=== PATIENT | male | born 1950 | race Caucasian/White ===

== ENCOUNTER 2021-03-16 08:20 | Outpatient (CLI) | payer SELFPAY | END 2021-03-16 08:21 | disposition critical access hospital (66) | LOC: EMS 08:20 | DX: R60.0 Localized edema (principal); R26.2 Difficulty in walking, not elsewhere classified; R06.01 Orthopnea | CPT/HCPCS: A0425; A0429 ==

== ENCOUNTER 2021-03-16 08:56 | Inpatient (IN) | payer SELFPAY ==
[2021-03-16] MEDS ORDERED: IPRATROPIUM/ALBUTEROL 3 ML NEB INH STA (09:10)
[2021-03-16] MEDS ORDERED: FUROSEMIDE 40 MG/4 ML VIAL IVP STA (09:10)
--- NOTE | 2021-03-16 09:11 | ED Physician Documentation ---
PD HPI DYSPNEA - Stated complaint Stated Complaint: DECREASED MOBILITY - Chief complaint Chief Complaint: Cardiac - History obtained from History obtained from: Patient, EMS - History of Present Illness Timing - onset: How many months ago (1-2 months of increased edema on both lower legs, hard to get around with general weakness from dyspnea and weight of legs/pain in them with walking. No purulence. Has weeping clear fluid from blisters on lower legs.) Timing - duration: Months (1-2 months progressive, with significant difficulty ambulating and marked dyspnea the past few days. He called EMS. He says he had been ambulatory, driving, and going to the store as recent as 2-3 months ago.) Timing - details: Gradual onset, Still present Inciting event(s): Exercise (just the level of activity of walking within house.). No: Out of meds, Emotional event Associated symptoms: Cough, Bilateral edema (progressive over 1-2 months.). No: Fever, Hemoptysis (but is coughing whitish at times.), Wheezing, Chest pain / discomfort Similar symptoms before: Has not had sx before Recently seen: Not recently seen (he does not like going to doctors so has not had PMD visit for years. He had been to walkin or such for refill of his ALbuterol inhaler.) Review of Systems Constitutional: reports: Myalgias, Fatigue. denies: Fever, Chills, Weight Loss Nose: denies: Rhinorrhea / runny nose, Congestion Throat: denies: Sore throat Cardiac: reports: Chest pain / pressure, Pedal edema. denies: Palpitations, Calf pain Respiratory: reports: Dyspnea, Cough, Wheezing GI: denies: Abdominal Pain, Vomiting, Diarrhea : denies: Dysuria, Frequency Skin: reports: Lesions (blisterings on lower legs with clear plasma weeping the past seeral days.) Musculoskeletal: reports: Extremity swelling. denies: Neck pain, Back pain Neurologic: reports: Generalized weakness, Altered mental status (feeling weaker and slower to process thoughts for several days or more.). denies: Focal weakness, Headache PD PAST MEDICAL HISTORY - Past Medical History Past Medical History: No Cardiovascular: None Respiratory: Asthma Neuro: None Endocrine/Autoimmune: None Psych: None - Present Medications Home Medications: Ambulatory Orders Medication Instructions Recorded Confirmed No Known Home Medications 03/16/21 03/16/21 - Allergies Allergies/Adverse Reactions: Allergies Allergy/AdvReac Type Severity Reaction Status Date / Time No Known Drug Allergies Allergy Verified 03/16/21 09:07 PD ED PE NORMAL - Vitals Vital signs reviewed: Yes - General General: Alert and oriented X 3, No acute distress, Well developed/nourished - HEENT HEENT: Atraumatic, Pharynx benign - Neck Neck: Supple, no meningeal sign, No adenopathy - Cardiac Cardiac: RRR, No murmur - Respiratory Respiratory: No: Clear bilaterally (some diffuse exp wheezing, noted also some fine crackles at both bases.) - Abdomen Abdomen: Normal bowel sounds, Soft, Non distended, No organomegaly, Other (tender epigastric without guarding. ) - Male Male : Deferred - Rectal Rectal: Deferred - Back Back: No CVA TTP - Derm Derm: Normal color, Warm and dry - Extremities Extremities: Other (3+ edema in both legs from knees on down. There is some tighhtness of skin anteriorly, but no redness/sores. No purulence, but some clear plasma fluid weeping front and back on lower lower legs.) - Neuro Neuro: Alert and oriented X 3, No motor deficit, Normal speech Results - Vitals Vitals: Vital Signs - 24 hr 03/16/21 03/16/21 03/16/21 09:01 09:14 09:44 Temperature 36.7 C Heart Rate 86 87 86 Respiratory 22 20 29 H Rate Blood Pressure 140/78 H 129/103 H 137/89 H O2 Saturation 97 98 100 03/16/21 03/16/21 09:50 11:35 Temperature Heart Rate 87 84 Respiratory 22 24 Rate Blood Pressure 146/93 H O2 Saturation 95 Oxygen O2 Source Room air - Labs Labs: Laboratory Tests 03/16/21 03/16/21 03/16/21 09:23 09:23 09:23 WBC 19.4 H RBC 4.29 L Hgb 13.7 L Hct 40.3 L MCV 93.9 MCH 31.9 H MCHC 34.0 RDW 11.7 L Plt Count 408 MPV 9.0 Neut # (Auto) Not Reportable Lymph # (Auto) Not Reportable [place] # (Auto) Not Reportable Eos # (Auto) Not Reportable Baso # (Auto) Not Reportable Absolute Nucleated RBC Not Reportable Total Counted 100 Band Neuts % (Manual) 1 Abnorm Lymph % (Manual) 0 Nucleated RBC % Not Reportable Neutrophils # (Manual) 16.5 H Lymphocytes # (Manual) 1.0 L Monocytes # (Manual) 1.7 H Eosinophils # (Manual) 0.0 Basophils # (Manual) 0.2 H Differential Comment MANUAL DIFFERENTIAL WBC Morphology 2+ TOXIC GRANULATION Platelet Estimate NORMAL (130-450,000) Platelet Morphology NORMAL APPEARANCE RBC Morph Micro Appear NORMAL APPEARANCE Sodium 117 L* Potassium 6.7 H* Chloride 89 L Carbon Dioxide 20 L Anion Gap 8.0 BUN 26 H Creatinine 1.1 Estimated GFR (MDRD) 66 L Glucose 109 H Lactic Acid Calcium 8.5 Magnesium 2.1 Total Bilirubin 1.0 AST 34 ALT 50 Alkaline Phosphatase 93 Total Creatine Kinase 53 Troponin I High Sens 5.9 B-Natriuretic Peptide Total Protein 5.5 L Albumin 2.6 L Globulin 2.9 Albumin/Globulin Ratio 0.9 L Lipase 48 Nasal Adenovirus (PCR) Nasal B. parapertussis DNA (PCR) Nasal Coronavir 229E PCR Nasal Coronavir HKU1 PCR Nasal Coronavir NL63 PCR Nasal Coronavir OC43 PCR Nasal Enterovir/Rhinovir PCR Nasal Influenza B PCR Nasal Influenza A PCR Nasal Parainfluen 1 PCR Nasal Parainfluen 2 PCR Nasal Parainfluen 3 PCR Nasal Parainfluen 4 PCR Nasal RSV (PCR) Nasal B.pertussis DNA PCR Nasal C.pneumoniae (PCR) [place] Human Metapneumo PCR Nasal M.pneumoniae (PCR) Nasal SARS-CoV-2 (PCR) 03/16/21 03/16/21 03/16/21 09:23 09:35 10:30 WBC RBC Hgb Hct MCV MCH MCHC RDW Plt Count MPV Neut # (Auto) Lymph # (Auto) [place] # (Auto) Eos # (Auto) Baso # (Auto) Absolute Nucleated RBC Total Counted Band Neuts % (Manual) Abnorm Lymph % (Manual) Nucleated RBC % Neutrophils # (Manual) Lymphocytes # (Manual) Monocytes # (Manual) Eosinophils # (Manual) Basophils # (Manual) Differential Comment WBC Morphology Platelet Estimate Platelet Morphology RBC Morph Micro Appear Sodium Potassium 6.2 H* Chloride Carbon Dioxide Anion Gap BUN Creatinine Estimated GFR (MDRD) Glucose Lactic Acid Calcium Magnesium Total Bilirubin AST ALT Alkaline Phosphatase Total Creatine Kinase Troponin I High Sens B-Natriuretic Peptide 37 Total Protein Albumin Globulin Albumin/Globulin Ratio Lipase Nasal Adenovirus (PCR) NOT DETECTED Nasal B. parapertussis DNA (PCR) NOT DETECTED Nasal Coronavir 229E PCR NOT DETECTED Nasal Coronavir HKU1 PCR NOT DETECTED Nasal Coronavir NL63 PCR NOT DETECTED Nasal Coronavir OC43 PCR NOT DETECTED Nasal Enterovir/Rhinovir PCR NOT DETECTED Nasal Influenza B PCR NOT DETECTED Nasal Influenza A PCR NOT DETECTED Nasal Parainfluen 1 PCR NOT DETECTED Nasal Parainfluen 2 PCR NOT DETECTED Nasal Parainfluen 3 PCR NOT DETECTED Nasal Parainfluen 4 PCR NOT DETECTED Nasal RSV (PCR) NOT DETECTED Nasal B.pertussis DNA PCR NOT DETECTED Nasal C.pneumoniae (PCR) NOT DETECTED [place] Human Metapneumo PCR NOT DETECTED Nasal M.pneumoniae (PCR) NOT DETECTED Nasal SARS-CoV-2 (PCR) NOT DETECTED 03/16/21 10:30 WBC RBC Hgb Hct MCV MCH MCHC RDW Plt Count MPV Neut # (Auto) Lymph # (Auto) [place] # (Auto) Eos # (Auto) Baso # (Auto) Absolute Nucleated RBC Total Counted Band Neuts % (Manual) Abnorm Lymph % (Manual) Nucleated RBC % Neutrophils # (Manual) Lymphocytes # (Manual) Monocytes # (Manual) Eosinophils # (Manual) Basophils # (Manual) Differential Comment WBC Morphology Platelet Estimate Platelet Morphology RBC Morph Micro Appear Sodium Potassium Chloride Carbon Dioxide Anion Gap BUN Creatinine Estimated GFR (MDRD) Glucose Lactic Acid 1.4 Calcium Magnesium Total Bilirubin AST ALT Alkaline Phosphatase Total Creatine Kinase Troponin I High Sens B-Natriuretic Peptide Total Protein Albumin Globulin Albumin/Globulin Ratio Lipase Nasal Adenovirus (PCR) Nasal B. parapertussis DNA (PCR) Nasal Coronavir 229E PCR Nasal Coronavir HKU1 PCR Nasal Coronavir NL63 PCR Nasal Coronavir OC43 PCR Nasal Enterovir/Rhinovir PCR Nasal Influenza B PCR Nasal Influenza A PCR Nasal Parainfluen 1 PCR Nasal Parainfluen 2 PCR Nasal Parainfluen 3 PCR Nasal Parainfluen 4 PCR Nasal RSV (PCR) Nasal B.pertussis DNA PCR Nasal C.pneumoniae (PCR) [place] Human Metapneumo PCR Nasal M.pneumoniae (PCR) Nasal SARS-CoV-2 (PCR) - Rads (name of study) chest xray Radiology: Prelim report reviewed (initial rotated, with repeat improved, showing no obvious CHF, no infiltrates. no acute process. ), See rad report PD MEDICAL DECISION MAKING - ED course Complexity details: reviewed results, re-evaluated patient, considered differential (seems like CHF with leg edema and dyspnea. But CXR not appearing bad and BNP low. Consider other reasons. Sodium very low and can account for weakness and feeling of confusion. ELevated K with normal enough renal insuff not really clear. ), d/w patient, d/w senior consultant Departure - Departure Disposition: 66 [facility] DC/Xfer Clinical Impression: Leg edema, COPD exacerbation, Bronchitis, Acute hyponatremia, Hyperkalemia Dyspnea Qualifiers: Dyspnea type: dyspnea on exertion Qualified Code(s): R06.00 - Dyspnea, unspecified Leukocytosis Qualifiers: Leukocytosis type: unspecified Qualified Code(s): D72.829 - Elevated white blood cell count, unspecified Condition: Stable Record reviewed to determine appropriate education?: Yes Discharge Date/Time: 03/16/21 13:05
[2021-03-16 09:30] LABS: BASOPHILS % (AUTO) 0.5 %; EOSINOPHILS % (AUTO) 0.4 %; HCT - HEMATOCRIT 40.3 % (42.0-52.0); HGB - HEMOGLOBIN 13.7 g/dL (14.0-18.0); LYMPHOCYTES % (AUTO) 3.5 %; MEAN CORPUSCULAR HEMOGLOBIN 31.9 pg (27.0-31.0); MEAN CORPUSCULAR VOLUME 93.9 fL (80.0-94.0); MONOCYTES % (AUTO) 8.8 %; NEUTROPHILS % (AUTO) 83.9 %; PLT - PLATELET COUNT 408 10^3/uL (130-450); RED BLOOD COUNT 4.29 10^6/uL (4.70-6.10); RED CELL DISTRIBUTION WIDTH 11.7 % (12.0-15.0); WHITE BLOOD COUNT 19.4 x10^3/uL (4.8-10.8)
[2021-03-16 09:32] LABS: ABNORMAL LYMPHS % (MANUAL) 0 %
--- NOTE | 2021-03-16 09:33 | XRAY Report ---
PROCEDURE: Chest 1 View X-Ray INDICATIONS: Chest Pain TECHNIQUE: One view of the chest was acquired. COMPARISON: None FINDINGS: Patient is markedly rotated. Surgical changes and devices: None. Lungs and pleura: Patient rotation limits evaluation. There is apparent lucency within the left base. However there appears to be lung markings within this region. Mediastinum: Mediastinal contours appear normal. Heart size is normal. Bones and chest wall: No suspicious bony lesions. Overlying soft tissues appear unremarkable. IMPRESSION: Significant patient rotation, limiting exam. No gross acute pulmonary process. However, repeat view i s recommended. Reviewed by: Laurie Torres MD on 03/16/2021 8:32 AM [facility] Approved by: Laurie Torres MD on 03/16/2021 8:32 AM [facility] Station ID: [id number]
[2021-03-16 09:57] LABS: ALBUMIN 2.6 g/dL (3.2-5.5); ALBUMIN/GLOBULIN RATIO 0.9 (1.0-2.2); CALCIUM 8.5 mg/dL (8.5-10.3); CREATININE 1.1 mg/dL (0.6-1.2); MAGNESIUM 2.1 mg/dL (1.7-2.8); TOTAL PROTEIN 5.5 g/dL (6.7-8.2)
[2021-03-16 10:03] LABS: POTASSIUM 6.7 mmol/L (3.5-5.0)
[2021-03-16 10:07] LABS: BAND NEUTROPHILS % (MANUAL) 1 %; BASOPHILS # (MANUAL) 0.2 10^3/uL (0-0.1); BASOPHILS % (MANUAL) 1 %; LYMPHOCYTES % (MANUAL) 5 %; MONOCYTES # (MANUAL) 1.7 10^3/uL (0.0-1.0); NEUTROPHILS # (MANUAL) 16.5 10^3/uL (1.5-6.6)
[2021-03-16 10:08] LABS: DIFFERENTIAL COMMENT MANUAL DIFFERENTIAL; PLATELET ESTIMATE, MANUAL NORMAL (130-450,000) (NORMAL); PLATELET MORPHOLOGY NORMAL APPEARANCE (NORMAL); RBC MORPHOLOGY (MULTIPLE) NORMAL APPEARANCE (NORMAL); WBC MORPHOLOGY (MULTIPLE) 2+ TOXIC GRANULATION (NORMAL)
--- OUTSIDE RECORDS SUMMARY | 2021-03-16 10:10 | EXTERNAL MEDICAL SUMMARY RPT | Continuity of Care Document ---
:1950 Demographics Phone Unavailable Preferred Language Unknown Marital Status Unknown Religion Affiliation Unknown Race Unknown Ethnic Group Unknown Author Organization [facility] Address [address] [id number] Phone Social History date description facility [phone]
[2021-03-16] MEDS ORDERED: SODIUM CHLORIDE 0.9% 1,000 ML IV STA (10:48)
[2021-03-16] MEDS ORDERED: CALCIUM GLUCONATE 1,000 MG in SODIUM CHLORIDE 0.9% 50 ML IV STA (10:48)
[2021-03-16] MEDS ORDERED: INSULIN REGULAR HUMAN 100 UNIT/1 ML 10 ML MDV IVP STA (10:49)
[2021-03-16] MEDS ORDERED: DEXTROSE 25% ABBOJECT 2.5 GM/10 ML SYRINGE IVP STA (10:50)
[2021-03-16 11:00] LABS: B. PARAPERTUSSIS- RESP PCR PAN NOT DETECTED; B. PERTUSSIS- RESP PCR PANEL NOT DETECTED; C. PNEUMONIAE- RESP PCR PANEL NOT DETECTED; CORONAVIRUS 229E-RESP PCR NOT DETECTED; CORONAVIRUS HKU1-RESP PCR NOT DETECTED; CORONAVIRUS NL63-RESP PCR NOT DETECTED; CORONAVIRUS OC43-RESP PCR NOT DETECTED; HUMAN METAPNEUMOVIRUS NOT DETECTED; INFLUENZA A- RESP PCR PANEL NOT DETECTED; INFLUENZA B - RESP PCR PANEL NOT DETECTED; M. PNEUMONIAE- RESP PCR PANEL NOT DETECTED; PARAINFLUENZA VIRUS 1 NOT DETECTED; PARAINFLUENZA VIRUS 2 NOT DETECTED; PARAINFLUENZA VIRUS 3 NOT DETECTED; PARAINFLUENZA VIRUS 4 NOT DETECTED; RHINOVIRUS/ENTEROVIRUS NOT DETECTED; RSV- RESP PCR PANEL NOT DETECTED; SARS-CoV-2 -RESP PCR PANEL NOT DETECTED
[2021-03-16] MEDS ORDERED: CALCIUM GLUCONATE 1000 MG/10 ML VIAL ONE (11:04)
[2021-03-16] MEDS ORDERED: DEXTROSE 5% 50 ML IV ONE (12:00)
[2021-03-16] MEDS ORDERED: ONDANSETRON ODT 4 MG TABLET TL PRN (12:14)
[2021-03-16] MEDS ORDERED: ONDANSETRON 4 MG/2 ML VIAL IVP PRN (12:14)
[2021-03-16] MEDS ORDERED: SODIUM CHLORIDE FLUSH 0.9% 10 ML SYRINGE IVP PRN (12:14)
[2021-03-16] MEDS ORDERED: oxyCODONE 5 MG TABLET PO PRN (12:14)
[2021-03-16 14:30] LABS: CALCIUM 8.7 mg/dL (8.5-10.3); CREATININE 1.3 mg/dL (0.6-1.2)
[2021-03-16] MEDS ORDERED: IOPAMIDOL-300 100 ML VIAL ONE ×2 (14:47→16:45)
--- NOTE | 2021-03-16 15:27 | HISTORY & PHYSICAL EXAMINATION ---
Chief Complaint - Chief Complaint Chief Complaint: SOB, Lower leg Swelling History of Present Illness - Admitted From Admitted From:: Brought in by EMS - History Obtained From Records Reviewed: [facility] History obtained from: Patient, ED Provider Exam Limitations: None - History of Present Illness HPI Comment/Other: Rodolfo is a 70 y.o. male brought in by EMS for worsening shortness of breath, increased work of breathing, and lower leg swelling. SOB, increased WOB, cough, and leg swelling has progressed over the past 3 months, though he states none of these issues have acutely changed. Pt tells, me he called EMS because his son Peter was worried about him surviving to his granddaughters in April. He denies chest pain or pressure, diaphoresis, numbness or tingling, headache, acute respiratory distress, fever, or chills. He has been using an albuterol inhaler for his SOB, and WOB which he says does help. He has poor appetite over the past month, only eating soda crackers and peanut butter through the day. He currently drinks 6 beers a day, stating last drink was yesterday evening. He presents to the ED with 3+ pitting edema in lower extremities with evidence of venous status. Labs were significant for potassium of 6.2 on confirmation repeat, Sodium of 117, WBC of 19. His CXR was unremarkable and CTA of Chest and Abdomen are pending at this time. Though there is significant artifact his EKG does show normal sinus rhythm. History - Past Medical History Cardiovascular: reports: None Respiratory: reports: None, Other (Has had annual "cold" for which he gets alberuterol prescribed from [facility]) Neuro: reports: None Endocrine/Autoimmune: reports: None GI: reports: None : reports: None Psych: reports: None Musculoskeletal: reports: None Derm: reports: None, Other MRSA Hx?: No - Past Surgical History HEENT: reports: Tonsil/Adenoidectomy - Family & Social History Family History: Mother: , Father: , COPD/Emphysema, Brother: Alive and Well Family History Comment/Other: Pts in 2000. He currently lives alone with his younger brother. His brother moved in approximately 3-4 months ago. He son, Torres lives locally. Living arrangement: At home Living Situation: With family - Substance History Use: Uses substance without health or social issues: Tobacco (2 pack per day smoking history. Quit in 2000), Alcohol (Drinks a six pack of beer a day. With last drink yesturday evening. ) Abuse: Recurrent use of substance despite neg consequences: NONE Dependence: Experiences withdrawal or developed tolerances: NONE, Other (States has never experienced alcohol withdrawal) Tobacco Details: Cigarettes, Other (Quit in 2000) - POLST Patient has POLST: No Meds/Allgy - Home Medications Home Medications: Ambulatory Orders Medication Instructions Recorded Confirmed No Known Home Medications 03/16/21 03/16/21 - Allergies Allergies/Adverse Reactions: Allergies Allergy/AdvReac Type Severity Reaction Status Date / Time No Known Drug Allergies Allergy Verified 03/16/21 09:07 Review of Systems - Constitutional Constitutional: reports: Weakness, Poor appetite. denies: Fatigue, Fever, Chills - Eyes Eyes: reports: Corrective lenses, Other (States increased difficulty reading in the last week) - Ears, Nose & Throat Ears, Nose & Throat: reports: Vertigo (balance issues associated only when tr elena to go down stairs.). denies: Ear pain - Cardiovascular Cariovascular: reports: Edema, Exertional dyspnea, Decr. exercise tolerance. denies: Irregular heart rate, Palpitations, Chest pain - Respiratory Respiratory: reports: Cough, Sputum production (clear white phlegm, occurs in the morning and easily cleared with cough) - Gastrointestinal Gastrointestinal: reports: Diarrhea (1-2 liquid stools a day), Poor appetite (States he only eatting). denies: Abdominal pain, Abdominal distention, Constipation, Nausea, Vomiting - Genitourinary Genitourinary: reports: Incontinence (occassional with nocturia, thinks this might be more related to difficulty getting to bathroom), Nocturia (1-2 urinations a night) - Musculoskeletal Musculoskeletal: denies: Muscle pain, Back pain, Stiffness - Neurological Neurological: denies: General weakness, Headache, Numbness - Psychiatric Psychiatric: denies: Depression, Anxiety, Suicidal - Hematologic/Lymphatic Hematologic/Lymphatic: reports: Petechiae. denies: Bruising, Blood clots Prior Level of Functionality: Rodolfo currently lives on his alone with his brother. Over past month has increased mobility difficulties and has been regulated to his futon. Exam - Vital Signs Reviewed Vital Signs: Yes Vital Signs: Vital Signs x48h Temp Pulse Resp BP Pulse Ox 03/16/21 13:00 93 28 H 132/81 H 99 03/16/21 11:35 84 24 146/93 H 95 03/16/21 09:50 87 22 03/16/21 09:44 86 29 H 137/89 H 100 03/16/21 09:14 87 20 129/103 H 98 03/16/21 09:01 36.7 C 86 22 140/78 H 97 - Physical Exam General Appearance: positive: No acute distress (Pt is 5'8" 85.5kg), Alert, Mild distress, Anxious (mild) Eyes Bilateral: positive: Normal inspection Neck: positive: Nml inspection Respiratory: positive: No respiratory distress, Other (barrel chested with pursed lip breathing. Diminished breath sounds bilaterally in lower shi.). negative: Chest non-tender Cardiovascular: positive: Regular rate & rhythm, No murmur, No gallop, Decreased pulse(s), Other (Distant heart sounds.) Peripheral Pulses: positive: 2+ (Radial), Other (1+ in BLE) Abdomen: positive: Non-tender, No organomegaly, Nml bowel sounds Back: positive: Nml inspection Skin: positive: Other (Venous stasis present bilaterally in lower extremities. Small petchiae present on upper thighs bilaterally.) Extremities: positive: Pedal edema, Calf tenderness Neurologic/Psychiatric: positive: Oriented x3, CN's nml (2-12), Sensation nml, Other (Tremor visible in BUE without arm extension) Conclusion/Plan - Problem List (1) Hyperkalemia Conclusion/Plan: Patient received IV insulin and calcium gluconate in the ED to treat elevated p otassium but did not receive dextrose per protocol. Suspect hyperkalemia is related to alcohol use and immobility. Will recheck BMP to reassess potassium level and glucose level. Will also add on CPK to assess for rhabdo which may be precipitating his hyperkalemic state. (2) Acute hyponatremia Conclusion/Plan: Concern this is not acute, but might be chronic is the setting of buttermaker continuous churn alcohol abuse. Pt currently has no neuro deficits execpt tremors, which likely related to alcohol abuse. Creatinine is 1.1 on admission, but no previous labs for comparison. Plan to provide gentle hydration and monitor trend with daily BMP to avoid overcorrection. (3) Dyspnea Conclusion/Plan: Likely related to worsening undiagnosed COPD. BNP level was normal. CXR showed no acute changes. Waiting on CTA to rule out PE. Will order echo to evaluate cardiac function. Qualifiers: Dyspnea type: dyspnea on exertion Qualified Code(s): R06.00 - Dyspnea, unspecified (4) Leukocytosis Conclusion/Plan: Elevated WBC without other signs of infection. Will monitor daily CBC. If patient presents with any other s/s of infection will order blood cultures and start empiric antibiotics. Qualifiers: Leukocytosis type: unspecified Qualified Code(s): D72.829 - Elevated white blood cell count, unspecified (5) Leg edema Conclusion/Plan: Supsect this is related to history alcohol abuse, Creatinine is slighted elevated but we do not have any previous labs for comparison. 3+ pitting edema BLE. Responded to well to IV lasix given in the ED. Will continue scheduled lasix, elevate his legs as able, and monitor for signs of intravascular depletion. (6) Alcohol abuse Conclusion/Plan: Pt currently drinks 6 beers a day, with last drink yesterday evening. We will place him on CIWAA protocol and replace thiamine and magnesium. Will check coagulation panel. - Lab Results Fish Bones: 03/16/21 09:23 03/16/21 14:11 Other Lab Results: Laboratory Results - last 24 hr 03/16/21 03/16/21 03/16/21 09:23 09:23 09:23 WBC 19.4 H RBC 4.29 L Hgb 13.7 L Hct 40.3 L MCV 93.9 MCH 31.9 H MCHC 34.0 RDW 11.7 L Plt Count 408 MPV 9.0 Neut # (Auto) Not Reportable Lymph # (Auto) Not Reportable Gulf # (Auto) Not Reportable Eos # (Auto) Not Reportable Baso # (Auto) Not Reportable Absolute Nucleated RBC Not Reportable Total Counted 100 Band Neuts % (Manual) 1 Abnorm Lymph % (Manual) 0 Nucleated RBC % Not Reportable Neutrophils # (Manual) 16.5 H Lymphocytes # (Manual) 1.0 L Monocytes # (Manual) 1.7 H Eosinophils # (Manual) 0.0 Basophils # (Manual) 0.2 H Differential Comment MANUAL DIFFERENTIAL WBC Morphology 2+ TOXIC GRANULATION Platelet Estimate NORMAL (130-450,000) Platelet Morphology NORMAL APPEARANCE RBC Morph Micro Appear NORMAL APPEARANCE Sodium 117 L* Potassium 6.7 H* Chloride 89 L Carbon Dioxide 20 L Anion Gap 8.0 BUN 26 H Creatinine 1.1 Estimated GFR (MDRD) 66 L Glucose 109 H Lactic Acid Calcium 8.5 Magnesium 2.1 Total Bilirubin 1.0 AST 34 ALT 50 Alkaline Phosphatase 93 Total Creatine Kinase 53 Troponin I High Sens 5.9 B-Natriuretic Peptide Total Protein 5.5 L Albumin 2.6 L Globulin 2.9 Albumin/Globulin Ratio 0.9 L Lipase 48 TSH Cortisol 4pm Sample Nasal Adenovirus (PCR) Nasal B. parapertussis DNA (PCR) Nasal Coronavir 229E PCR Nasal Coronavir HKU1 PCR Nasal Coronavir NL63 PCR Nasal Coronavir OC43 PCR Nasal Enterovir/Rhinovir PCR Nasal Influenza B PCR Nasal Influenza A PCR Nasal Parainfluen 1 PCR Nasal Parainfluen 2 PCR Nasal Parainfluen 3 PCR Nasal Parainfluen 4 PCR Nasal RSV (PCR) Nasal B.pertussis DNA PCR Nasal C.pneumoniae (PCR) Edouard Human Metapneumo PCR Nasal M.pneumoniae (PCR) Nasal SARS-CoV-2 (PCR) 03/16/21 03/16/21 03/16/21 09:23 09:35 10:30 WBC RBC Hgb Hct MCV MCH MCHC RDW Plt Count MPV Neut # (Auto) Lymph # (Auto) Gulf # (Auto) Eos # (Auto) Baso # (Auto) Absolute Nucleated RBC Total Counted Band Neuts % (Manual) Abnorm Lymph % (Manual) Nucleated RBC % Neutrophils # (Manual) Lymphocytes # (Manual) Monocytes # (Manual) Eosinophils # (Manual) Basophils # (Manual) Differential Comment WBC Morphology Platelet Estimate Platelet Morphology RBC Morph Micro Appear Sodium Potassium 6.2 H* Chloride Carbon Dioxide Anion Gap BUN Creatinine Estimated GFR (MDRD) Glucose Lactic Acid Calcium Magnesium Total Bilirubin AST ALT Alkaline Phosphatase Total Creatine Kinase Troponin I High Sens B-Natriuretic Peptide 37 Total Protein Albumin Globulin Albumin/Globulin Ratio Lipase TSH Cortisol 4pm Sample Nasal Adenovirus (PCR) NOT DETECTED Nasal B. parapertussis DNA (PCR) NOT DETECTED Nasal Coronavir 229E PCR NOT DETECTED Nasal Coronavir HKU1 PCR NOT DETECTED Nasal Coronavir NL63 PCR NOT DETECTED Nasal Coronavir OC43 PCR NOT DETECTED Nasal Enterovir/Rhinovir PCR NOT DETECTED Nasal Influenza B PCR NOT DETECTED Nasal Influenza A PCR NOT DETECTED Nasal Parainfluen 1 PCR NOT DETECTED Nasal Parainfluen 2 PCR NOT DETECTED Nasal Parainfluen 3 PCR NOT DETECTED Nasal Parainfluen 4 PCR NOT DETECTED Nasal RSV (PCR) NOT DETECTED Nasal B.pertussis DNA PCR NOT DETECTED Nasal C.pneumoniae (PCR) NOT DETECTED Edouard Human Metapneumo PCR NOT DETECTED Nasal M.pneumoniae (PCR) NOT DETECTED Nasal SARS-CoV-2 (PCR) NOT DETECTED 03/16/21 03/16/21 03/16/21 10:30 14:11 14:11 WBC RBC Hgb Hct MCV MCH MCHC RDW Plt Count MPV Neut # (Auto) Lymph # (Auto) Gulf # (Auto) Eos # (Auto) Baso # (Auto) Absolute Nucleated RBC Total Counted Band Neuts % (Manual) Abnorm Lymph % (Manual) Nucleated RBC % Neutrophils # (Manual) Lymphocytes # (Manual) Monocytes # (Manual) Eosinophils # (Manual) Basophils # (Manual) Differential Comment WBC Morphology Platelet Estimate Platelet Morphology RBC Morph Micro Appear Sodium 121 L Potassium 6.0 H* Chloride 90 L Carbon Dioxide 21 Anion Gap 10.0 BUN 30 H Creatinine 1.3 H Estimated GFR (MDRD) 54 L Glucose 133 H Lactic Acid 1.4 Calcium 8.7 Magnesium Total Bilirubin AST ALT Alkaline Phosphatase Total Creatine Kinase Troponin I High Sens B-Natriuretic Peptide Total Protein Albumin Globulin Albumin/Globulin Ratio Lipase TSH 4.30 Cortisol 4pm Sample Nasal Adenovirus (PCR) Nasal B. parapertussis DNA (PCR) Nasal Coronavir 229E PCR Nasal Coronavir HKU1 PCR Nasal Coronavir NL63 PCR Nasal Coronavir OC43 PCR Nasal Enterovir/Rhinovir PCR Nasal Influenza B PCR Nasal Influenza A PCR Nasal Parainfluen 1 PCR Nasal Parainfluen 2 PCR Nasal Parainfluen 3 PCR Nasal Parainfluen 4 PCR Nasal RSV (PCR) Nasal B.pertussis DNA PCR Nasal C.pneumoniae (PCR) Edouard Human Metapneumo PCR Nasal M.pneumoniae (PCR) Nasal SARS-CoV-2 (PCR) 03/16/21 03/16/21 16:03 16:03 WBC RBC Hgb Hct MCV MCH MCHC RDW Plt Count MPV Neut # (Auto) Lymph # (Auto) Gulf # (Auto) Eos # (Auto) Baso # (Auto) Absolute Nucleated RBC Total Counted Band Neuts % (Manual) Abnorm Lymph % (Manual) Nucleated RBC % Neutrophils # (Manual) Lymphocytes # (Manual) Monocytes # (Manual) Eosinophils # (Manual) Basophils # (Manual) Differential Comment WBC Morphology Platelet Estimate Platelet Morphology RBC Morph Micro Appear Sodium Potassium Chloride Carbon Dioxide Anion Gap BUN Creatinine Estimated GFR (MDRD) Glucose Lactic Acid Calcium Magnesium Total Bilirubin AST ALT Alkaline Phosphatase Total Creatine Kinase 75 Troponin I High Sens B-Natriuretic Peptide Total Protein Albumin Globulin Albumin/Globulin Ratio Lipase TSH Cortisol 4pm Sample 35.9 Nasal Adenovirus (PCR) Nasal B. parapertussis DNA (PCR) Nasal Coronavir 229E PCR Nasal Coronavir HKU1 PCR Nasal Coronavir NL63 PCR Nasal Coronavir OC43 PCR Nasal Enterovir/Rhinovir PCR Nasal Influenza B PCR Nasal Influenza A PCR Nasal Parainfluen 1 PCR Nasal Parainfluen 2 PCR Nasal Parainfluen 3 PCR Nasal Parainfluen 4 PCR Nasal RSV (PCR) Nasal B.pertussis DNA PCR Nasal C.pneumoniae (PCR) Edouard Human Metapneumo PCR Nasal M.pneumoniae (PCR) Nasal SARS-CoV-2 (PCR) - Diagnostic Imaging Results Diagnostic Imaging Results: positive: Prelim report reviewed Diagnostic Imaging Results Comments: CXR does not show and acute changes. - EKG Results EKG Interpreted Independently: Yes EKG Comparison: Old EKG unavailable EKG Findings: NSR
[2021-03-16] MEDS ORDERED: MAGNESIUM SULFATE 2 GRAM 2 GM/50 ML BAG IV ONE (16:00)
--- NOTE | 2021-03-16 17:26 | CT Report ---
PROCEDURE: ANGIO CHEST W/WO INDICATIONS: hypoxia, sob leg edema CONTRAST: IV CONTRAST: Isovue 300 ml: 100 PO CONTRAST: *NO PO CONTRAST TECHNIQUE: After the administration of intravenous contrast, 2 mm thick sections acquired from the pulmonary api keagan to the posterior costophrenic angles. 3-dimensional maximum intensity projection (MIP) coronal a nd sagittal reformats were then acquired through the thorax. For radiation dose reduction, the follow ing was used: automated exposure control, adjustment of mA and/or kV according to patient size. COMPARISON: Chest x-ray 03/16/2021 FINDINGS: Image quality: Excellent. Pulmonary arteries: Pulmonary arteries are normal in size, and demonstrate no intraluminal filling d efects to suggest central pulmonary embolism. Lungs and pleura: 6 mm nodule adjacent to the right major fissure on series 3 image 146 is present. N o pleural effusions or pneumothorax. Central and peripheral airways are patent. Mediastinum: Heart size is normal, without pericardial effusion. No mediastinal or hilar adenopathy . Thoracic aorta is normal in caliber and enhancement. Esophagus is normal in caliber, without hiat al hernia. Bones and chest wall: No suspicious bony lesions. Ribs and thoracic spine appear intact throughout. The thyroid is normal. No axillary or supraclavicular adenopathy. Abdomen: Liver is mildly enlarged with steatosis. There is a right adrenal mass measuring 2.5 cm AP by 2.4 cm transverse. Hounsfield units measure -28. Otherwise, visualized upper abdominal solid organ s appear normal in the early arterial phase of enhancement. IMPRESSION: 1. No pulmonary embolism. 2. Lungs are clear. 3. Right adrenal mass with Hounsfield units consistent with fat most suggestive of adenoma. Reviewed by: Laurie Torres MD on 03/16/2021 4:24 PM GUME Approved by: Laurie Torres MD on 03/16/2021 4:24 PM AKDT Station ID: [id number]
--- NOTE | 2021-03-16 17:28 | CT Report ---
PROCEDURE: Abdomen/Pelvis W INDICATIONS: severe leg edema w/o chf CONTRAST: IV CONTRAST: Isovue 300 ml: 100 PO CONTRAST: *NO PO CONTRAST TECHNIQUE: After the administration of intravenous contrast, 5 mm thick sections acquired from the diaphragms to the symphysis. 5 mm thick coronal and sagittal reformats were acquired. For radiation dose reducti on, the following was used: automated exposure control, adjustment of mA and/or kV according to marcelo ent size. COMPARISON: Concurrent CT of the chest. FINDINGS: Image quality: There is mild motion artifact. ABDOMEN: Lung bases: There is scarring within the inferior right middle lobe. Heart size is normal. Solid organs: There is heterogeneous hypoattenuation of the liver likely reflecting fatty infiltratio n. Gallbladder appears within normal limits without calcified gallstones. Biliary system is non dilat ed. The spleen is normal in size. Pancreas enhances normally without peripancreatic fat stranding or fluid collections. There is a right adrenal nodule measuring up to 2.6 cm with attenuation values s uggestive of a lipid rich adenoma. Kidneys demonstrate no hydronephrosis. There is a small left renal cyst. Peritoneum and bowel: Bowel loops demonstrate normal wall thickness and caliber. The appendix is nor mal in appearance. There is colonic diverticulosis without acute diverticulitis. No free fluid or ai r. Nodes and vessels: No retroperitoneal or mesenteric adenopathy by size criteria. Aorta and inferior vena cava are normal in size. Miscellaneous: No ventral hernias. PELVIS: Genitourinary: Bladder wall thickness is normal. Miscellaneous: No inguinal hernias or adenopathy. Bones: No suspicious bony lesions. No vertebral body compression fractures. IMPRESSION: 1. No definite acute intra-abdominal abnormality. 2. Colonic diverticulosis without acute diverticulitis. 3. Indeterminate right adrenal nodule with attenuation values suggestive of an adenoma. Further wisam cterization may be obtained with an adrenal protocol MRI or CT if clinically indicated. 4. Hepatic steatosis. Reviewed by: Valdemar Samaniego MD on 03/16/2021 5:27 PM PDT Approved by: Valdemar Samaniego MD on 03/16/2021 5:27 PM PDT Station ID: [id number]
[2021-03-16] MEDS: SODIUM CHLORIDE FLUSH 0.9% 10 ML SYRINGE IVP SCH ×2 (17:44→23:35)
[2021-03-16 21:48] LABS: MUDS CUTOFF CONCENTRATIONS CUTOFF CONC BELOW:
[2021-03-16 21:50] LABS: BILIRUBIN,URINE NEGATIVE (NEGATIVE); GLUCOSE, URINE (UA) NEGATIVE (NEGATIVE); KETONES,URINE (UA) NEGATIVE (NEGATIVE); LEUKOCYTE ESTERASE, URINE NEGATIVE (NEGATIVE); NITRITE,URINE NEGATIVE (NEGATIVE); OCCULT BLOOD,URINE NEGATIVE (NEGATIVE); PH,URINE 5.5 PH (5.0-7.5); PROTEIN,URINE NEGATIVE (NEGATIVE); UROBILINOGEN,URINE 0.2 (NORMAL) E.U./dL (NORMAL)
[2021-03-16 21:54] LABS: CLARITY,URINE CLEAR (CLEAR)
[2021-03-16 22:01] LABS: AMPHETAMINE SCREEN,URINE NEGATIVE (NEGATIVE); BARBITURATE SCREEN,UR NEGATIVE (NEGATIVE); BENZODIAZEPINES SCREEN, URINE NEGATIVE (NEGATIVE); COCAINE SCREEN URINE NEGATIVE (NEGATIVE); METHADONE SCREEN, URINE NEGATIVE (NEGATIVE); METHAMPHETAMINES SCREEN, URINE NEGATIVE (NEGATIVE); OPIATE SCREEN, URINE NEGATIVE (NEGATIVE); OXYCODONE SCREEN, URINE NEGATIVE (NEGATIVE); PROPOXYPHENE SCREEN, URINE NEGATIVE (NEGATIVE); THC CANNABINOID SCREEN, URINE NEGATIVE (NEGATIVE); TRICYCLIC ANTIDEPRESSANT,URINE NEGATIVE (NEGATIVE)
[2021-03-16 22:24] LABS: CALCIUM 8.4 mg/dL (8.5-10.3); CREATININE 1.1 mg/dL (0.6-1.2); POTASSIUM 5.3 mmol/L (3.5-5.0)
[2021-03-16] MEDS ORDERED: IOPAMIDOL-300 100 ML VIAL IVP ONE (22:28)
[2021-03-17] MEDS: BENZONATATE 100 MG CAPSULE PO PRN ×2 (00:01→17:39)
[2021-03-17] MEDS: ACETAMINOPHEN 325 MG TABLET PO PRN ×2 (00:01→17:39)
[2021-03-17] MEDS ORDERED: MIN OIL/DIMETHICON/COCONUT OIL 92 GM TUBE TOP PRN (05:06)
[2021-03-17 06:18] LABS: BASOPHILS % (AUTO) 0.3 %; EOSINOPHILS % (AUTO) 0.5 %; HCT - HEMATOCRIT 33.8 % (42.0-52.0); HGB - HEMOGLOBIN 11.9 g/dL (14.0-18.0); LYMPHOCYTES % (AUTO) 5.7 %; MEAN CORPUSCULAR HEMOGLOBIN 32.3 pg (27.0-31.0); MEAN CORPUSCULAR HGB CONC 35.2 g/dL (32.0-36.0); MEAN CORPUSCULAR VOLUME 91.8 fL (80.0-94.0); MEAN PLATELET VOLUME 8.8 fL (7.4-11.4); MONOCYTES % (AUTO) 14.5 %; NEUTROPHILS % (AUTO) 76.8 %; PLT - PLATELET COUNT 348 10^3/uL (130-450); RED BLOOD COUNT 3.68 10^6/uL (4.70-6.10); RED CELL DISTRIBUTION WIDTH 11.8 % (12.0-15.0); WHITE BLOOD COUNT 12.9 x10^3/uL (4.8-10.8)
[2021-03-17 06:23] LABS: ABNORMAL LYMPHS % (MANUAL) 0 %
[2021-03-17 06:52] LABS: CREATININE 1.2 mg/dL (0.6-1.2); MAGNESIUM 2.7 mg/dL (1.7-2.8); PHOSPHORUS 4.2 mg/dL (2.5-4.6); POTASSIUM 5.1 mmol/L (3.5-5.0)
[2021-03-17 07:12] LABS: BAND NEUTROPHILS % (MANUAL) 1 %; DIFFERENTIAL COMMENT MANUAL DIFFERENTIAL; LYMPHOCYTES # (MANUAL) 1.2 10^3/uL (1.5-3.5); LYMPHOCYTES % (MANUAL) 8 %; MONOCYTES # (MANUAL) 1.8 10^3/uL (0.0-1.0); MYELOCYTES % (MANUAL) 2 %; NEUTROPHILS # (MANUAL) 9.7 10^3/uL (1.5-6.6); REACTIVE LYMPHS % (MANUAL) 1 %
[2021-03-17] MEDS: ENOXAPARIN 40 MG/0.4 ML SYRINGE SUBQ SCH (08:44)
[2021-03-17] MEDS: SODIUM CHLORIDE FLUSH 0.9% 10 ML SYRINGE IVP SCH ×2 (08:44→17:21)
[2021-03-17] MEDS: FUROSEMIDE 20 MG/2 ML VIAL IVP SCH (08:44)
[2021-03-17] MEDS: MULTIVITAMIN 10 ML, THIAMINE INJ 100 MG, FOLIC ACID INJ 1 MG in SODIUM CHLORIDE 0.9% 1,... IV SCH (08:51)
--- NOTE | 2021-03-17 09:31 | PHARMACY PROGRESS NOTE ---
- Best Possible Medication History Admit Date and Time: 03/16/21 1214 Processed by: Nursing Medication History completed: Yes Patient Interview: Completed (MED REC COMPLETED BY NURSING) As the person ultimately responsible for medication therapy, providers are able to order a medication from an existing home medication list in [facility] via the "Reconcile Routine" prior to Confirmation of that medication by supportability engineer. Such practice is discouraged except when the physician, in their clinical judgment, deems that a medical need exists for a medication without regard to previous use.
--- NOTE | 2021-03-17 13:25 | PROVIDER PROGRESS NOTE ---
Assessment/Plan - Problem List (1) Hyperkalemia Assessment/Plan: Potassium level continues to trend down, this morning 5.1 from admit of 6.2. Continue daily BMP to reassess potassium level. CPK level unremarkable. Continue to monitor for s/s of hyperkalemia. (2) Acute hyponatremia Assessment/Plan: Concern this is not acute, but might be chronic is the setting of custodial alcohol abuse. Pt currently has no neuro deficits except tremors, which likely related to alcohol abuse. Creatinine stable this morning. 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 Will allow for slow increase in sodium level and monitor for s/s of osmotic demyelination syndrome. (3) Dyspnea Qualifiers: Dyspnea type: dyspnea on exertion Qualified Code(s): R06.00 - Dyspnea, unspecified Assessment/Plan: Likely related to worsening undiagnosed COPD. BNP level was normal. CXR showed no acute changes. CTA negative for PE. Awaiting Echo results to evaluate cardiac function. (4) Leukocytosis Qualifiers: Leukocytosis type: unspecified Qualified Code(s): D72.829 - Elevated white blood cell count, unspecified Assessment/Plan: Elevated WBC on admission, trending down. Will monitor daily CBC. Continue to monitor, if patient presents with any other s/s of infection will order blood cultures and start empiric antibiotics. (5) Leg edema Assessment/Plan: Suspect this is related to history alcohol abuse, Creatinine is slighted elevated but we do not have any previous labs for comparison. 3+ pitting edema BLE remains but improved from yesterday. Responding to Lasix. Will continue scheduled lasix, elevate his legs as able, and monitor for signs of intravascular depletion. (6) Alcohol abuse Assessment/Plan: Pt currently drinks 6 beers a day, with last drink 1 day POA. Coagulation panel unremarkable. Continue CIWAA monitoring and replacement of thiamine and mag. - Current Meds Current Meds: Current Medications Generic Name Dose Route Start Last Admin Trade Name Freq PRN Reason Stop Dose Admin Acetaminophen 650 mg 03/16/21 12:14 03/17/21 00:01 Acetaminophen 325 Mg Tablet PO 650 mg Q4HR PRN Administration Pain 1 to 4 Benzonatate 100 mg 03/16/21 23:42 03/17/21 00:01 Benzonatate 100 Mg Capsule PO 100 mg TID PRN Administration Cough Enoxaparin Sodium 40 mg 03/17/21 09:00 03/17/21 08:44 Enoxaparin 40 Mg/0.4 Ml Syringe SUBQ 40 mg DAILY VITO Administration Furosemide 20 mg 03/17/21 09:00 03/17/21 08:44 Furosemide 20 Mg/2 Ml Vial IVP 20 mg DAILY VITO Administration Multivitamins 10 ml/ Thiamine 1,011.2 mls @ 100 mls/hr 03/17/21 09:00 03/17/21 08:51 HCl 100 mg/ Folic Acid 1 mg/ IV 100 mls/hr Sodium Chloride DAILY VITO Administration Mineral Oil 1 applic 03/17/21 05:06 03/17/21 05:28 Min Oil/Dimethicon/Coconut Oil 92 Gm Tube TOP 1 applic PRN PRN Administration Skin Care Sodium Chloride 10 ml 03/16/21 17:00 03/17/21 08:44 Sodium Chloride Flush 0.9% 10 Ml Syringe IVP 10 ml 0100,0900,1700 VITO Administration - Lab Result Fish Bone Diagrams: 03/17/21 06:10 03/17/21 06:10 Subjective - Subjective Patient Reports: Feeling Better (Pt says legs feel better and able to move around easier.), Resting Comfortably, No Complaints Objective Vital Signs: Vital Signs - 24 hr 03/16/21 03/16/21 03/16/21 16:00 20:57 23:36 Temperature 36.4 C L 36.6 C 36.6 C Heart Rate [ 87 89 92 Brachial] Respiratory 20 18 16 Rate Blood Pressure 110/72 113/65 118/54 L [Right Brachial artery] O2 Saturation 98 96 95 03/17/21 03/17/21 05:00 12:20 Temperature 36.5 C 36.4 C L Heart Rate [ 81 95 Brachial] Respiratory 18 20 Rate Blood Pressure 107/60 98/69 [Right Brachial artery] O2 Saturation 95 97 Oxygen O2 Source Room air I&O (Last 24 Hrs): Intake and Output Totals x24h 03/15/21 03/16/21 03/17/21 23:59 23:59 23:59 Intake Total 2150.000 710 Output Total 501 1500 Balance 1649.000 -790 General: Alert, Oriented x3, Cooperative HEENT: Atraumatic Neck: Supple, No JVD Neuro: Alert, Non Focal, CN 2-12 Grossly Intact, Oriented Times 3 Cardiovascular: Regular rate, Normal S1, Normal S2 Respiratory: Breath sounds nml Abdomen: Normal bowel sounds, Soft, No tenderness, No masses Genitourinary: Normal Inspection Extremities: No clubbing, No cyanosis, Other (BLE 2+ pitting edema, improving.) Skin: No rashes Comments/Notes: Pt has venous stasis in BLE. Blistering present. Wrapped with kerlex. Less weeping from wounds from previous day. - Results Results: Laboratory Results WBC 12.9 x10^3/uL (4.8-10.8) H 03/17/21 06:10 RBC 3.68 10^6/uL (4.70-6.10) L 03/17/21 06:10 Hgb 11.9 g/dL (14.0-18.0) L 03/17/21 06:10 Hct 33.8 % (42.0-52.0) L 03/17/21 06:10 MCV 91.8 fL (80.0-94.0) 03/17/21 06:10 MCH 32.3 pg (27.0-31.0) H 03/17/21 06:10 MCHC 35.2 g/dL (32.0-36.0) 03/17/21 06:10 RDW 11.8 % (12.0-15.0) L 03/17/21 06:10 Plt Count 348 10^3/uL (130-450) 03/17/21 06:10 MPV 8.8 fL (7.4-11.4) 03/17/21 06:10 Neut # (Auto) Not Reportable 03/17/21 06:10 Lymph # (Auto) Not Reportable 03/17/21 06:10 [place] # (Auto) Not Reportable 03/17/21 06:10 Eos # (Auto) Not Reportable 03/17/21 06:10 Baso # (Auto) Not Reportable 03/17/21 06:10 Absolute Nucleated RBC Not Reportable 03/17/21 06:10 Total Counted 100 03/17/21 06:10 Band Neuts % (Manual) 1 % (0-10) 03/17/21 06:10 Reactive Lymphs % (Man) 1 % 03/17/21 06:10 Abnorm Lymph % (Manual) 0 % 03/17/21 06:10 Myelocytes % 2 % (-0) H 03/17/21 06:10 Nucleated RBC % Not Reportable 03/17/21 06:10 Neutrophils # (Manual) 9.7 10^3/uL (1.5-6.6) H 03/17/21 06:10 Lymphocytes # (Manual) 1.2 10^3/uL (1.5-3.5) L 03/17/21 06:10 Monocytes # (Manual) 1.8 10^3/uL (0.0-1.0) H 03/17/21 06:10 Eosinophils # (Manual) 0.0 10^3/uL (0-0.7) 03/17/21 06:10 Basophils # (Manual) 0.0 10^3/uL (0-0.1) 03/17/21 06:10 Differential Comment MANUAL DIFFERENTIAL 03/17/21 06:10 WBC Morphology 2+ TOXIC GRANULATION (NORMAL) 03/16/21 09:23 Platelet Estimate NORMAL (130-450,000) (NORMAL) 03/16/21 09:23 Platelet Morphology NORMAL APPEARANCE (NORMAL) 03/16/21 09:23 RBC Morph Micro Appear NORMAL APPEARANCE (NORMAL) 03/16/21 09:23 PT 11.0 secs (9.9-12.6) 03/17/21 06:10 INR 1.0 (0.8-1.2) 03/17/21 06:10 Sodium 120 mmol/L (135-145) L* 03/17/21 06:10 Potassium 5.1 mmol/L (3.5-5.0) H 03/17/21 06:10 Chloride 91 mmol/L (101-111) L 03/17/21 06:10 Carbon Dioxide 21 mmol/L (21-32) 03/17/21 06:10 Anion Gap 8.0 (6-13) 03/17/21 06:10 BUN 27 mg/dL (6-20) H 03/17/21 06:10 Creatinine 1.2 mg/dL (0.6-1.2) 03/17/21 06:10 Estimated GFR (MDRD) 60 (>89) L 03/17/21 06:10 Glucose 88 mg/dL (70-100) 03/17/21 06:10 POC Whole Bld Glucose 117 mg/dL (70 - 100) H 03/16/21 11:55 Lactic Acid 1.4 mmol/L (0.5-2.2) 03/16/21 10:30 Calcium 8.0 mg/dL (8.5-10.3) L 03/17/21 06:10 Phosphorus 4.2 mg/dL (2.5-4.6) 03/17/21 06:10 Magnesium 2.7 mg/dL (1.7-2.8) 03/17/21 06:10 Total Bilirubin 1.0 mg/dL (0.2-1.0) 03/16/21 09:23 GGT 56 IU/L (8-55) H 03/17/21 06:10 AST 34 IU/L (10-42) 03/16/21 09:23 ALT 50 IU/L (10-60) 03/16/21 09:23 Alkaline Phosphatase 93 IU/L (42-121) 03/16/21 09:23 Total Creatine Kinase 75 IU/L (22-269) 03/16/21 16:03 Troponin I High Sens 5.9 ng/L (2.3-19.7) 03/16/21 09:23 B-Natriuretic Peptide 37 pg/mL (5-100) 03/16/21 09:23 Total Protein 5.5 g/dL (6.7-8.2) L 03/16/21 09:23 Albumin 2.6 g/dL (3.2-5.5) L 03/16/21 09:23 Globulin 2.9 g/dL (2.1-4.2) 03/16/21 09:23 Albumin/Globulin Ratio 0.9 (1.0-2.2) L 03/16/21 09:23 Lipase 48 U/L (22-51) 03/16/21 09:23 TSH 4.30 uIU/mL (0.34-5.60) 03/16/21 14:11 Cortisol AM Sample 28.6 ug/dL 03/17/21 06:10 Cortisol 4pm Sample 35.9 ug/dL 03/16/21 16:03 Urine Color YELLOW 03/16/21 21:30 Urine Clarity CLEAR (CLEAR) 03/16/21 21:30 Urine pH 5.5 PH (5.0-7.5) 03/16/21 21:30 Ur Specific [place] 1.010 (1.002-1.030) 03/16/21 21:30 Urine Protein NEGATIVE mg/dL (NEGATIVE) 03/16/21 21:30 Urine Glucose (UA) NEGATIVE mg/dL (NEGATIVE) 03/16/21 21:30 Urine Ketones NEGATIVE mg/dL (NEGATIVE) 03/16/21 21:30 Urine Occult Blood NEGATIVE (NEGATIVE) 03/16/21 21:30 Urine Nitrite NEGATIVE (NEGATIVE) 03/16/21 21:30 Urine Bilirubin NEGATIVE (NEGATIVE) 03/16/21 21:30 Urine Urobilinogen 0.2 (NORMAL) E.U./dL (NORMAL) 03/16/21 21:30 Ur Leukocyte Esterase NEGATIVE (NEGATIVE) 03/16/21 21:30 Ur Microscopic Review NOT INDICATED 03/16/21 21:30 Urine Culture Comments NOT INDICATED 03/16/21 21:30 Urine Sodium < 12.0 mmol/L 03/16/21 21:30 Nasal Adenovirus (PCR) NOT DETECTED 03/16/21 09:35 Nasal B. parapertussis DNA (PCR) NOT DETECTED 03/16/21 09:35 Nasal Coronavir 229E PCR NOT DETECTED 03/16/21 09:35 Nasal Coronavir HKU1 PCR NOT DETECTED 03/16/21 09:35 Nasal Coronavir NL63 PCR NOT DETECTED 03/16/21 09:35 Nasal Coronavir OC43 PCR NOT DETECTED 03/16/21 09:35 Nasal Enterovir/Rhinovir PCR NOT DETECTED 03/16/21 09:35 Nasal Influenza B PCR NOT DETECTED 03/16/21 09:35 Nasal Influenza A PCR NOT DETECTED 03/16/21 09:35 Nasal Parainfluen 1 PCR NOT DETECTED 03/16/21 09:35 Nasal Parainfluen 2 PCR NOT DETECTED 03/16/21 09:35 Nasal Parainfluen 3 PCR NOT DETECTED 03/16/21 09:35 Nasal Parainfluen 4 PCR NOT DETECTED 03/16/21 09:35 Nasal RSV (PCR) NOT DETECTED 03/16/21 09:35 Nasal B.pertussis DNA PCR NOT DETECTED 03/16/21 09:35 Nasal C.pneumoniae (PCR) NOT DETECTED 03/16/21 09:35 [place] Human Metapneumo PCR NOT DETECTED 03/16/21 09:35 Nasal M.pneumoniae (PCR) NOT DETECTED 03/16/21 09:35 Nasal SARS-CoV-2 (PCR) NOT DETECTED 03/16/21 09:35 Urine Opiates Screen NEGATIVE (NEGATIVE) 03/16/21 21:30 Ur Oxycodone Screen NEGATIVE (NEGATIVE) 03/16/21 21:30 Urine Methadone Screen NEGATIVE (NEGATIVE) 03/16/21 21:30 Ur Propoxyphene Screen NEGATIVE (NEGATIVE) 03/16/21 21:30 Ur Barbiturates Screen NEGATIVE (NEGATIVE) 03/16/21 21:30 Ur Tricyclics Screen NEGATIVE (NEGATIVE) 03/16/21 21:30 Ur Phencyclidine Scrn NEGATIVE (NEGATIVE) 03/16/21 21:30 Ur Amphetamine Screen NEGATIVE (NEGATIVE) 03/16/21 21:30 U Methamphetamines Scrn NEGATIVE (NEGATIVE) 03/16/21 21:30 U Benzodiazepines Scrn NEGATIVE (NEGATIVE) 03/16/21 21:30 Urine Cocaine Screen NEGATIVE (NEGATIVE) 03/16/21 21:30 U Cannabinoids Screen NEGATIVE (NEGATIVE) 03/16/21 21:30 ABX Reporting Has patient been on IV antibiotics over the past 48 hours?: No Current Medications - Current Medications Current Medications: Active Medications Generic Name Dose Route Start Last Admin Trade Name Freq PRN Reason Stop Dose Admin Acetaminophen 650 mg 03/16/21 12:14 03/17/21 00:01 Acetaminophen 325 Mg Tablet PO 650 mg Q4HR PRN Administration Pain 1 to 4 Benzonatate 100 mg 03/16/21 23:42 03/17/21 00:01 Benzonatate 100 Mg Capsule PO 100 mg TID PRN Administration Cough Enoxaparin Sodium 40 mg 03/17/21 09:00 03/17/21 08:44 Enoxaparin 40 Mg/0.4 Ml Syringe SUBQ 40 mg DAILY VITO Administration Furosemide 20 mg 03/17/21 09:00 03/17/21 08:44 Furosemide 20 Mg/2 Ml Vial IVP 20 mg DAILY VITO Administration Multivitamins 10 ml/ Thiamine 1,011.2 mls @ 100 mls/hr 03/17/21 09:00 03/17/21 08:51 HCl 100 mg/ Folic Acid 1 mg/ IV 100 mls/hr Sodium Chloride DAILY VITO Administration Mineral Oil 1 applic 03/17/21 05:06 03/17/21 05:28 Min Oil/Dimethicon/Coconut Oil 92 Gm Tube TOP 1 applic PRN PRN Administration Skin Care Ondansetron HCl 4 mg 03/16/21 12:14 Ondansetron Odt 4 Mg Tablet TL Q6HR PRN Nausea / Vomiting Ondansetron HCl 4 mg 03/16/21 12:14 Ondansetron 4 Mg/2 Ml Vial IVP Q6HR PRN Nausea / Vomiting Oxycodone HCl 5 mg 03/16/21 12:14 Oxycodone 5 Mg Tablet PO Q4HR PRN Pain 5 to 7 Sodium Chloride 10 ml 03/16/21 12:14 Sodium Chloride Flush 0.9% 10 Ml Syringe IVP PRN PRN NEEDED PER PROVIDER ORDERS Sodium Chloride 10 ml 03/16/21 17:00 03/17/21 08:44 Sodium Chloride Flush 0.9% 10 Ml Syringe IVP 10 ml 0100,0900,1700 VITO Administration No Known Home Medications 03/16/21
[2021-03-17] MEDS: PHENOL THROAT SPRAY 177 ML MM PRN (21:03)
[2021-03-18] MEDS: ACETAMINOPHEN 325 MG TABLET PO PRN (00:13)
[2021-03-18] MEDS: SODIUM CHLORIDE FLUSH 0.9% 10 ML SYRINGE IVP SCH ×2 (00:14→08:55)
[2021-03-18] MEDS: BENZONATATE 100 MG CAPSULE PO PRN ×2 (02:00→08:55)
[2021-03-18] MEDS: BENZOCAINE/MENTHOL LOZENGE MM PRN ×2 (02:02→10:09)
[2021-03-18 05:43] LABS: BASOPHILS % (AUTO) 0.4 %; CALCIUM 7.5 mg/dL (8.5-10.3); EOSINOPHILS # (AUTO) 0.1 10^3/uL (0.0-0.7); EOSINOPHILS % (AUTO) 0.8 %; HCT - HEMATOCRIT 28.3 % (42.0-52.0); HGB - HEMOGLOBIN 9.9 g/dL (14.0-18.0); LYMPHOCYTES % (AUTO) 9.2 %; MEAN CORPUSCULAR VOLUME 94.3 fL (80.0-94.0); MEAN PLATELET VOLUME 9.1 fL (7.4-11.4); MONOCYTES # (AUTO) 1.3 10^3/uL (0.0-1.0); MONOCYTES % (AUTO) 12.1 %; NEUTROPHILS # (AUTO) 7.9 10^3/uL (1.5-6.6); NEUTROPHILS % (AUTO) 73.5 %; PLT - PLATELET COUNT 322 10^3/uL (130-450); POTASSIUM 4.4 mmol/L (3.5-5.0); RED CELL DISTRIBUTION WIDTH 11.9 % (12.0-15.0); WHITE BLOOD COUNT 10.8 x10^3/uL (4.8-10.8)
[2021-03-18] MEDS: MULTIVITAMIN 10 ML, THIAMINE INJ 100 MG, FOLIC ACID INJ 1 MG in SODIUM CHLORIDE 0.9% 1,... IV SCH (08:54)
[2021-03-18] MEDS: ENOXAPARIN 40 MG/0.4 ML SYRINGE SUBQ SCH (08:55)
[2021-03-18] MEDS: PHENOL THROAT SPRAY 177 ML MM PRN (08:55)
[2021-03-18] MEDS: FUROSEMIDE 20 MG/2 ML VIAL IVP SCH (08:55)
[2021-03-18 12:45] VITALS: BP 125/72
--- NOTE | 2021-03-18 15:17 | Discharge Plan ---
Discharge Plan Problem Reviewed?: Yes Disposition: Home Health Service Condition: Fair Diet: Regular Activity Restrictions: Activity as Tolerated Driving Restrictions: Yes (no driving if has drank any alcohol) Assistance Devices: Walker Instruction Topics: Alcoholism Health Concerns: You presented to our emergency room after being encouraged to do so by your son. You have not been doing well for the last few months and has been having gradually increasing leg edema, shortness of breath, severe fatigue, and were getting so weak it was getting difficult for you to even get up to take a bath or get dressed. We evaluated you for such things as congestive heart failure, pneumonia, heart attack, blood clot to the lungs. We found her to have severe, severe leg swelling and skin breakdown where the skin had been stretched very tightly. After obtaining your social history you drink approximately a 12 pack of IPA a day. You also eat crackers and some peanut butter as your sole source of nutrition. 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 This is where you obtain all your calories from beer and this resulted in malnutrition, leg edema, electrolyte disturbance. Once we hydrated you with normal saline, fed you a regular diet, and took the water out of your legs with Lasix, you improved tremendously. However you were still very weak, tired and would probably benefit from physical therapy in a senior care facility. The problem with that is that you are not signed up for any benefits. You do qualify and Medicare benefits kick in on March 20. You are also retired and most likely have benefits to the as well but you also have failed to sign up for those. As such you cannot go to a senior care facility unless you are private pay. Physical therapy is $2 a minute and the minimum rate of staying is for a month and can run very expensively to maybe $8000 a month. As such she will be discharged to home. Plan of Treatment: 1. Please stop drinking completely. I know it is hard for you to believe but alcohol is your enemy. 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 2. Please take a multivitamin and thiamine every day. This will reduce some of the brain damage still alcoholism causes. 3. Consider taking Meals on Wheels 3 times a day. This will bring nutritious food to your door that you can eat without having to make your own dinner. 4. Follow through with signing up on your Medicare and benefits because you will need those benefits as you move into the future. If you cannot stop drinking, you will continue to deteriorate and your life will be shorter than normal. It would be good for you to have benefits to help take care of you and your illnesses. Care Goals: To remain independently at home for as long as possible. To slowly regain good nutritional status. To slowly regain your strength to have normal activities such as walking, cleaning her house, dressing herself and cooking for yourself. Assessment: Patient states he will try to follow through on these goals. No Smoking: If you smoke, Please STOP! Call for help.
--- NOTE | 2021-03-18 15:21 | DISCHARGE SUMMARY ---
Discharge Summary Admit Date: 03/16/21 Discharge Date: 03/18/21 Discharging Provider: Tiesha Vieyra MD Primary Care Provider: patient needs to establish with one Code Status: Attempt Resuscitation Condition at Discharge: Fair Discharge Disposition: 01 Home, Self Care - DIAGNOSES Discharge Diagnoses with Status of Each Condition: 1. Acute hyponatremia 2. Hyperkalemia 3. Beer Poto chely 5. Alcohol abuse 6. Dyspnea 7. Leukocytosis due to demargination 8. Leg edema 9. Severe generalized weakness with - HPI History of Present Illness: Rodolfo is a 70 y.o. male brought in by EMS for worsening shortness of breath, increased work of breathing, and lower leg swelling. SOB, increased WOB, cough, and leg swelling has progressed over the past 3 months, though he states none of these issues have acutely changed. Pt tells, me he called EMS because his son Peter was worried about him surviving to his granddaughters in April. He denies chest pain or pressure, diaphoresis, numbness or tingling, headache, acute respiratory distress, fever, or chills. He has been using an albuterol inhaler for his SOB, and WOB which he says does help. He has poor appetite over the past month, only eating soda crackers and peanut butter through the day. He currently drinks 6 beers a day, stating last drink was yesterday evening. He presents to the ED with 3+ pitting edema in lower extremities with evidence of venous status. Labs were significant for potassium of 6.2 on confirmation repeat, Sodium of 117, WBC of 19. His CXR was unremarkable and CTA of Chest and Abdomen are pending at this time. Though there is significant artifact his EKG does show normal sinus rhythm. - Past Medical History Cardiovascular: reports: None Respiratory: reports: None, Other (Has had annual "cold" for which he gets alberuterol prescribed from [facility]) Neuro: reports: None Endocrine/Autoimmune: reports: None GI: reports: None : reports: None Psych: reports: None Musculoskeletal: reports: None Derm: reports: None, Other MRSA Hx?: No - Past Surgical History HEENT: reports: Tonsil/Adenoidectomy - CONSULTS | PROCEDURES Procedures: 1. Chest x-ray with significant patient rotation that limits the exam. No other acute gross pulmonary problem. 2. Chest thorax CT angiogram without pulmonary embolism. Lungs are clear. Right adrenal mass suggestive of adenoma there is 2.5 x 2.4 cm. [address]. Abdomen pelvis CT with no acute intra-abdominal abnormality. Colonic diverticulosis without diverticulitis. Indeterminate right adrenal nodule suggesting adenoma. Hepatic steatosis. 4. A.m. cortisol elevated at 28.6. 4 PM cortisol elevated at 35.9. 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 He is drinking 12 pack IPA a day for his nutritional intake. Rarely he will eat some saltine crackers with peanut butter and that is it. Echocardiogram had a normal ejection fraction of 60 to 65%. Mild right ventricular enlargement. Atria were normal size. No significant valvular heart disease. The patient was given a banana bag with vitamin B12 and folate and trace minerals. He was hydrated very gently and more than anything else diuresed. Leg edema was reduced substantially. His legs were tight, shiny, with skin that was breaking and serous drainage in those areas. This was on admission. By the time of discharge he had shrunk significantly and there was many wrinkles, and still res idual venous stasis dermatitis. Admission pictures show significant loss of superficial dermis with raw and oozing skin underneath especially on the right lateral leg. No evidence of cellulitis. The patient was eating 50 to 75% of his meals. Was able to sit up and ambulate to the bathroom but needed standby assist and was unsteady on his feet. Main problem was just the strength required for him to get to the edge of the bed and push to stand. Physical therapy evaluated and feels he will benefit from custodial facility benefit. However he has no insurance. Although he is meeting the criteria for Medicare, most likely Medicaid, and has veterans benefits he has never bothered signing up for them. His [id number] has signed him up for Medicare which starts March 20. Since he has no benefits to pay for custodial facility rehab, he is opted to self-pay respite care at [facility] until he gets stronger. He is to be discharged on Tylenol, Compazine, as needed meds. Exam at discharge had a temperature of 36.3. Pulse of 95. Blood pressure 125/72. Respirations 18. 100% on room air. He is 5 foot 8 inches tall and weighs 85.5 kg. He is a disheveled elderly gentleman who is manifesting memory loss. He is indignant that he is being transferred in the afternoon and thinks "it is too late in the day". He demands to stay another day and be transferred tomorrow morning. He asked me who I am and why am I making these decisions. When I remind him that I am his physician I have seen him every day multiple times for the last few days he denies that and says he has no idea who I am and is never met me before. Neck is supple. Lungs are clear to auscultation and percussion. PMI is normally placed with a regular rate and rhythm. The abdomen is soft, slightly distended, nontender, no hepatomegaly. The legs continue to have edema but are significantly more shrunken in size than when he was admitted. He still has redness of the distal tib-fib skin area. He has large sheets of skin where it has blistered and fallen off. There is some oozing. All compatible with venous stasis dermatitis but not cellulitis. Son is at the bedside and keeps on reassuring dad that the plan is "in place and let us go". Greater than 30 minutes was spent coordinating discharge. This document was made in part using voice recognition software. While efforts are made to proofread this document, sound alike and grammatical errors may occur. - ALLERGIES Allergies/Adverse Reactions: Allergies Allergy/AdvReac Type Severity Reaction Status Date / Time No Known Drug Allergies Allergy Verified 03/16/21 09:07 - MEDICATIONS Home Medications: Ambulatory Orders Medication Instructions Recorded Confirmed Acetaminophen [Tylenol] 650 mg PO Q6H PRN #30 tab 03/18/21 Multivitamin W/Minerals [Theragran 1 tab PO DAILYWM tablet 03/18/21 M] Prochlorperazine [Compazine] 5 mg PO Q6H #3 tablet 03/18/21 Thiamine [Vitamin B-1] 100 mg PO DAILY tablet 03/18/21 - LABS Result Diagrams: 03/18/21 05:20 03/18/21 05:20
--- NOTE | 2021-03-18 15:23 | Discharge Plan ---
Discharge Plan for SNF / MICHAEL - Discharge Plan And Transition Orders Problem Reviewed?: Yes Disposition: 01 Home, Self Care Condition: Fair Allergies and Adverse Reactions: Allergies Allergy/AdvReac Type Severity Reaction Status Date / Time No Known Drug Allergies Allergy Verified 03/16/21 09:07 Health Concerns: You presented to our emergency room after being encouraged to do so by your son. You have not been doing well for the last few months and has been having gradually increasing leg edema, shortness of breath, severe fatigue, and were getting so weak it was getting difficult for you to even get up to take a bath or get dressed. We evaluated you for such things as congestive heart failure, pneumonia, heart attack, blood clot to the lungs. We found her to have severe, severe leg swelling and skin breakdown where the skin had been stretched very tightly. After obtaining your social history you drink approximately a 12 pack of IPA a day. You also eat crackers and some peanut butter as your sole source of nutrition. 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 This is where you obtain all your calories from beer and this resulted in malnutrition, leg edema, electrolyte disturbance. Once we hydrated you with normal saline, fed you a regular diet, and took the water out of your legs with Lasix, you improved tremendously. However you were still very weak, tired and would probably benefit from physical therapy in a penitentiary facility. The problem with that is that you are not signed up for any healthcare benefits. You do qualify and Medicare benefits that your [id number] helped you sign up for kick in on March 20. You are also retired and most likely have benefits to the as well, but you also have failed to sign up for those. As such you cannot go to a penitentiary facility unless you are private pay. Physical therapy is $2 a minute and the minimum rate of staying is for a month and can run very expensively to maybe $8000 a month. As such, you have asked to be transferred to an Assisted Living Facility called [facility] for private pay respite care. Plan of Treatment: 1. Please stop drinking completely. I know it is hard for you to believe but alcohol is your enemy. 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 2. Please take a multivitamin and thiamine every day. This will reduce some of the brain damage still alcoholism causes. 3. Consider taking Meals on Wheels 3 times a day. This will bring nutritious food to your door that you can eat without having to make your own dinner. 4. Follow through with signing up on your Medicare and benefits because you will need those benefits as you move into the future. If you cannot stop drinking, you will continue to deteriorate and your life will be shorter than normal. It would be good for you to have benefits to help take care of you and your illnesses. Care Goals: To remain independently at home for as long as possible. To slowly regain good nutritional status. To slowly regain your strength to have normal activities such as walking, cleaning her house, dressing herself and cooking for yourself. Assessment: Patient states he will try to follow through on these goals. - SNF / INTERMEDIATE Transition Orders Admit to (Facility): [facility] for [facility] Discharge Diagnosis: 1. Acute hyponatremia 2. Hyperkalemia 3. Beer Potomania 5. Alcohol abuse 6. Dyspnea 7. Leukocytosis due to demargination 8. Leg edema 9. Severe generalized weakness Weight on admission and: Weekly Other Notification Orders: Call PCP immediately if patient develops dyspnea, chest pain/tightness or edema. House Bowel Program: Yes Additional Bowel Program Orders: If no BM after 2 days, nurse may give M.O.M. 30ml PO PRN and/or ducolax Supp 1 DE and/or LINDA 250mg P.O., and/or senna 1-2 tabs PO. On day 3 nurse may give repeat above order until residents constipation is resolved. Annual Influenza Vaccine (between Jul 21 and February 17): Yes Two-step PPD per [employer] [id number] or approved exception documents: Yes Medication Orders: PLEASE REFER TO THE DISCHARGE MEDICATION LIST. Insulin Orders?: No - Medications New Prescriptions: Prochlorperazine [Compazine] 5 mg PO Q6H #3 tablet Acetaminophen [Tylenol] 650 mg PO Q6H PRN #30 tab PRN Reason: Pain - Diet Type: Geriatric Texture: Regular Liquids: Thin May have monthly special meal: Yes - Therapies | Activity Rehabilitation Potential: Maximize functional status, Return to independent living Activity: Activity as Tolerated
[2021-03-19] MEDS ORDERED: MULTIVITAMIN W/MINERALS TABLET PO SCH (08:00)
[2021-03-19] MEDS ORDERED: THIAMINE 100 MG TABLET PO SCH (09:00)
== END 2021-03-18 16:49 | disposition home or self-care (01) | DRG 641 ==
LOC: EDUNIT# → ED 08:56 → MS2 12:14
PROVIDERS: ADMIT Specialist; ATTEND Specialist
DX: E87.1 Hypo-osmolality and hyponatremia (principal); E46 Unspecified protein-calorie malnutrition; F10.20 Alcohol dependence, uncomplicated; E87.5 Hyperkalemia; K70.30 Alcoholic cirrhosis of liver without ascites; J44.9 Chronic obstructive pulmonary disease, unspecified; Z68.28 Body mass index [BMI] 28.0-28.9, adult; R60.0 Localized edema; D72.828 Other elevated white blood cell count; I87.8 Other specified disorders of veins; R53.1 Weakness; R19.7 Diarrhea, unspecified; R32 Unspecified urinary incontinence; R35.1 Nocturia; H54.7 Unspecified visual loss; Z20.822 Contact with and (suspected) exposure to COVID-19; Z59.7 Insufficient social insurance and welfare support; Z87.891 Personal history of nicotine dependence
CPT/HCPCS: 0202U; 36415; 71045; 71275; 74177; 80048; 80053; 80306; 81003; 82272; 82533; 82550; 82977; 83605; 83690; 83735; 83880; 84100; 84132; 84300; 84443; 84484; 85025; 85610; 93005; 93306; 94640; 97161; A6250; A9270; J1650; J3411; J7040; Q9967; 81001; 87086; 96365; 96375; 99284

== ENCOUNTER 2021-04-19 12:27 | Outpatient (CLI) | payer OTHER ==
[2021-04-19 15:53] LABS: CREATININE 1.9 mg/dL (0.6-1.2); POTASSIUM 5.9 mmol/L (3.5-5.0)
== END 2021-04-19 12:28 | disposition home or self-care (01) ==
LOC: LAB.S 12:27
PROVIDERS: ATTEND Internal Medicine
DX: E87.1 Hypo-osmolality and hyponatremia (principal)
CPT/HCPCS: 36415; 80048

== ENCOUNTER 2021-04-19 16:42 | Outpatient (CLI) | payer OTHER | END 2021-04-19 16:43 | disposition EMS.NT | LOC: EMS 16:42 | DX: Z03.89 Encounter for observation for other suspected diseases and conditions ruled out (principal) ==

== ENCOUNTER 2021-04-23 14:09 | Outpatient (CLI) | payer OTHER ==
[2021-04-23 20:21] LABS: ALBUMIN 3.4 g/dL (3.2-5.5); ALKALINE PHOSPHATASE 106 IU/L (42-121); ALT ALANINE AMINOTRANSFERASE 24 IU/L (10-60); AST ASPARTATE AMINOTRANSFERASE 25 IU/L (10-42); BILIRUBIN,TOTAL 0.6 mg/dL (0.2-1.0); BUN - BLOOD UREA NITROGEN 59 mg/dL (6-20); CALCIUM 9.3 mg/dL (8.5-10.3); CARBON DIOXIDE - CO2 21 mmol/L (21-32); CHLORIDE 88 mmol/L (101-111); CREATININE 1.8 mg/dL (0.6-1.2); ETOH - ETHANOL < 5.0 mg/dL; GFR - MDRD 37 (>89); GLUCOSE 103 mg/dL (70-100); POTASSIUM 5.9 mmol/L (3.5-5.0); SODIUM 121 mmol/L (135-145); TOTAL PROTEIN 6.9 g/dL (6.7-8.2)
== END 2021-04-23 14:10 | disposition home or self-care (01) ==
LOC: LAB.S 14:09
PROVIDERS: ATTEND Internal Medicine
DX: E87.1 Hypo-osmolality and hyponatremia (principal); F10.10 Alcohol abuse, uncomplicated
CPT/HCPCS: 36415; 80053; 80320

== ENCOUNTER 2021-05-02 15:17 | Outpatient (CLI) | payer OTHER ==
[2021-05-02 18:46] LABS: ALBUMIN 3.4 g/dL (3.2-5.5); BILIRUBIN,TOTAL 0.4 mg/dL (0.2-1.0); CALCIUM 9.6 mg/dL (8.5-10.3); CREATININE 1.6 mg/dL (0.6-1.2); MAGNESIUM 2.4 mg/dL (1.7-2.8); POTASSIUM 5.9 mmol/L (3.5-5.0); TOTAL PROTEIN 6.9 g/dL (6.7-8.2)
== END 2021-05-02 15:18 | disposition home or self-care (01) ==
LOC: LAB.S 15:17
PROVIDERS: ATTEND Internal Medicine
DX: E87.1 Hypo-osmolality and hyponatremia (principal)
CPT/HCPCS: 36415; 80053; 81001; 83735; 83930; 83935; 84300; 87086

== ENCOUNTER 2021-06-14 07:22 | Outpatient (CLI) | payer OTHER ==
[2021-06-14 15:37] LABS: BILIRUBIN,URINE NEGATIVE (NEGATIVE); GLUCOSE, URINE (UA) NEGATIVE (NEGATIVE); KETONES,URINE (UA) NEGATIVE (NEGATIVE); LEUKOCYTE ESTERASE, URINE NEGATIVE (NEGATIVE); NITRITE,URINE NEGATIVE (NEGATIVE); OCCULT BLOOD,URINE NEGATIVE (NEGATIVE); PH,URINE 5.5 PH (5.0-7.5); PROTEIN,URINE NEGATIVE (NEGATIVE); UROBILINOGEN,URINE 0.2 (NORMAL) E.U./dL (NORMAL)
[2021-06-14 15:40] LABS: CLARITY,URINE CLOUDY (CLEAR)
[2021-06-14 15:48] LABS: ALBUMIN 2.7 g/dL (3.2-5.5); ALBUMIN/GLOBULIN RATIO 0.7 (1.0-2.2); BILIRUBIN,TOTAL 0.6 mg/dL (0.2-1.0); CALCIUM 9.4 mg/dL (8.5-10.3); CREATININE 1.1 mg/dL (0.6-1.2); POTASSIUM 4.3 mmol/L (3.5-5.0); TOTAL PROTEIN 6.6 g/dL (6.7-8.2)
[2021-06-14 16:06] LABS: RBC,URINE 0-5 /HPF (0-5); SQUAMOUS EPITHELIAL CELL,UR NONE SEEN (<= Few); WBC,URINE 0-3 /HPF (0-3)
[2021-06-14 16:07] LABS: AMORPHOUS SEDIMENT,UR Marked /LPF; BACTERIA,URINE Rare /HPF (None Seen)
== END 2021-06-14 07:23 | disposition home or self-care (01) ==
LOC: LAB.S 07:22
PROVIDERS: ATTEND Internal Medicine
DX: E87.5 Hyperkalemia (principal); E87.1 Hypo-osmolality and hyponatremia
CPT/HCPCS: 36415; 80053; 81001; 83935; 84300; 87086

== ENCOUNTER 2021-06-16 13:14 | Outpatient (CLI) | payer OTHER | END 2021-06-16 13:15 | disposition home or self-care (01) | LOC: LAB.R 13:14 | PROVIDERS: ATTEND Internal Medicine | DX: R89.5 Abnormal microbiological findings in specimens from other organs, systems and tissues (principal) | CPT/HCPCS: 87070; 87077; 87205 ==

== ENCOUNTER 2021-06-20 10:04 | Emergency (ER) | payer OTHER ==
--- NOTE | 2021-06-20 11:05 | ED Physician Documentation ---
PD HPI LOWER EXT INJURY - Stated complaint Stated Complaint: LEG SWELLING - Chief complaint Chief Complaint: Ext Problem - History obtained from History obtained from: Patient - Additional information Additional information: 70-year-old gentleman was admitted for a couple of days back in February with significant electrolyte abnormalities. They related to drinking. He no longer drinks, but is living at home and he has had ongoing issues and worsening with right greater than left leg cellulitis and swelling. Currently on Lasix 20 mg twice a day. That is his only lesion. He is in wound care, had a culture of the right leg done on June 16. It grew Pseudomonas, sensitivities still pending, group C strep, and Raoultella planticola Sensitive to Cipro and gentamicin. Review of Systems Constitutional: reports: Reviewed and negative Eyes: reports: Reviewed and negative Ears: reports: Reviewed and negative Nose: reports: Reviewed and negative Throat: reports: Reviewed and negative PD PAST MEDICAL HISTORY - Past Medical History Past Medical History: Yes Cardiovascular: None Respiratory: Asthma Neuro: None Endocrine/Autoimmune: None GI: None : None HEENT: None Psych: None Musculoskeletal: None Derm: Other - Past Surgical History Past Surgical History: Yes HEENT: Tonsil/Adenoidectomy - Present Medications Home Medications: Ambulatory Orders Medication Instructions Recorded Confirmed Acetaminophen [Tylenol] 650 mg PO Q6H PRN #30 tab 03/18/21 06/20/21 Albuterol Sulf [Ventolin Hfa 1 - 2 puffs INH Q4HR PRN 06/20/21 06/20/21 Inhaler] Ciprofloxacin HCl [Cipro] 500 mg PO BID #20 tablet 06/20/21 Furosemide [Lasix] 20 mg PO BID 06/20/21 06/20/21 Furosemide [Lasix] 40 mg PO BID #60 tablet 06/20/21 - Allergies Allergies/Adverse Reactions: Allergies Allergy/AdvReac Type Severity Reaction Status Date / Time No Known Drug Allergies Allergy Verified 06/20/21 10:11 - Social History Does the pt smoke?: No Smoking Status: Former smoker Does the pt drink ETOH?: Yes Does the pt have substance abuse?: No - Immunizations Immunizations are current?: Yes - POLST Patient has POLST: No PD ED PE NORMAL - Vitals Vital signs reviewed: Yes - General General: Alert and oriented X 3, No acute distress - HEENT HEENT: PERRL, EOMI - Neck Neck: Supple, no meningeal sign, No bony TTP - Cardiac Cardiac: RRR, No murmur - Respiratory Respiratory: No respiratory distress, Other (diminished B) - Abdomen Abdomen: Normal bowel sounds, Non tender - Extremities Extremities: Other (He has significant edema of both legs, with cellulitis and venous stasis changes. Feet are warm and well perfused. There is weeping of both legs.) - Neuro Neuro: Alert and oriented X 3, Normal speech Results - Vitals Vitals: Vital Signs - 24 hr 06/20/21 06/20/21 10:07 10:21 Temperature 36.7 C 36.9 C Heart Rate 101 H 99 Respiratory 18 18 Rate Blood Pressure 113/72 139/92 H O2 Saturation 100 100 Oxygen O2 Source Room air - Labs Labs: Laboratory Tests 06/20/21 06/20/21 11:15 11:15 WBC 13.7 H RBC 3.99 L Hgb 11.2 L Hct 35.0 L MCV 87.7 MCH 28.1 MCHC 32.0 RDW 14.4 Plt Count 472 H MPV 8.5 Neut # (Auto) 11.0 H Lymph # (Auto) 0.7 L [place] # (Auto) 1.2 H Eos # (Auto) 0.3 Baso # (Auto) 0.1 Absolute Nucleated RBC 0.00 Nucleated RBC % 0.0 Sodium 131 L Potassium 5.5 H Chloride 99 L Carbon Dioxide 23 Anion Gap 9.0 BUN 17 Creatinine 1.1 Estimated GFR (MDRD) 66 L Glucose 100 Calcium 9.0 Magnesium 2.3 Total Bilirubin 0.7 AST 21 ALT 19 Alkaline Phosphatase 100 Total Protein 6.3 L Albumin 2.7 L Globulin 3.6 Albumin/Globulin Ratio 0.8 L Ethyl Alcohol < 5.0 Departure - Departure Disposition: 01 Home, Self Care Clinical Impression: Cellulitis, leg Qualifiers: Laterality: right Qualified Code(s): L03.115 - Cellulitis of right lower limb Condition: Good Record reviewed to determine appropriate education?: Yes Instructions: Cellulitis Dc Prescriptions: Ciprofloxacin HCl [Cipro] 500 mg PO BID #20 tablet Furosemide [Lasix] 40 mg PO BID #60 tablet Comments: I am increasing your water pill to 40 mg twice a day, and starting an antibiotic. The wound culture done the other day still has 1 part of it still pending and you may need to have a change in antibiotics. Follow-up with your doctor in about 2 to 3 days to discuss. Return for new or worsening symptoms.
[2021-06-20 11:22] LABS: BASOPHILS # (AUTO) 0.1 10^3/uL (0.0-0.1); BASOPHILS % (AUTO) 0.7 %; EOSINOPHILS # (AUTO) 0.3 10^3/uL (0.0-0.7); EOSINOPHILS % (AUTO) 2.5 %; HGB - HEMOGLOBIN 11.2 g/dL (14.0-18.0); LYMPHOCYTES # (AUTO) 0.7 10^3/uL (1.5-3.5); LYMPHOCYTES % (AUTO) 4.9 %; MEAN CORPUSCULAR HEMOGLOBIN 28.1 pg (27.0-31.0); MEAN CORPUSCULAR VOLUME 87.7 fL (80.0-94.0); MEAN PLATELET VOLUME 8.5 fL (7.4-11.4); MONOCYTES # (AUTO) 1.2 10^3/uL (0.0-1.0); MONOCYTES % (AUTO) 8.5 %; NEUTROPHILS % (AUTO) 80.5 %; PLT - PLATELET COUNT 472 10^3/uL (130-450); RED BLOOD COUNT 3.99 10^6/uL (4.70-6.10); RED CELL DISTRIBUTION WIDTH 14.4 % (12.0-15.0); WHITE BLOOD COUNT 13.7 x10^3/uL (4.8-10.8)
[2021-06-20 11:36] LABS: ALBUMIN 2.7 g/dL (3.2-5.5); ALBUMIN/GLOBULIN RATIO 0.8 (1.0-2.2); ALKALINE PHOSPHATASE 100 IU/L (42-121); ALT ALANINE AMINOTRANSFERASE 19 IU/L (10-60); AST ASPARTATE AMINOTRANSFERASE 21 IU/L (10-42); BILIRUBIN,TOTAL 0.7 mg/dL (0.2-1.0); BUN - BLOOD UREA NITROGEN 17 mg/dL (6-20); CARBON DIOXIDE - CO2 23 mmol/L (21-32); CHLORIDE 99 mmol/L (101-111); CREATININE 1.1 mg/dL (0.6-1.2); ETOH - ETHANOL < 5.0 mg/dL; GFR - MDRD 66 (>89); GLUCOSE 100 mg/dL (70-100); MAGNESIUM 2.3 mg/dL (1.7-2.8); POTASSIUM 5.5 mmol/L (3.5-5.0); SODIUM 131 mmol/L (135-145); TOTAL PROTEIN 6.3 g/dL (6.7-8.2)
[2021-06-20 12:09] VITALS: BP 122/71
== END 2021-06-20 12:15 | disposition home or self-care (01) ==
LOC: ED 10:04
DX: L03.115 Cellulitis of right lower limb (principal); Z87.891 Personal history of nicotine dependence
CPT/HCPCS: 36415; 80053; 80320; 83735; 85025; 99283; 99284

== ENCOUNTER 2021-08-18 08:00 | Outpatient (CLI) | payer OTHER | END 2021-08-18 23:59 | disposition home or self-care (01) | LOC: LAB.S 08:00 | PROVIDERS: ATTEND Internal Medicine | DX: S81.809A Unspecified open wound, unspecified lower leg, initial encounter (principal) | CPT/HCPCS: 87070; 87077; 87181; 87205 ==

== ENCOUNTER 2021-12-13 16:40 | Outpatient (CLI) | payer OTHER ==
[2021-12-13 17:09] LABS: BASOPHILS # (AUTO) 0.1 10^3/uL (0.0-0.1); BASOPHILS % (AUTO) 1.3 %; EOSINOPHILS # (AUTO) 0.7 10^3/uL (0.0-0.7); EOSINOPHILS % (AUTO) 8.6 %; HCT - HEMATOCRIT 29.3 % (42.0-52.0); HGB - HEMOGLOBIN 9.8 g/dL (14.0-18.0); LYMPHOCYTES # (AUTO) 0.8 10^3/uL (1.5-3.5); LYMPHOCYTES % (AUTO) 10.2 %; MEAN CORPUSCULAR HEMOGLOBIN 31.3 pg (27.0-31.0); MEAN CORPUSCULAR HGB CONC 33.4 g/dL (32.0-36.0); MEAN CORPUSCULAR VOLUME 93.6 fL (80.0-94.0); MEAN PLATELET VOLUME 8.8 fL (7.4-11.4); MONOCYTES # (AUTO) 1.2 10^3/uL (0.0-1.0); MONOCYTES % (AUTO) 13.9 %; NEUTROPHILS # (AUTO) 5.1 10^3/uL (1.5-6.6); PLT - PLATELET COUNT 400 10^3/uL (130-450); RED BLOOD COUNT 3.13 10^6/uL (4.70-6.10); RED CELL DISTRIBUTION WIDTH 17.6 % (12.0-15.0); WHITE BLOOD COUNT 8.3 x10^3/uL (4.8-10.8)
[2021-12-13 17:17] LABS: CALCIUM 7.9 mg/dL (8.5-10.3); CREATININE 1.2 mg/dL (0.6-1.2); POTASSIUM 4.8 mmol/L (3.5-5.0)
== END 2021-12-13 16:41 | disposition home or self-care (01) ==
LOC: LAB.R 16:40
PROVIDERS: ATTEND Internal Medicine
DX: L97.909 Non-pressure chronic ulcer of unspecified part of unspecified lower leg with unspecified severity (principal)
CPT/HCPCS: 80048; 85025

== ENCOUNTER 2022-02-11 14:52 | Outpatient (CLI) | payer MEDICARE | END 2022-02-11 14:53 | disposition critical access hospital (66) | LOC: EMS 14:52 | DX: M79.89 Other specified soft tissue disorders (principal); R23.8 Other skin changes | CPT/HCPCS: A0425; A0429 ==

== ENCOUNTER 2022-03-25 14:00 | Outpatient (CLI) | payer MEDICARE | END 2022-03-25 23:59 | disposition home or self-care (01) | LOC: LAB.R 14:00 | PROVIDERS: ATTEND Registered Nurse | DX: R89.5 Abnormal microbiological findings in specimens from other organs, systems and tissues (principal) | CPT/HCPCS: 87070; 87077; 87181; 87205 ==

== ENCOUNTER 2022-04-26 21:18 | Inpatient (IN) | payer MEDICARE, OTHER ==
[2022-04-26] MEDS ORDERED: ACETAMINOPHEN 500 MG TABLET PO ONE (21:36)
[2022-04-26] MEDS ORDERED: cefTRIAXone 1 GM VIAL ONE (23:37)
[2022-04-26] MEDS ORDERED: VANCOMYCIN 1 GM VIAL ONE ×2 (23:37→23:48)
[2022-04-27] MEDS ORDERED: BENZONATATE 100 MG CAPSULE PO ONE (01:52)
[2022-04-27] MEDS ORDERED: ENOXAPARIN 40 MG/0.4 ML SYRINGE SUBQ ONE (10:53)
[2022-04-27] MEDS ORDERED: SACCHAROMYCES BOULARDII 250 MG CAPSULE ONE ×2 (10:53→16:42)
[2022-04-27] MEDS ORDERED: SODIUM CHLORIDE 0.9% 1,000 ML IV ONE ×2 (10:53→22:18)
[2022-04-27] MEDS ORDERED: HYDROcod/ACETAM 5/325 MG TABLET ONE ×2 (11:39→18:26)
[2022-04-27] MEDS: SODIUM CHLORIDE 0.9% 1,000 ML IV SCH ×2 (14:00→22:10)
[2022-04-27] MEDS ORDERED: ONDANSETRON 4 MG/2 ML VIAL IVP PRN (14:00)
[2022-04-27] MEDS: SACCHAROMYCES BOULARDII 250 MG CAPSULE PO SCH ×2 (14:00→20:54)
[2022-04-27] MEDS ORDERED: VANCOMYCIN INJ 1 GM in SODIUM CHLORIDE 0.9% 250 ML IV SCH (14:00)
[2022-04-27] MEDS ORDERED: PROCHLORPERAZINE 10 MG/2 ML VIAL IVP PRN (14:00)
[2022-04-27] MEDS ORDERED: cefTRIAXone 1 GM in SODIUM CHLORIDE 0.9% MINIBAG 100 ML IV SCH ×2 (15:00→16:44)
[2022-04-27] MEDS: VANCOMYCIN INJ 1 GM in SODIUM CHLORIDE 0.9% 250 ML IV SCH (17:00)
[2022-04-27] MEDS ORDERED: VANCOMYCIN 1 GM VIAL ONE (17:07)
[2022-04-27] MEDS: ENOXAPARIN 40 MG/0.4 ML SYRINGE SUBQ SCH (20:54)
[2022-04-27] MEDS: ACETAMINOPHEN 325 MG TABLET PO PRN (22:14)
[2022-04-27] MEDS ORDERED: ACETAMINOPHEN 325 MG TABLET PO ONE (22:24)
[2022-04-27] MEDS ORDERED: cefTRIAXone 1 GM VIAL ONE (23:40)
[2022-04-27] MEDS ORDERED: SODIUM CHLORIDE 0.9% 100ML 100 ML IV ONE (23:40)
[2022-04-28 00:45] LABS: CALCIUM 9.2 mg/dL (8.5-10.3); CREATININE 1.1 mg/dL (0.6-1.2); POTASSIUM 4.1 mmol/L (3.5-5.0)
[2022-04-28 00:47] LABS: BASOPHILS # (AUTO) 0.1 10^3/uL (0.0-0.1); BASOPHILS % (AUTO) 0.3 %; HCT - HEMATOCRIT 34.8 % (42.0-52.0); HGB - HEMOGLOBIN 11.9 g/dL (14.0-18.0); LYMPHOCYTES # (AUTO) 0.2 10^3/uL (1.5-3.5); LYMPHOCYTES % (AUTO) 0.8 %; MEAN CORPUSCULAR HEMOGLOBIN 33.1 pg (27.0-31.0); MEAN CORPUSCULAR HGB CONC 34.2 g/dL (32.0-36.0); MEAN CORPUSCULAR VOLUME 96.7 fL (80.0-94.0); MONOCYTES # (AUTO) 1.1 10^3/uL (0.0-1.0); MONOCYTES % (AUTO) 4.2 %; NEUTROPHILS # (AUTO) 23.4 10^3/uL (1.5-6.6); NEUTROPHILS % (AUTO) 92.6 %; PLT - PLATELET COUNT 303 10^3/uL (130-450); RED CELL DISTRIBUTION WIDTH 12.8 % (12.0-15.0); WHITE BLOOD COUNT 25.3 x10^3/uL (4.8-10.8)
[2022-04-28 00:48] LABS: BILIRUBIN,URINE NEGATIVE (NEGATIVE); CLARITY,URINE CLEAR (CLEAR); GLUCOSE, URINE (UA) NEGATIVE (NEGATIVE); KETONES,URINE (UA) NEGATIVE (NEGATIVE); LEUKOCYTE ESTERASE, URINE NEGATIVE (NEGATIVE); NITRITE,URINE NEGATIVE (NEGATIVE); OCCULT BLOOD,URINE TRACE-INTA (NEGATIVE); PH,URINE 5.5 PH (5.0-7.5); PROTEIN,URINE 30 mg/dL (NEGATIVE); UROBILINOGEN,URINE 0.2 (NORMAL) E.U./dL (NORMAL)
[2022-04-28 00:49] LABS: BACTERIA,URINE Rare /HPF (None Seen); RBC,URINE 0-5 /HPF (0-5); SQUAMOUS EPITHELIAL CELL,UR RARE Squamous (<= Few); WBC,URINE 0-3 /HPF (0-3)
[2022-04-28 00:50] LABS: CASTS, URINE 0-2 Granular Casts /LPF
[2022-04-28 00:51] LABS: ALBUMIN 3.1 g/dL (3.2-5.5); ALBUMIN/GLOBULIN RATIO 0.7 (1.0-2.2); BILIRUBIN,TOTAL 0.9 mg/dL (0.2-1.0); CALCIUM 9.2 mg/dL (8.5-10.3); CREATININE 1.2 mg/dL (0.6-1.2); POTASSIUM 4.4 mmol/L (3.5-5.0); TOTAL PROTEIN 7.3 g/dL (6.7-8.2)
[2022-04-28 00:55] LABS: B. PARAPERTUSSIS- RESP PCR PAN NOT DETECTED; B. PERTUSSIS- RESP PCR PANEL NOT DETECTED; C. PNEUMONIAE- RESP PCR PANEL NOT DETECTED; CORONAVIRUS 229E-RESP PCR NOT DETECTED; CORONAVIRUS HKU1-RESP PCR NOT DETECTED; CORONAVIRUS NL63-RESP PCR NOT DETECTED; CORONAVIRUS OC43-RESP PCR NOT DETECTED; HUMAN METAPNEUMOVIRUS NOT DETECTED; INFLUENZA A- RESP PCR PANEL NOT DETECTED; INFLUENZA B - RESP PCR PANEL NOT DETECTED; M. PNEUMONIAE- RESP PCR PANEL NOT DETECTED; PARAINFLUENZA VIRUS 1 NOT DETECTED; PARAINFLUENZA VIRUS 2 NOT DETECTED; PARAINFLUENZA VIRUS 3 NOT DETECTED; PARAINFLUENZA VIRUS 4 NOT DETECTED; RHINOVIRUS/ENTEROVIRUS NOT DETECTED; RSV- RESP PCR PANEL NOT DETECTED; SARS-CoV-2 -RESP PCR PANEL NOT DETECTED
[2022-04-28] MEDS: HYDROcod/ACETAM 5/325 MG TABLET PO PRN ×3 (02:03→16:32)
[2022-04-28] MEDS ORDERED: ACETAMINOPHEN 325 MG TABLET PO ONE (02:03)
[2022-04-28] MEDS ORDERED: HYDROcod/ACETAM 5/325 MG TABLET ONE ×4 (02:11→16:41)
[2022-04-28] MEDS ORDERED: MORPHINE 2 MG/ML CARPUJECT ONE (04:18)
[2022-04-28] MEDS: VANCOMYCIN INJ 1 GM in SODIUM CHLORIDE 0.9% 250 ML IV SCH ×2 (05:11→17:29)
[2022-04-28] MEDS ORDERED: VANCOMYCIN 1 GM VIAL ONE ×2 (05:14→17:38)
[2022-04-28] MEDS ORDERED: SODIUM CHLORIDE 0.9% 250 ML IV ONE (05:14)
--- NOTE | 2022-04-28 07:33 | PROVIDER PROGRESS NOTE ---
Subjective - Prog Note Date Prog Note Date: 04/28/22 - Subjective Subjective: He feels much better today. He still has pain in both of his feet but he feels like his mind is much more clear. No shortness of breath. Current Medications - Current Medications Current Medications: Active Medications Acetaminophen (Acetaminophen 325 Mg Tablet) 650 mg PO Q4H PRN PRN Reason: Mild Pain Last Admin: 04/27/22 22:14 Dose: 650 mg Hydrocodone Bitart/Acetaminophen (Hydrocod/Acetam 5/325 Mg Tablet) 1 - 2 tab PO Q6HR PRN PRN Reason: MODERATE PAIN Last Admin: 04/28/22 02:03 Dose: 1 tab Enoxaparin Sodium (Enoxaparin 40 Mg/0.4 Ml Syringe) 40 mg SUBQ DAILY [facility] Last Admin: 04/27/22 20:54 Dose: Not Given Sodium Chloride (Normal Saline 0.9%) 1,000 mls @ 100 mls/hr IV .Q10H [facility] Stop: 04/28/22 09:59 Last Infusion: 04/28/22 06:41 Dose: 100 mls/hr Vancomycin HCl 1 gm/ Sodium (Chloride) 250 mls @ 167 mls/hr IV Q12H [facility] Last Infusion: 04/28/22 06:53 Dose: Infused Ceftriaxone Sodium 2 gm/ (Sodium Chloride) 100 mls @ 200 mls/hr IV DAILY [facility] Ondansetron HCl (Ondansetron 4 Mg/2 Ml Vial) 4 mg IVP Q6HR PRN PRN Reason: NAUSEA Prochlorperazine Edisylate (Prochlorperazine 10 Mg/2 Ml Vial) 10 mg IVP Q6HR PRN PRN Reason: SEVERE NAUSEA Saccharomyces Boulardii (Saccharomyces Boulardii 250 Mg Capsule) 250 mg PO BIDWM [facility] Last Admin: 04/27/22 20:54 Dose: Not Given Furosemide [Lasix] 20 mg PO BID 06/20/21 Objective - Vital Signs/Intake & Output Reviewed Vital Signs: Yes Vital Signs: Vital Signs x48h Temp Pulse Resp BP Pulse Ox 04/28/22 07:24 36.3 C L 92 18 106/58 L 97 04/28/22 05:15 36.4 C L 86 18 105/55 L 96 04/27/22 23:46 36.4 C L 85 18 104/57 L 98 Intake & Output: Intake & Output 04/25/22 04/26/22 04/27/22 04/28/22 23:59 23:59 23:59 23:59 Intake Total 4939.441 7070 Output Total 100 Balance 1393.333 965 - Objective General Appearance: positive: No acute distress, Alert Eyes Bilateral: positive: Normal inspection, Conjunctivae nml ENT: positive: ENT inspection nml Neck: positive: Nml inspection Respiratory: positive: No respiratory distress. negative: Wheezes, Rales Cardiovascular: positive: Regular rate & rhythm, No murmur. negative: Tachycardia Skin: positive: Other (He still has prominent erythema of the bilateral feet with purulent drainage at the toes. Mild improvement over the past 24 hours. Remains quite tender to palpation.) Neurologic/Psychiatric: negative: Disoriented to person, Disoriented to place - Lab Results Fish Bones: 04/28/22 08:57 04/28/22 08:57 Other Labs: Lab Results x24hrs 04/27/22 04/26/22 04/26/22 Range/Units 06:59 21:19 21:15 WBC (4.8-10.8) x10^3/uL RBC (4.70-6.10) 10^6/uL Hgb (14.0-18.0) g/dL Hct (42.0-52.0) % MCV (80.0-94.0) fL MCH (27.0-31.0) pg MCHC (32.0-36.0) g/dL RDW (12.0-15.0) % Plt Count (130-450) 10^3/uL MPV (7.4-11.4) fL Neut # (Auto) (1.5-6.6) 10^3/uL Lymph # (Auto) (1.5-3.5) 10^3/uL [place] # (Auto) (0.0-1.0) 10^3/uL Eos # (Auto) (0.0-0.7) 10^3/uL Baso # (Auto) (0.0-0.1) 10^3/uL Absolute Nucleated RBC x10^3/uL Nucleated RBC % /100WBC Sodium 128 L (135-145) mmol/L Potassium 4.1 (3.5-5.0) mmol/L Chloride 97 L (101-111) mmol/L Carbon Dioxide 21 (21-32) mmol/L Anion Gap 10.0 (6-13) BUN 16 (6-20) mg/dL Creatinine 1.1 (0.6-1.2) mg/dL Estimated GFR (MDRD) 66 L (>89) Glucose 108 H (70-100) mg/dL Lactic Acid (0.5-2.2) mmol/L Calcium 9.2 (8.5-10.3) mg/dL Total Bilirubin (0.2-1.0) mg/dL AST (10-42) IU/L ALT (10-60) IU/L Alkaline Phosphatase (42-121) IU/L Troponin I High Sens (2.3-19.7) ng/L B-Natriuretic Peptide 246 H (5-100) pg/mL Total Protein (6.7-8.2) g/dL Albumin (3.2-5.5) g/dL Globulin (2.1-4.2) g/dL Albumin/Globulin Ratio (1.0-2.2) Lipase (22-51) U/L Urine Color YELLOW Urine Clarity CLEAR (CLEAR) Urine pH 5.5 (5.0-7.5) PH Ur Specific [place] 1.025 (1.002-1.030) Urine Protein 30 H (NEGATIVE) mg/dL Urine Glucose (UA) NEGATIVE (NEGATIVE) mg/dL Urine Ketones NEGATIVE (NEGATIVE) mg/dL Urine Occult Blood TRACE-INTA (NEGATIVE) Urine Nitrite NEGATIVE (NEGATIVE) Urine Bilirubin NEGATIVE (NEGATIVE) Urine Urobilinogen 0.2 (NORMAL) (NORMAL) E.U./dL Ur Leukocyte Esterase NEGATIVE (NEGATIVE) Urine RBC 0-5 (0-5) /HPF Urine WBC 0-3 (0-3) /HPF Ur Squamous Epith Cells RARE Squamous (<= Few) Urine Bacteria Rare (None Seen) /HPF Urine Casts 0-2 Granular Casts /LPF Ur Microscopic Review INDICATED Urine Culture Comments NOT INDICATED Nasal Adenovirus (PCR) Nasal B. parapertussis DNA (PCR) Nasal Coronavir 229E PCR Nasal Coronavir HKU1 PCR Nasal Coronavir NL63 PCR Nasal Coronavir OC43 PCR Nasal Enterovir/Rhinovir PCR Nasal Influenza B PCR Nasal Influenza A PCR Nasal Parainfluen 1 PCR Nasal Parainfluen 2 PCR Nasal Parainfluen 3 PCR Nasal Parainfluen 4 PCR Nasal RSV (PCR) Nasal B.pertussis DNA PCR Nasal C.pneumoniae (PCR) [place] Human Metapneumo PCR Nasal M.pneumoniae (PCR) Nasal SARS-CoV-2 (PCR) 04/26/22 04/26/22 04/26/22 Range/Units 21:15 21:15 21:15 WBC (4.8-10.8) x10^3/uL RBC (4.70-6.10) 10^6/uL Hgb (14.0-18.0) g/dL Hct (42.0-52.0) % MCV (80.0-94.0) fL MCH (27.0-31.0) pg MCHC (32.0-36.0) g/dL RDW (12.0-15.0) % Plt Count (130-450) 10^3/uL MPV (7.4-11.4) fL Neut # (Auto) (1.5-6.6) 10^3/uL Lymph # (Auto) (1.5-3.5) 10^3/uL [place] # (Auto) (0.0-1.0) 10^3/uL Eos # (Auto) (0.0-0.7) 10^3/uL Baso # (Auto) (0.0-0.1) 10^3/uL Absolute Nucleated RBC x10^3/uL Nucleated RBC % /100WBC Sodium 126 L (135-145) mmol/L Potassium 4.4 (3.5-5.0) mmol/L Chloride 94 L (101-111) mmol/L Carbon Dioxide 22 (21-32) mmol/L Anion Gap 10.0 (6-13) BUN 12 (6-20) mg/dL Creatinine 1.2 (0.6-1.2) mg/dL Estimated GFR (MDRD) 59 L (>89) Glucose 112 H (70-100) mg/dL Lactic Acid 1.5 (0.5-2.2) mmol/L Calcium 9.2 (8.5-10.3) mg/dL Total Bilirubin 0.9 (0.2-1.0) mg/dL AST 28 (10-42) IU/L ALT 20 (10-60) IU/L Alkaline Phosphatase 72 (42-121) IU/L Troponin I High Sens 10.5 (2.3-19.7) ng/L B-Natriuretic Peptide (5-100) pg/mL Total Protein 7.3 (6.7-8.2) g/dL Albumin 3.1 L (3.2-5.5) g/dL Globulin 4.2 (2.1-4.2) g/dL Albumin/Globulin Ratio 0.7 L (1.0-2.2) Lipase 19 L (22-51) U/L Urine Color Urine Clarity (CLEAR) Urine pH (5.0-7.5) PH Ur Specific [place] (1.002-1.030) Urine Protein (NEGATIVE) mg/dL Urine Glucose (UA) (NEGATIVE) mg/dL Urine Ketones (NEGATIVE) mg/dL Urine Occult Blood (NEGATIVE) Urine Nitrite (NEGATIVE) Urine Bilirubin (NEGATIVE) Urine Urobilinogen (NORMAL) E.U./dL Ur Leukocyte Esterase (NEGATIVE) Urine RBC (0-5) /HPF Urine WBC (0-3) /HPF Ur Squamous Epith Cells (<= Few) Urine Bacteria (None Seen) /HPF Urine Casts /LPF Ur Microscopic Review Urine Culture Comments Nasal Adenovirus (PCR) Nasal B. parapertussis DNA (PCR) Nasal Coronavir 229E PCR Nasal Coronavir HKU1 PCR Nasal Coronavir NL63 PCR Nasal Coronavir OC43 PCR Nasal Enterovir/Rhinovir PCR Nasal Influenza B PCR Nasal Influenza A PCR Nasal Parainfluen 1 PCR Nasal Parainfluen 2 PCR Nasal Parainfluen 3 PCR Nasal Parainfluen 4 PCR Nasal RSV (PCR) Nasal B.pertussis DNA PCR Nasal C.pneumoniae (PCR) [place] Human Metapneumo PCR Nasal M.pneumoniae (PCR) Nasal SARS-CoV-2 (PCR) 04/26/22 04/26/22 Range/Units 21:15 21:12 WBC 25.3 H (4.8-10.8) x10^3/uL RBC 3.60 L (4.70-6.10) 10^6/uL Hgb 11.9 L (14.0-18.0) g/dL Hct 34.8 L (42.0-52.0) % MCV 96.7 H (80.0-94.0) fL MCH 33.1 H (27.0-31.0) pg MCHC 34.2 (32.0-36.0) g/dL RDW 12.8 (12.0-15.0) % Plt Count 303 (130-450) 10^3/uL MPV 9.0 (7.4-11.4) fL Neut # (Auto) 23.4 H (1.5-6.6) 10^3/uL Lymph # (Auto) 0.2 L (1.5-3.5) 10^3/uL [place] # (Auto) 1.1 H (0.0-1.0) 10^3/uL Eos # (Auto) 0.0 (0.0-0.7) 10^3/uL Baso # (Auto) 0.1 (0.0-0.1) 10^3/uL Absolute Nucleated RBC 0.00 x10^3/uL Nucleated RBC % 0.0 /100WBC Sodium (135-145) mmol/L Potassium (3.5-5.0) mmol/L Chloride (101-111) mmol/L Carbon Dioxide (21-32) mmol/L Anion Gap (6-13) BUN (6-20) mg/dL Creatinine (0.6-1.2) mg/dL Estimated GFR (MDRD) (>89) Glucose (70-100) mg/dL Lactic Acid (0.5-2.2) mmol/L Calcium (8.5-10.3) mg/dL Total Bilirubin (0.2-1.0) mg/dL AST (10-42) IU/L ALT (10-60) IU/L Alkaline Phosphatase (42-121) IU/L Troponin I High Sens (2.3-19.7) ng/L B-Natriuretic Peptide (5-100) pg/mL Total Protein (6.7-8.2) g/dL Albumin (3.2-5.5) g/dL Globulin (2.1-4.2) g/dL Albumin/Globulin Ratio (1.0-2.2) Lipase (22-51) U/L Urine Color Urine Clarity (CLEAR) Urine pH (5.0-7.5) PH Ur Specific [place] (1.002-1.030) Urine Protein (NEGATIVE) mg/dL Urine Glucose (UA) (NEGATIVE) mg/dL Urine Ketones (NEGATIVE) mg/dL Urine Occult Blood (NEGATIVE) Urine Nitrite (NEGATIVE) Urine Bilirubin (NEGATIVE) Urine Urobilinogen (NORMAL) E.U./dL Ur Leukocyte Esterase (NEGATIVE) Urine RBC (0-5) /HPF Urine WBC (0-3) /HPF Ur Squamous Epith Cells (<= Few) Urine Bacteria (None Seen) /HPF Urine Casts /LPF Ur Microscopic Review Urine Culture Comments Nasal Adenovirus (PCR) NOT DETECTED Nasal B. parapertussis DNA (PCR) NOT DETECTED Nasal Coronavir 229E PCR NOT DETECTED Nasal Coronavir HKU1 PCR NOT DETECTED Nasal Coronavir NL63 PCR NOT DETECTED Nasal Coronavir OC43 PCR NOT DETECTED Nasal Enterovir/Rhinovir PCR NOT DETECTED Nasal Influenza B PCR NOT DETECTED Nasal Influenza A PCR NOT DETECTED Nasal Parainfluen 1 PCR NOT DETECTED Nasal Parainfluen 2 PCR NOT DETECTED Nasal Parainfluen 3 PCR NOT DETECTED Nasal Parainfluen 4 PCR NOT DETECTED Nasal RSV (PCR) NOT DETECTED Nasal B.pertussis DNA PCR NOT DETECTED Nasal C.pneumoniae (PCR) NOT DETECTED [place] Human Metapneumo PCR NOT DETECTED Nasal M.pneumoniae (PCR) NOT DETECTED Nasal SARS-CoV-2 (PCR) NOT DETECTED ABX Reporting Has patient been on IV antibiotics over the past 48 hours?: Yes Sepsis Event Note (H) - Evaluation Current Stage of Sepsis: Severe sepsis Possible source of Sepsis: positive: Skin/soft tissue - Sepsis Criteria Sepsis Criteria: Recorded Heart Rate greater than 90 bpm, WBC count greater than 12,000 or less than 4000, ASSISTANT PROFESSOR OF PSYCHOLOGY: altered consciousness (unrelated to primary neuro pathology) Assessment/Plan - Problem List (1) Severe sepsis Impression: This is secondary to the bilateral lower extremity cellulitis and subsequent Streptococcus bacteremia. He is improvement sepsis standpoint. He has been afebrile here and his white count is now within normal limits. His heart rate is also improved. We will continue vancomycin and ceftriaxone till he is sensitivities the Streptococcus. We will repeat blood cultures tomorrow we have ordered an echocardiogram to evaluate for endocarditis. Continue with daily CBC. (2) Bilateral lower leg cellulitis Impression: This is a cause of his sepsis and Streptococcus bacteremia. This is ongoing but improving. His white count has improved but the erythema is still quite present. X-rays of the feet did not suggest osteomyelitis. We will continue him on vancomycin and ceftriaxone. He will need least 2 weeks of antibiotics given the bacteremia. We will continue to trend his CRP daily. (3) Bacteremia due to Streptococcus Impression: Initial blood cultures growing Streptococcus and this is secondary to the lower extremity cellulitis. He remains on vancomycin and ceftriaxone as we await sensitivities. We will obtain an echocardiogram to evaluate for vegetation. He will need at least 2 weeks of IV antibiotics this will require a PICC line. We will place this once we ensure that repeat blood cultures which will be obtained tomorrow are negative. (4) Altered mental status Impression: This is now resolved and he is back to his baseline. This was secondary to the sepsis. (5) Hyponatremia Impression: This was likely hypovolemic hyponatremia and has improved with IV hydration. His sodium is now 134. We will continue to monitor with daily BMP. We will discontinue IV fluids now that he is taking p.o. (6) Lymphedema Impression: Chronic problem for him and has contributed to the's recurrent cellulitis and multiple lower extremity wounds. We will hold off on compression stockings given the active infection. We will look to resume his home diuretic over the next day or 2 as long as he remains hemodynamically stable.
[2022-04-28] MEDS ORDERED: SACCHAROMYCES BOULARDII 250 MG CAPSULE ONE ×2 (07:57→17:38)
[2022-04-28] MEDS ORDERED: SODIUM CHLORIDE 0.9% 100ML 100 ML IV ONE (07:57)
[2022-04-28] MEDS ORDERED: cefTRIAXone 1 GM VIAL ONE (07:57)
[2022-04-28 09:02] LABS: BASOPHILS # (AUTO) 0.1 10^3/uL (0.0-0.1); BASOPHILS % (AUTO) 0.6 %; EOSINOPHILS # (AUTO) 0.1 10^3/uL (0.0-0.7); EOSINOPHILS % (AUTO) 0.9 %; HCT - HEMATOCRIT 33.4 % (42.0-52.0); HGB - HEMOGLOBIN 10.8 g/dL (14.0-18.0); LYMPHOCYTES # (AUTO) 0.5 10^3/uL (1.5-3.5); LYMPHOCYTES % (AUTO) 4.6 %; MEAN CORPUSCULAR HEMOGLOBIN 32.3 pg (27.0-31.0); MEAN CORPUSCULAR HGB CONC 32.3 g/dL (32.0-36.0); MEAN PLATELET VOLUME 8.7 fL (7.4-11.4); MONOCYTES # (AUTO) 1.3 10^3/uL (0.0-1.0); NEUTROPHILS # (AUTO) 8.6 10^3/uL (1.5-6.6); NEUTROPHILS % (AUTO) 81.4 %; PLT - PLATELET COUNT 267 10^3/uL (130-450); RED BLOOD COUNT 3.34 10^6/uL (4.70-6.10); RED CELL DISTRIBUTION WIDTH 13.2 % (12.0-15.0); WHITE BLOOD COUNT 10.5 x10^3/uL (4.8-10.8)
[2022-04-28] MEDS ORDERED: ENOXAPARIN 40 MG/0.4 ML SYRINGE SUBQ ONE (09:17)
[2022-04-28 09:20] LABS: CRP - C-REACTIVE PROTEIN 16.4 mg/dL (0-1.0); POTASSIUM 3.7 mmol/L (3.5-5.0)
[2022-04-28] MEDS: SACCHAROMYCES BOULARDII 250 MG CAPSULE PO SCH ×2 (09:33→17:30)
[2022-04-28] MEDS: ENOXAPARIN 40 MG/0.4 ML SYRINGE SUBQ SCH (09:34)
[2022-04-28] MEDS ORDERED: cefTRIAXone 2 GM VIAL ONE (09:47)
[2022-04-28] MEDS: cefTRIAXone 2 GM in SODIUM CHLORIDE 0.9% MINIBAG 100 ML IV SCH (09:47)
--- NOTE | 2022-04-28 09:59 | XRAY Report ---
PROCEDURE: Foot 3 View BILAT INDICATIONS: WOUNDS TECHNIQUE: 3 views of the right and left were acquired. COMPARISON: None FINDINGS: Bones: No fractures or dislocations. Both feet are demineralized. The interphalangeal joints have mi ld degenerative changes. There are also degenerative changes at the tarsometatarsal joints, especiall y involving the right foot. No suspicious bony lesions. No evidence of osteomyelitis. Soft tissues: No tibiotalar joint effusion. Achilles tendon appears normal. Vasculature has athero sclerotic calcifications. IMPRESSION: 1. No acute abnormality of the feet bilaterally. 2. 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 3. No evidence of osteomyelitis. Reviewed by: Myron Gallardo on 04/28/2022 9:58 AM PDT Approved by: Myron Gallardo on 04/28/2022 9:58 AM PDT Station ID: [id number]
--- NOTE | 2022-04-28 14:36 | CT Report ---
PROCEDURE: ABD & PELVIS CT W/CONTRAST INDICATIONS: sespis TECHNIQUE: 5 mm thick sections acquired from the diaphragms to the symphysis. 5 mm thick coronal and sagittal r eformats were acquired. For radiation dose reduction, the following was used: automated exposure co ntrol, adjustment of mA and/or kV according to patient size. COMPARISON: CT abdomen pelvis 03/16/2021. FINDINGS: Image quality: There is motion artifact limiting evaluation.. Lung bases:There is mild scarring and atelectasis within the lung bases. Heart: Heart is normal in size. ABDOMEN: Liver:No definite hepatic mass identified. Gallbladder: Within normal limits without calcified gallstones. Biliary ducts: No biliary ductal dilatation. Pancreas: Unremarkable. Spleen: Normal in size. Adrenal Glands:There is a right adrenal nodule measuring up to 2.3 cm redemonstrated with internal f at density consistent with a myelolipoma. No left adrenal nodule. Kidneys and Ureters: No hydronephrosis. Stomach and Bowel: Stomach, small bowel loops, and colon are normal in caliber and wall thickness. There are scattered air-fluid levels within nondistended small bowel loops. The appendix is normal in appearance. There is colonic diverticulosis without acute diverticulitis. Peritoneum: No abnormal intraperitoneal fluid. No free air. Ventral Wall: No hernia. Abdominal Nodes: No retroperitoneal or mesenteric adenopathy by size criteria. Vessels: Aorta and inferior vena cava are normal in size. PELVIS: Pelvic Organs: Unremarkable. Bladder: Unremarkable. Pelvic Nodes: No enlarged lymph nodes. Miscellaneous: No inguinal hernias are seen. Bones: Visualized osseous structures demonstrate no suspicious focal lesions. IMPRESSION: 1. No evidence of abscess. 2. Scattered air-fluid levels within the small bowel without abnormal distention suggestive of an ile us or gastroenteritis. 3. Colonic diverticulosis without acute diverticulitis. 4. Right adrenal fat-containing nodule consistent with a myelolipoma redemonstrated. Reviewed by: Valdemar Preciado MD on 04/27/2022 12:13 AM PDT Approved by: Valdemar Preciado MD on 04/27/2022 12:13 AM PDT Station ID: [id number]
--- NOTE | 2022-04-28 14:39 | CT Report ---
PROCEDURE: HEAD CT W/O CONTRAST INDICATIONS: AMS TECHNIQUE: Noncontrast 4.5 mm thick angled axial sections acquired from the foramen magnum to the vertex. For r adiation dose reduction, the following was used: automated exposure control, adjustment of mA and/or kV according to patient size. COMPARISON: None. FINDINGS: Image quality: Excellent. CSF spaces: There is moderate cerebral volume loss with prominence of the ventricles and sulci. Basa l cisterns are patent. No extra-axial fluid collections. Brain: No intracranial hemorrhage, mass, or mass effect. Sykes-white matter interface is preserved. T here are subcortical and periventricular white matter hypodensities consistent with mild chronic smal l vessel ischemic changes. Skull and face: Calvarium and visualized facial bones are intact, without suspicious lesions. Sinuses: Visualized sinuses and mastoids are clear. IMPRESSION: 1. No acute intracranial abnormality. 2. Moderate cerebral volume loss and mild chronic white matter small vessel ischemic changes. Reviewed by: Valdemar Preciado MD on 04/26/2022 11:49 PM PDT Approved by: Valdemar Preciado MD on 04/26/2022 11:49 PM PDT Station ID: [id number]
--- NOTE | 2022-04-28 15:18 | XRAY Report ---
PROCEDURE: CHEST 1 View INDICATIONS: SOA TECHNIQUE: One view of the chest was acquired. COMPARISON: 03/16/21 FINDINGS: Surgical changes and devices: None. Lungs and pleura: No pleural effusions or pneumothorax. Lungs are clear. Mediastinum: Mediastinal contours appear normal. Heart size is normal. Bones and chest wall: There is a nonacute fracture of the right seventh rib posterolaterally. Finding s are new from the prior study. Overlying soft tissues appear unremarkable. IMPRESSION: 1. No acute cardiopulmonary disease. 2. Nonacute fracture of the right seventh rib posterolaterally. Reviewed by: Valdemar Preciado MD on 04/26/2022 11:24 PM PDT Approved by: Valdemar Preciado MD on 04/26/2022 11:24 PM PDT Station ID: [id number]
[2022-04-28] MEDS: SODIUM CHLORIDE 0.9% 1,000 ML IV SCH (15:41)
[2022-04-29] MEDS: VANCOMYCIN INJ 1 GM in SODIUM CHLORIDE 0.9% 250 ML IV SCH (04:47)
[2022-04-29 05:17] LABS: BASOPHILS # (AUTO) 0.1 10^3/uL (0.0-0.1); BASOPHILS % (AUTO) 0.8 %; EOSINOPHILS # (AUTO) 0.3 10^3/uL (0.0-0.7); EOSINOPHILS % (AUTO) 2.7 %; HGB - HEMOGLOBIN 10.4 g/dL (14.0-18.0); LYMPHOCYTES # (AUTO) 0.6 10^3/uL (1.5-3.5); LYMPHOCYTES % (AUTO) 6.7 %; MEAN CORPUSCULAR HEMOGLOBIN 33.5 pg (27.0-31.0); MEAN CORPUSCULAR HGB CONC 33.5 g/dL (32.0-36.0); MEAN PLATELET VOLUME 8.8 fL (7.4-11.4); MONOCYTES # (AUTO) 1.2 10^3/uL (0.0-1.0); MONOCYTES % (AUTO) 12.7 %; NEUTROPHILS # (AUTO) 7.3 10^3/uL (1.5-6.6); NEUTROPHILS % (AUTO) 76.3 %; PLT - PLATELET COUNT 285 10^3/uL (130-450); RED CELL DISTRIBUTION WIDTH 13.3 % (12.0-15.0); WHITE BLOOD COUNT 9.6 x10^3/uL (4.8-10.8)
[2022-04-29 05:35] LABS: CALCIUM 8.7 mg/dL (8.5-10.3); POTASSIUM 3.7 mmol/L (3.5-5.0)
[2022-04-29] MEDS: ACETAMINOPHEN 325 MG TABLET PO PRN ×2 (07:14→21:43)
--- NOTE | 2022-04-29 07:39 | PROVIDER PROGRESS NOTE ---
Subjective - Prog Note Date Prog Note Date: 04/29/22 - Subjective Subjective: He reports feeling well. Does not feel confused like he was when he first was admitted. Continues to have pain in his feet which is worse with any touch. Current Medications - Current Medications Current Medications: Active Medications Acetaminophen (Acetaminophen 325 Mg Tablet) 650 mg PO Q4H PRN PRN Reason: Mild Pain Last Admin: 04/29/22 07:14 Dose: 650 mg Hydrocodone Bitart/Acetaminophen (Hydrocod/Acetam 5/325 Mg Tablet) 1 - 2 tab PO Q6HR PRN PRN Reason: MODERATE PAIN Last Admin: 04/28/22 16:32 Dose: 2 tab Enoxaparin Sodium (Enoxaparin 40 Mg/0.4 Ml Syringe) 40 mg SUBQ DAILY [facility] Last Admin: 04/28/22 09:34 Dose: 40 mg Ceftriaxone Sodium 2 gm/ (Sodium Chloride) 100 mls @ 200 mls/hr IV DAILY [facility] Last Infusion: 04/28/22 10:27 Dose: Infused Ondansetron HCl (Ondansetron 4 Mg/2 Ml Vial) 4 mg IVP Q6HR PRN PRN Reason: NAUSEA Prochlorperazine Edisylate (Prochlorperazine 10 Mg/2 Ml Vial) 10 mg IVP Q6HR PRN PRN Reason: SEVERE NAUSEA Saccharomyces Boulardii (Saccharomyces Boulardii 250 Mg Capsule) 250 mg PO BIDWM [facility] Last Admin: 04/28/22 17:30 Dose: 250 mg Furosemide [Lasix] 20 mg PO BID 06/20/21 Objective - Vital Signs/Intake & Output Reviewed Vital Signs: Yes Vital Signs: Vital Signs x48h Temp Pulse Resp BP BP Pulse Ox 04/29/22 07:33 36.5 C 97 18 140/75 H 96 04/29/22 05:00 36.8 C 92 18 115/64 96 04/29/22 00:12 36.4 C L 95 18 133/76 H 97 Intake & Output: Intake & Output 04/26/22 04/27/22 04/28/22 04/29/22 23:59 23:59 23:59 23:59 Intake Total 0548.565 7283.667 250 Output Total 650 150 Balance 0937.226 4238.667 100 - Objective General Appearance: positive: No acute distress, Alert Eyes Bilateral: positive: Normal inspection, Conjunctivae nml ENT: positive: ENT inspection nml Neck: positive: Nml inspection Respiratory: positive: No respiratory distress Cardiovascular: positive: Regular rate & rhythm. negative: Tachycardia Abdomen: positive: Non-tender, No distention. negative: Tenderness Skin: positive: Other (His bilateral feet are still erythematous with purulent drainage. Continues to improve albeit slowly. Tender to touch. +1 to +2 edema in the feet.) Neurologic/Psychiatric: negative: Disoriented to person, Disoriented to place - Lab Results Fish Bones: 04/29/22 04:53 04/29/22 04:53 Other Labs: Lab Results x24hrs 04/29/22 04/29/22 04/28/22 Range/Units 04:53 04:53 08:57 WBC 9.6 (4.8-10.8) x10^3/uL RBC 3.10 L (4.70-6.10) 10^6/uL Hgb 10.4 L (14.0-18.0) g/dL Hct 31.0 L (42.0-52.0) % MCV 100.0 H (80.0-94.0) fL MCH 33.5 H (27.0-31.0) pg MCHC 33.5 (32.0-36.0) g/dL RDW 13.3 (12.0-15.0) % Plt Count 285 (130-450) 10^3/uL MPV 8.8 (7.4-11.4) fL Neut # (Auto) 7.3 H (1.5-6.6) 10^3/uL Lymph # (Auto) 0.6 L (1.5-3.5) 10^3/uL [place] # (Auto) 1.2 H (0.0-1.0) 10^3/uL Eos # (Auto) 0.3 (0.0-0.7) 10^3/uL Baso # (Auto) 0.1 (0.0-0.1) 10^3/uL Absolute Nucleated RBC 0.00 x10^3/uL Nucleated RBC % 0.0 /100WBC Sodium 132 L 134 L (135-145) mmol/L Potassium 3.7 3.7 (3.5-5.0) mmol/L Chloride 104 103 (101-111) mmol/L Carbon Dioxide 22 23 (21-32) mmol/L Anion Gap 6.0 8.0 (6-13) BUN 11 14 (6-20) mg/dL Creatinine 1.0 1.0 (0.6-1.2) mg/dL Estimated GFR (MDRD) 73 L 73 L (>89) Glucose 91 92 (70-100) mg/dL Calcium 8.7 9.0 (8.5-10.3) mg/dL C-Reactive Protein 7.0 H 16.4 H (0-1.0) mg/dL /08/11 Range/Units 08:57 WBC 10.5 (4.8-10.8) x10^3/uL RBC 3.34 L (4.70-6.10) 10^6/uL Hgb 10.8 L (14.0-18.0) g/dL Hct 33.4 L (42.0-52.0) % MCV 100.0 H (80.0-94.0) fL MCH 32.3 H (27.0-31.0) pg MCHC 32.3 (32.0-36.0) g/dL RDW 13.2 (12.0-15.0) % Plt Count 267 (130-450) 10^3/uL MPV 8.7 (7.4-11.4) fL Neut # (Auto) 8.6 H (1.5-6.6) 10^3/uL Lymph # (Auto) 0.5 L (1.5-3.5) 10^3/uL [place] # (Auto) 1.3 H (0.0-1.0) 10^3/uL Eos # (Auto) 0.1 (0.0-0.7) 10^3/uL Baso # (Auto) 0.1 (0.0-0.1) 10^3/uL Absolute Nucleated RBC 0.00 x10^3/uL Nucleated RBC % 0.0 /100WBC Sodium (135-145) mmol/L Potassium (3.5-5.0) mmol/L Chloride (101-111) mmol/L Carbon Dioxide (21-32) mmol/L Anion Gap (6-13) BUN (6-20) mg/dL Creatinine (0.6-1.2) mg/dL Estimated GFR (MDRD) (>89) Glucose (70-100) mg/dL Calcium (8.5-10.3) mg/dL C-Reactive Protein (0-1.0) mg/dL ABX Reporting Has patient been on IV antibiotics over the past 48 hours?: Yes Sepsis Event Note (H) - Evaluation Current Stage of Sepsis: Resolved Possible source of Sepsis: positive: Skin/soft tissue - Sepsis Criteria Sepsis Criteria: Recorded Heart Rate greater than 90 bpm, WBC count greater than 12,000 or less than 4000, OYSTER SHUCKER: altered consciousness (unrelated to primary neuro pathology) Assessment/Plan - Problem List (1) Severe sepsis Impression: This is secondary to the bilateral lower extremity cellulitis and has resolved. He is bacteremic and his blood cultures are growing Streptococcus but his white count is now within normal limits. He has been afebrile and his heart rate has improved. We will discontinue vancomycin and discontinue ceftriaxone IV. He will need at least 2 weeks of IV antibiotics. We will repeat blood cultures today. Continue with daily CBC. (2) Bilateral lower leg cellulitis Impression: This is the cause of his sepsis and bacteremia. His lower extremities are improved but still quite erythematous and tender. Imaging with x-ray did not suggest osteomyelitis. We will keep him on ceftriaxone alone given the cultures. His CRP is improving and we will continue to trend this daily. We will also consult wound care given his wounds. Continue with daily dressing changes. (3) Bacteremia due to Streptococcus Impression: Initial blood cultures are growing staph coccus and the final culture strep dysgalac. We will therefore discontinue the vancomycin and continue monotherapy with ceftriaxone. We will repeat blood cultures today to ensure clearance prior to placing a PICC line. Echocardiogram has been ordered to look for any p otential vegetation. He will need at least 2 weeks of IV antibiotics if echocardiogram does not suggest endocarditis. (4) Hyponatremia Impression: This was likely hypovolemic hyponatremia and has improved with IV hydration. We will discontinue IV fluids now that he is taking adequate oral intake. (5) Lymphedema Impression: This is a chronic problem for him and has contributed to the recurrent cellulitis and multiple lower extremity wounds. We have held off on compression stockings given the cellulitis and active infection. We will resume his home oral diuretic today. Wound care has been consulted to help assist with management of his wounds. (6) Altered mental status Impression: This was secondary to the sepsis and is now resolved.
--- NOTE | 2022-04-29 07:41 | PROVIDER PROGRESS NOTE ---
Objective - Vital Signs/Intake & Output Vital Signs: Vital Signs x48h Temp Pulse Resp BP BP Pulse Ox 04/29/22 07:33 36.5 C 97 18 140/75 H 96 04/29/22 05:00 36.8 C 92 18 115/64 96 04/29/22 00:12 36.4 C L 95 18 133/76 H 97 Intake & Output: Intake & Output 04/26/22 04/27/22 04/28/22 04/29/22 23:59 23:59 23:59 23:59 Intake Total 4615.768 1584.667 250 Output Total 650 150 Balance 9483.536 5171.667 100 - Lab Results Fish Bones: 04/29/22 04:53 04/29/22 04:53 Other Labs: Lab Results x24hrs 04/29/22 04/29/22 04/28/22 Range/Units 04:53 04:53 08:57 WBC 9.6 (4.8-10.8) x10^3/uL RBC 3.10 L (4.70-6.10) 10^6/uL Hgb 10.4 L (14.0-18.0) g/dL Hct 31.0 L (42.0-52.0) % MCV 100.0 H (80.0-94.0) fL MCH 33.5 H (27.0-31.0) pg MCHC 33.5 (32.0-36.0) g/dL RDW 13.3 (12.0-15.0) % Plt Count 285 (130-450) 10^3/uL MPV 8.8 (7.4-11.4) fL Neut # (Auto) 7.3 H (1.5-6.6) 10^3/uL Lymph # (Auto) 0.6 L (1.5-3.5) 10^3/uL [place] # (Auto) 1.2 H (0.0-1.0) 10^3/uL Eos # (Auto) 0.3 (0.0-0.7) 10^3/uL Baso # (Auto) 0.1 (0.0-0.1) 10^3/uL Absolute Nucleated RBC 0.00 x10^3/uL Nucleated RBC % 0.0 /100WBC Sodium 132 L 134 L (135-145) mmol/L Potassium 3.7 3.7 (3.5-5.0) mmol/L Chloride 104 103 (101-111) mmol/L Carbon Dioxide 22 23 (21-32) mmol/L Anion Gap 6.0 8.0 (6-13) BUN 11 14 (6-20) mg/dL Creatinine 1.0 1.0 (0.6-1.2) mg/dL Estimated GFR (MDRD) 73 L 73 L (>89) Glucose 91 92 (70-100) mg/dL Calcium 8.7 9.0 (8.5-10.3) mg/dL C-Reactive Protein 7.0 H 16.4 H (0-1.0) mg/dL 04/28/22 Range/Units 08:57 WBC 10.5 (4.8-10.8) x10^3/uL RBC 3.34 L (4.70-6.10) 10^6/uL Hgb 10.8 L (14.0-18.0) g/dL Hct 33.4 L (42.0-52.0) % MCV 100.0 H (80.0-94.0) fL MCH 32.3 H (27.0-31.0) pg MCHC 32.3 (32.0-36.0) g/dL RDW 13.2 (12.0-15.0) % Plt Count 267 (130-450) 10^3/uL MPV 8.7 (7.4-11.4) fL Neut # (Auto) 8.6 H (1.5-6.6) 10^3/uL Lymph # (Auto) 0.5 L (1.5-3.5) 10^3/uL [place] # (Auto) 1.3 H (0.0-1.0) 10^3/uL Eos # (Auto) 0.1 (0.0-0.7) 10^3/uL Baso # (Auto) 0.1 (0.0-0.1) 10^3/uL Absolute Nucleated RBC 0.00 x10^3/uL Nucleated RBC % 0.0 /100WBC Sodium (135-145) mmol/L Potassium (3.5-5.0) mmol/L Chloride (101-111) mmol/L Carbon Dioxide (21-32) mmol/L Anion Gap (6-13) BUN (6-20) mg/dL Creatinine (0.6-1.2) mg/dL Estimated GFR (MDRD) (>89) Glucose (70-100) mg/dL Calcium (8.5-10.3) mg/dL C-Reactive Protein (0-1.0) mg/dL Sepsis Event Note (H) - Evaluation Current Stage of Sepsis: Severe sepsis Possible source of Sepsis: positive: Skin/soft tissue - Sepsis Criteria Sepsis Criteria: Recorded Heart Rate greater than 90 bpm, WBC count greater than 12,000 or less than 4000, TAIL PULLER: altered consciousness (unrelated to primary neuro pathology)
[2022-04-29] MEDS: cefTRIAXone 2 GM in SODIUM CHLORIDE 0.9% MINIBAG 100 ML IV SCH (09:00)
[2022-04-29] MEDS: SACCHAROMYCES BOULARDII 250 MG CAPSULE PO SCH ×2 (09:16→17:13)
[2022-04-29] MEDS: ENOXAPARIN 40 MG/0.4 ML SYRINGE SUBQ SCH (09:17)
[2022-04-29] MEDS: FUROSEMIDE 20 MG TABLET PO SCH (09:17)
[2022-04-29] MEDS: HYDROcod/ACETAM 5/325 MG TABLET PO PRN ×2 (10:28→15:43)
--- NOTE | 2022-04-29 11:31 | WOUND CARE CONSULTATION ---
Referring Provider Name of Referring Provider:: Hmeant Cervantes MD Consult Date: 04/29/22 Chief Complaint - Chief Complaint Chief Complaint: Swelling and wounds to bilateral lower extremities History of Present Illness - History Obtained From Records Reviewed: [facility] History obtained from: Patient Exam Limitations: None - History of Present Illness HPI: At the request of Hemant Hebert, this 71 year old patient who is currently hospitalized here for sepsis and cellulitis, presents to the wound care center for evaluation and treatment of bilateral lower extremity wounding. Patient reports that the wounds to his feet/toes have been present for greater than two months and are extremely painful to the touch. He has been being followed by [facility] weekly with three times weekly dressing changes by [facility]. It is noted that wounds have been dressed with Maxsorb Ag, a super absorber, and 4 layer compression wraps. Patient has a history of lymphedema but denies ever seeing a lymphedema specialist. He denies history of DVT or lower extremity surgeries. He reports that he spends most of his time in a wheelchair and requires a 2 person assist to transfer. He is unable to recall why he is unable to walk but states he has not walked for years. No history of diabetes. Patient reports smoking 1 to 2 packs of cigarettes per day for more than 30 years; he quit 15 years ago. He admits to drinking 3-4 beers daily. He lives alone with home health assistance every other day[place]. History - Past Medical History Cardiovascular: reports: None Respiratory: reports: Asthma Neuro: reports: None Endocrine/Autoimmune: reports: None GI: reports: None : reports: None HEENT: reports: None Psych: reports: None Musculoskeletal: reports: None Derm: reports: Other MRSA Hx?: No - Past Surgical History HEENT: reports: Tonsil/Adenoidectomy - Family & Social History Family History: Mother: , Father: , COPD/Emphysema, Brother: Alive and Well Family History Comment/Other: Pts in 2000. He currently lives alone with his younger brother. His brother moved in approximately 3-4 months ago. He son, Torres lives locally. Living Situation: With family - Substance History Use: Uses substance without health or social issues: Tobacco (2 pack per day smoking history. Quit in 2000), Alcohol (Drinks a six pack of beer a day. With last drink yesturday evening. ) - POLST Patient has POLST: No Review of Systems - Constitutional Constitutional: denies: Fatigue, Fever, Chills Objective General: Alert, Oriented x3, Cooperative, No acute distress - Wound Assessment Wound assessment: Wound #1: Right forefoot- scattered wounding to all toes Wounds are a mix of full and partial thickness with areas of moist eschar. The wound beds are pale granular with thin slough. The edges are attached and macerated. No undermining, no tunneling. 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 There is moderate drainage. mild odor. 2+pitting edmea. The patient reports pain that is 2/10 just sitting and a 10/10 with touch. Capillary refill wnl, normal sensation. Wounds appear to have a fungal component. Woound #2: Left forefoot- scattered wounding to all toes Wounds are a mix of full and partial thickness with areas of moist eschar. The wound beds are pale granular with thin slough. The edges are attached and macerated. No undermining, no tunneling. 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 There is moderate drainage. mild odor. 2+ pitting edema. The patient reports pain that is 2/10 just sitting and a 10/10 with touch. Capillary refill wnl, normal sensation. Wounds appear to have a fungal component. Left: Pulses DP/PT palpable, audible via Doppler and are triphasic. Right: Pulses DP/PT palpable, audible via Doppler and are triphasic. Procedure - Procedure Note No debridement today. Conclusion and Plan - Problem List (1) Fungal infection Assessment/Plan: Affecting all toes to bilateral feet, likely secondarily infected causing open wounds to toes. Plan of care: Wound hygiene with antimicrobial solution. Dressing with extra thick antifungal to all toes and bilateral feet. Interdry was placed between all toes followed by Ag hydrofiber to dorsal aspect of feet. Roll gauze was gently placed over the feet to cover toes, followed by bilateral compression wraps. Patient was encouraged to keep wraps dry and intact. He will RTC in 4 days for a dressing change and follow up with provider in 11 days. Orders for RN visit written. (2) Bilateral lower leg cellulitis Assessment/Plan: Clinically resolving. Patient is currently on Vancomycin and Ceftriaxone with the anticipation that he will require a picc line and 2 more weeks of therapy. Plan of care: Wound hygiene and dressings/ compression as above. (3) Lymphedema Assessment/Plan: Chronic. Likely contributing to recurrent wounds and cellulitis. Consider referral to lymphedema specialist once wounds area healed. - Results Lab Results: Laboratory Results Sodium 132 mmol/L (135-145) L 04/29/22 04:53 Potassium 3.7 mmol/L (3.5-5.0) 04/29/22 04:53 Chloride 104 mmol/L (101-111) 04/29/22 04:53 Carbon Dioxide 22 mmol/L (21-32) 04/29/22 04:53 Anion Gap 6.0 (6-13) 04/29/22 04:53 BUN 11 mg/dL (6-20) 04/29/22 04:53 Creatinine 1.0 mg/dL (0.6-1.2) 04/29/22 04:53 Glucose 91 mg/dL (70-100) 04/29/22 04:53 Calcium 8.7 mg/dL (8.5-10.3) 04/29/22 04:53 Total Bilirubin 0.9 mg/dL (0.2-1.0) 04/26/22 21:15 AST 28 IU/L (10-42) 04/26/22 21:15 ALT 20 IU/L (10-60) 04/26/22 21:15 Alkaline Phosphatase 72 IU/L (42-121) 04/26/22 21:15 Total Protein 7.3 g/dL (6.7-8.2) 04/26/22 21:15 Albumin 3.1 g/dL (3.2-5.5) L 04/26/22 21:15 Globulin 4.2 g/dL (2.1-4.2) 04/26/22 21:15 Albumin/Globulin Ratio 0.7 (1.0-2.2) L 04/26/22 21:15 04/26/22 21:50 Blood Blood Culture - Final Strep Dysgalac (Strep Equisim) 04/26/22 21:15 Blood Blood Culture - Preliminary Beta Hemolytic Strep Group C 04/26/22 21:50 Blood Blood Culture (PCR) - Final 04/26/22 23:19 Other - Other Wound Culture - Final Beta Hemolytic Strep Group C Raoultella Ornithinolytica - Home Meds/Allergies Allergies No Known Drug Allergies Allergy (Verified 02/11/22 15:39) - Plan Condition/Complexity: Stable Plan Discussed with: Patient
[2022-04-30 05:25] LABS: BASOPHILS % (AUTO) 0.7 %; EOSINOPHILS # (AUTO) 0.3 10^3/uL (0.0-0.7); EOSINOPHILS % (AUTO) 5.8 %; HCT - HEMATOCRIT 31.3 % (42.0-52.0); HGB - HEMOGLOBIN 10.4 g/dL (14.0-18.0); LYMPHOCYTES # (AUTO) 0.8 10^3/uL (1.5-3.5); LYMPHOCYTES % (AUTO) 13.7 %; MEAN CORPUSCULAR HEMOGLOBIN 32.8 pg (27.0-31.0); MEAN CORPUSCULAR HGB CONC 33.2 g/dL (32.0-36.0); MEAN CORPUSCULAR VOLUME 98.7 fL (80.0-94.0); MEAN PLATELET VOLUME 8.9 fL (7.4-11.4); MONOCYTES # (AUTO) 0.9 10^3/uL (0.0-1.0); MONOCYTES % (AUTO) 15.9 %; NEUTROPHILS # (AUTO) 3.7 10^3/uL (1.5-6.6); NEUTROPHILS % (AUTO) 63.4 %; PLT - PLATELET COUNT 302 10^3/uL (130-450); RED BLOOD COUNT 3.17 10^6/uL (4.70-6.10); RED CELL DISTRIBUTION WIDTH 13.3 % (12.0-15.0); WHITE BLOOD COUNT 5.9 x10^3/uL (4.8-10.8)
[2022-04-30 05:44] LABS: CALCIUM 8.8 mg/dL (8.5-10.3); CREATININE 1.1 mg/dL (0.6-1.2); CRP - C-REACTIVE PROTEIN 3.4 mg/dL (0-1.0); POTASSIUM 3.7 mmol/L (3.5-5.0)
[2022-04-30] MEDS ORDERED: ZINC OXIDE 20% OINT 30 GM TUBE TOP PRN (07:02)
--- NOTE | 2022-04-30 07:31 | PROVIDER PROGRESS NOTE ---
Subjective - Prog Note Date Prog Note Date: 04/30/22 - Subjective Subjective: He feels well. Pain is controlled. No shortness of breath. Current Medications - Current Medications Current Medications: Active Medications Acetaminophen (Acetaminophen 325 Mg Tablet) 650 mg PO Q4H PRN PRN Reason: Mild Pain Last Admin: 04/29/22 21:43 Dose: 650 mg Hydrocodone Bitart/Acetaminophen (Hydrocod/Acetam 5/325 Mg Tablet) 1 - 2 tab PO Q6HR PRN PRN Reason: MODERATE PAIN Last Admin: 04/29/22 15:43 Dose: 1 tab Enoxaparin Sodium (Enoxaparin 40 Mg/0.4 Ml Syringe) 40 mg SUBQ DAILY [facility] Last Admin: 04/30/22 08:03 Dose: 40 mg Furosemide (Furosemide 20 Mg Tablet) 20 mg PO DAILY [facility] Last Admin: 04/30/22 08:03 Dose: 20 mg Ceftriaxone Sodium 2 gm/ (Sodium Chloride) 100 mls @ 200 mls/hr IV DAILY [facility] Last Infusion: 04/30/22 08:40 Dose: Infused Multi-Ingredient Ointment (Zinc Oxide 20% Oint 30 Gm Tube) 1 applic TOP PRN PRN PRN Reason: Skin Care Ondansetron HCl (Ondansetron 4 Mg/2 Ml Vial) 4 mg IVP Q6HR PRN PRN Reason: NAUSEA Prochlorperazine Edisylate (Prochlorperazine 10 Mg/2 Ml Vial) 10 mg IVP Q6HR PRN PRN Reason: SEVERE NAUSEA Saccharomyces Boulardii (Saccharomyces Boulardii 250 Mg Capsule) 250 mg PO BIDWM [facility] Last Admin: 04/30/22 08:03 Dose: 250 mg Furosemide [Lasix] 20 mg PO BID 06/20/21 Objective - Vital Signs/Intake & Output Reviewed Vital Signs: Yes Vital Signs: Vital Signs x48h Temp Pulse Resp BP Pulse Ox 04/30/22 04:39 36.3 C L 84 20 129/74 96 Intake & Output: Intake & Output 04/27/22 04/28/22 04/29/22 04/30/22 23:59 23:59 23:59 23:59 Intake Total 6765.358 6741.667 1430 Output Total 650 1075 225 Balance 4017.898 1982.667 355 -225 - Objective General Appearance: positive: No acute distress, Alert Eyes Bilateral: positive: Normal inspection, Conjunctivae nml ENT: positive: ENT inspection nml Neck: positive: Nml inspection Respiratory: positive: No respiratory distress Cardiovascular: positive: Regular rate & rhythm. negative: Tachycardia Skin: positive: Warm, Dry, Other (Dressing in place over the bilateral lower extremities) Neurologic/Psychiatric: negative: Disoriented to person, Disoriented to place - Lab Results Fish Bones: 04/30/22 04:41 04/30/22 04:41 Other Labs: Lab Results x24hrs 04/30/22 04/30/22 Range/Units 04:41 04:41 WBC 5.9 (4.8-10.8) x10^3/uL RBC 3.17 L (4.70-6.10) 10^6/uL Hgb 10.4 L (14.0-18.0) g/dL Hct 31.3 L (42.0-52.0) % MCV 98.7 H (80.0-94.0) fL MCH 32.8 H (27.0-31.0) pg MCHC 33.2 (32.0-36.0) g/dL RDW 13.3 (12.0-15.0) % Plt Count 302 (130-450) 10^3/uL MPV 8.9 (7.4-11.4) fL Neut # (Auto) 3.7 (1.5-6.6) 10^3/uL Lymph # (Auto) 0.8 L (1.5-3.5) 10^3/uL [place] # (Auto) 0.9 (0.0-1.0) 10^3/uL Eos # (Auto) 0.3 (0.0-0.7) 10^3/uL Baso # (Auto) 0.0 (0.0-0.1) 10^3/uL Absolute Nucleated RBC 0.00 x10^3/uL Nucleated RBC % 0.0 /100WBC Sodium 138 (135-145) mmol/L Potassium 3.7 (3.5-5.0) mmol/L Chloride 106 (101-111) mmol/L Carbon Dioxide 23 (21-32) mmol/L Anion Gap 9.0 (6-13) BUN 9 (6-20) mg/dL Creatinine 1.1 (0.6-1.2) mg/dL Estimated GFR (MDRD) 66 L (>89) Glucose 86 (70-100) mg/dL Calcium 8.8 (8.5-10.3) mg/dL C-Reactive Protein 3.4 H (0-1.0) mg/dL ABX Reporting Has patient been on IV antibiotics over the past 48 hours?: Yes Sepsis Event Note (H) - Evaluation Current Stage of Sepsis: Resolved Possible source of Sepsis: positive: Skin/soft tissue - Sepsis Criteria Sepsis Criteria: Recorded Heart Rate greater than 90 bpm, WBC count greater than 12,000 or less than 4000, SOCIAL SCIENCE INSTRUCTOR: altered consciousness (unrelated to primary neuro pathology) Assessment/Plan - Problem List (1) Bilateral lower leg cellulitis Impression: This was the cause of his sepsis and bacteremia. His white blood cell count has improved as well as his CRP. We did not examine his feet today as he had dressing placed yesterday by wound care which will be changed and 3 days. He remains on ceftriaxone IV given blood cultures grew Streptococcus. The plan will be to treat a total of 2 weeks with IV ceftriaxone. Appreciate wound care's input and continue with their recommendations regarding dressing changes. (2) Bacteremia due to Streptococcus Impression: Initial blood cultures are growing staph coccus and the final culture strep dysgalac. He remains on ceftriaxone IV and repeat blood cultures have been negative for 24 hours. If they remain negative tomorrow then we will place a PICC line. We are still awaiting an echocardiogram to ensure there is no obvious vegetation. If this is negative then he can complete 2 weeks of therapy. (3) Lymphedema Impression: This is a chronic problem and has increased his risk of cellulitis and the lower extremity wounds. We are managing the infection as mentioned above. We have resumed his home oral Lasix. He will ultimately benefit from outpatient follow- up and consideration of a lymphedema clinic. (4) Altered mental status Impression: This is resolved and was secondary to the sepsis and infection. (5) Severe sepsis Impression: This was secondary to cellulitis and has resolved. (6) Hyponatremia Impression: This is resolved and was hypovolemic hyponatremia.
[2022-04-30] MEDS: SACCHAROMYCES BOULARDII 250 MG CAPSULE PO SCH ×2 (08:03→17:18)
[2022-04-30] MEDS: FUROSEMIDE 20 MG TABLET PO SCH (08:03)
[2022-04-30] MEDS: ENOXAPARIN 40 MG/0.4 ML SYRINGE SUBQ SCH (08:03)
[2022-04-30] MEDS: cefTRIAXone 2 GM in SODIUM CHLORIDE 0.9% MINIBAG 100 ML IV SCH (08:05)
[2022-04-30] MEDS: ACETAMINOPHEN 325 MG TABLET PO PRN (23:43)
[2022-04-30] MEDS ORDERED: BENZOCAINE/MENTHOL LOZENGE MM PRN (23:45)
[2022-05-01 05:19] LABS: BASOPHILS # (AUTO) 0.1 10^3/uL (0.0-0.1); BASOPHILS % (AUTO) 0.9 %; EOSINOPHILS # (AUTO) 0.3 10^3/uL (0.0-0.7); HCT - HEMATOCRIT 29.5 % (42.0-52.0); HGB - HEMOGLOBIN 10.2 g/dL (14.0-18.0); LYMPHOCYTES # (AUTO) 0.7 10^3/uL (1.5-3.5); LYMPHOCYTES % (AUTO) 12.2 %; MEAN CORPUSCULAR HEMOGLOBIN 33.2 pg (27.0-31.0); MEAN CORPUSCULAR HGB CONC 34.6 g/dL (32.0-36.0); MEAN CORPUSCULAR VOLUME 96.1 fL (80.0-94.0); MEAN PLATELET VOLUME 8.7 fL (7.4-11.4); MONOCYTES # (AUTO) 1.1 10^3/uL (0.0-1.0); MONOCYTES % (AUTO) 19.7 %; NEUTROPHILS # (AUTO) 3.3 10^3/uL (1.5-6.6); NEUTROPHILS % (AUTO) 60.3 %; PLT - PLATELET COUNT 264 10^3/uL (130-450); RED BLOOD COUNT 3.07 10^6/uL (4.70-6.10); RED CELL DISTRIBUTION WIDTH 13.2 % (12.0-15.0); WHITE BLOOD COUNT 5.5 x10^3/uL (4.8-10.8)
[2022-05-01 05:38] LABS: CALCIUM 8.5 mg/dL (8.5-10.3); CREATININE 0.9 mg/dL (0.6-1.2); CRP - C-REACTIVE PROTEIN 1.2 mg/dL (0-1.0); POTASSIUM 3.3 mmol/L (3.5-5.0)
--- NOTE | 2022-05-01 07:37 | PROVIDER PROGRESS NOTE ---
Subjective - Prog Note Date Prog Note Date: 05/01/22 - Subjective Subjective: He reports feeling well. Has only minimal pain in his feet. No dyspnea. Current Medications - Current Medications Current Medications: Active Medications Acetaminophen (Acetaminophen 325 Mg Tablet) 650 mg PO Q4H PRN PRN Reason: Mild Pain Last Admin: 04/30/22 23:43 Dose: 650 mg Hydrocodone Bitart/Acetaminophen (Hydrocod/Acetam 5/325 Mg Tablet) 1 - 2 tab PO Q6HR PRN PRN Reason: MODERATE PAIN Last Admin: 04/29/22 15:43 Dose: 1 tab Enoxaparin Sodium (Enoxaparin 40 Mg/0.4 Ml Syringe) 40 mg SUBQ DAILY [facility] Last Admin: 04/30/22 08:03 Dose: 40 mg Furosemide (Furosemide 20 Mg Tablet) 20 mg PO DAILY [facility] Last Admin: 04/30/22 08:03 Dose: 20 mg Ceftriaxone Sodium 2 gm/ (Sodium Chloride) 100 mls @ 200 mls/hr IV DAILY [facility] Last Infusion: 04/30/22 08:40 Dose: Infused Multi-Ingredient Ointment (Zinc Oxide 20% Oint 30 Gm Tube) 1 applic TOP PRN PRN PRN Reason: Skin Care Last Admin: 05/01/22 00:00 Dose: 1 applic Ondansetron HCl (Ondansetron 4 Mg/2 Ml Vial) 4 mg IVP Q6HR PRN PRN Reason: NAUSEA Potassium Chloride (Potassium Chloride 20 Meq Tablet) 20 meq PO TIDWM [facility] Stop: 05/01/22 17:01 Prochlorperazine Edisylate (Prochlorperazine 10 Mg/2 Ml Vial) 10 mg IVP Q6HR PRN PRN Reason: SEVERE NAUSEA Saccharomyces Boulardii (Saccharomyces Boulardii 250 Mg Capsule) 250 mg PO BIDW M [facility] Last Admin: 04/30/22 17:18 Dose: 250 mg Throat Lozenges (Benzocaine/Menthol Lozenge) 1 lozenge MM Q2HR PRN PRN Reason: Throat pain Last Admin: 05/01/22 00:00 Dose: 1 lozenge Furosemide [Lasix] 20 mg PO BID 06/20/21 Objective - Vital Signs/Intake & Output Reviewed Vital Signs: Yes Vital Signs: Vital Signs x48h Temp Pulse Resp BP Pulse Ox 05/01/22 05:00 36.6 C 81 16 135/76 H 94 Intake & Output: Intake & Output 04/28/22 04/29/22 04/30/22 05/01/22 23:59 23:59 23:59 23:59 Intake Total 2918.667 1430 980 200 Output Total 650 1075 1075 200 Balance 2268.667 355 -95 0 - Objective General Appearance: positive: No acute distress, Alert Eyes Bilateral: positive: Conjunctivae nml ENT: positive: ENT inspection nml Neck: positive: Nml inspection Respiratory: positive: No respiratory distress. negative: Wheezes, Rales Cardiovascular: positive: Regular rate & rhythm. negative: Tachycardia Skin: positive: Other (Dressing in place over the bilateral lower extremities) Neurologic/Psychiatric: negative: Disoriented to person, Disoriented to place - Lab Results Fish Bones: 05/01/22 05:03 05/01/22 05:03 Other Labs: Lab Results x24hrs 05/01/22 05/01/22 Range/Units 05:03 05:03 WBC 5.5 (4.8-10.8) x10^3/uL RBC 3.07 L (4.70-6.10) 10^6/uL Hgb 10.2 L (14.0-18.0) g/dL Hct 29.5 L (42.0-52.0) % MCV 96.1 H (80.0-94.0) fL MCH 33.2 H (27.0-31.0) pg MCHC 34.6 (32.0-36.0) g/dL RDW 13.2 (12.0-15.0) % Plt Count 264 (130-450) 10^3/uL MPV 8.7 (7.4-11.4) fL Neut # (Auto) 3.3 (1.5-6.6) 10^3/uL Lymph # (Auto) 0.7 L (1.5-3.5) 10^3/uL [place] # (Auto) 1.1 H (0.0-1.0) 10^3/uL Eos # (Auto) 0.3 (0.0-0.7) 10^3/uL Baso # (Auto) 0.1 (0.0-0.1) 10^3/uL Absolute Nucleated RBC 0.00 x10^3/uL Nucleated RBC % 0.0 /100WBC Sodium 139 (135-145) mmol/L Potassium 3.3 L (3.5-5.0) mmol/L Chloride 103 (101-111) mmol/L Carbon Dioxide 26 (21-32) mmol/L Anion Gap 10.0 (6-13) BUN 7 (6-20) mg/dL Creatinine 0.9 (0.6-1.2) mg/dL Estimated GFR (MDRD) 83 L (>89) Glucose 100 (70-100) mg/dL Calcium 8.5 (8.5-10.3) mg/dL C-Reactive Protein 1.2 H (0-1.0) mg/dL ABX Reporting Has patient been on IV antibiotics over the past 48 hours?: Yes Sepsis Event Note (H) - Evaluation Current Stage of Sepsis: Resolved Possible source of Sepsis: positive: Skin/soft tissue - Sepsis Criteria Sepsis Criteria: Recorded Heart Rate greater than 90 bpm, WBC count greater than 12,000 or less than 4000, ELEVATOR INSPECTOR: altered consciousness (unrelated to primary neuro pathology) Assessment/Plan - Problem List (1) Bilateral lower leg cellulitis Impression: This was the cause of his sepsis and bacteremia. His white blood cell count is within normal limits and his CRP continues to improve. Dressing remains in place over the bilateral lower extremities and we have not remove these as he is scheduled to follow-up with wound care again in 2 days for a dressing change. He remains on ceftriaxone IV given blood cultures grew Streptococcus. The plan will be to treat a total of 2 weeks with IV ceftriaxone. Appreciate wound care's input and continue with their recommendations regarding dressing changes. (2) Bacteremia due to Streptococcus Impression: Initial blood cultures are growing strep dysgalac. He remains on ceftriaxone IV and repeat blood cultures have been negative for [address] a PICC line tomorrow for long-term antibiotics. We are still awaiting an echocardiogram to ensure there is no obvious vegetation. If this is negative then he can complete 2 weeks of therapy. We will look to see if he complete antibiotics here at our swing bed or if you need to go to the [facility] clinic on a daily basis. We are working on disposition. (3) Lymphedema Impression: This is a chronic problem and has increased his risk of cellulitis and the lower extremity wounds. We are managing the infection as mentioned above. We have resumed his home oral Lasix. He will ultimately benefit from outpatient follow- up and consideration of a lymphedema clinic. (4) Altered mental status Impression: This is resolved and was secondary to the sepsis and infection. (5) Severe sepsis Impression: This was secondary to cellulitis and has resolved. (6) Hyponatremia Impression: This is resolved and was hypovolemic hyponatremia.
[2022-05-01] MEDS: FUROSEMIDE 20 MG TABLET PO SCH (08:50)
[2022-05-01] MEDS: ENOXAPARIN 40 MG/0.4 ML SYRINGE SUBQ SCH (08:50)
[2022-05-01] MEDS: SACCHAROMYCES BOULARDII 250 MG CAPSULE PO SCH ×2 (08:50→17:35)
[2022-05-01] MEDS: POTASSIUM CHLORIDE 20 MEQ TABLET PO SCH ×3 (08:50→17:35)
[2022-05-01] MEDS: cefTRIAXone 2 GM in SODIUM CHLORIDE 0.9% MINIBAG 100 ML IV SCH (09:58)
[2022-05-02 05:45] LABS: BASOPHILS # (AUTO) 0.1 10^3/uL (0.0-0.1); BASOPHILS % (AUTO) 0.9 %; EOSINOPHILS # (AUTO) 0.4 10^3/uL (0.0-0.7); EOSINOPHILS % (AUTO) 6.4 %; HCT - HEMATOCRIT 30.7 % (42.0-52.0); HGB - HEMOGLOBIN 10.1 g/dL (14.0-18.0); LYMPHOCYTES # (AUTO) 0.9 10^3/uL (1.5-3.5); LYMPHOCYTES % (AUTO) 13.4 %; MEAN CORPUSCULAR HEMOGLOBIN 32.1 pg (27.0-31.0); MEAN CORPUSCULAR HGB CONC 32.9 g/dL (32.0-36.0); MEAN CORPUSCULAR VOLUME 97.5 fL (80.0-94.0); MEAN PLATELET VOLUME 8.8 fL (7.4-11.4); MONOCYTES # (AUTO) 1.2 10^3/uL (0.0-1.0); MONOCYTES % (AUTO) 18.6 %; NEUTROPHILS # (AUTO) 3.8 10^3/uL (1.5-6.6); NEUTROPHILS % (AUTO) 59.5 %; PLT - PLATELET COUNT 304 10^3/uL (130-450); RED BLOOD COUNT 3.15 10^6/uL (4.70-6.10); RED CELL DISTRIBUTION WIDTH 13.1 % (12.0-15.0); WHITE BLOOD COUNT 6.4 x10^3/uL (4.8-10.8)
[2022-05-02 06:02] LABS: CALCIUM 8.8 mg/dL (8.5-10.3); POTASSIUM 3.6 mmol/L (3.5-5.0)
[2022-05-02] MEDS: cefTRIAXone 2 GM in SODIUM CHLORIDE 0.9% MINIBAG 100 ML IV SCH (08:37)
[2022-05-02] MEDS: ENOXAPARIN 40 MG/0.4 ML SYRINGE SUBQ SCH (08:38)
[2022-05-02] MEDS: FUROSEMIDE 20 MG TABLET PO SCH (08:38)
[2022-05-02] MEDS: SACCHAROMYCES BOULARDII 250 MG CAPSULE PO SCH ×2 (08:38→17:17)
--- NOTE | 2022-05-02 13:29 | PROVIDER PROGRESS NOTE ---
Subjective - Prog Note Date Prog Note Date: 05/02/22 - Subjective Subjective: He continues to report feeling well. He states an occasional cough but this is not unusual for him. He feels at his baseline. No shortness of breath. Current Medications - Current Medications Current Medications: Active Medications Acetaminophen (Acetaminophen 325 Mg Tablet) 650 mg PO Q4H PRN PRN Reason: Mild Pain Last Admin: 04/30/22 23:43 Dose: 650 mg Hydrocodone Bitart/Acetaminophen (Hydrocod/Acetam 5/325 Mg Tablet) 1 - 2 tab PO Q6HR PRN PRN Reason: MODERATE PAIN Last Admin: 04/29/22 15:43 Dose: 1 tab Enoxaparin Sodium (Enoxaparin 40 Mg/0.4 Ml Syringe) 40 mg SUBQ DAILY [facility] Last Admin: 05/02/22 08:38 Dose: 40 mg Furosemide (Furosemide 20 Mg Tablet) 20 mg PO DAILY [facility] Last Admin: 05/02/22 08:38 Dose: 20 mg Ceftriaxone Sodium 2 gm/ (Sodium Chloride) 100 mls @ 200 mls/hr IV DAILY [facility] Last Infusion: 05/02/22 09:11 Dose: Infused Multi-Ingredient Ointment (Zinc Oxide 20% Oint 30 Gm Tube) 1 applic TOP PRN PRN PRN Reason: Skin Care Last Admin: 05/01/22 00:00 Dose: 1 applic Ondansetron HCl (Ondansetron 4 Mg/2 Ml Vial) 4 mg IVP Q6HR PRN PRN Reason: NAUSEA Prochlorperazine Edisylate (Prochlorperazine 10 Mg/2 Ml Vial) 10 mg IVP Q6HR PRN PRN Reason: SEVERE NAUSEA Saccharomyces Boulardii (Saccharomyces Boulardii 250 Mg Capsule) 250 mg PO BIDWM [facility] Last Admin: 05/02/22 08:38 Dose: 250 mg Throat Lozenges (Benzocaine/Menthol Lozenge) 1 lozenge MM Q2HR PRN PRN Reason: Throat pain Last Admin: 05/01/22 00:00 Dose: 1 lozenge Furosemide [Lasix] 20 mg PO BID 06/20/21 Objective - Vital Signs/Intake & Output Reviewed Vital Signs: Yes Vital Signs: Vital Signs x48h Temp Pulse Resp BP BP Pulse Ox 05/02/22 11:45 36.4 C L 90 18 147/74 H 93 05/02/22 07:50 36.8 C 78 16 125/59 L 97 Intake & Output: Intake & Output 04/29/22 04/30/22 05/01/22 05/02/22 23:59 23:59 23:59 23:59 Intake Total 6113 399 2189 1040 Output Total 1075 1075 800 775 Balance 355 -95 440 265 - Objective General Appearance: positive: No acute distress, Alert Eyes Bilateral: positive: Normal inspection, Conjunctivae nml ENT: positive: ENT inspection nml Respiratory: positive: No respiratory distress, Wheezes (Faint expiratory wheezes) Cardiovascular: positive: Regular rate & rhythm, No murmur. negative: Tachycardia, Systolic murmur Skin: positive: Other (Dressing in place over the bilateral lower extremities) Extremities: positive: Pedal edema (+1 edema in bilateral lower extremities) - Lab Results Fish Bones: 05/02/22 05:01 05/02/22 05:01 Other Labs: Lab Results x24hrs 05/02/22 05/02/22 Range/Units 05:01 05:01 WBC 6.4 (4.8-10.8) x10^3/uL RBC 3.15 L (4.70-6.10) 10^6/uL Hgb 10.1 L (14.0-18.0) g/dL Hct 30.7 L (42.0-52.0) % MCV 97.5 H (80.0-94.0) fL MCH 32.1 H (27.0-31.0) pg MCHC 32.9 (32.0-36.0) g/dL RDW 13.1 (12.0-15.0) % Plt Count 304 (130-450) 10^3/uL MPV 8.8 (7.4-11.4) fL Neut # (Auto) 3.8 (1.5-6.6) 10^3/uL Lymph # (Auto) 0.9 L (1.5-3.5) 10^3/uL [place] # (Auto) 1.2 H (0.0-1.0) 10^3/uL Eos # (Auto) 0.4 (0.0-0.7) 10^3/uL Baso # (Auto) 0.1 (0.0-0.1) 10^3/uL Absolute Nucleated RBC 0.00 x10^3/uL Nucleated RBC % 0.0 /100WBC Sodium 136 (135-145) mmol/L Potassium 3.6 (3.5-5.0) mmol/L Chloride 103 (101-111) mmol/L Carbon Dioxide 28 (21-32) mmol/L Anion Gap 5.0 L (6-13) BUN 6 (6-20) mg/dL Creatinine 1.0 (0.6-1.2) mg/dL Estimated GFR (MDRD) 73 L (>89) Glucose 97 (70-100) mg/dL Calcium 8.8 (8.5-10.3) mg/dL C-Reactive Protein 1.0 (0-1.0) mg/dL ABX Reporting Has patient been on IV antibiotics over the past 48 hours?: Yes Sepsis Event Note (H) - Evaluation Current Stage of Sepsis: Resolved Possible source of Sepsis: positive: Skin/soft tissue - Sepsis Criteria Sepsis Criteria: Recorded Heart Rate greater than 90 bpm, WBC count greater than 12,000 or less than 4000, BIOMETRICS EXPERIMENTALIST: altered consciousness (unrelated to primary neuro pathology) Assessment/Plan - Problem List (1) Bilateral lower leg cellulitis Impression: This was a cause of his sepsis and bacteremia. His white blood cell count remains normal and his CRP is now nearly within normal limits. He was seen by wound care and plan will be to follow-up with him tomorrow prior to discharge for his next dressing change. He will remain on the ceftriaxone for the Streptococcus bacteremia. Appreciate wound care input. He will need outpatient follow-up with him once discharged. (2) Bacteremia due to Streptococcus Impression: Initial blood cultures are growing strep dysgalac. He remains on ceftriaxone IV and repeat blood cultures have been negative for 48 hours. PICC line will be placed today. Unfortunately we do not have an echocardiogram and it is not available today so we will need to keep him one more day for an echocardiogram tomorrow to ensure there is no obvious vegetation. This is negative then he can be discharged tomorrow with home infusion therapy to complete 2 weeks of IV ceftriaxone on May 12. (3) Lymphedema Impression: This is a chronic problem and has increased his risk of cellulitis and the lower extremity wounds. We are managing the infection as mentioned above. We have resumed his home oral Lasix. He will ultimately benefit from outpatient follow- up and consideration of a lymphedema clinic. (4) Altered mental status Impression: This is resolved and was secondary to the sepsis and infection. (5) Severe sepsis Impression: This was secondary to cellulitis and has resolved. (6) Hyponatremia Impression: This is resolved and was hypovolemic hyponatremia.
--- NOTE | 2022-05-02 14:42 | XRAY Report ---
PROCEDURE: Chest for Line Placement INDICATIONS: PICC line insertion TECHNIQUE: One view of the chest was acquired. COMPARISON: 04/26/2022 FINDINGS: Surgical changes and devices: PICC line projects to the mid SVC via a right-sided approach. Lungs and pleura: No pleural effusions or pneumothorax. Lungs are clear. Mediastinum: Mediastinal contours appear normal. Heart size is normal. Bones and chest wall: Right seventh and eighth rib fractures are stable compared to the prior exam.. No suspicious bony lesions. Overlying soft tissues appear unremarkable. IMPRESSION: Tip of PICC line projects over the mid SVC. Reviewed by: Citlalli Venegas MD, PhD on 05/02/2022 2:41 PM PDT Approved by: Citlalli Venegas MD, PhD on 05/02/2022 2:41 PM PDT Station ID: [id number]
--- NOTE | 2022-05-02 14:50 | ANESTHESIA PROCEDURE NOTE ---
Anesth Central Line Template - Central Line Central Line Preparation: Consent Obtained Central line location: Right Basilic Central line type: PICC Double Lumen Central line catheter tip site resides: Superior vena cava (SVC) Central line aftercare: Secured, Placement confirmed, No pneumothorax, No complications, Bundle checklist complete, Pt tolerated well
--- NOTE | 2022-05-02 14:54 | CONSULTATION NOTE ---
Consultation Report: consulted for a PICC line by Dr. Cervantes. Informed consent obtained. US guided 5Fr double lumen PICC placed in RUE under sterile technique, secured at 40cm using steri-strips and Statlock. Placement confirmed by port CXR, mid SVC. Pt tolerated well. NAC.
[2022-05-03 05:25] LABS: BASOPHILS # (AUTO) 0.1 10^3/uL (0.0-0.1); BASOPHILS % (AUTO) 1.1 %; EOSINOPHILS # (AUTO) 0.4 10^3/uL (0.0-0.7); EOSINOPHILS % (AUTO) 5.7 %; HCT - HEMATOCRIT 29.7 % (42.0-52.0); HGB - HEMOGLOBIN 9.7 g/dL (14.0-18.0); LYMPHOCYTES % (AUTO) 15.3 %; MEAN CORPUSCULAR HEMOGLOBIN 32.4 pg (27.0-31.0); MEAN CORPUSCULAR HGB CONC 32.7 g/dL (32.0-36.0); MEAN CORPUSCULAR VOLUME 99.3 fL (80.0-94.0); MEAN PLATELET VOLUME 8.7 fL (7.4-11.4); MONOCYTES # (AUTO) 1.2 10^3/uL (0.0-1.0); MONOCYTES % (AUTO) 18.7 %; NEUTROPHILS # (AUTO) 3.7 10^3/uL (1.5-6.6); NEUTROPHILS % (AUTO) 58.1 %; PLT - PLATELET COUNT 303 10^3/uL (130-450); RED BLOOD COUNT 2.99 10^6/uL (4.70-6.10); WHITE BLOOD COUNT 6.3 x10^3/uL (4.8-10.8)
[2022-05-03 05:44] LABS: BUN - BLOOD UREA NITROGEN 10 mg/dL (6-20); CALCIUM 8.5 mg/dL (8.5-10.3); CARBON DIOXIDE - CO2 29 mmol/L (21-32); CHLORIDE 102 mmol/L (101-111); GFR - MDRD 73 (>89); GLUCOSE 87 mg/dL (70-100); POTASSIUM 3.4 mmol/L (3.5-5.0); SODIUM 139 mmol/L (135-145)
[2022-05-03 05:46] LABS: CRP - C-REACTIVE PROTEIN < 1.0 mg/dL (0-1.0)
[2022-05-03] MEDS ORDERED: SODIUM CHLORIDE FLUSH 0.9% 10 ML SYRINGE IVP SCH (09:00)
[2022-05-03] MEDS: cefTRIAXone 2 GM in SODIUM CHLORIDE 0.9% MINIBAG 100 ML IV SCH (09:59)
[2022-05-03] MEDS: SACCHAROMYCES BOULARDII 250 MG CAPSULE PO SCH (10:31)
[2022-05-03] MEDS: ENOXAPARIN 40 MG/0.4 ML SYRINGE SUBQ SCH (10:32)
[2022-05-03] MEDS: FUROSEMIDE 20 MG TABLET PO SCH (10:33)
[2022-05-03 12:15] VITALS: BP 130/80
--- NOTE | 2022-05-03 15:44 | Discharge Plan ---
Discharge Plan Problem Reviewed?: Yes Disposition: 03 SNF DC/Xfer Condition: Fair Diet: Low Sodium Activity Restrictions: Activity as Tolerated Health Concerns: Admitted with cellulitis, and a bacteremia with Strep was found. Pt needs several more days of iv antibx via a PICC line in SNF Plan of Treatment: As above Care Goals: Improvement in sx and stabilization are the goals. Assessment: Pt understands and agrees. No Smoking: If you smoke, Please STOP! Call for help.
--- NOTE | 2022-05-03 15:49 | DISCHARGE SUMMARY ---
Discharge Summary Admit Date: 04/27/22 Discharge Date: 05/03/22 Discharging Provider: Dr Adore Collins Primary Care Provider: Latoya Mckeon Medical Code Status: Do Not Attempt Resuscitation Condition at Discharge: Fair Discharge Disposition: 03 SNF DC/Xfer - HPI History of Present Illness: This is a 72-year-old white male who was followed at [facility] for bilateral lower extremity chronic wounds secondary to chronic lymphedema. He presented to the emergency room complaining of foot pain, its been present for 6 months but currently worse. He cannot give more detailed history. He denies any fever or chills, reports that he was more tired yesterday. He is on no medicines besides Lasix daily for the lymphedema. He denies any pulmonary symptoms. In the ED he was found to be febrile, tachycardic, normotensive, but with elevated white blood count of 25 with a left shift and with altered mental status. Impression was that of bilateral lower extremity cellulitis. Imaging was done with chest x-ray, CT abdomen, CT head and these were unremarkable. The patient was given vancomycin and ceftriaxone and the Hospitalist team was called for admission to manage cellulitis. Patient is mostly wheelchair-bound, lives with his brother. He no longer smokes for the past 15 years and drinks 1-2 beers per day. - HOSPITAL COURSE Hospital Course: 1. Severe sepsis This was managed with IV fluids and starting IV antibiotics. His defervbesced, his mentation improved and his cellulitis improved. 2. Bilateral lower extremity cellulitis. He was treated as described above. He was also seen by the [facility] wound clinical office technician and both lower legs had dressings changed. 3. Streptococcus bacteremia. The patient grew Streptococcus on blood cultures. He had an Echocardiogram that did not have suspicious findings for endocarditis. He will need to complete a 2-week course of treatment using iv antibiotics, therefore a PICC line was placed after his cx were neg for 48 hours. He is being discharged to [facility] to [facility] approximately 8 more days of daily IV. 4. Altered mental status Had confusion when he presented febrile and septic. With IV fluids and treating the underlying infection, his mental status improved to baseline. He is alert and oriented x3 but is wheelchair-bound. 5. Hyponatremia He had hypovolemic hyponatremia. He received IV saline. BMP was checked. The sodium at discharge was normal. 6. Chronic lymphedema This is a chronic problem and he was on p.o. Lasix for this for years. 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 - ALLERGIES Allergies/Adverse Reactions: Allergies Allergy/AdvReac Type Severity Reaction Status Date / Time No Known Drug Allergies Allergy Verified 02/11/22 15:39 - PHYSICAL EXAM AT DISCHARGE General Appearance: positive: No acute distress, Alert Eyes Bilateral: positive: Normal inspection, PERRL ENT: positive: ENT inspection nml, No signs of dehydration Neck: positive: Nml inspection, No JVD Respiratory: positive: No respiratory distress Cardiovascular: positive: Regular rate & rhythm, No murmur Abdomen: positive: Non-tender, Nml bowel sounds, No distention Skin: positive: Warm, Dry Extremities: positive: Other (The lower extremities been low the knees are both wrapped in gauze and Jaylen bandages. They appear to be mildly swollen, but the dressings were not removed to evaluate the skin) Neurologic/Psychiatric: positive: Oriented x3 (By history, he is wheelchair- bound, only stands to pivot into a chair) - LABS Result Diagrams: 05/03/22 05:14 05/03/22 05:14 - DIAGNOSTIC IMAGING Diagnostic Imaging Results: Final report reviewed - SEPSIS Current Stage of Sepsis: Resolved Possible source of Sepsis: Skin/soft tissue Sepsis Criteria: Recorded Heart Rate greater than 90 bpm, WBC count greater than 12,000 or less than 4000, FOX FARMER: altered consciousness (unrelated to primary neuro pathology) - FOLLOW UP Follow Up: This will be determined at his day at the SNF. - TIME SPENT Time Spent in Discharge (Minutes): 50
== END 2022-05-03 15:54 | DRG 872 ==
LOC: ED 21:18 → MS2 04-27 06:23
PROVIDERS: ADMIT Internal Medicine; ATTEND Internal Medicine
PROC: 02HV33Z Insertion of Infusion Device into Superior Vena Cava, Percutaneous Approach (ICD-10-PCS; principal; 2022-05-02)
DX: A41.9 Sepsis, unspecified organism (principal); A40.8 Other streptococcal sepsis; L03.116 Cellulitis of left lower limb; L03.115 Cellulitis of right lower limb; E87.1 Hypo-osmolality and hyponatremia; Z20.822 Contact with and (suspected) exposure to COVID-19; R65.20 Severe sepsis without septic shock; R41.82 Altered mental status, unspecified; I89.0 Lymphedema, not elsewhere classified; E86.1 Hypovolemia; B35.3 Tinea pedis; I83.12 Varicose veins of left lower extremity with inflammation; I83.11 Varicose veins of right lower extremity with inflammation; S91.302D Unspecified open wound, left foot, subsequent encounter; S91.301D Unspecified open wound, right foot, subsequent encounter; S91.101D Unspecified open wound of right great toe without damage to nail, subsequent encounter; S91.104D Unspecified open wound of right lesser toe(s) without damage to nail, subsequent encounter; S91.102D Unspecified open wound of left great toe without damage to nail, subsequent encounter; S91.105D Unspecified open wound of left lesser toe(s) without damage to nail, subsequent encounter; Z99.3 Dependence on wheelchair; Z87.891 Personal history of nicotine dependence
CPT/HCPCS: 36415; 51701; 70450; 71045; 73630; 74176; 80048; 80053; 81001; 83605; 83690; 83880; 84484; 85025; 86140; 87040; 87070; 87077; 87150; 87181; 87205; 87633; 93005; 93306; 99281; 99285; A9270; C1751; J1650; J3370; 81003; 87086

== ENCOUNTER 2022-05-03 11:34 | Inpatient (IN) | payer MEDICARE, OTHER ==
[2022-05-03] MEDS ORDERED: IPRATROPIUM/ALBUTEROL 3 ML NEB INH PRN (19:25)
[2022-05-03] MEDS ORDERED: ACETAMINOPHEN/CODEINE 300 MG/30 MG TABLET PO PRN (19:29)
[2022-05-03] MEDS: SACCHAROMYCES BOULARDII 250 MG CAPSULE PO SCH (20:46)
[2022-05-03] MEDS ORDERED: SODIUM CHLORIDE FLUSH 0.9% 10 ML SYRINGE IVP PRN (21:48)
[2022-05-04] MEDS: SODIUM CHLORIDE FLUSH 0.9% 10 ML SYRINGE IVP SCH ×2 (01:06→17:09)
[2022-05-04] MEDS ORDERED: FUROSEMIDE 20 MG TABLET PO SCH (06:00)
[2022-05-04] MEDS: SACCHAROMYCES BOULARDII 250 MG CAPSULE PO SCH ×2 (08:19→17:09)
[2022-05-04] MEDS: cefTRIAXone 2 GM in SODIUM CHLORIDE 0.9% MINIBAG 100 ML IV SCH (08:19)
[2022-05-04] MEDS: THIAMINE 100 MG TABLET PO SCH (08:20)
[2022-05-04] MEDS: FUROSEMIDE 20 MG TABLET PO SCH (08:20)
[2022-05-04] MEDS: polyethylene glycoL 3350 17 GM PACKET PO SCH (08:20)
--- NOTE | 2022-05-04 11:01 | HISTORY & PHYSICAL EXAMINATION ---
Chief Complaint - Chief Complaint Chief Complaint: Needs daily iv antibiotics History of Present Illness - Admitted From Admitted From:: Inpt at [facility] - History Obtained From History obtained from: Chart review and the patient - History of Present Illness HPI Comment/Other: This is a 72-year-old white male with a history of chronic lymphedema, on chronic Lasix only at home. He developed leg ulcers and has needed to be followed at [facility] wound clinic. He then developed confusion, foot swelling and redness and was diagnosed with cellulitis and was an inpatient for treating this. His blood cultures grew Streptococcus. He had an Echo as an Inpt that showed no suspicion of endocarditis. He has been on IV antibiotics, and his white count improved and mentation improved and he was felt ready for discharge. He requires 8 more days of IV antibiotics daily and has been approved to get these at SNF (Swing bed status here at [facility]). The patient has no current complaints, he has no pain, his diet is adequate, he is having BMs. The patient's baseline activity is wheelchair-bound and he pivots to get into a chair, he does not walk. History - Past Medical History Cardiovascular: reports: None Respiratory: reports: Asthma Neuro: reports: None Endocrine/Autoimmune: reports: None GI: reports: None : reports: None HEENT: reports: None Psych: reports: None Musculoskeletal: reports: Other (wheelchair-bound, only pivots to transfer into a chair) Derm: reports: Other MRSA Hx?: No - Past Surgical History HEENT: reports: Tonsil/Adenoidectomy - Family & Social History Family History: Mother: , Father: , COPD/Emphysema, Brother: Alive and Well Family History Comment/Other: Pts in 2000. He currently lives alone with his younger brother. His brother moved in approximately 3-4 months ago. He son, Torres lives locally. Living arrangement: At home Living Situation: With family - Substance History Use: Uses substance without health or social issues: Tobacco (2 pack per day smoking history. Quit in 2000), Alcohol (Drinks a six pack of beer a day when at home.) - POLST Patient has POLST: No Meds/Allgy - Allergies Allergies/Adverse Reactions: Allergies Allergy/AdvReac Type Severity Reaction Status Date / Time No Known Drug Allergies Allergy Verified 02/11/22 15:39 Review of Systems - Constitutional Constitutional: reports: Weakness (wheel-chair bound and pivots for transfer into a chair) - Integumentary Integumentary: reports: Other (Has chronic leg wounds and chronic lymphedema. 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 Both extrem are wrapped in gauze then GABRIEL bandages below the knees, and entire foot and toes are wrapped and were not unwrapped to inspect.) Neurologic/Psychiatric: positive: Oriented x3 Conclusion/Plan - Problem List (1) Bacteremia due to Streptococcus Conclusion/Plan: Blood cultures grew Strep Dysgalac. He remained on ceftriaxone IV, as an Inpt, and repeat blood cultures were negative for 48 hours. PICC line was placed as an Inpt He is on once daily iv Ceftriaxone, per sensitivities from the blood culture results. He needs to complete a standard 2 week course of treatment and therefore will be in SNF (Swing bed status here at [facility]) to get this daily via his PICC line. The treatment is to go through 05/12/22. (2) Bilateral lower leg cellulitis Conclusion/Plan: He is completing antibiotics. Will continue pain meds as needed. Will continue with wound care as per [facility] recommendations (3) Chronic wound of extremity Conclusion/Plan: Will follow instructions as per [facility]. The wounds were just dressed and re-wrapped yesterday (and probably weekly). (4) Lymphedema Conclusion/Plan: Chronic. Will continue his po Lasix and leg elevation (5) Wheelchair bound Conclusion/Plan: As per Hx. No PT or OT are being ordered, since he is at his baseline of being able to transfer to chair by pivoting.
--- NOTE | 2022-05-04 12:55 | PHARMACY PROGRESS NOTE ---
- Best Possible Medication History Admit Date and Time: 05/03/22 1606 Processed by: Pharmacy Medication History completed: Yes Patient Interview: Completed Secondary Source(s): Insurance records (PT STATES HE WAS NOT TAKING ANY MEDS AT HOME. FUROSEMIDE WAS ALSO STOPPED.) As the person ultimately responsible for medication therapy, providers are able to order a medication from an existing home medication list in [facility] via the "Reconcile Routine" prior to Confirmation of that medication by sales support associate. Such practice is discouraged except when the physician, in their clinical judgment, deems that a medical need exists for a medication without regard to previous use.
[2022-05-04] MEDS: CHOLECALCIFEROL 25 MCG TABLET PO SCH (15:42)
[2022-05-04] MEDS: MULTIVITAMIN W/MINERALS TABLET PO SCH (15:42)
[2022-05-05] MEDS: SODIUM CHLORIDE FLUSH 0.9% 10 ML SYRINGE IVP SCH ×4 (00:30→23:42)
[2022-05-05] MEDS: MULTIVITAMIN W/MINERALS TABLET PO SCH (07:48)
[2022-05-05] MEDS: SACCHAROMYCES BOULARDII 250 MG CAPSULE PO SCH ×2 (07:49→16:25)
[2022-05-05] MEDS: cefTRIAXone 2 GM in SODIUM CHLORIDE 0.9% MINIBAG 100 ML IV SCH (08:37)
[2022-05-05] MEDS: THIAMINE 100 MG TABLET PO SCH (08:39)
[2022-05-05] MEDS: CHOLECALCIFEROL 25 MCG TABLET PO SCH (08:39)
[2022-05-05] MEDS: FUROSEMIDE 20 MG TABLET PO SCH (08:39)
[2022-05-05] MEDS: polyethylene glycoL 3350 17 GM PACKET PO SCH (08:47)
[2022-05-06] MEDS: SACCHAROMYCES BOULARDII 250 MG CAPSULE PO SCH ×2 (07:59→16:22)
[2022-05-06] MEDS: CHOLECALCIFEROL 25 MCG TABLET PO SCH (07:59)
[2022-05-06] MEDS: FUROSEMIDE 20 MG TABLET PO SCH (08:00)
[2022-05-06] MEDS: cefTRIAXone 2 GM in SODIUM CHLORIDE 0.9% MINIBAG 100 ML IV SCH (08:00)
[2022-05-06] MEDS: THIAMINE 100 MG TABLET PO SCH (08:00)
[2022-05-06] MEDS: MULTIVITAMIN W/MINERALS TABLET PO SCH (08:00)
[2022-05-06] MEDS: polyethylene glycoL 3350 17 GM PACKET PO SCH (08:00)
[2022-05-06] MEDS: SODIUM CHLORIDE FLUSH 0.9% 10 ML SYRINGE IVP SCH ×2 (08:00→16:22)
[2022-05-07] MEDS: SODIUM CHLORIDE FLUSH 0.9% 10 ML SYRINGE IVP SCH ×3 (00:25→16:58)
[2022-05-07] MEDS: THIAMINE 100 MG TABLET PO SCH (08:29)
[2022-05-07] MEDS: SACCHAROMYCES BOULARDII 250 MG CAPSULE PO SCH ×2 (08:29→16:58)
[2022-05-07] MEDS: MULTIVITAMIN W/MINERALS TABLET PO SCH (08:29)
[2022-05-07] MEDS: CHOLECALCIFEROL 25 MCG TABLET PO SCH (08:29)
[2022-05-07] MEDS: FUROSEMIDE 20 MG TABLET PO SCH (08:29)
[2022-05-07] MEDS: polyethylene glycoL 3350 17 GM PACKET PO SCH (08:31)
[2022-05-07] MEDS: cefTRIAXone 2 GM in SODIUM CHLORIDE 0.9% MINIBAG 100 ML IV SCH (08:31)
[2022-05-07] MEDS: ZINC OXIDE 20% OINT 30 GM TUBE TOP PRN (12:04)
[2022-05-08] MEDS: SODIUM CHLORIDE FLUSH 0.9% 10 ML SYRINGE IVP SCH ×3 (00:15→16:57)
[2022-05-08] MEDS: FUROSEMIDE 20 MG TABLET PO SCH (08:59)
[2022-05-08] MEDS: SACCHAROMYCES BOULARDII 250 MG CAPSULE PO SCH ×2 (08:59→16:57)
[2022-05-08] MEDS: THIAMINE 100 MG TABLET PO SCH (08:59)
[2022-05-08] MEDS: MULTIVITAMIN W/MINERALS TABLET PO SCH (08:59)
[2022-05-08] MEDS: CHOLECALCIFEROL 25 MCG TABLET PO SCH (08:59)
[2022-05-08] MEDS: polyethylene glycoL 3350 17 GM PACKET PO SCH (09:00)
[2022-05-08] MEDS: cefTRIAXone 2 GM in SODIUM CHLORIDE 0.9% MINIBAG 100 ML IV SCH (09:20)
[2022-05-09] MEDS: SODIUM CHLORIDE FLUSH 0.9% 10 ML SYRINGE IVP SCH ×3 (05:12→17:01)
[2022-05-09] MEDS: polyethylene glycoL 3350 17 GM PACKET PO SCH (08:26)
[2022-05-09] MEDS: cefTRIAXone 2 GM in SODIUM CHLORIDE 0.9% MINIBAG 100 ML IV SCH (08:55)
[2022-05-09] MEDS: THIAMINE 100 MG TABLET PO SCH (08:56)
[2022-05-09] MEDS: MULTIVITAMIN W/MINERALS TABLET PO SCH (08:56)
[2022-05-09] MEDS: CHOLECALCIFEROL 25 MCG TABLET PO SCH (08:56)
[2022-05-09] MEDS: FUROSEMIDE 20 MG TABLET PO SCH (08:56)
[2022-05-09] MEDS: SACCHAROMYCES BOULARDII 250 MG CAPSULE PO SCH ×2 (08:56→17:01)
[2022-05-09] MEDS: ZINC OXIDE 20% OINT 30 GM TUBE TOP PRN (19:58)
[2022-05-10] MEDS: SODIUM CHLORIDE FLUSH 0.9% 10 ML SYRINGE IVP SCH ×3 (05:15→16:49)
[2022-05-10] MEDS: cefTRIAXone 2 GM in SODIUM CHLORIDE 0.9% MINIBAG 100 ML IV SCH (08:41)
[2022-05-10] MEDS: MULTIVITAMIN W/MINERALS TABLET PO SCH (08:44)
[2022-05-10] MEDS: THIAMINE 100 MG TABLET PO SCH (08:44)
[2022-05-10] MEDS: CHOLECALCIFEROL 25 MCG TABLET PO SCH (08:44)
[2022-05-10] MEDS: FUROSEMIDE 20 MG TABLET PO SCH (08:44)
[2022-05-10] MEDS: SACCHAROMYCES BOULARDII 250 MG CAPSULE PO SCH ×2 (08:44→16:48)
[2022-05-10] MEDS: polyethylene glycoL 3350 17 GM PACKET PO SCH (08:44)
[2022-05-10] MEDS: ACETAMINOPHEN 325 MG TABLET PO PRN (08:50)
--- NOTE | 2022-05-10 09:35 | WOUND CARE PROGRESS NOTE ---
Assessment/Plan - Problem List (1) Non-pressure ulcer of toe Assessment/Plan: Right second toe, plantar aspect. Plan of care: Wound hygiene with antimicrobial solution. Dressing with honey alginate, Extra thick antifungal barrier cream to bilateral feet (including toes), interdry in between toes, and roll gauze. Bilateral tubigrip size C applied. Patient encouraged to keep dressings dry and intact and RTC in one week for nurse visit. Orders written. (2) Bilateral lower leg cellulitis Assessment/Plan: Clinically resolved. Patient is scheduled for discharge this week. (3) Fungal infection Assessment/Plan: Much improved. Plan of care: Extra thick antifungal barrier cream and interdry applied as above. - Home Meds/Allergies Allergies No Known Drug Allergies Allergy (Verified 02/11/22 15:39) - Additional Planning Condition/Complexity: Improved Plan Discussed with:: Patient Objective General: Alert, Oriented x3, Cooperative, No acute distress - Wound Assessment Wound assessment: Wound #1: Right forefoot- Only one wound remains, Right second toe, plantar aspect. The wound is full thickness with a wound bed that in 100% granular. The wound edges are attached, no undermining, no tunneling. Periwound with lipodermatosclerosis. There is no drainage, no odor, no s/s infection. Wound #2: Left forefoot- Wounds are healed Bilateral feet with lipodermatosclerosis texture. Onychomycosis x 10. 04/29/22 Left: Pulses DP/PT palpable, audible via Doppler and are triphasic. Right: Pulses DP/PT palpable, audible via Doppler and are triphasic. Subjective - Subjective Patient Reports: Feeling Better (Due to be discharged from the hosptial this week. Denies having home health to do dressing changes.) Procedure - Procedure Note No debridement Meds/Allgy - Allergies Allergies/Adverse Reactions: Allergies Allergy/AdvReac Type Severity Reaction Status Date / Time No Known Drug Allergies Allergy Verified 02/11/22 15:39
[2022-05-11] MEDS: SODIUM CHLORIDE FLUSH 0.9% 10 ML SYRINGE IVP SCH ×4 (00:03→23:55)
[2022-05-11] MEDS: ACETAMINOPHEN 325 MG TABLET PO PRN (02:55)
--- NOTE | 2022-05-11 08:02 | PROVIDER PROGRESS NOTE ---
Progress Note HPI: This is a 72-year-old white male with a history of chronic lymphedema, on chronic Lasix only at home. He developed leg ulcers and has needed to be followed at [facility] wound clinic. He then developed confusion, foot swelling and redness and was diagnosed with cellulitis and was an inpatient for treating this. His blood cultures grew Streptococcus. He had an Echo as an Inpt that showed no suspicion of endocarditis. He has been on IV antibiotics, and his white count improved and mentation improved and he was felt ready for discharge. He requires 8 more days of IV antibiotics daily and has been approved to get these at SNF (Swing bed status here at [facility]). The patient has no current complaints, he has no pain, his diet is adequate, he is having BMs. The patient's baseline activity is wheelchair-bound and he pivots to get into a chair, he does not walk. O/E: General: Cooperative and pleasant. No resp distress HEENT: no buccal lesions. No sceral icterus. Neck: no JVD, trachea midline CV/Lungs: RRR. CTABL Abdomen: Benign Ext/Skin: 2+ pulses dorsalis pedis bilaterally. Right forefoot- Right second toe plantar aspect with full-thickness with 100% granular and no tunneling. Periwound with lipodermatosclerosis. There is no drainage, no odor, no s/s infection. Left forefoot- Wounds appear healed. Bilateral feet with lipodermatosclerosis texture. Onychomycosis x 10. Labs: reviewed Imaging: reviewed A/P: (1) Bacteremia due to Streptococcus Conclusion/Plan: Blood cultures grew Strep Dysgalac. He remained on ceftriaxone IV, as an Inpt, and repeat blood cultures were negative for 48 hours. PICC line was placed as an Inpt He is on once daily iv Ceftriaxone, per sensitivities from the blood culture results. He needs to complete a standard 2 week course of treatment and therefore will be in SNF (Swing bed status here at [facility]) to get this daily via his PICC line. The treatment is to go through 05/12/22. (2) Bilateral lower leg cellulitis Conclusion/Plan: He is completing antibiotics. Fungal infection much improved. Per Wound care: Extra thick antifungal barrier cream and interdry applied as above. Will continue pain meds as needed. Will continue with wound care as per [facility] recommendations (3) Chronic wound of extremity/Non-pressure ulcer of toe Assessment/Plan: Per Wound Care: Right second toe, plantar aspect. Plan of care: Wound hygiene with antimicrobial solution. Dressing with honey alginate, Extra thick antifungal barrier cream to bilateral feet (including toes), interdry in between toes, and roll gauze. Bilateral tubigrip size C applied. Patient encouraged to keep dressings dry and intact and RTC in one week for nurse visit. Orders written. Conclusion/Plan: Will follow instructions as per [facility] Wound [facility]. The wounds were just dressed and re-wrapped yesterday (and probably weekly). (4) Lymphedema Conclusion/Plan: Chronic. Will continue his po Lasix and leg elevation. (5) Wheelchair bound Conclusion/Plan: As per Hx. No PT or OT are being ordered, since he is at his baseline of being able to transfer to chair by pivoting.
[2022-05-11] MEDS: FUROSEMIDE 20 MG TABLET PO SCH (08:26)
[2022-05-11] MEDS: SACCHAROMYCES BOULARDII 250 MG CAPSULE PO SCH ×2 (08:26→17:32)
[2022-05-11] MEDS: CHOLECALCIFEROL 25 MCG TABLET PO SCH (08:27)
[2022-05-11] MEDS: cefTRIAXone 2 GM in SODIUM CHLORIDE 0.9% MINIBAG 100 ML IV SCH (08:28)
[2022-05-11] MEDS: THIAMINE 100 MG TABLET PO SCH (08:45)
[2022-05-11] MEDS: MULTIVITAMIN W/MINERALS TABLET PO SCH (08:45)
[2022-05-11] MEDS: polyethylene glycoL 3350 17 GM PACKET PO SCH (09:17)
[2022-05-12 07:40] VITALS: BP 114/58
[2022-05-12] MEDS: MULTIVITAMIN W/MINERALS TABLET PO SCH (08:21)
[2022-05-12] MEDS: SACCHAROMYCES BOULARDII 250 MG CAPSULE PO SCH (08:21)
[2022-05-12] MEDS: SODIUM CHLORIDE FLUSH 0.9% 10 ML SYRINGE IVP SCH (08:21)
[2022-05-12] MEDS: FUROSEMIDE 20 MG TABLET PO SCH (08:21)
[2022-05-12] MEDS: THIAMINE 100 MG TABLET PO SCH (08:21)
[2022-05-12] MEDS: CHOLECALCIFEROL 25 MCG TABLET PO SCH (08:21)
[2022-05-12] MEDS: cefTRIAXone 2 GM in SODIUM CHLORIDE 0.9% MINIBAG 100 ML IV SCH (08:22)
[2022-05-12] MEDS: polyethylene glycoL 3350 17 GM PACKET PO SCH (09:01)
--- NOTE | 2022-05-12 10:46 | Discharge Plan ---
Discharge Plan Problem Reviewed?: Yes Disposition: Home, Self Care Condition: Good Prescriptions: Acetaminophen/Cod 300/30 [Tylenol #3] 1 tab PO Q4HR PRN #42 tablet PRN Reason: Severe Pain Furosemide [Lasix] 20 mg PO DAILY #30 tablet Multivitamin W/Minerals [Theragran M] 1 tab PO DAILYWM #30 tablet Zinc Oxide 20% Oint [Zinc Oxide] 1 applic TOP BID PRN #45 gm PRN Reason: Skin care Diet: Low Sodium Activity Restrictions: Activity as Tolerated Shower Restrictions: No Assistance Devices: Wheelchair Weight Bearing: Full Weight Plan of Treatment: Patient to continue with ongoing wound care, pain control and will have [facility] wound clinic follow-ups every Monday.Patient to continue with antifungal and barrier cream with Interdry applications per wound care. Rx with Lasix and leg elevation for his chronic lymphedema. Patient is wheelchair-bound and no PT/OT is needed as patient is at baseline and continue with transfers to chair by pivoting.Per wound care service continue with nonpressure ulcer of toe and chronic wound of extremity treatment with dressing with honey alginate, extra thick antifungal barrier cream to bilateral feet and Interdry between toes and roll gauze. For wound care bilateral Tubigrip size C applied and encouraged to keep dressings dry and intact until RTC at wound [facility] clinic. Care Goals: With wound care as per above as well as pain control and will need follow-up with PCP in 1 to 2 weeks. Follow-Up Care: [facility] Clinic - Wound/Ostomy No Smoking: If you smoke, Please STOP! Call for help. Follow-up with: Norman Bustamante MD [Credentialed Staff Provider] -
--- NOTE | 2022-05-12 10:58 | DISCHARGE SUMMARY ---
"Discharge Summary Admit Date: 05/04/22 Discharge Date: 05/12/22 Discharging Provider: Dr. Penn Primary Care Provider: Norman Bustamante Code Status: Do Not Attempt Resuscitation Condition at Discharge: Good Discharge Disposition: 01 Home, Self Care - DIAGNOSES Admission Diagnoses: (1) Bacteremia due to Streptococcus (2) Bilateral lower leg cellulitis (3) Chronic wound of extremity (4) Lymphedema (5) Wheelchair bound Discharge Diagnoses with Status of Each Condition: (1) Bacteremia due to Streptococcus---resolved (2) Bilateral lower leg cellulitis---resolving (3) Chronic wound of extremity/Non-pressure ulcer of toe----improved (4) Lymphedema---improved (5) Wheelchair bound---stable - HPI History of Present Illness: This is a 72-year-old white male with a history of chronic lymphedema, on chronic Lasix only at home. He developed leg ulcers and has needed to be followed at [facility] wound clinic. He then developed confusion, foot swelling and redness and was diagnosed with cellulitis and was an inpatient for treating this. His blood cultures grew Streptococcus. He had an Echo as an Inpt that showed no suspicion of endocarditis. He has been on IV antibiotics, and his white count improved and mentation improved and he was felt ready for discharge. He requires 8 more days of IV antibiotics daily and has been approved to get these at SNF (Swing bed status here at [facility]). The patient has no current complaints, he has no pain, his diet is adequate, he is having BMs. The patient's baseline activity is wheelchair-bound and he pivots to get into a chair, he does not walk. - CONSULTS | PROCEDURES Consultations: wound care Procedures: dedridement - HOSPITAL COURSE Hospital Course: Patient was managed and treated for the following medical conditions as per above. Patient had blood cultures that grew out Streptococcus dysgalactiae. He was placed on IV Rocephin for a 2-week course with an end date on 05/12/2022 for which PICC line was subsequently removed. Patient had bilateral lower extremity leg cellulitis which improved significantly while completing his antibiotics and fungal infection improved with antifungal barrier cream and Interdry applied by wound care with ongoing follow-up and will have follow-up for [facility] wound clinic recommendations. Patient's chronic wound of extremity/nonpressure ulcer of toe was managed by In addition bilateral Tubigrip size C were applied and patient encouraged to keep dressings dry and intact and to RTC in 1 week for nurse visit.wound care with antimicrobial solution and wound hygiene with dressing with honey alginate and extra thick antifungal barrier cream to bilateral feet to include his toes with Interdry in between toes and roll gauze. To have [facility] wound clinic with dressing and rewrapping if needed. Management for his lymphedema with ongoing Lasix and leg elevation and wraps. Patient is wheelchair-bound and Mortin for patient to have ongoing wound care and leg elevation to avoid further venous stasis and poor circulation that would likely develop as a result of his lymphedema. No PT/OT were ordered as he was at his baseline being able to transfer to chair by pivoting. Patient instructed to take all p.o. medications as prescribed, keep all appointments and have follow-up with PCP in 1 or 2 weeks. - ALLERGIES Allergies/Adverse Reactions: Allergies Allergy/AdvReac Type Severity Reaction Status Date / Time No Known Drug Allergies Allergy Verified 02/11/22 15:39 - MEDICATIONS Home Medications: Ambulatory Orders Medication Instructions Recorded Confirmed Acetaminophen/Cod 300/30 [Tylenol 1 tab PO Q4HR PRN #42 tablet 05/12/22 #3] Furosemide [Lasix] 20 mg PO DAILY #30 tablet 05/12/22 Multivitamin W/Minerals [Theragran 1 tab PO DAILYWM #30 tablet 05/12/22 M] Zinc Oxide 20% Oint [Zinc Oxide] 1 applic TOP BID PRN #45 gm 05/12/22 - PHYSICAL EXAM AT DISCHARGE General Appearance: positive: No acute distress, Alert, Mild distress Eyes Bilateral: positive: Normal inspection, PERRL, EOMI ENT: positive: ENT inspection nml, Pharynx nml, No signs of dehydration Neck: positive: Nml inspection, Thyroid nml, No JVD Respiratory: positive: Chest non-tender, No respiratory distress, Breath sounds nml Cardiovascular: positive: Regular rate & rhythm, No murmur, No gallop Peripheral Pulses: positive: 2+ Skin: positive: Other Extremities: positive: Non-tender, Pedal edema, Other (2+ pulses dorsalis pedis bilaterally. Right forefoot- Right second toe plantar aspect with full-thickness with 100% granular and no tunneling. Periwound with lipodermatosclerosis. There is no drainage, no odor, no s/s infection. Left forefoot- Wounds appear healed. Bilateral feet with lipodermatoscl) Neurologic/Psychiatric: positive: Oriented x3, CN's nml (2-12) - FOLLOW UP Follow Up: Follow-up with wound care clinic and PCP as scheduled. - TIME SPENT Time Spent in Discharge (Minutes): 40"
--- OUTSIDE RECORDS SUMMARY | 2022-05-12 13:56 | EXTERNAL MEDICAL SUMMARY RPT | Continuity of Care Document ---
:1950 Author Organization [facility] Address [address] [place] [address] Phone Allergies No information. Encounters No information. Functional Status No information. Immunizations No information. Medications date description facility [id number] cephalexin All [id number] sulfamethoxazole-trimethoprim All [id number] cephalexin All [id number] sulfamethoxazole-trimethoprim All Problems No information. Procedures No information. Results/Labs No information. Social History No information. Vital Signs No information.
== END 2022-05-12 13:00 | disposition home or self-care (01) | DRG 603 ==
LOC: MS2 16:09
PROVIDERS: ADMIT Internal Medicine; ATTEND Family Medicine
DX: L03.116 Cellulitis of left lower limb (principal); L97.518 Non-pressure chronic ulcer of other part of right foot with other specified severity; I83.215 Varicose veins of right lower extremity with both ulcer other part of foot and inflammation; L03.115 Cellulitis of right lower limb; B95.4 Other streptococcus as the cause of diseases classified elsewhere; I89.0 Lymphedema, not elsewhere classified; R53.1 Weakness; B35.1 Tinea unguium; I83.12 Varicose veins of left lower extremity with inflammation; Z99.3 Dependence on wheelchair; Z79.899 Other long term (current) drug therapy; Z87.891 Personal history of nicotine dependence
CPT/HCPCS: 99231

== ENCOUNTER 2022-07-18 14:11 | Outpatient (CLI) | payer MEDICARE, OTHER | END 2022-07-18 14:12 | disposition home or self-care (01) | LOC: LAB.R 14:11 | PROVIDERS: ATTEND Nurse Practitioner Family | DX: S91.301D Unspecified open wound, right foot, subsequent encounter (principal) | CPT/HCPCS: 87070; 87077; 87181; 87205 ==

== ENCOUNTER 2022-07-22 16:55 | Outpatient (CLI) | payer MEDICARE, OTHER ==
[2022-07-22 18:13] LABS: ALBUMIN 3.3 g/dL (3.2-5.5); ALBUMIN/GLOBULIN RATIO 1.1 (1.0-2.2); BILIRUBIN,TOTAL 0.6 mg/dL (0.2-1.0); CALCIUM 8.8 mg/dL (8.5-10.3); CREATININE 0.8 mg/dL (0.6-1.2); POTASSIUM 4.5 mmol/L (3.5-5.0); TOTAL PROTEIN 6.4 g/dL (6.7-8.2)
== END 2022-07-22 23:59 | disposition home or self-care (01) ==
LOC: LAB.R 16:55
PROVIDERS: ATTEND Nurse Practitioner Family
DX: S91.301D Unspecified open wound, right foot, subsequent encounter (principal)
CPT/HCPCS: 80053

== ENCOUNTER 2022-09-20 11:08 | Outpatient (CLI) | payer MEDICARE, OTHER | END 2022-09-20 11:09 | disposition EMS.NT | LOC: EMS 11:08 | DX: R53.1 Weakness (principal); R06.09 Other forms of dyspnea ==

== ENCOUNTER → 2022-09-20 | Outpatient (CLI) | payer MEDICARE, OTHER | END | disposition EMS.NT | LOC: EMS 08-20 19:45 | DX: R53.1 Weakness (principal) ==

== ENCOUNTER 2022-09-21 06:17 | Outpatient (CLI) | payer MEDICARE, OTHER | END 2022-09-21 06:18 | disposition EMS.NT | LOC: EMS 06:17 | DX: R53.1 Weakness (principal) ==

== ENCOUNTER 2022-09-21 07:47 | Emergency (ER) | payer MEDICARE, OTHER ==
--- NOTE | 2022-09-21 08:45 | ED Physician Documentation ---
History of Present Illness - Stated complaint Stated Complaint: GENERAL WEAKNESS - Chief complaint Chief Complaint: General - History obtained from History obtained from: Patient, Family, EMS - History of Present Illness Timing: How many weeks ago (several) - Additonal information Additional information: 72-year-old Norman Baca has a history of lymphedema to his lower extremities bilaterally and he has had complications of this including sepsis this summer. He is seeing wound care and he is getting dressings changed by [facility] at home 3 times a week. He has been able to get in and out of bed and transfer to his wheelchair by himself since his hospitalization. Over the past week he has began to develop some weakness and he has fallen yesterday and he has fallen today attempting to transfer from his easy chair to his wheelchair. He sleeps with his legs declined in a easy chair for the past year and he has developed the swelling in his legs and the complications associated. An appointment with the lymphedema clinic yesterday was missed by the patient. When the patient fell today the medics recommended he come to the hospital for further evaluation. The patient denies any other symptoms with the exception of feeling his legs are weak. Review of Systems Constitutional: denies: Fever Eyes: denies: Decreased vision Ears: denies: Ear pain Nose: denies: Rhinorrhea / runny nose, Congestion Throat: denies: Sore throat Cardiac: reports: Pedal edema, Calf pain. denies: Chest pain / pressure, Palpitations Respiratory: reports: Dyspnea, Cough GI: denies: Abdominal Pain, Nausea, Vomiting, Constipation, Diarrhea : denies: Dysuria, Frequency Skin: denies: Rash Musculoskeletal: reports: Extremity pain, Extremity swelling. denies: Neck pain, Back pain Neurologic: denies: Generalized weakness, Focal weakness, Numbness PD PAST MEDICAL HISTORY - Past Medical History Past Medical History: Yes Cardiovascular: None Respiratory: Asthma Neuro: None Endocrine/Autoimmune: None GI: None : None HEENT: None Psych: None Musculoskeletal: Other Derm: Other - Past Surgical History Past Surgical History: Yes HEENT: Tonsil/Adenoidectomy - Present Medications Home Medications: Ambulatory Orders Medication Instructions Recorded Confirmed Acetaminophen/Cod 300/30 [Tylenol 1 tab PO Q4HR PRN #42 tablet 05/12/22 05/18/22 #3] Furosemide [Lasix] 20 mg PO DAILY #30 tablet 05/12/22 05/18/22 Multivitamin W/Minerals [Theragran 1 tab PO DAILYWM #30 tablet 05/12/22 05/18/22 M] Zinc Oxide 20% Oint [Zinc Oxide] 1 applic TOP BID PRN #45 gm 05/12/22 05/18/22 Ciprofloxacin HCl 1 tablet PO BID 5 Days #10 tablet 07/20/22 Terbinafine [Lamisil] 250 mg PO DAILY 14 Days #14 tablet 08/03/22 cephALEXin [Keflex] 500 mg PO TID 10 Days #30 cap 08/03/22 Silver Sulfadiazine Cream 400 applic TOP DAILY 30 Days #400 08/10/22 [Silvadene Cream] gm cephALEXin [Keflex] 500 mg PO BID 7 Days #14 cap 08/10/22 Terbinafine [Lamisil] 250 mg PO DAILY 14 Days #14 tablet 08/24/22 Gentamicin Sulfate 30 gm TP DAILY 30 Days #30 gm 09/16/22 Cefdinir 300 mg PO BID #20 cap 09/21/22 - Allergies Allergies/Adverse Reactions: Allergies Allergy/AdvReac Type Severity Reaction Status Date / Time No Known Drug Allergies Allergy Verified 09/21/22 08:04 - Social History Does the pt smoke?: No Smoking Status: Never smoker Does the pt drink ETOH?: Yes Does the pt have substance abuse?: No - Immunizations Immunizations are current?: Yes - POLST Patient has POLST: No PD ED PE NORMAL - Vitals Vital signs reviewed: Yes (hyypertensive) - General General: Alert and oriented X 3, Well developed/nourished, Other (dyspneic at rest) - HEENT HEENT: Atraumatic, PERRL, EOMI, Other (dry mucous membranes ) - Neck Neck: Supple, no meningeal sign, No bony TTP - Cardiac Cardiac: No murmur, Other (tachy to 100) - Respiratory Respiratory: Other (Tachypneic at rest with markedly diminished breath sounds bilaterally) - Abdomen Abdomen: Soft, Non tender - Derm Derm: Normal color, Warm and dry - Extremities Extremities: Other (There is generalized swelling to both lower extremities below the knee worse on the feet. There is denuding of the skin on the dorsum of the left foot. Both feet are erythematous and weeping. There is a foul smell.) - Neuro Neuro: Alert and oriented X 3, dopeman 2-12 intact, No motor deficit, No sensory deficit, Normal speech Eye Opening: Spontaneous Motor: Obeys Commands Verbal: Oriented GCS Score: 15 - Psych Psych: Normal mood, Normal affect Results - Vitals Vitals: Vital Signs - 24 hr 09/21/22 09/21/22 09/21/22 08:01 08:10 10:08 Temperature 36.6 C Heart Rate 100 103 H 89 Respiratory 24 20 20 Rate Blood Pressure 178/88 H 156/91 H 155/88 H O2 Saturation 95 95 96 Oxygen O2 Source Room air - Labs Labs: Laboratory Tests 09/21/22 09/21/22 09/21/22 08:57 08:57 09:01 WBC 6.9 RBC 4.03 L Hgb 11.5 L Hct 33.6 L MCV 83.4 MCH 28.5 MCHC 34.2 RDW 15.2 H Plt Count 263 MPV 8.4 Neut # (Auto) Not Reportable Lymph # (Auto) Not Reportable [place] # (Auto) Not Reportable Eos # (Auto) Not Reportable Baso # (Auto) Not Reportable Absolute Nucleated RBC Not Reportable Total Counted 100 Band Neuts % (Manual) 1 Abnorm Lymph % (Manual) 0 Nucleated RBC % Not Reportable Neutrophils # (Manual) 5.9 Lymphocytes # (Manual) 0.1 L Monocytes # (Manual) 0.8 Eosinophils # (Manual) 0.1 Basophils # (Manual) 0.1 Differential Comment MANUAL DIFFERENTIAL Platelet Estimate NORMAL (130-450,000) Platelet Morphology NORMAL APPEARANCE RBC Morph Micro Appear NORMAL APPEARANCE Sodium 126 L Potassium 4.1 Chloride 89 L Carbon Dioxide 27 Anion Gap 10.0 BUN 10 Creatinine 1.0 Estimated GFR (MDRD) 73 L Glucose 100 Lactic Acid 1.2 Calcium 9.1 Total Bilirubin 0.8 AST 46 H ALT 32 Alkaline Phosphatase 95 Total Protein 7.3 Albumin 3.8 Globulin 3.5 Albumin/Globulin Ratio 1.1 Lipase 24 - Rads (name of study) chest Radiology: Prelim report reviewed (Impression: No acute changes compared to prior radiograph.), EMP read indepedently, See rad report Procedures - IVC sono (time) 0842 Bedside IVC sono: IVC measures (cm) (1.68), IVC collapsed c insp (cm) (0.89), Euvolemia PD MEDICAL DECISION MAKING - ED course Complexity details: reviewed old records, reviewed results, re-evaluated patient, considered differential, d/w patient, d/w family ED course: 72-year-old male with lymphedema appears to have infection and this is likely cause of patient's generalized weakness we did find that he was hyponatremic and euvolemic. The hyponatremia may be contributing to his weakness.Here in the emergency department we were able to consult wound care and Talia was able to evaluate the feet indicating they were similar to prior but with more erythema and a foul smell. The patient's blood work is otherwise unremarkable he does not have an elevated white count or elevated lactate. An IV was begun he was given a gram of Rocephin intravenously. We will continue treatment as an outpatient with oral antibiotic. Departure - Departure Disposition: 01 Home, Self Care Clinical Impression: Lymphedema, Bilateral lower leg cellulitis, Hyponatremia Condition: Stable Instructions: ED Infec Skin Cellulitis, ED Hyponatremia Follow-Up: Benjamin Calderon MD [Primary Care Provider] - Prescriptions: Cefdinir 300 mg PO BID #20 cap Comments: Norman, today it looks like you have infection to your swollen legs. We have given you a dose of antibiotic here in the emergency department and we have E scribed some cefdinir to [facility] [place] . Our expectations are improvement in the redness and improvement in your strength. In addition you have some hyponatremia or a low sodium level and this can be a cause of weakness. Follow the instructions administered.
[2022-09-21 09:12] LABS: BASOPHILS % (AUTO) 0.6 %; EOSINOPHILS % (AUTO) 0.6 %; HCT - HEMATOCRIT 33.6 % (42.0-52.0); HGB - HEMOGLOBIN 11.5 g/dL (14.0-18.0); LYMPHOCYTES % (AUTO) 4.2 %; MEAN CORPUSCULAR HEMOGLOBIN 28.5 pg (27.0-31.0); MEAN CORPUSCULAR HGB CONC 34.2 g/dL (32.0-36.0); MEAN CORPUSCULAR VOLUME 83.4 fL (80.0-94.0); MEAN PLATELET VOLUME 8.4 fL (7.4-11.4); MONOCYTES % (AUTO) 23.6 %; NEUTROPHILS % (AUTO) 70.4 %; PLT - PLATELET COUNT 263 10^3/uL (130-450); RED BLOOD COUNT 4.03 10^6/uL (4.70-6.10); RED CELL DISTRIBUTION WIDTH 15.2 % (12.0-15.0); WHITE BLOOD COUNT 6.9 x10^3/uL (4.8-10.8)
--- NOTE | 2022-09-21 09:12 | XRAY Report ---
PROCEDURE: Chest 1 View X-Ray INDICATIONS: soa TECHNIQUE: One view of the chest was acquired. COMPARISON: 03/16/2021, 04/26/2022 FINDINGS: Surgical changes and devices: None. Lungs and pleura: No consolidation or pleural effusion. Mediastinum: Unchanged cardiomediastinal contour, including fullness of the left hilar region. Bones and chest wall: Right rib deformity. No other acute abnormality identified. IMPRESSION: No acute changes compared to prior radiograph. Reviewed by: Ted Rdz MD on 09/21/2022 9:10 AM PDT Approved by: Ted Rdz MD on 09/21/2022 9:10 AM PDT Station ID: [id number]
[2022-09-21 09:16] LABS: ABNORMAL LYMPHS % (MANUAL) 0 %
[2022-09-21 09:23] LABS: ALBUMIN 3.8 g/dL (3.2-5.5); ALBUMIN/GLOBULIN RATIO 1.1 (1.0-2.2); BILIRUBIN,TOTAL 0.8 mg/dL (0.2-1.0); CALCIUM 9.1 mg/dL (8.5-10.3); POTASSIUM 4.1 mmol/L (3.5-5.0); TOTAL PROTEIN 7.3 g/dL (6.7-8.2)
[2022-09-21] MEDS ORDERED: cefTRIAXone 1 GM in SODIUM CHLORIDE 0.9% MINIBAG 100 ML IV STA (09:56)
[2022-09-21 09:59] LABS: BAND NEUTROPHILS % (MANUAL) 1 %; BASOPHILS # (MANUAL) 0.1 10^3/uL (0-0.1); BASOPHILS % (MANUAL) 1 %; DIFFERENTIAL COMMENT MANUAL DIFFERENTIAL; EOSINOPHILS # (MANUAL) 0.1 10^3/uL (0-0.7); LYMPHOCYTES # (MANUAL) 0.1 10^3/uL (1.5-3.5); LYMPHOCYTES % (MANUAL) 2 %; MONOCYTES # (MANUAL) 0.8 10^3/uL (0.0-1.0); NEUTROPHILS # (MANUAL) 5.9 10^3/uL (1.5-6.6); PLATELET ESTIMATE, MANUAL NORMAL (130-450,000) (NORMAL); PLATELET MORPHOLOGY NORMAL APPEARANCE (NORMAL); RBC MORPHOLOGY (MULTIPLE) NORMAL APPEARANCE (NORMAL)
[2022-09-21 10:09] VITALS: BP 155/88
== END 2022-09-21 11:46 | disposition home or self-care (01) ==
LOC: ED 07:47
DX: L03.116 Cellulitis of left lower limb (principal); L03.115 Cellulitis of right lower limb; E87.1 Hypo-osmolality and hyponatremia; I89.0 Lymphedema, not elsewhere classified
CPT/HCPCS: 36415; 80053; 83605; 83690; 85025; 87040; 87150; 96365; 99283

== ENCOUNTER 2022-09-22 09:33 | Outpatient (CLI) | payer MEDICARE, OTHER | END 2022-09-22 09:34 | disposition critical access hospital (66) | LOC: EMS 09:33 | DX: A49.02 Methicillin resistant Staphylococcus aureus infection, unspecified site (principal); U07.1 COVID-19; R53.1 Weakness | CPT/HCPCS: A0425; A0429 ==

== ENCOUNTER 2022-09-22 10:08 | Inpatient (IN) | payer MEDICARE, OTHER ==
[2022-09-22 10:45] LABS: BASOPHILS % (AUTO) 0.4 %; EOSINOPHILS % (AUTO) 0.3 %; HGB - HEMOGLOBIN 11.7 g/dL (14.0-18.0); LYMPHOCYTES # (AUTO) 0.5 10^3/uL (1.5-3.5); MEAN CORPUSCULAR HEMOGLOBIN 27.8 pg (27.0-31.0); MEAN CORPUSCULAR HGB CONC 32.5 g/dL (32.0-36.0); MEAN CORPUSCULAR VOLUME 85.5 fL (80.0-94.0); MEAN PLATELET VOLUME 8.4 fL (7.4-11.4); MONOCYTES # (AUTO) 1.6 10^3/uL (0.0-1.0); MONOCYTES % (AUTO) 22.6 %; NEUTROPHILS # (AUTO) 4.8 10^3/uL (1.5-6.6); NEUTROPHILS % (AUTO) 69.3 %; PLT - PLATELET COUNT 272 10^3/uL (130-450); RED BLOOD COUNT 4.21 10^6/uL (4.70-6.10); RED CELL DISTRIBUTION WIDTH 15.5 % (12.0-15.0)
[2022-09-22 10:59] LABS: ALBUMIN 3.7 g/dL (3.2-5.5); ALBUMIN/GLOBULIN RATIO 0.9 (1.0-2.2); BILIRUBIN,TOTAL 0.7 mg/dL (0.2-1.0); CALCIUM 9.2 mg/dL (8.5-10.3); CREATININE 1.3 mg/dL (0.6-1.2); POTASSIUM 3.6 mmol/L (3.5-5.0); TOTAL PROTEIN 7.7 g/dL (6.7-8.2)
[2022-09-22 11:04] LABS: DIFFERENTIAL COMMENT MANUAL=AUTO DIFF; PLATELET ESTIMATE, MANUAL NORMAL (130-450,000) (NORMAL); PLATELET MORPHOLOGY NORMAL APPEARANCE (NORMAL); RBC MORPHOLOGY (MULTIPLE) NORMAL APPEARANCE (NORMAL)
--- NOTE | 2022-09-22 12:09 | ED Physician Documentation ---
History of Present Illness - Stated complaint Stated Complaint: +CULTURES/C+ - Chief complaint Chief Complaint: General - History obtained from History obtained from: Patient, EMS - History of Present Illness Timing: How many days ago (4) - Additonal information Additional information: 72-year-old Norman Soliman is a gentleman with lymphedema to his lower extremities who has had sepsis in April of this year. He required hospitalization for about a week. He is getting dressing changes done by [facility] at home 3 times a week and he is seeing the wound clinic once a month. Yesterday he came to the emergency department feeling weak and we found that he had increased swelling and erythema to his feet consistent with a cellulitis and we started him on some oral antibiotic after giving him an infusion of Rocephin. The patient states that he does not feel particularly ill but he is call back here this morning by us for a positive blood culture growing both strep and staph. The patient's legs were examined yesterday and redressed by the wound care clinic. Wound cultures are pending. Review of Systems Constitutional: reports: Chills. denies: Fever Eyes: denies: Decreased vision Ears: denies: Ear pain Nose: denies: Congestion Throat: denies: Sore throat Cardiac: reports: Pedal edema, Calf pain. denies: Chest pain / pressure, Palpitations Respiratory: reports: Dyspnea, Cough GI: reports: Other (loose stool). denies: Abdominal Pain, Nausea, Vomiting : denies: Dysuria, Frequency Musculoskeletal: reports: Extremity swelling, Other (does not bear weight) Neurologic: reports: Generalized weakness. denies: Focal weakness, Numbness PD PAST MEDICAL HISTORY - Past Medical History Cardiovascular: None Respiratory: Asthma Neuro: None Endocrine/Autoimmune: None GI: None : None HEENT: None Psych: None Musculoskeletal: Other Derm: Other - Past Surgical History Past Surgical History: Yes HEENT: Tonsil/Adenoidectomy - Present Medications Home Medications: Ambulatory Orders Medication Instructions Recorded Confirmed Acetaminophen/Cod 300/30 [Tylenol 1 tab PO Q4HR PRN #42 tablet 05/12/22 05/18/22 #3] Furosemide [Lasix] 20 mg PO DAILY #30 tablet 05/12/22 05/18/22 Multivitamin W/Minerals [Theragran 1 tab PO DAILYWM #30 tablet 05/12/22 05/18/22 M] Zinc Oxide 20% Oint [Zinc Oxide] 1 applic TOP BID PRN #45 gm 05/12/22 05/18/22 Ciprofloxacin HCl 1 tablet PO BID 5 Days #10 tablet 07/20/22 Terbinafine [Lamisil] 250 mg PO DAILY 14 Days #14 tablet 08/03/22 cephALEXin [Keflex] 500 mg PO TID 10 Days #30 cap 08/03/22 Silver Sulfadiazine Cream 400 applic TOP DAILY 30 Days #400 08/10/22 [Silvadene Cream] gm cephALEXin [Keflex] 500 mg PO BID 7 Days #14 cap 08/10/22 Terbinafine [Lamisil] 250 mg PO DAILY 14 Days #14 tablet 08/24/22 Gentamicin Sulfate 30 gm TP DAILY 30 Days #30 gm 09/16/22 Cefdinir 300 mg PO BID #20 cap 09/21/22 - Allergies Allergies/Adverse Reactions: Allergies Allergy/AdvReac Type Severity Reaction Status Date / Time No Known Drug Allergies Allergy Verified 09/21/22 08:04 - Social History Does the pt smoke?: No Smoking Status: Never smoker Does the pt drink ETOH?: Yes Does the pt have substance abuse?: No - Immunizations Immunizations are current?: Yes - POLST Patient has POLST: No PD ED PE NORMAL - Vitals Vital signs reviewed: Yes (hypertenisve mild) - General General: Alert and oriented X 3, No acute distress, Well developed/nourished, Other (seems more interactive today) - HEENT HEENT: Atraumatic, PERRL, EOMI - Neck Neck: Supple, no meningeal sign, No bony TTP - Cardiac Cardiac: RRR, No murmur - Respiratory Respiratory: No respiratory distress, Other (diminished breath sounds bilat) - Abdomen Abdomen: Soft, Non tender - Derm Derm: Normal color, Warm and dry - Extremities Extremities: Other (Both lower extremities are bandaged and bandages are not removed today for examination. 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, No motor deficit, No sensory deficit, Normal speech Eye Opening: Spontaneous Motor: Obeys Commands Verbal: Oriented GCS Score: 15 - Psych Psych: Normal mood, Normal affect Results - Vitals Vitals: Vital Signs - 24 hr 09/22/22 10:43 Temperature 36.5 C Heart Rate 77 Respiratory 18 Rate Blood Pressure 128/93 H O2 Saturation 99 Oxygen O2 Source Room air - Labs Labs: Laboratory Tests 09/22/22 09/22/22 09/22/22 10:39 10:39 10:39 WBC 7.0 RBC 4.21 L Hgb 11.7 L Hct 36.0 L MCV 85.5 MCH 27.8 MCHC 32.5 RDW 15.5 H Plt Count 272 MPV 8.4 Neut # (Auto) 4.8 Lymph # (Auto) 0.5 L Brantley # (Auto) 1.6 H Eos # (Auto) 0.0 Baso # (Auto) 0.0 Absolute Nucleated RBC 0.00 Band Neuts % (Manual) Not Reportable Abnorm Lymph % (Manual) Not Reportable Nucleated RBC % 0.0 Neutrophils # (Manual) Not Reportable Lymphocytes # (Manual) Not Reportable Monocytes # (Manual) Not Reportable Eosinophils # (Manual) Not Reportable Basophils # (Manual) Not Reportable Differential Comment MANUAL=AUTO DIFF Platelet Estimate NORMAL (130-450,000) Platelet Morphology NORMAL APPEARANCE RBC Morph Micro Appear NORMAL APPEARANCE PT INR Sodium 126 L Potassium 3.6 Chloride 86 L Carbon Dioxide 27 Anion Gap 13.0 BUN 16 Creatinine 1.3 H Estimated GFR (MDRD) 54 L Glucose 103 H Lactic Acid 1.4 Calcium 9.2 Total Bilirubin 0.7 AST 71 H ALT 42 Alkaline Phosphatase 102 Total Protein 7.7 Albumin 3.7 Globulin 4.0 Albumin/Globulin Ratio 0.9 L Lipase 29 Nasal Adenovirus (PCR) Nasal B. parapertussis DNA (PCR) Nasal Coronavir 229E PCR Nasal Coronavir HKU1 PCR Nasal Coronavir NL63 PCR Nasal Coronavir OC43 PCR Nasal Enterovir/Rhinovir PCR Nasal Influenza B PCR Nasal Influenza A PCR Nasal Parainfluen 1 PCR Nasal Parainfluen 2 PCR Nasal Parainfluen 3 PCR Nasal Parainfluen 4 PCR Nasal RSV (PCR) Nasal B.pertussis DNA PCR Nasal C.pneumoniae (PCR) Edouard Human Metapneumo PCR Nasal M.pneumoniae (PCR) Nasal SARS-CoV-2 (PCR) 09/22/22 09/22/22 10:39 11:08 WBC RBC Hgb Hct MCV MCH MCHC RDW Plt Count MPV Neut # (Auto) Lymph # (Auto) Brantley # (Auto) Eos # (Auto) Baso # (Auto) Absolute Nucleated RBC Band Neuts % (Manual) Abnorm Lymph % (Manual) Nucleated RBC % Neutrophils # (Manual) Lymphocytes # (Manual) Monocytes # (Manual) Eosinophils # (Manual) Basophils # (Manual) Differential Comment Platelet Estimate Platelet Morphology RBC Morph Micro Appear PT 10.2 INR 0.9 Sodium Potassium Chloride Carbon Dioxide Anion Gap BUN Creatinine Estimated GFR (MDRD) Glucose Lactic Acid Calcium Total Bilirubin AST ALT Alkaline Phosphatase Total Protein Albumin Globulin Albumin/Globulin Ratio Lipase Nasal Adenovirus (PCR) NOT DETECTED Nasal B. parapertussis DNA (PCR) NOT DETECTED Nasal Coronavir 229E PCR NOT DETECTED Nasal Coronavir HKU1 PCR NOT DETECTED Nasal Coronavir NL63 PCR NOT DETECTED Nasal Coronavir OC43 PCR NOT DETECTED Nasal Enterovir/Rhinovir PCR NOT DETECTED Nasal Influenza B PCR NOT DETECTED Nasal Influenza A PCR NOT DETECTED Nasal Parainfluen 1 PCR NOT DETECTED Nasal Parainfluen 2 PCR NOT DETECTED Nasal Parainfluen 3 PCR NOT DETECTED Nasal Parainfluen 4 PCR NOT DETECTED Nasal RSV (PCR) NOT DETECTED Nasal B.pertussis DNA PCR NOT DETECTED Nasal C.pneumoniae (PCR) NOT DETECTED Edouard Human Metapneumo PCR NOT DETECTED Nasal M.pneumoniae (PCR) NOT DETECTED Nasal SARS-CoV-2 (PCR) DETECTED A PD MEDICAL DECISION MAKING - ED course Complexity details: reviewed old records, reviewed results, re-evaluated patient, considered differential, d/w patient ED course: 72-year-old male returns to the emergency department at the request of the emergency department physician for a positive bloodCulture. His cultures grew staph strep and staph. Strep is what he had when he had sepsis in April of this year. The patient himself feels somewhat improved from yesterday. His admitted under the care of Dr. Collins for continued IV antibiotic and fluids. Departure - Departure Disposition: 66 [facility] DC/Xfer Clinical Impression: Bilateral lower leg cellulitis, Positive blood culture Condition: Stable Discharge Date/Time: 09/22/22 13:30
[2022-09-22 12:35] LABS: B. PARAPERTUSSIS- RESP PCR PAN NOT DETECTED; B. PERTUSSIS- RESP PCR PANEL NOT DETECTED; C. PNEUMONIAE- RESP PCR PANEL NOT DETECTED; CORONAVIRUS 229E-RESP PCR NOT DETECTED; CORONAVIRUS HKU1-RESP PCR NOT DETECTED; CORONAVIRUS NL63-RESP PCR NOT DETECTED; CORONAVIRUS OC43-RESP PCR NOT DETECTED; HUMAN METAPNEUMOVIRUS NOT DETECTED; INFLUENZA A- RESP PCR PANEL NOT DETECTED; INFLUENZA B - RESP PCR PANEL NOT DETECTED; M. PNEUMONIAE- RESP PCR PANEL NOT DETECTED; PARAINFLUENZA VIRUS 1 NOT DETECTED; PARAINFLUENZA VIRUS 2 NOT DETECTED; PARAINFLUENZA VIRUS 3 NOT DETECTED; PARAINFLUENZA VIRUS 4 NOT DETECTED; RHINOVIRUS/ENTEROVIRUS NOT DETECTED; RSV- RESP PCR PANEL NOT DETECTED
[2022-09-22 12:37] LABS: SARS-CoV-2 -RESP PCR PANEL DETECTED
[2022-09-22] MEDS ORDERED: ONDANSETRON 4 MG/2 ML VIAL IVP PRN (12:38)
[2022-09-22] MEDS ORDERED: ACETAMINOPHEN 325 MG TABLET PO PRN (12:38)
[2022-09-22] MEDS ORDERED: SODIUM CHLORIDE FLUSH 0.9% 10 ML SYRINGE IVP PRN (12:38)
[2022-09-22] MEDS ORDERED: LORazepam 2 MG/ML VIAL IVP PRN (12:46)
--- NOTE | 2022-09-22 12:50 | HISTORY & PHYSICAL EXAMINATION ---
Chief Complaint - Chief Complaint Chief Complaint: Called back to hospital due to (+) bld cx, was drawn at ER visit [email or web address] History of Present Illness - Admitted From Admitted From:: ED - History Obtained From History obtained from: ED provider, chart review and the pt - History of Present Illness HPI Comment/Other: This is a 72-year-old white male with a history of chronic leg edema, recurrent leg cellulitis, admission here 5 months ago for Strep bacteremia from leg cellulitis needing a 2-week course of iv antibiotics. He also has a history of alcohol abuse, used to drink 12 beers per day a year ago, and more ecently was down to 6 beers a day, as of the admission 5 months ago. He is wheelchair- bound, but is able to pivot from chair to wheelchair. His and he lives with his brother. Patient came to the ER yesterday at the advicce of a caregiver and he described up and down worsening leg wounds and found that they had foul smell. He was seen in the ER by the [facility] [place] nurse yesterday had a dressing change, his labs showed normal white count and he was given IV Rocephin and then sent home with a prescription for oral cefdinir. This morning his blood cx drawn yesterday turned pos and he was called back into the hospital. He appeared slt less weak, per ED provider, but the patient seems confused and thinks he was here 2-3 days ago, not yesterday. The bld cx PCR is showing a Strep species and another, a presumed contaminant, Staph species. His labs today show that he is COVID-positive. There are no pulmonary symptoms and he is not desaturating. He says he is "always congested". He has no GI sx. and he has no idea where he might have caught it. The ED provider has reached out to the Hospitalist team to have this patient admitted for treating Strep bacteremia and recurrent leg cellulitis. History - Past Medical History Cardiovascular: reports: None Respiratory: reports: Asthma Neuro: reports: None Endocrine/Autoimmune: reports: None GI: reports: None : reports: None HEENT: reports: None Psych: reports: None Musculoskeletal: reports: Other Derm: reports: Other MRSA Hx?: No - Past Surgical History HEENT: reports: Tonsil/Adenoidectomy - Family & Social History Family History: Mother: , Father: , COPD/Emphysema, Brother: Alive and Well Family History Comment/Other: Pts in 2000. He currently lives alone with his younger brother. He has a son, Torres, who lives locally. Living arrangement: At home Living Situation: With family - Substance History Use: Uses substance without health or social issues: Tobacco (2 pack per day smoking history. Quit in 2000), Alcohol (Drinks a six pack of beer a day when at home.) - POLST Patient has POLST: No Meds/Allgy - Home Medications Home Medications: Ambulatory Orders Medication Instructions Recorded Confirmed Terbinafine [Lamisil] 250 mg PO DAILY 14 Days #14 tablet 08/24/22 09/22/22 Gentamicin Sulfate 30 gm TP DAILY 30 Days #30 gm 09/16/22 09/22/22 Furosemide [Lasix] 20 mg PO BID 09/22/22 09/22/22 Guaifenesin/Dextromethorphan 1 each PO BID 09/22/22 09/22/22 [Guaifenesin-Dm ER 1,200-60 mg] - Allergies Allergies/Adverse Reactions: Allergies Allergy/AdvReac Type Severity Reaction Status Date / Time No Known Drug Allergies Allergy Verified 09/21/22 08:04 Review of Systems - Constitutional Constitutional: reports: Fatigue, Weakness - Integumentary Integumentary: reports: Lesions - Hematologic/Lymphatic Hematologic/Lymphatic: reports: Recurrent infections - All Other Systems All Other Systems: reports: Reviewed and negative Exam - Vital Signs Reviewed Vital Signs: Yes Vital Signs: Vital Signs x48h Temp Pulse Resp BP Pulse Ox 09/22/22 10:43 36.5 C 77 18 128/93 H 99 - Physical Exam General Appearance: positive: No acute distress (exam done remotely) Eyes Bilateral: positive: Normal inspection ENT: positive: ENT inspection nml Neck: positive: Nml inspection Respiratory: positive: No respiratory distress Cardiovascular: positive: Regular rate & rhythm Abdomen: positive: No distention Skin: positive: Warm, Dry Extremities: positive: Other (Dressings of both legs to knees.) Conclusion/Plan - Problem List (1) Bacteremia due to Streptococcus Conclusion/Plan: Streptococcus is growing from the blood culture that was drawn yesterday. New blood culture was drawn today. At his 05/11 hospitalization, cx grew Strep Dysga lac and he needed a 14 day course of Ceftriaxione. He will be admitted to inpatient status for course of IV antibiotics. Will continue empiric iv Ceftriaxone, started in ED yesterday. Await culture identification and sensitivity to tailor antibiotics. Will obtain Echo to eval for endocarditis. (2) COVID-19 Conclusion/Plan: He is not coughing, SOB or have hypoxemia. Will order unfectious isolation. He does not qualify to get Remdesivir or Decadron. (3) Bilateral lower leg cellulitis Conclusion/Plan: A recurrent episode of leg cellulitis now is probably due to poor hygiene. He had home health nursing change his bandages 3 times a week and came to [facility] once a month Will request [facility] [place] to see while here for any other recommendations>> They sent a message to the inpatient team that he just had dressing changes done at his ER visit yesterday and the next 1 will not be due till 09/27/2022 . Nurses do not need to do daily dressing changes, therefore no photo images of the open wounds will be done at admission by our RNs. (4) Chronic acquired lymphedema Conclusion/Plan: Ass per longstanding Hx. Will restart his diuretic after CLARISSE improved. Will order legs elevated, even when in bed, and definitely when OOB in a chair. (5) CLARISSE (acute kidney injury) Conclusion/Plan: Likely related to poor po intake. Will start iv fluids Avoid nephrotoxins Follow BMP daily (6) Hyponatremia Conclusion/Plan: Susoect his alcohol abuse may be the cause of this, since he was considered to have beer potomania at his 2020 admission. Will order iv saline gentle hydration at 60 cc/hr, not faster because of chronic leg edema. Will not restart his daily Lasix until CLARISSE better. Follow BMP q12h and goal is for a slow improvement of 6 mEq over 12 h or slower. (7) Alcohol abuse Conclusion/Plan: In 2020, his H&P stated he drank 12 beers a day. At his 04/2022 admision, he reported 6 beers a day intake. He does have AST elevation on labs. Will check liver function with INR test. Will order CIWA protocol w/ iv ativan dosing if needed. Will follow serum ammonia level and LFTs intermittently. (8) Wheelchair bound Conclusion/Plan: This is not new. When he was here in 2020 rehab was attempted but all he could do is transfer from bed to wheelchair. No PT or OT will be ordered with this history - Lab Results Fish Bones: 09/22/22 10:39 09/22/22 10:39 - Other Other Results/Comments: Attestation: The patient is expected to be discharged or transferred to another facility within 96 hours: Yes.
[2022-09-22 13:06] LABS: INR 0.9 (0.8-1.2); PT - PROTHROMBIN TIME 10.2 secs (9.9-12.6)
[2022-09-22] MEDS: SODIUM CHLORIDE 0.9% 1,000 ML IV SCH (14:25)
[2022-09-22] MEDS: cefTRIAXone 2 GM in SODIUM CHLORIDE 0.9% MINIBAG 100 ML IV SCH (14:26)
--- NOTE | 2022-09-22 16:32 | PHARMACY PROGRESS NOTE ---
- Best Possible Medication History Admit Date and Time: 09/22/22 1238 Processed by: Pharmacy Medication History completed: Yes Patient Interview: Completed Secondary Source(s): Prescription bottles (MEDLIST CONFIRMED AGAINST PRESCRIPTION BOTTLES STORED IN PHARMACY AND PILL ID'D IN THE PILLBOXES. PT STATES HE DOES NOT TAKING ANY OTHER MEDS BESIDES THOSE ONES.), Insurance records As the person ultimately responsible for medication therapy, providers are able to order a medication from an existing home medication list in [facility] via the "Reconcile Routine" prior to Confirmation of that medication by application support manager. Such practice is discouraged except when the physician, in their clinical judgment, deems that a medical need exists for a medication without regard to previous use.
[2022-09-22] MEDS: SODIUM CHLORIDE FLUSH 0.9% 10 ML SYRINGE IVP SCH (17:27)
[2022-09-22] MEDS: guaiFENesin/DEXTROMETHORPHAN 10 ML UDC PO SCH ×3 (19:25→19:45)
[2022-09-23] MEDS: SODIUM CHLORIDE FLUSH 0.9% 10 ML SYRINGE IVP SCH ×3 (00:55→15:50)
[2022-09-23] MEDS: guaiFENesin/DEXTROMETHORPHAN 10 ML UDC PO SCH ×4 (00:55→17:45)
[2022-09-23 05:28] LABS: BASOPHILS % (AUTO) 0.6 %; EOSINOPHILS # (AUTO) 0.1 10^3/uL (0.0-0.7); EOSINOPHILS % (AUTO) 0.7 %; HCT - HEMATOCRIT 29.5 % (42.0-52.0); HGB - HEMOGLOBIN 9.7 g/dL (14.0-18.0); LYMPHOCYTES # (AUTO) 0.5 10^3/uL (1.5-3.5); LYMPHOCYTES % (AUTO) 6.6 %; MEAN CORPUSCULAR HGB CONC 32.9 g/dL (32.0-36.0); MEAN PLATELET VOLUME 8.8 fL (7.4-11.4); MONOCYTES # (AUTO) 1.2 10^3/uL (0.0-1.0); MONOCYTES % (AUTO) 16.9 %; NEUTROPHILS # (AUTO) 5.4 10^3/uL (1.5-6.6); NEUTROPHILS % (AUTO) 74.8 %; PLT - PLATELET COUNT 266 10^3/uL (130-450); RED BLOOD COUNT 3.47 10^6/uL (4.70-6.10); RED CELL DISTRIBUTION WIDTH 15.4 % (12.0-15.0); WHITE BLOOD COUNT 7.2 x10^3/uL (4.8-10.8)
[2022-09-23] MEDS: SODIUM CHLORIDE 0.9% 1,000 ML IV SCH ×2 (05:37→20:23)
[2022-09-23 05:44] LABS: ALBUMIN 2.9 g/dL (3.2-5.5); BILIRUBIN,DIRECT 0.1 mg/dL (0.1-0.5); BILIRUBIN,TOTAL 0.7 mg/dL (0.2-1.0); CALCIUM 8.3 mg/dL (8.5-10.3); CREATININE 0.9 mg/dL (0.6-1.2); MAGNESIUM 1.9 mg/dL (1.7-2.8); POTASSIUM 3.6 mmol/L (3.5-5.0); TOTAL PROTEIN 6.1 g/dL (6.7-8.2)
[2022-09-23] MEDS: cefTRIAXone 2 GM in SODIUM CHLORIDE 0.9% MINIBAG 100 ML IV SCH (08:14)
[2022-09-23] MEDS: THIAMINE 100 MG TABLET PO SCH (08:14)
[2022-09-23] MEDS: ENOXAPARIN 40 MG/0.4 ML SYRINGE SUBQ SCH (08:15)
[2022-09-23] MEDS ORDERED: TERBINAFINE 250 MG TABLET PO SCH (09:00)
[2022-09-23] MEDS: PRENATAL VITAMIN TABLET PO SCH (12:48)
--- NOTE | 2022-09-23 14:55 | PROVIDER PROGRESS NOTE ---
Assessment/Plan - Problem List (1) Bacteremia due to Streptococcus Assessment/Plan: Streptococcus is growing from the blood culture that was drawn in the ED the day before this admission (then he was called back in for admission which is now). New blood culture was drawn yesterday also. At his 05/11 hospitalization, blood cx grew Strep Dysgalac and he needed a 14 day course of Ceftriaxione. At his 08/11 wound cx, he grew Pseudomonas, resistant to Cephalosporins. From his 08/11 wound cx, Neelima parapsilosis grew, and we think this is why he is on Lamisil. He has been admitted to inpatient status for course of IV antibiotics. Will change to empiric Zosyn, after discussion today with Pharmacist, Anahy. Await culture identification and sensitivity to tailor antibiotics. We ordered a complete Echo to eval for endocarditis. (2) COVID-19 Conclusion/Plan: He is not coughing, SOB or have hypoxemia. We ordered infectious isolation and are confiring with our Infection Prevention Nurse, as to how long to order isolation. He does not qualify/does not need to get Remdesivir or Decadron. (3) Bilateral lower leg cellulitis Conclusion/Plan: A recurrent episode of leg cellulitis now is probably due to non-compliance and/or poor hygiene. He had home health nursing change his bandages 3 times a week and came to [facility] once a month. It was staff that advised he come to the ER. We [place] [facility] [place] here for any other recommendations>> They sent a message to the inpatient team that he just had dressing changes done at his ER visit (a day before) and the next dressing change will not be due till 09/27/2022. Med/Surg Nurses do not need to do daily dressing changes, therefore, and no photo images of the open wounds were done at admission by our RNs, as per usual protocol. Review of the chart shows that he grew a fungus in 08/2022, from a wound culture sent 07/2022. Pharmacist presumes that this is why he is on Lamisil. We will increase the Lamisil dose to twice a day. Also We we will be changing his empiric antibiotic coverage to Zosyn since he just had a Pseudomonas bacteria found from a 07/2022 culture, to cover both Pseud and Strep. (4) Chronic acquired lymphedema Conclusion/Plan: As per longstanding Hx. Will restart his diuretic after CLARISSE improved. Will order legs elevated, even when in bed, and also when OOB in a chair. (5) CLARISSE (acute kidney injury) Conclusion/Plan: Likely related to poor po intake. Continue iv fluids until creat normalizes. 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 Will order iv saline gentle hydration at 60 cc/hr, not faster because of chronic leg edema. Will not restart his daily Lasix until CLARISSE better. Follow BMP q12h and goal is for a slow improvement of 6 mEq over 12 h or slower. (7) Alcohol abuse Conclusion/Plan: In 2020, his H&P stated he drank 12 beers a day. At his 04/2022 admision, he reported 6 beers a day intake. He does have AST elevation on labs. Will check liver function with INR test. We ordered CIWA protocol w/ iv ativan dosing if needed. Thus far he is scoring 0. Will follow serum ammonia level and LFTs intermittently. (8) Wheelchair bound Conclusion/Plan: This is not new. When he was here in 2020 rehab was attempted but all he could do is transfer from bed to wheelchair. No PT or OT will be ordered with this history - Current Meds Current Meds: Current Medications Generic Name Dose Route Start Last Admin Trade Name Freq PRN Reason Stop Dose Admin Enoxaparin Sodium 40 mg 09/23/22 09:00 09/23/22 08:15 Enoxaparin 40 Mg/0.4 Ml Syringe SUBQ 40 mg DAILY VITO Administration Guaifenesin 10 ml 09/22/22 09:00 09/23/22 12:48 Guaifenesin/Dextromethorphan 10 Ml Udc PO 10 ml Q6HR VITO Administration Sodium Chloride 1,000 mls @ 60 mls/hr 09/22/22 13:00 09/23/22 05:37 Normal Saline 0.9% IV 60 mls/hr .[id number] VITO Administration Ceftriaxone Sodium 2 gm/ 100 mls @ 200 mls/hr 09/22/22 14:00 09/23/22 08:40 Sodium Chloride IV Infused DAILY VITO Infusion Multivit/Folic Acid/Iron 1 tab 09/23/22 12:00 09/23/22 12:48 Vitamin Tablet PO 1 tab DAILYWM VITO Administration Sodium Chloride 10 ml 09/22/22 17:00 09/23/22 08:15 Sodium Chloride Flush 0.9% 10 Ml Syringe IVP 10 ml 0100,0900,1700 VITO Administration Terbinafine HCl 250 mg 09/23/22 09:00 09/23/22 08:26 Terbinafine 250 Mg Tablet PO 250 mg DAILY VITO Administration Thiamine HCl 100 mg 09/23/22 09:00 09/23/22 08:14 Thiamine 100 Mg Tablet PO 100 mg DAILY VITO Administration - Lab Result Fish Bone Diagrams: 09/23/22 05:20 09/23/22 05:20 - Additional Planning My Orders: My Active Orders 09/22/22 14:00 cefTRIAXone [Rocephin] 2 gm Sodium Chloride 0.9% Minibag [Normal Saline 0.9% Minibag] 100 ml IV DAILY 09/22/22 Dinner Regular Diet [DIET] 09/22/22 17:00 Sodium Chloride Flush 0.9% [Normal Saline Flush 0.9%] 10 ml IVP 0100,0900,1700 09/23/22 09:00 Enoxaparin [Lovenox] 40 mg SUBQ DAILY Terbinafine [LamISIL] 250 mg PO DAILY Thiamine [Vitamin B-1] 100 mg PO DAILY 09/23/22 12:00 Vitamin [Trinatal Rx 1] 1 tab PO DAILYWM 09/24/22 05:00 BMP - BASIC METABOLIC PANEL [CHEM] DAILYLAB CBC - COMP BLD CT W/AUTO DIFF [HEME] DAILYLAB 09/25/22 05:00 BMP - BASIC METABOLIC PANEL [CHEM] DAILYLAB CBC - COMP BLD CT W/AUTO DIFF [HEME] DAILYLAB 09/26/22 05:00 BMP - BASIC METABOLIC PANEL [CHEM] DAILYLAB CBC - COMP BLD CT W/AUTO DIFF [HEME] DAILYLAB Subjective - Subjective Patient Reports: Resting Comfortably, No Complaints Objective Vital Signs: Vital Signs - 24 hr 09/22/22 09/23/22 09/23/22 16:00 00:00 05:40 Temperature 36.3 C L 36.7 C 36.8 C Heart Rate [ 96 87 Brachial] Heart Rate [ 71 Monitoring electrodes] Respiratory 18 20 17 Rate Blood Pressure 147/73 H 145/75 H 146/96 H [Right Brachial artery] O2 Saturation 97 96 93 09/23/22 07:59 Temperature 37.0 C Heart Rate [ 79 Brachial] Heart Rate [ Monitoring electrodes] Respiratory 18 Rate Blood Pressure 117/66 [Right Brachial artery] O2 Saturation 94 Oxygen O2 Source Room air I&O (Last 24 Hrs): Intake and Output Totals x24h 09/21/22 09/22/22 09/23/22 23:59 23:59 23:59 Intake Total 1112 1080 Output Total 500 200 Balance 612 880 General: Alert, Oriented x3 (exam done remotely) HEENT: Mucous membr. moist/pink Neck: Supple Neuro: Alert, Non Focal Cardiovascular: Regular rate Respiratory: No respiratory distress Abdomen: Soft Extremities: Other (Bilat lower legs in bandages) - Results Results: Laboratory Results WBC 7.2 x10^3/uL (4.8-10.8) 09/23/22 05:20 RBC 3.47 10^6/uL (4.70-6.10) L 09/23/22 05:20 Hgb 9.7 g/dL (14.0-18.0) L 09/23/22 05:20 Hct 29.5 % (42.0-52.0) L 09/23/22 05:20 MCV 85.0 fL (80.0-94.0) 09/23/22 05:20 MCH 28.0 pg (27.0-31.0) 09/23/22 05:20 MCHC 32.9 g/dL (32.0-36.0) 09/23/22 05:20 RDW 15.4 % (12.0-15.0) H 09/23/22 05:20 Plt Count 266 10^3/uL (130-450) 09/23/22 05:20 MPV 8.8 fL (7.4-11.4) 09/23/22 05:20 Neut # (Auto) 5.4 10^3/uL (1.5-6.6) 09/23/22 05:20 Lymph # (Auto) 0.5 10^3/uL (1.5-3.5) L 09/23/22 05:20 [place] # (Auto) 1.2 10^3/uL (0.0-1.0) H 09/23/22 05:20 Eos # (Auto) 0.1 10^3/uL (0.0-0.7) 09/23/22 05:20 Baso # (Auto) 0.0 10^3/uL (0.0-0.1) 09/23/22 05:20 Absolute Nucleated RBC 0.00 x10^3/uL 09/23/22 05:20 Band Neuts % (Manual) Not Reportable 09/22/22 10:39 Abnorm Lymph % (Manual) Not Reportable 09/22/22 10:39 Nucleated RBC % 0.0 /100WBC 09/23/22 05:20 Neutrophils # (Manual) Not Reportable 09/22/22 10:39 Lymphocytes # (Manual) Not Reportable 09/22/22 10:39 Monocytes # (Manual) Not Reportable 09/22/22 10:39 Eosinophils # (Manual) Not Reportable 09/22/22 10:39 Basophils # (Manual) Not Reportable 09/22/22 10:39 Differential Comment MANUAL=AUTO DIFF 09/22/22 10:39 Platelet Estimate NORMAL (130-450,000) (NORMAL) 09/22/22 10:39 Platelet Morphology NORMAL APPEARANCE (NORMAL) 09/22/22 10:39 RBC Morph Micro Appear NORMAL APPEARANCE (NORMAL) 09/22/22 10:39 PT 10.2 secs (9.9-12.6) 09/22/22 10:39 INR 0.9 (0.8-1.2) 09/22/22 10:39 Sodium 130 mmol/L (135-145) L 09/23/22 05:20 Potassium 3.6 mmol/L (3.5-5.0) 09/23/22 05:20 Chloride 94 mmol/L (101-111) L 09/23/22 05:20 Carbon Dioxide 25 mmol/L (21-32) 09/23/22 05:20 Anion Gap 11.0 (6-13) 09/23/22 05:20 BUN 13 mg/dL (6-20) 09/23/22 05:20 Creatinine 0.9 mg/dL (0.6-1.2) 09/23/22 05:20 Estimated GFR (MDRD) 82 (>89) L 09/23/22 05:20 Glucose 83 mg/dL (70-100) 09/23/22 05:20 Lactic Acid 1.4 mmol/L (0.5-2.2) 09/22/22 10:39 Calcium 8.3 mg/dL (8.5-10.3) L 09/23/22 05:20 Magnesium 1.9 mg/dL (1.7-2.8) 09/23/22 05:20 Total Bilirubin 0.7 mg/dL (0.2-1.0) 09/23/22 05:20 Direct Bilirubin 0.1 mg/dL (0.1-0.5) 09/23/22 05:20 AST 48 IU/L (10-42) H 09/23/22 05:20 ALT 32 IU/L (10-60) 09/23/22 05:20 Alkaline Phosphatase 81 IU/L (42-121) 09/23/22 05:20 Ammonia 19.2 umol/L (7-35) 09/23/22 05:20 Total Protein 6.1 g/dL (6.7-8.2) L 09/23/22 05:20 Albumin 2.9 g/dL (3.2-5.5) L 09/23/22 05:20 Globulin 3.2 g/dL (2.1-4.2) 09/23/22 05:20 Albumin/Globulin Ratio 0.9 (1.0-2.2) L 09/22/22 10:39 Lipase 29 U/L (22-51) 09/22/22 10:39 Nasal Adenovirus (PCR) NOT DETECTED 09/22/22 11:08 Nasal B. parapertussis DNA (PCR) NOT DETECTED 09/22/22 11:08 Nasal Coronavir 229E PCR NOT DETECTED 09/22/22 11:08 Nasal Coronavir HKU1 PCR NOT DETECTED 09/22/22 11:08 Nasal Coronavir NL63 PCR NOT DETECTED 09/22/22 11:08 Nasal Coronavir OC43 PCR NOT DETECTED 09/22/22 11:08 Nasal Enterovir/Rhinovir PCR NOT DETECTED 09/22/22 11:08 Nasal Influenza B PCR NOT DETECTED 09/22/22 11:08 Nasal Influenza A PCR NOT DETECTED 09/22/22 11:08 Nasal Parainfluen 1 PCR NOT DETECTED 09/22/22 11:08 Nasal Parainfluen 2 PCR NOT DETECTED 09/22/22 11:08 Nasal Parainfluen 3 PCR NOT DETECTED 09/22/22 11:08 Nasal Parainfluen 4 PCR NOT DETECTED 09/22/22 11:08 Nasal RSV (PCR) NOT DETECTED 09/22/22 11:08 Nasal B.pertussis DNA PCR NOT DETECTED 09/22/22 11:08 Nasal C.pneumoniae (PCR) NOT DETECTED 09/22/22 11:08 [place] Human Metapneumo PCR NOT DETECTED 09/22/22 11:08 Nasal M.pneumoniae (PCR) NOT DETECTED 09/22/22 11:08 Nasal SARS-CoV-2 (PCR) DETECTED A 09/22/22 11:08 - Procedures Procedures: Procedures INSERTION OF INFUSION DEV INTO SUP VENA CAVA, PERC APPROACH (04/27/22)
[2022-09-23] MEDS: TERBINAFINE 250 MG TABLET PO SCH (20:23)
[2022-09-24] MEDS: guaiFENesin/DEXTROMETHORPHAN 10 ML UDC PO SCH ×4 (00:32→17:11)
[2022-09-24] MEDS: SODIUM CHLORIDE FLUSH 0.9% 10 ML SYRINGE IVP SCH ×3 (00:34→17:11)
[2022-09-24 05:39] LABS: BASOPHILS % (AUTO) 0.5 %; EOSINOPHILS # (AUTO) 0.1 10^3/uL (0.0-0.7); EOSINOPHILS % (AUTO) 1.8 %; HCT - HEMATOCRIT 30.8 % (42.0-52.0); HGB - HEMOGLOBIN 10.1 g/dL (14.0-18.0); LYMPHOCYTES # (AUTO) 0.5 10^3/uL (1.5-3.5); MEAN CORPUSCULAR HEMOGLOBIN 28.5 pg (27.0-31.0); MEAN CORPUSCULAR HGB CONC 32.8 g/dL (32.0-36.0); MEAN CORPUSCULAR VOLUME 86.8 fL (80.0-94.0); MONOCYTES # (AUTO) 1.1 10^3/uL (0.0-1.0); MONOCYTES % (AUTO) 18.9 %; NEUTROPHILS # (AUTO) 4.2 10^3/uL (1.5-6.6); NEUTROPHILS % (AUTO) 69.6 %; PLT - PLATELET COUNT 304 10^3/uL (130-450); RED BLOOD COUNT 3.55 10^6/uL (4.70-6.10); RED CELL DISTRIBUTION WIDTH 15.4 % (12.0-15.0)
[2022-09-24 05:41] LABS: CALCIUM 8.4 mg/dL (8.5-10.3); CREATININE 0.9 mg/dL (0.6-1.2); POTASSIUM 3.2 mmol/L (3.5-5.0)
[2022-09-24] MEDS: PRENATAL VITAMIN TABLET PO SCH (08:21)
[2022-09-24] MEDS: ENOXAPARIN 40 MG/0.4 ML SYRINGE SUBQ SCH (08:21)
[2022-09-24] MEDS: TERBINAFINE 250 MG TABLET PO SCH ×2 (08:21→20:42)
[2022-09-24] MEDS: THIAMINE 100 MG TABLET PO SCH (08:21)
[2022-09-24] MEDS: cefTRIAXone 2 GM in SODIUM CHLORIDE 0.9% MINIBAG 100 ML IV SCH (08:23)
[2022-09-24] MEDS ORDERED: POTASSIUM CHLORIDE 10 MEQ CAPSULE PO ONE (10:23)
[2022-09-24] MEDS: SODIUM CHLORIDE 0.9% 1,000 ML IV SCH (11:52)
--- NOTE | 2022-09-24 17:55 | PROVIDER PROGRESS NOTE ---
Assessment/Plan - Problem List (1) Bacteremia due to Streptococcus Assessment/Plan: Streptococcus is growing from the blood culture that was drawn in the ED the day before this admission (then he was called back in for admission which is now). New blood culture was drawn 2 days ago also which areneg to date. At his 04/2022 hospitalization, blood cx grew Strep Dysgalac and he needed a 14 day course of Ceftriaxione. At his 08/11 wound cx, he grew Pseudomonas, resistant to Cephalosporins. From his 07/2022 wound cx, Neelima parapsilosis grew, and we think this is why he was on Lamisil. He has been admitted to inpatient status for IV antibiotics. We changed iv cefrriaxone to empiric Zosyn, after discussion with Pharmacist, Anahy. Await culture identification and sensitivity to tailor antibiotics. We ordered a complete Echo to eval for endocarditis. (2) COVID-19 Conclusion/Plan: He is not coughing, SOB or have hypoxemia. We ordered infectious isolation and are confiring with our Infection Prevention Nurse, as to how long to order isolation>> until , which 10 days from the time his test was pos. He does not qualify/does not need to get Remdesivir or Decadron. (3) Bilateral lower leg cellulitis Conclusion/Plan: A recurrent episode of leg cellulitis now is probably due to non-compliance and/or poor hygiene. He had home health nursing change his bandages 3 times a week and came to [facility] once a month. It was staff that advised he come to the ER. We requested [facility] [place] to see while here for any other recommendations>> They sent a message to the inpatient team that he just had dressing changes done at his ER visit (a day before) and the next dressing change will not be due till 09/27/2022. Med/Surg Nurses do not need to do daily dressing changes, therefore, and no photo images of the open wounds were done at admission by our RNs, as per usual protocol. Review of the chart shows that he grew a fungus in 08/2022, from a wound culture sent 07/2022. Pharmacist presumes that this is why he is on Lamisil. We will increase the Lamisil dose to twice a day. Also We we will be changing his empiric antibiotic coverage to Zosyn since he just had a Pseudomonas bacteria found from a 07/2022 culture, to cover both Pseudomonas and Strep. (4) Chronic acquired lymphedema Conclusion/Plan: As per longstanding Hx. Will restart his diuretic after CLARISSE improved. Will order legs elevated, even when in bed, and also when OOB in a chair. (5) CLARISSE (acute kidney injury) Conclusion/Plan: Likely related to poor po intake. Continue iv fluids until creat normalizes. 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 He is on iv saline gentle hydration at 60 cc/hr, not faster because of chronic leg edema and has been on a free water restriction. Will discontinue the free water restriction, as patient requested and because the sodium is better Will not restart his daily Lasix until CLARISSE better. Follow BMP daily now (7) Alcohol abuse Conclusion/Plan: In 2020, his H&P stated he drank 12 beers a day. At his 04/2022 admision, he reported 6 beers a day intake. He does have AST elevation on labs. We checked liver function with an INR test and it was normal We ordered CIWA protocol w/ iv ativan dosing if needed. Thus far he is scoring 0. Will follow serum ammonia level and LFTs intermittently. (8) Wheelchair bound Conclusion/Plan: This is not new. When he was here in 2020 rehab was attempted but all he could do is transfer from bed to wheelchair. No PT or OT will be ordered with this history - Current Meds Current Meds: Current Medications Generic Name Dose Route Start Last Admin Trade Name Freq PRN Reason Stop Dose Admin Enoxaparin Sodium 40 mg 09/23/22 09:00 09/24/22 08:21 Enoxaparin 40 Mg/0.4 Ml Syringe SUBQ 40 mg DAILY VITO Administration Guaifenesin 10 ml 09/22/22 09:00 09/24/22 17:11 Guaifenesin/Dextromethorphan 10 Ml Udc PO 10 ml Q6HR VITO Administration Sodium Chloride 1,000 mls @ 60 mls/hr 09/22/22 13:00 09/24/22 11:52 Normal Saline 0.9% IV 60 mls/hr .[id number] VITO Administration Ceftriaxone Sodium 2 gm/ 100 mls @ 200 mls/hr 09/22/22 14:00 09/24/22 16:50 Sodium Chloride IV Infused DAILY VITO Infusion Multivit/Folic Acid/Iron 1 tab 09/23/22 12:00 09/24/22 08:21 Vitamin Tablet PO 1 tab DAILYWM VITO Administration Sodium Chloride 10 ml 09/22/22 17:00 09/24/22 17:11 Sodium Chloride Flush 0.9% 10 Ml Syringe IVP Not Given 0100,0900,1700 VITO Terbinafine HCl 500 mg 09/23/22 15:11 09/24/22 08:21 Terbinafine 250 Mg Tablet PO 500 mg BID VITO Administration Thiamine HCl 100 mg 09/23/22 09:00 09/24/22 08:21 Thiamine 100 Mg Tablet PO 100 mg DAILY VITO Administration - Lab Result Fish Bone Diagrams: 09/24/22 04:26 09/24/22 04:26 - Additional Planning My Orders: My Active Orders 09/25/22 05:00 BMP - BASIC METABOLIC PANEL [CHEM] DAILYLAB CBC - COMP BLD CT W/AUTO DIFF [HEME] DAILYLAB 09/26/22 05:00 BMP - BASIC METABOLIC PANEL [CHEM] DAILYLAB CBC - COMP BLD CT W/AUTO DIFF [HEME] DAILYLAB Subjective - Subjective Patient Reports: Other (He wants his free water restriction to be stopped) Objective Vital Signs: Vital Signs - 24 hr 09/24/22 09/24/22 09/24/22 00:00 08:00 16:00 Temperature 37.4 C 36.8 C 36.8 C Heart Rate [ 75 69 64 Brachial] Respiratory 17 18 18 Rate Blood Pressure 128/62 138/58 H [Left Brachial artery] Blood Pressure 162/86 H [Right Brachial artery] O2 Saturation 94 92 94 Oxygen O2 Source Room air I&O (Last 24 Hrs): Intake and Output Totals x24h 09/22/22 09/23/22 09/24/22 23:59 23:59 23:59 Intake Total 1112 2166 1219.000 Output Total 500 900 300 Balance 612 1266 919.000 General: Alert (Exam done remotely) HEENT: Mucous membr. moist/pink Neck: Supple Neuro: Alert, Non Focal Cardiovascular: Regular rate Respiratory: No respiratory distress Abdomen: Soft Extremities: Other (Lower extremities both bandaged from the knees down) - Results Results: Laboratory Results WBC 6.0 x10^3/uL (4.8-10.8) 09/24/22 04:26 RBC 3.55 10^6/uL (4.70-6.10) L 09/24/22 04:26 Hgb 10.1 g/dL (14.0-18.0) L 09/24/22 04:26 Hct 30.8 % (42.0-52.0) L 09/24/22 04:26 MCV 86.8 fL (80.0-94.0) 09/24/22 04:26 MCH 28.5 pg (27.0-31.0) 09/24/22 04: MCHC 32.8 g/dL (32.0-36.0) 09/24/22 04:26 RDW 15.4 % (12.0-15.0) H 09/24/22 04:26 Plt Count 304 10^3/uL (130-450) 09/24/22 04:26 MPV 9.0 fL (7.4-11.4) 09/24/22 04:26 Neut # (Auto) 4.2 10^3/uL (1.5-6.6) 09/24/22 04:26 Lymph # (Auto) 0.5 10^3/uL (1.5-3.5) L 09/24/22 04:26 [place] # (Auto) 1.1 10^3/uL (0.0-1.0) H 09/24/22 04:26 Eos # (Auto) 0.1 10^3/uL (0.0-0.7) 09/24/22 04:26 Baso # (Auto) 0.0 10^3/uL (0.0-0.1) 09/24/22 04:26 Absolute Nucleated RBC 0.00 x10^3/uL 09/24/22 04:26 Band Neuts % (Manual) Not Reportable 09/22/22 10:39 Abnorm Lymph % (Manual) Not Reportable 09/22/22 10:39 Nucleated RBC % 0.0 /100WBC 09/24/22 04:26 Neutrophils # (Manual) Not Reportable 09/22/22 10:39 Lymphocytes # (Manual) Not Reportable 09/22/22 10:39 Monocytes # (Manual) Not Reportable 09/22/22 10:39 Eosinophils # (Manual) Not Reportable 09/22/22 10:39 Basophils # (Manual) Not Reportable 09/22/22 10:39 Differential Comment MANUAL=AUTO DIFF 09/22/22 10:39 Platelet Estimate NORMAL (130-450,000) (NORMAL) 09/22/22 10:39 Platelet Morphology NORMAL APPEARANCE (NORMAL) 09/22/22 10:39 RBC Morph Micro Appear NORMAL APPEARANCE (NORMAL) 09/22/22 10:39 PT 10.2 secs (9.9-12.6) 09/22/22 10:39 INR 0.9 (0.8-1.2) 09/22/22 10:39 Sodium 132 mmol/L (135-145) L 09/24/22 04:26 Potassium 3.2 mmol/L (3.5-5.0) L 09/24/22 04:26 Chloride 97 mmol/L (101-111) L 09/24/22 04:26 Carbon Dioxide 27 mmol/L (21-32) 09/24/22 04:26 Anion Gap 8.0 (6-13) 09/24/22 04:26 BUN 9 mg/dL (6-20) 09/24/22 04:26 Creatinine 0.9 mg/dL (0.6-1.2) 09/24/22 04:26 Estimated GFR (MDRD) 82 (>89) L 09/24/22 04:26 Glucose 107 mg/dL (70-100) H 09/24/22 04:26 Lactic Acid 1.4 mmol/L (0.5-2.2) 09/22/22 10:39 Calcium 8.4 mg/dL (8.5-10.3) L 09/24/22 04:26 Magnesium 1.9 mg/dL (1.7-2.8) 09/23/22 05:20 Total Bilirubin 0.7 mg/dL (0.2-1.0) 09/23/22 05:20 Direct Bilirubin 0.1 mg/dL (0.1-0.5) 09/23/22 05:20 AST 48 IU/L (10-42) H 09/23/22 05:20 ALT 32 IU/L (10-60) 09/23/22 05:20 Alkaline Phosphatase 81 IU/L (42-121) 09/23/22 05:20 Ammonia 19.2 umol/L (7-35) 09/23/22 05:20 Total Protein 6.1 g/dL (6.7-8.2) L 09/23/22 05:20 Albumin 2.9 g/dL (3.2-5.5) L 09/23/22 05:20 Globulin 3.2 g/dL (2.1-4.2) 09/23/22 05:20 Albumin/Globulin Ratio 0.9 (1.0-2.2) L 09/22/22 10:39 Lipase 29 U/L (22-51) 09/22/22 10:39 Nasal Adenovirus (PCR) NOT DETECTED 09/22/22 11:08 Nasal B. parapertussis DNA (PCR) NOT DETECTED 09/22/22 11:08 Nasal Coronavir 229E PCR NOT DETECTED 09/22/22 11:08 Nasal Coronavir HKU1 PCR NOT DETECTED 09/22/22 11:08 Nasal Coronavir NL63 PCR NOT DETECTED 09/22/22 11:08 Nasal Coronavir OC43 PCR NOT DETECTED 09/22/22 11:08 Nasal Enterovir/Rhinovir PCR NOT DETECTED 09/22/22 11:08 Nasal Influenza B PCR NOT DETECTED 09/22/22 11:08 Nasal Influenza A PCR NOT DETECTED 09/22/22 11:08 Nasal Parainfluen 1 PCR NOT DETECTED 09/22/22 11:08 Nasal Parainfluen 2 PCR NOT DETECTED 09/22/22 11:08 Nasal Parainfluen 3 PCR NOT DETECTED 09/22/22 11:08 Nasal Parainfluen 4 PCR NOT DETECTED 09/22/22 11:08 Nasal RSV (PCR) NOT DETECTED 09/22/22 11:08 Nasal B.pertussis DNA PCR NOT DETECTED 09/22/22 11:08 Nasal C.pneumoniae (PCR) NOT DETECTED 09/22/22 11:08 [place] Human Metapneumo PCR NOT DETECTED 09/22/22 11:08 Nasal M.pneumoniae (PCR) NOT DETECTED 09/22/22 11:08 Nasal SARS-CoV-2 (PCR) DETECTED A 09/22/22 11:08 - Procedures Procedures: Procedures INSERTION OF INFUSION DEV INTO SUP VENA CAVA, PERC APPROACH (04/27/22)
[2022-09-24] MEDS ORDERED: LOPERAMIDE 2 MG CAPSULE PO ONE (23:00)
[2022-09-25] MEDS: SODIUM CHLORIDE FLUSH 0.9% 10 ML SYRINGE IVP SCH ×3 (00:55→17:48)
[2022-09-25] MEDS: guaiFENesin/DEXTROMETHORPHAN 10 ML UDC PO SCH ×4 (01:07→17:50)
[2022-09-25] MEDS: SODIUM CHLORIDE 0.9% 1,000 ML IV SCH (05:10)
[2022-09-25 06:21] LABS: BASOPHILS % (AUTO) 0.6 %; EOSINOPHILS # (AUTO) 0.2 10^3/uL (0.0-0.7); EOSINOPHILS % (AUTO) 2.7 %; HCT - HEMATOCRIT 29.8 % (42.0-52.0); HGB - HEMOGLOBIN 9.9 g/dL (14.0-18.0); LYMPHOCYTES # (AUTO) 0.5 10^3/uL (1.5-3.5); LYMPHOCYTES % (AUTO) 8.6 %; MEAN CORPUSCULAR HEMOGLOBIN 28.9 pg (27.0-31.0); MEAN CORPUSCULAR HGB CONC 33.2 g/dL (32.0-36.0); MEAN CORPUSCULAR VOLUME 86.9 fL (80.0-94.0); MONOCYTES % (AUTO) 16.8 %; NEUTROPHILS # (AUTO) 4.4 10^3/uL (1.5-6.6); NEUTROPHILS % (AUTO) 70.8 %; PLT - PLATELET COUNT 302 10^3/uL (130-450); RED BLOOD COUNT 3.43 10^6/uL (4.70-6.10); RED CELL DISTRIBUTION WIDTH 15.4 % (12.0-15.0); WHITE BLOOD COUNT 6.2 x10^3/uL (4.8-10.8)
[2022-09-25 06:28] LABS: CALCIUM 8.6 mg/dL (8.5-10.3); CREATININE 0.8 mg/dL (0.6-1.2); POTASSIUM 3.5 mmol/L (3.5-5.0)
[2022-09-25] MEDS: ENOXAPARIN 40 MG/0.4 ML SYRINGE SUBQ SCH (08:43)
[2022-09-25] MEDS: THIAMINE 100 MG TABLET PO SCH (08:43)
[2022-09-25] MEDS: PRENATAL VITAMIN TABLET PO SCH (08:44)
[2022-09-25] MEDS: cefTRIAXone 2 GM in SODIUM CHLORIDE 0.9% MINIBAG 100 ML IV SCH (08:44)
[2022-09-25] MEDS: TERBINAFINE 250 MG TABLET PO SCH ×2 (08:44→21:10)
[2022-09-25] MEDS ORDERED: SODIUM CHLORIDE 0.9% 1,000 ML IV SCH (10:35)
--- NOTE | 2022-09-25 15:29 | XRAY Report ---
PROCEDURE: Chest 1 View X-Ray INDICATIONS: Cough, hypoxia, COVID (+) several days ago TECHNIQUE: One view of the chest was acquired. COMPARISON: 09/21/2022 FINDINGS: Surgical changes and devices: None. Lungs and pleura: No pleural effusions or pneumothorax. Lungs are clear. Mediastinum: Mediastinal contours appear normal. Heart size is normal. Bones and chest wall: No suspicious bony lesions. Overlying soft tissues appear unremarkable. Old healed right-sided rib fractures IMPRESSION: No acute cardiopulmonary findings Reviewed by: Luis F Sarkar MD on 09/25/2022 2:28 PM [facility] Approved by: Luis F Sarkar MD on 09/25/2022 2:28 PM [facility] Station ID: [id number]
[2022-09-25] MEDS: LACTOBACILLUS RHAMNOSUS GG CAPSULE PO SCH (17:50)
--- NOTE | 2022-09-25 20:06 | PROVIDER PROGRESS NOTE ---
Assessment/Plan - Problem List (1) Bacteremia due to Streptococcus Assessment/Plan: Streptococcus is growing from the blood culture that was drawn in the ED the day before this admission (then he was called back in for admission which is now). New blood culture was drawn 2 days ago also which areneg to date. At his 04/2022 hospitalization, blood cx grew Strep Dysgalac and he needed a 14 day course of Ceftriaxione. At his 08/11 wound cx, he grew Pseudomonas, resistant to Cephalosporins. From his 07/2022 wound cx, Neelima parapsilosis grew, and we think this is why he was on Lamisil. He has been admitted to inpatient status for IV antibiotics. We are changing iv cefrriaxone to empiric Zosyn, after discussion with Pharmacist, Anahy. (see #5) Await culture identification and sensitivity to tailor antibiotics. We ordered a complete Echo to eval for endocarditis. (2) Hypoxia Conclusion/Plan: Nurse reported to me today that he was coughing despite having his Robitussin. With this his oxygen saturations were checked after a coughing spell and dropped to 86% on room air. Respiratory therapy put him on 2 L of oxygen via nasal cannula, Sats increased to 94%. By the time I have examined him he is back on room air and saturating over 92%. A chest x-ray was ordered, this does not show any infiltrates to suggest COVID- pneumonia IV fluid rate will be decreased, now that his Hyponatremia is improving 3) Diarrhea Conclusion/Plan: This could be from starting antibiotics or a symptom of his COVID. Will order C. difficile test and if negative will start Imodium. Will also start probiotics (4) COVID-19 Conclusion/Plan: He is not SOB but did have hypoxia temporarily today We ordered infectious isolation and are confirming with our Infection Prevention Nurse, as to how long to order isolation>> until 09/02, which is 10 days from the time his test was pos. He does not qualify/does not need to get Remdesivir or Decadron. (5) Bilateral lower leg cellulitis Conclusion/Plan: A recurrent episode of leg cellulitis now is probably due to non-compliance and/or poor hygiene. He had home health nursing change his bandages 3 times a week and came to [facility] once a month. It was staff that advised he come to the ER. At admission, we requested [facility] Wound clinic consult, to see while here for any other recommendations>> They sent a message to the inpatient team that he just had dressing changes done at his ER visit (a day before) and the next dressing change will not be due till 09/27/2022. Med/Surg Nurses do not need to do daily dressing changes, therefore, and no photo images of the open wounds were done at admission by our RNs, as per usual protocol. Review of the chart shows that he grew a fungus in 08/2022, from a wound culture sent 07/2022. Pharmacist presumes that this is why he is on Lamisil. We will increase the Lamisil dose to twice a day. Also we will be changing his empiric antibiotic coverage to Zosyn since he just had a Pseudomonas bacteria found from a 07/2022 culture, to cover both P seudomonas and Strep. The entire room had a foul odor, when I examined him today, which may be from Pseudomonas or an anaerobe even. Therefore, changing to Zosyn. (6) Chronic acquired lymphedema Conclusion/Plan: As per longstanding Hx. Will restart his diuretic after CLARISSE improved. Will order legs elevated, even when in bed, and also when OOB in a chair. (7) CLARISSE (acute kidney injury) Conclusion/Plan: Likely related to poor po intake. Continue iv fluids until creat normalizes. 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 He is on iv saline gentle hydration at 60 cc/hr, not faster because of chronic leg edema and has been on a free water restriction. Will discontinue the free water restriction, as patient requested and because the sodium is better Will not restart his daily Lasix until CLARISSE better. Follow BMP daily now (9) Alcohol abuse Conclusion/Plan: In 2020, his H&P stated he drank 12 beers a day. At his 04/2022 admision, he reported 6 beers a day intake. He does have AST elevation on labs. We checked liver function with an INR test and it was normal We ordered CIWA protocol w/ iv ativan dosing if needed. Thus far he is scoring 0. Will stop CIWA score cared and prn Ativan Will follow serum ammonia level and LFTs intermittently. (10) Wheelchair bound Conclusion/Plan: This is not new. When he was here in 2020 rehab was attempted but all he could do is transfer from bed to wheelchair. No PT or OT will be ordered with this history - Current Meds Current Meds: Current Medications Generic Name Dose Route Start Last Admin Trade Name Freq PRN Reason Stop Dose Admin Enoxaparin Sodium 40 mg 09/23/22 09:00 09/25/22 08:43 Enoxaparin 40 Mg/0.4 Ml Syringe SUBQ 40 mg DAILY VITO Administration Guaifenesin 10 ml 09/22/22 09:00 09/25/22 17:50 Guaifenesin/Dextromethorphan 10 Ml Udc PO 10 ml Q6HR VITO Administration Ceftriaxone Sodium 2 gm/ 100 mls @ 200 mls/hr 09/22/22 14:00 09/25/22 09:15 Sodium Chloride IV Infused DAILY VITO Infusion Lactobacillus Rhamnosus 1 cap 09/25/22 16:47 09/25/22 17:50 Lactobacillus Rhamnosus Gg Capsule PO 1 cap DAILY VITO Administration Multivit/Folic Acid/Iron 1 tab 09/23/22 12:00 09/25/22 08:44 Vitamin Tablet PO 1 tab DAILYWM VITO Administration Sodium Chloride 10 ml 09/22/22 17:00 09/25/22 17:48 Sodium Chloride Flush 0.9% 10 Ml Syringe IVP 10 ml 0100,0900,1700 VITO Administration Terbinafine HCl 500 mg 09/23/22 15:11 09/25/22 08:44 Terbinafine 250 Mg Tablet PO 500 mg BID VITO Administration Thiamine HCl 100 mg 09/23/22 09:00 09/25/22 08:43 Thiamine 100 Mg Tablet PO 100 mg DAILY VITO Administration - Lab Result Fish Bone Diagrams: 09/26/22 06:40 09/26/22 06:40 - Additional Planning My Orders: My Active Orders 09/25/22 16:47 Lactobacillus Rhamnosus GG [Culturelle] 1 cap PO DAILY 09/25/22 16:48 Loperamide [Imodium] 2 mg PO QID PRN 09/26/22 05:00 BMP - BASIC METABOLIC PANEL [CHEM] DAILYLAB CBC - COMP BLD CT W/AUTO DIFF [HEME] DAILYLAB 09/26/22 09:00 Furosemide [Lasix] 20 mg PO DAILY Subjective - Subjective Patient Reports: Cough (He claims that his nasal congestion and cough are the same as "every day". The nurse reports that his cough sounded more wet today.), Shortness of Breath Objective Vital Signs: Vital Signs - 24 hr 09/25/22 09/25/22 09/25/22 00:00 07:25 12:53 Temperature 36.7 C 36.7 C Heart Rate [ 73 68 Brachial] Respiratory 20 18 Rate Blood Pressure 137/66 H [Left Brachial artery] Blood Pressure 163/82 H [Right Brachial artery] O2 Saturation 91 L 96 86 L If not protocol : Oxygen Flow, liters/minute 09/25/22 09/25/22 09/25/22 13:08 13:09 14:41 Temperature Heart Rate [ 79 Brachial] Respiratory Rate Blood Pressure [Left Brachial artery] Blood Pressure [Right Brachial artery] O2 Saturation 85 L 94 93 If not protocol 2 : Oxygen Flow, liters/minute 09/25/22 17:00 Temperature 36.6 C Heart Rate [ 66 Brachial] Respiratory 22 Rate Blood Pressure 167/77 H [Left Brachial artery] Blood Pressure [Right Brachial artery] O2 Saturation 98 If not protocol : Oxygen Flow, liters/minute Oxygen O2 Source Room air I&O (Last 24 Hrs): Intake and Output Totals x24h 09/23/22 09/24/22 09/25/22 23:59 23:59 22:59 Intake Total 2166 6547.909 0104 Output Total 900 300 700 Balance 1266 591.536 0446 General: Alert, Oriented x3, Other (There is a foul smell in his entire room (odor is sweet, like Pseudomonas or anaerobes)) HEENT: Mucous membr. moist/pink Neck: Supple, No JVD Neuro: Alert, Other (Lower extremity weakness reported (strength was not checked)) Cardiovascular: Regular rate, No murmurs Respiratory: No respiratory distress, Breath sounds nml Abdomen: Soft Extremities: Other (Feet and lower extremities are both in bandages up to the knees. There is a foul smell coming from these) - Results Results: Laboratory Results WBC 6.2 x10^3/uL (4.8-10.8) 09/25/22 05:18 RBC 3.43 10^6/uL (4.70-6.10) L 09/25/22 05:18 Hgb 9.9 g/dL (14.0-18.0) L 09/25/22 05:18 Hct 29.8 % (42.0-52.0) L 09/25/22 05:18 MCV 86.9 fL (80.0-94.0) 09/25/22 05:18 MCH 28.9 pg (27.0-31.0) 09/25/22 05:18 MCHC 33.2 g/dL (32.0-36.0) 09/25/22 05:18 RDW 15.4 % (12.0-15.0) H 09/25/22 05:18 Plt Count 302 10^3/uL (130-450) 09/25/22 05:18 MPV 9.0 fL (7.4-11.4) 09/25/22 05:18 Neut # (Auto) 4.4 10^3/uL (1.5-6.6) 09/25/22 05:18 Lymph # (Auto) 0.5 10^3/uL (1.5-3.5) L 09/25/22 05:18 Tripp # (Auto) 1.0 10^3/uL (0.0-1.0) 09/25/22 05:18 Eos # (Auto) 0.2 10^3/uL (0.0-0.7) 09/25/22 05:18 Baso # (Auto) 0.0 10^3/uL (0.0-0.1) 09/25/22 05:18 Absolute Nucleated RBC 0.00 x10^3/uL 09/25/22 05:18 Band Neuts % (Manual) Not Reportable 09/22/22 10:39 Abnorm Lymph % (Manual) Not Reportable 09/22/22 10:39 Nucleated RBC % 0.0 /100WBC 09/25/22 05:18 Neutrophils # (Manual) Not Reportable 09/22/22 10:39 Lymphocytes # (Manual) Not Reportable 09/22/22 10:39 Monocytes # (Manual) Not Reportable 09/22/22 10:39 Eosinophils # (Manual) Not Reportable 09/22/22 10:39 Basophils # (Manual) Not Reportable 09/22/22 10:39 Differential Comment MANUAL=AUTO DIFF 09/22/22 10:39 Platelet Estimate NORMAL (130-450,000) (NORMAL) 09/22/22 10:39 Platelet Morphology NORMAL APPEARANCE (NORMAL) 09/22/22 10:39 RBC Morph Micro Appear NORMAL APPEARANCE (NORMAL) 09/22/22 10:39 PT 10.2 secs (9.9-12.6) 09/22/22 10:39 INR 0.9 (0.8-1.2) 09/22/22 10:39 Sodium 134 mmol/L (135-145) L 09/25/22 05:18 Potassium 3.5 mmol/L (3.5-5.0) 09/25/22 05:18 Chloride 101 mmol/L (101-111) 09/25/22 05:18 Carbon Dioxide 26 mmol/L (21-32) 09/25/22 05:18 Anion Gap 7.0 (6-13) 09/25/22 05:18 BUN 8 mg/dL (6-20) 09/25/22 05:18 Creatinine 0.8 mg/dL (0.6-1.2) 09/25/22 05:18 Estimated GFR (MDRD) 94 (>89) 09/25/22 05:18 Glucose 90 mg/dL (70-100) 09/25/22 05:18 Lactic Acid 1.4 mmol/L (0.5-2.2) 09/22/22 10:39 Calcium 8.6 mg/dL (8.5-10.3) 09/25/22 05:18 Magnesium 1.9 mg/dL (1.7-2.8) 09/23/22 05:20 Total Bilirubin 0.7 mg/dL (0.2-1.0) 09/23/22 05:20 Direct Bilirubin 0.1 mg/dL (0.1-0.5) 09/23/22 05:20 AST 48 IU/L (10-42) H 09/23/22 05:20 ALT 32 IU/L (10-60) 09/23/22 05:20 Alkaline Phosphatase 81 IU/L (42-121) 09/23/22 05:20 Ammonia 19.2 umol/L (7-35) 09/23/22 05:20 Total Protein 6.1 g/dL (6.7-8.2) L 09/23/22 05:20 Albumin 2.9 g/dL (3.2-5.5) L 09/23/22 05:20 Globulin 3.2 g/dL (2.1-4.2) 09/23/22 05:20 Albumin/Globulin Ratio 0.9 (1.0-2.2) L 09/22/22 10:39 Lipase 29 U/L (22-51) 09/22/22 10:39 Nasal Adenovirus (PCR) NOT DETECTED 09/22/22 11:08 Nasal B. parapertussis DNA (PCR) NOT DETECTED 09/22/22 11:08 Nasal Coronavir 229E PCR NOT DETECTED 09/22/22 11:08 Nasal Coronavir HKU1 PCR NOT DETECTED 09/22/22 11:08 Nasal Coronavir NL63 PCR NOT DETECTED 09/22/22 11:08 Nasal Coronavir OC43 PCR NOT DETECTED 09/22/22 11:08 Nasal Enterovir/Rhinovir PCR NOT DETECTED 09/22/22 11:08 Nasal Influenza B PCR NOT DETECTED 09/22/22 11:08 Nasal Influenza A PCR NOT DETECTED 09/22/22 11:08 Nasal Parainfluen 1 PCR NOT DETECTED 09/22/22 11:08 Nasal Parainfluen 2 PCR NOT DETECTED 09/22/22 11:08 Nasal Parainfluen 3 PCR NOT DETECTED 09/22/22 11:08 Nasal Parainfluen 4 PCR NOT DETECTED 09/22/22 11:08 Nasal RSV (PCR) NOT DETECTED 09/22/22 11:08 Nasal B.pertussis DNA PCR NOT DETECTED 09/22/22 11:08 Nasal C.pneumoniae (PCR) NOT DETECTED 09/22/22 11:08 Edouard Human Metapneumo PCR NOT DETECTED 09/22/22 11:08 Nasal M.pneumoniae (PCR) NOT DETECTED 09/22/22 11:08 Nasal SARS-CoV-2 (PCR) DETECTED A 09/22/22 11:08 Stl C. diff Tox B Gene NEGATIVE (NEGATIVE) 09/25/22 17:30 - Procedures Procedures: Procedures INSERTION OF INFUSION DEV INTO SUP VENA CAVA, PERC APPROACH (04/27/22)
[2022-09-25] MEDS: LOPERAMIDE 2 MG CAPSULE PO PRN (21:10)
[2022-09-26] MEDS: guaiFENesin/DEXTROMETHORPHAN 10 ML UDC PO SCH ×4 (00:05→18:15)
[2022-09-26] MEDS: SODIUM CHLORIDE FLUSH 0.9% 10 ML SYRINGE IVP SCH ×3 (00:05→16:48)
[2022-09-26 06:58] LABS: BASOPHILS % (AUTO) 0.4 %; EOSINOPHILS # (AUTO) 0.2 10^3/uL (0.0-0.7); EOSINOPHILS % (AUTO) 2.8 %; HCT - HEMATOCRIT 31.8 % (42.0-52.0); HGB - HEMOGLOBIN 10.3 g/dL (14.0-18.0); LYMPHOCYTES # (AUTO) 0.5 10^3/uL (1.5-3.5); MEAN CORPUSCULAR HEMOGLOBIN 28.1 pg (27.0-31.0); MEAN CORPUSCULAR HGB CONC 32.4 g/dL (32.0-36.0); MEAN CORPUSCULAR VOLUME 86.9 fL (80.0-94.0); MEAN PLATELET VOLUME 8.7 fL (7.4-11.4); MONOCYTES # (AUTO) 1.1 10^3/uL (0.0-1.0); MONOCYTES % (AUTO) 14.5 %; NEUTROPHILS # (AUTO) 5.7 10^3/uL (1.5-6.6); PLT - PLATELET COUNT 315 10^3/uL (130-450); RED BLOOD COUNT 3.66 10^6/uL (4.70-6.10); RED CELL DISTRIBUTION WIDTH 15.3 % (12.0-15.0); WHITE BLOOD COUNT 7.6 x10^3/uL (4.8-10.8)
[2022-09-26 07:03] LABS: CALCIUM 8.5 mg/dL (8.5-10.3); CREATININE 0.8 mg/dL (0.6-1.2); POTASSIUM 3.1 mmol/L (3.5-5.0)
[2022-09-26] MEDS: PIPERACILLIN/TAZOBACTAM 3.375 GM in SODIUM CHLORIDE 0.9% MINIBAG 100 ML IV SCH ×4 (08:40→16:47)
[2022-09-26] MEDS: ENOXAPARIN 40 MG/0.4 ML SYRINGE SUBQ SCH (08:53)
[2022-09-26] MEDS: PRENATAL VITAMIN TABLET PO SCH (08:53)
[2022-09-26] MEDS: TERBINAFINE 250 MG TABLET PO SCH ×2 (08:53→20:39)
[2022-09-26] MEDS: FUROSEMIDE 20 MG TABLET PO SCH (08:53)
[2022-09-26] MEDS: THIAMINE 100 MG TABLET PO SCH (08:53)
[2022-09-26] MEDS: LACTOBACILLUS RHAMNOSUS GG CAPSULE PO SCH (08:53)
[2022-09-26] MEDS ORDERED: POTASSIUM CHLORIDE 10 MEQ CAPSULE PO ONE (10:00)
[2022-09-26] MEDS: POTASSIUM CHLOR 10 MEQ/100 ML 10 MEQ/100 ML BAG IV SCH ×2 (11:15→13:52)
[2022-09-26] MEDS: CHOLECALCIFEROL 400 UNIT TABLET PO SCH (14:00)
[2022-09-26] MEDS: ZINC SULFATE 220 MG CAPSULE PO SCH (14:00)
[2022-09-26] MEDS: LOPERAMIDE 2 MG CAPSULE PO PRN ×3 (14:56→20:40)
--- NOTE | 2022-09-26 19:09 | PROVIDER PROGRESS NOTE ---
Assessment/Plan - Problem List (1) Bacteremia due to Streptococcus Assessment/Plan: Streptococcus is growing from the blood culture that was drawn in the ED the day before this admission (then he was called back in for admission which is now). New blood culture was drawn at this admission also, which are neg to date. At his 04/2022 hospitalization, blood cx grew Strep Dysgalac and he needed a 14 day course of Ceftriaxione. At his 08/11 wound cx, he grew Pseudomonas, resistant to Cephalosporins. From his 07/2022 wound cx, Neelima parapsilosis grew, and we think this is why he was on Lamisil. He has been admitted to inpatient status for IV antibiotics. We are changing iv ceftriaxone to empiric Zosyn, after discussion with Pharmacist, Anahy. (see #5) Await culture identification and sensitivity to tailor antibiotics. We ordered a complete Echo to eval for endocarditis. (2) COVID-19 Conclusion/Plan: He tested (+) for Covid at admission, He is not SOB but did have hypoxia temporarily on 09/25. We ordered infectious isolation and confirmed with our Infection Prevention Nurse, as to how long to order isolation>> until 09/02, which is 10 days from the time his test was pos. He does not qualify/does not need to get Remdesivir or Decadron. (3) Diarrhea Conclusion/Plan: This started 09/25 and could be from starting antibiotics or a symptom of his COVID. We checked C. difficile and it was negative, will start Imodium. Will also start probiotics (4) Bilateral lower leg cellulitis Conclusion/Plan: A recurrent episode of leg cellulitis now is probably due to non-compliance and/or poor hygiene. He had home health nursing change his bandages 3 times a week and came to [facility] once a month. It was staff that advised he come to the ER. At admission, we requested [facility] consult, to see while here for any other recommendations>> They sent a message to the inpatient team that he just had dressing changes done at his ER visit (a day before) and the next dressing change will not be due till 09/27/2022. Med/Surg Nurses do not need to do daily dressing changes, therefore, and no photo images of the open wounds were done at admission by our RNs, as per usual protocol. Review of the chart shows that he grew a fungus in 08/2022, from a wound culture sent 07/2022. Pharmacist presumes that this is why he is on Lamisil. We will increase the Lamisil dose to twice a day. Also we will be changing his empiric antibiotic coverage to Zosyn since he just had a Pseudomonas bacteria found from a 07/2022 culture, to cover both Pseudomonas and Strep. The entire room has a foul odor, when I examined him, which may be from Pseudomonas or an anaerobe even. Therefore, changing to Zosyn. (5) Chronic acquired lymphedema Conclusion/Plan: As per longstanding Hx. Will restart his diuretic after CLARISSE improved. Will order legs elevated, even when in bed, and also when OOB in a chair. (6) CLARISSE (acute kidney injury) Conclusion/Plan: Likely related to poor po intake. Continue iv fluids but decteasing rate until creat normalizes. 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 He is on iv saline gentle hydration at 60 cc/hr, not faster because of chronic leg edema and has been on a free water restriction. Will discontinue the free water restriction, as patient requested and because the sodium is better Will not restart his daily Lasix until CLARISSE better. Follow BMP daily now (8) Alcohol abuse Conclusion/Plan: In 2020, his H&P stated he drank 12 beers a day. At his 04/2022 admision, he reported 6 beers a day intake. He does have AST elevation on labs. We checked liver function with an INR test and it was normal We ordered CIWA protocol w/ iv ativan dosing if needed. Thus far he is scoring 0. We stopped CIWA score cared and prn Ativan on 09/25. Will follow serum ammonia level and LFTs intermittently. (9) Wheelchair bound Conclusion/Plan: This is not new. When he was here in 2020 rehab was attempted but all he could do is transfer from bed to wheelchair. No PT or OT was ordered with this history (10) Hypoxia Conclusion/Plan: Resolved. Nurse reported to me yesterday that he was coughing despite having his Robitussin. With this his oxygen saturations were checked after a coughing spell and dropped to 86% on room air. Respiratory therapy put him on 2 L of oxygen via nasal cannula, Sats increased to 94%. By the time I had examined him he is back on room air and saturating over 92%. A chest x-ray was ordered, this does not show any infiltrates to suggest COVID- pneumonia IV fluid rate was decreased, now that his Hyponatremia is improving. - Current Meds Current Meds: Current Medications Generic Name Dose Route Start Last Admin Trade Name Freq PRN Reason Stop Dose Admin Cholecalciferol 400 unit 09/26/22 13:00 09/26/22 14:00 Cholecalciferol 400 Unit Tablet PO 400 unit DAILY VITO Administration Enoxaparin Sodium 40 mg 09/23/22 09:00 09/26/22 08:53 Enoxaparin 40 Mg/0.4 Ml Syringe SUBQ 40 mg DAILY VITO Administration Furosemide 20 mg 09/26/22 09:00 09/26/22 08:53 Furosemide 20 Mg Tablet PO 20 mg DAILY VITO Administration Guaifenesin 10 ml 09/22/22 09:00 09/26/22 18:15 Guaifenesin/Dextromethorphan 10 Ml Udc PO 10 ml Q6HR VITO Administration Piperacillin Sod/Tazobactam 100 mls @ 25 mls/hr 09/26/22 08:43 09/26/22 16:47 Sod 3.375 gm/ Sodium Chloride IV 25 mls/hr Q8H VITO Administration Lactobacillus Rhamnosus 1 cap 09/25/22 16:47 09/26/22 08:53 Lactobacillus Rhamnosus Gg Capsule PO 1 cap DAILY VITO Administration Loperamide HCl 2 mg 09/25/22 16:48 09/26/22 16:47 Loperamide 2 Mg Capsule PO 2 mg QID PRN Administration Diarrhea Multivit/Folic Acid/Iron 1 tab 09/23/22 12:00 09/26/22 08:53 Vitamin Tablet PO 1 tab DAILYWM VITO Administration Sodium Chloride 10 ml 09/22/22 17:00 09/26/22 16:48 Sodium Chloride Flush 0.9% 10 Ml Syringe IVP 10 ml 0100,0900,1700 VITO Administration Terbinafine HCl 500 mg 09/23/22 15:11 09/26/22 08:53 Terbinafine 250 Mg Tablet PO 500 mg BID VITO Administration Thiamine HCl 100 mg 09/23/22 09:00 09/26/22 08:53 Thiamine 100 Mg Tablet PO 100 mg DAILY VITO Administration Zinc Sulfate 220 mg 09/26/22 13:00 09/26/22 14:00 Zinc Sulfate 220 Mg Capsule PO 220 mg DAILY VITO Administration - Lab Result Fish Bone Diagrams: 09/26/22 06:40 09/26/22 06:40 - Additional Planning My Orders: My Active Orders 09/26/22 08:43 Piperacillin/Tazobactam [Zosyn] 3.375 gm Sodium Chloride 0.9% Minibag [Normal Saline 0.9% Minibag] 100 ml IV Q8H 09/26/22 09:00 Furosemide [Lasix] 20 mg PO DAILY 09/26/22 13:00 Cholecalciferol [Vitamin D3] 400 unit PO DAILY Zinc Sulfate 220 mg PO DAILY Subjective - Subjective Patient Reports: No Complaints Nursing Reports: Other (Appetite worsened when diarrhea started 2 days ago) Objective Vital Signs: Vital Signs - 24 hr 09/26/22 09/26/22 09/26/22 00:06 08:00 15:16 Temperature 36.8 C 36.7 C 36.4 C L Heart Rate [ 70 81 Brachial] Heart Rate [ 59 L Monitoring electrodes] Respiratory 18 20 20 Rate Blood Pressure 162/67 H [Left Brachial artery] Blood Pressure 153/81 H 176/92 H [Right Brachial artery] O2 Saturation 92 96 94 Oxygen O2 Source Room air I&O (Last 24 Hrs): Intake and Output Totals x24h 09/25/22 09/25/22 09/26/22 00:59 23:59 23:59 Intake Total 550 Output Total 750 Balance -200 General: Alert, Oriented x3 HEENT: Mucous membr. moist/pink Neck: Supple, No JVD Neuro: Alert, Other (weakness of legs (by Hx)) Cardiovascular: Regular rate Respiratory: No respiratory distress Abdomen: Soft Extremities: Other (Both feet and legs bandaged to knees, very malodorous) - Results Results: Laboratory Results WBC 7.6 x10^3/uL (4.8-10.8) 09/26/22 06:40 RBC 3.66 10^6/uL (4.70-6.10) L 09/26/22 06:40 Hgb 10.3 g/dL (14.0-18.0) L 09/26/22 06:40 Hct 31.8 % (42.0-52.0) L 09/26/22 06:40 MCV 86.9 fL (80.0-94.0) 09/26/22 06:40 MCH 28.1 pg (27.0-31.0) 09/26/22 06:40 MCHC 32.4 g/dL (32.0-36.0) 09/26/22 06:40 RDW 15.3 % (12.0-15.0) H 09/26/22 06:40 Plt Count 315 10^3/uL (130-450) 09/26/22 06:40 MPV 8.7 fL (7.4-11.4) 09/26/22 06:40 Neut # (Auto) 5.7 10^3/uL (1.5-6.6) 09/26/22 06:40 Lymph # (Auto) 0.5 10^3/uL (1.5-3.5) L 09/26/22 06:40 Morrow # (Auto) 1.1 10^3/uL (0.0-1.0) H 09/26/22 06:40 Eos # (Auto) 0.2 10^3/uL (0.0-0.7) 09/26/22 06:40 Baso # (Auto) 0.0 10^3/uL (0.0-0.1) 09/26/22 06:40 Absolute Nucleated RBC 0.00 x10^3/uL 09/26/22 06:40 Band Neuts % (Manual) Not Reportable 09/22/22 10:39 Abnorm Lymph % (Manual) Not Reportable 09/22/22 10:39 Nucleated RBC % 0.0 /100WBC 09/26/22 06:40 Neutrophils # (Manual) Not Reportable 09/22/22 10:39 Lymphocytes # (Manual) Not Reportable 09/22/22 10:39 Monocytes # (Manual) Not Reportable 09/22/22 10:39 Eosinophils # (Manual) Not Reportable 09/22/22 10:39 Basophils # (Manual) Not Reportable 09/22/22 10:39 Differential Comment MANUAL=AUTO DIFF 09/22/22 10:39 Platelet Estimate NORMAL (130-450,000) (NORMAL) 09/22/22 10:39 Platelet Morphology NORMAL APPEARANCE (NORMAL) 09/22/22 10:39 RBC Morph Micro Appear NORMAL APPEARANCE (NORMAL) 09/22/22 10:39 PT 10.2 secs (9.9-12.6) 09/22/22 10:39 INR 0.9 (0.8-1.2) 09/22/22 10:39 Sodium 135 mmol/L (135-145) 09/26/22 06:40 Potassium 3.1 mmol/L (3.5-5.0) L 09/26/22 06:40 Chloride 101 mmol/L (101-111) 09/26/22 06:40 Carbon Dioxide 28 mmol/L (21-32) 09/26/22 06:40 Anion Gap 6.0 (6-13) 09/26/22 06:40 BUN 8 mg/dL (6-20) 09/26/22 06:40 Creatinine 0.8 mg/dL (0.6-1.2) 09/26/22 06:40 Estimated GFR (MDRD) 94 (>89) 09/26/22 06:40 Glucose 111 mg/dL (70-100) H 09/26/22 06:40 Lactic Acid 1.4 mmol/L (0.5-2.2) 09/22/22 10:39 Calcium 8.5 mg/dL (8.5-10.3) 09/26/22 06:40 Magnesium 1.9 mg/dL (1.7-2.8) 09/23/22 05:20 Total Bilirubin 0.7 mg/dL (0.2-1.0) 09/23/22 05:20 Direct Bilirubin 0.1 mg/dL (0.1-0.5) 09/23/22 05:20 AST 48 IU/L (10-42) H 09/23/22 05:20 ALT 32 IU/L (10-60) 09/23/22 05:20 Alkaline Phosphatase 81 IU/L (42-121) 09/23/22 05:20 Ammonia 19.2 umol/L (7-35) 09/23/22 05:20 Total Protein 6.1 g/dL (6.7-8.2) L 09/23/22 05:20 Albumin 2.9 g/dL (3.2-5.5) L 09/23/22 05:20 Globulin 3.2 g/dL (2.1-4.2) 09/23/22 05:20 Albumin/Globulin Ratio 0.9 (1.0-2.2) L 09/22/22 10:39 Lipase 29 U/L (22-51) 09/22/22 10:39 Nasal Adenovirus (PCR) NOT DETECTED 09/22/22 11:08 Nasal B. parapertussis DNA (PCR) NOT DETECTED 09/22/22 11:08 Nasal Coronavir 229E PCR NOT DETECTED 09/22/22 11:08 Nasal Coronavir HKU1 PCR NOT DETECTED 09/22/22 11:08 Nasal Coronavir NL63 PCR NOT DETECTED 09/22/22 11:08 Nasal Coronavir OC43 PCR NOT DETECTED 09/22/22 11:08 Nasal Enterovir/Rhinovir PCR NOT DETECTED 09/22/22 11:08 Nasal Influenza B PCR NOT DETECTED 09/22/22 11:08 Nasal Influenza A PCR NOT DETECTED 09/22/22 11:08 Nasal Parainfluen 1 PCR NOT DETECTED 09/22/22 11:08 Nasal Parainfluen 2 PCR NOT DETECTED 09/22/22 11:08 Nasal Parainfluen 3 PCR NOT DETECTED 09/22/22 11:08 Nasal Parainfluen 4 PCR NOT DETECTED 09/22/22 11:08 Nasal RSV (PCR) NOT DETECTED 09/22/22 11:08 Nasal B.pertussis DNA PCR NOT DETECTED 09/22/22 11:08 Nasal C.pneumoniae (PCR) NOT DETECTED 09/22/22 11:08 Edouard Human Metapneumo PCR NOT DETECTED 09/22/22 11:08 Nasal M.pneumoniae (PCR) NOT DETECTED 09/22/22 11:08 Nasal SARS-CoV-2 (PCR) DETECTED A 09/22/22 11:08 Stl C. diff Tox B Gene NEGATIVE (NEGATIVE) 09/25/22 17:30 - Procedures Procedures: Procedures INSERTION OF INFUSION DEV INTO SUP VENA CAVA, PERC APPROACH (04/27/22)
[2022-09-27] MEDS: SODIUM CHLORIDE FLUSH 0.9% 10 ML SYRINGE IVP SCH ×3 (01:06→17:14)
[2022-09-27] MEDS: guaiFENesin/DEXTROMETHORPHAN 10 ML UDC PO SCH ×4 (01:06→17:34)
[2022-09-27] MEDS: LOPERAMIDE 2 MG CAPSULE PO PRN ×3 (01:06→21:42)
[2022-09-27] MEDS: PIPERACILLIN/TAZOBACTAM 3.375 GM in SODIUM CHLORIDE 0.9% MINIBAG 100 ML IV SCH ×3 (01:06→17:17)
[2022-09-27] MEDS: ZINC SULFATE 220 MG CAPSULE PO SCH (09:06)
[2022-09-27] MEDS: TERBINAFINE 250 MG TABLET PO SCH ×2 (09:06→21:39)
[2022-09-27] MEDS: THIAMINE 100 MG TABLET PO SCH (09:06)
[2022-09-27] MEDS: PRENATAL VITAMIN TABLET PO SCH (09:06)
[2022-09-27] MEDS: FUROSEMIDE 20 MG TABLET PO SCH (09:06)
[2022-09-27] MEDS: CHOLECALCIFEROL 400 UNIT TABLET PO SCH (09:06)
[2022-09-27] MEDS: LACTOBACILLUS RHAMNOSUS GG CAPSULE PO SCH (09:06)
[2022-09-27] MEDS: ENOXAPARIN 40 MG/0.4 ML SYRINGE SUBQ SCH (09:07)
--- NOTE | 2022-09-27 11:23 | PROVIDER PROGRESS NOTE ---
Subjective - Prog Note Date Prog Note Date: 09/27/22 Prog Note Time: 11:21 - Subjective Pt reports feeling: No change Subjective: This is a gentleman who [place] [facility] [place] and came to the emergency room September 21 feeling weak. Had normal labs but had some cellulitis on leg exam. Was given a dose of ceftriaxone and sent out on cefdinir. Blood cultures turned positive on September 22 and the patient was asked to return to the clinic. White cell count was 7,000, lactic acid was 2.4 and he was COVID-positive. Prior to admission he is followed by [facility]. They are asking for a new order when he is discharged. I am the hospitalist assuming care. He has not had any symptomatology with rega rds to COVID. He has no worsening of his cellulitis. On review of systems he has anorexia. Nutrition services has been trying to give him Demar but he is not really liking any supplementation. He had diarrhea overnight and it was only once of liquid stool. It is C. difficile negative. During his stay he has not had any fever. His white cell count was 7 on admission and has stayed stable. He has a chronic daily cough. He said it is no worse or no better with COVID positivity. He stopped smoking about 15 years ago and the residual of that is a chronic daily cough productive of white to clear phlegm. Of breath. He denies chest pain. He denies abdominal pain he has no urgency, frequency. He more than anything he just feels tired. His foot is uncomfortable and he finds it cumbersome to have to ambulate because of that foot. Getting on and off the toilet is difficult. Current Medications - Current Medications Current Medications: Active Medications Acetaminophen (Acetaminophen 325 Mg Tablet) 650 mg PO Q4HR PRN PRN Reason: Pain 1 to 4, or Fever Cholecalciferol (Cholecalciferol 400 Unit Tablet) 400 unit PO DAILY [facility] Last Admin: 09/27/22 09:06 Dose: 400 unit Enoxaparin Sodium (Enoxaparin 40 Mg/0.4 Ml Syringe) 40 mg SUBQ DAILY [facility] Last Admin: 09/27/22 09:07 Dose: 40 mg Furosemide (Furosemide 20 Mg Tablet) 20 mg PO DAILY [facility] Last Admin: 09/27/22 09:06 Dose: 20 mg Guaifenesin (Guaifenesin/Dextromethorphan 10 Ml Udc) 10 ml PO Q6HR [facility] Last Admin: 09/27/22 05:56 Dose: 10 ml Piperacillin Sod/Tazobactam (Sod 3.375 gm/ Sodium Chloride) 100 mls @ 25 mls/hr IV Q8H [facility] Last Admin: 09/27/22 09:05 Dose: 25 mls/hr Lactobacillus Rhamnosus (Lactobacillus Rhamnosus Gg Capsule) 1 cap PO DAILY [facility] Last Admin: 09/27/22 09:06 Dose: 1 cap Loperamide HCl (Loperamide 2 Mg Capsule) 2 mg PO QID PRN PRN Reason: Diarrhea Last Admin: 09/27/22 01:06 Dose: 2 mg Ondansetron HCl (Ondansetron 4 Mg/2 Ml Vial) 4 mg IVP Q6HR PRN PRN Reason: Nausea / Vomiting Potassium Chloride (Potassium Chloride 20 Meq Tablet) 40 meq PO BIDWM [facility] Stop: 09/29/22 08:01 Multivit/Folic Acid/Iron ( Vitamin Tablet) 1 tab PO DAILYWM [facility] Last Admin: 09/27/22 09:06 Dose: 1 tab Sodium Chloride (Sodium Chloride Flush 0.9% 10 Ml Syringe) 10 ml IVP PRN PRN PRN Reason: NEEDED PER PROVIDER ORDERS Sodium Chloride (Sodium Chloride Flush 0.9% 10 Ml Syringe) 10 ml IVP 0100,0900,1700 [facility] Last Admin: 09/27/22 09:07 Dose: 10 ml Terbinafine HCl (Terbinafine 250 Mg Tablet) 500 mg PO BID [facility] Last Admin: 09/27/22 09:06 Dose: 500 mg Thiamine HCl (Thiamine 100 Mg Tablet) 100 mg PO DAILY [facility] Last Admin: 09/27/22 09:06 Dose: 100 mg Zinc Sulfate (Zinc Sulfate 220 Mg Capsule) 220 mg PO DAILY [facility] Last Admin: 09/27/22 09:06 Dose: 220 mg Furosemide [Lasix] 20 mg PO BID 09/22/22 Guaifenesin/Dextromethorphan [Guaifenesin-Dm ER 1,200-60 mg] 1 each PO BID 09/22/22 Objective - Vital Signs/Intake & Output Reviewed Vital Signs: Yes Vital Signs: Vital Signs x48h Temp Pulse Resp BP Pulse Ox 09/27/22 08:25 36.9 C 84 18 148/82 H 95 Intake & Output: Intake & Output 09/25/22 09/25/22 09/26/22 09/27/22 00:59 23:59 23:59 23:59 Intake Total 800 200 Output Total 750 275 Balance 50 -75 - Objective General Appearance: positive: No acute distress, Alert, Other (Sitting upright in a chair, occasional cough but no shortness of breath. Looks stated age.) Eyes Bilateral: positive: PERRL, EOMI ENT: positive: No signs of dehydration Neck: positive: No JVD. negative: Stiff neck Respiratory: positive: No respiratory distress, Rhonchi (Right anterior chest, right mid axillary line that disappeared with coughing), Other (Unlabored, diminished at bases, Cough twice during exam). negative: Wheezes, Rales Cardiovascular: positive: Irregularly irregular, Systolic murmur Abdomen: positive: Non-tender, No organomegaly, Nml bowel sounds, No distention Skin: positive: Warm, Dry Extremities: positive: Full ROM, Other (Both feet and lower calves are bandaged. Bandages dirty, malodorous. The wound clinic has left specific instructions that we are not to touch these bandages until they change the bandages.) Neurologic/Psychiatric: positive: Oriented x3, CN's nml (2-12), Motor nml - Lab Results Fish Bones: 09/26/22 06:40 09/26/22 06:40 ABX Reporting Has patient been on IV antibiotics over the past 48 hours?: Yes Assessment/Plan - Problem List (1) Bacteremia due to Streptococcus Impression: Streptococcus is growing from the blood culture that was drawn in the ED the day before this admission (then he was called back in for admission which is now). New blood culture was drawn at this admission also, which are neg to date. At his 04/2022 hospitalization, blood cx grew Strep Dysgalac and he needed a 14 day course of Ceftriaxione. At his 08/11 wound cx, he grew Pseudomonas, resistant to Cephalosporins. From his 07/2022 wound cx, Neelima parapsilosis grew, and we think this is why he was on Lamisil. He has been admitted to inpatient status for IV antibiotics. We are changing iv ceftriaxone to empiric Zosyn 09/26, after discussion with PharmacistAnahy. (see #5) Await culture identification and sensitivity to tailor antibiotics. We ordered a complete Echo to eval for endocarditis. telegraph repeater technician will not be here till September 28. (2) COVID-19 Conclusion/Plan: He tested (+) for Covid at admission, He is not SOB but did have hypoxia temporarily on 09/25. Today 95% on room air We ordered infectious isolation and confirmed with our Infection Prevention Nurse, as to how long to order isolation>> until 09/02, which is 10 days from the time his test was pos. He does not qualify/does not need to get Remdesivir or Decadron. I offered Mucinex or Robitussin-DM and the patient declined. (3) Diarrhea Conclusion/Plan: This started 09/25 and could be from starting antibiotics or a symptom of his COVID. We checked C. difficile and it was negative. He is on Imodium and probiotics for this. I will add Questran. (4) Bilateral lower leg cellulitis Conclusion/Plan: A recurrent episode of leg cellulitis now is probably due to non-compliance and/or poor hygiene. He had home health nursing change his bandages 3 times a week and came [place] [facility] [place]. It was staff that advised he come to the ER. At admission, we requested [facility] [place] consult, to see while here for any other recommendations>> They sent a message to the inpatient team that he just had dressing changes done at his ER visit (a day before) and the next dressing change will not be due till 09/27/2022. Med/Surg Nurses do not need to do daily dressing changes, therefore, and no photo images of the open wounds were done at admission by our RNs, as per usual protocol. Review of the chart shows that he grew a fungus in 08/2022, from a wound culture sent 07/2022. Pharmacist presumes that this is why he is on Lamisil. We will increase the Lamisil dose to twice a day. Also we will be changing his empiric antibiotic coverage to Zosyn since he just had a Pseudomonas bacteria found from a 07/2022 culture, to cover both Pseudomonas and Strep. The entire room has a foul odor from his legs which may be from Pseudomonas or an anaerobe even. Therefore, changing to Zosyn. Today #2. (5) Chronic acquired lymphedema Conclusion/Plan: As per longstanding Hx. Lasix 20 mg po resumed since CLARISSE resolved. Will order legs elevated, even when in bed, and also when OOB in a chair. (6) CLARISSE (acute kidney injury) resolved Conclusion/Plan: Likely related to poor po intake. Creat was 1.3 on admit and normal the next day. Maintenance IVF stopped 09/25 and TKOstopped 09/26 Avoid nephrotoxins Follow BMP daily (7) Hyponatremia Conclusion/Plan: Suspect his alcohol abuse may be the cause of this, since he was considered to have beer potomania at his 2020 admission. He was on iv saline gentle hydration at 60 cc/hr until 09/25, not faster because of chronic leg edema and has been on a free water restriction. the free water restriction was dc'd, as patient requested and because the sodium is better On lasix po. . Follow BMP daily now (8) Alcohol abuse Conclusion/Plan: In 2020, his H&P stated he drank 12 beers a day. At his 04/2022 admision, he reported 6 beers a day intake. He does have AST elevation on labs. We checked liver function with an INR test and it was normal We ordered CIWA protocol w/ iv ativan dosing if needed. Thus far he is scoring 0. We stopped CIWA score cared and prn Ativan on 09/25. Will follow serum ammonia level and LFTs intermittently. (9) Wheelchair bound Conclusion/Plan: This is not new. When he was here in 2020 rehab was attempted but all he could do is transfer from bed to wheelchair. No PT or OT was ordered with this history. Although he is roommates with his brother, he says that his brother is not a caregiver. He is basically alone in his apartment with regards to activities of daily living and needing help with dressing, feeding, bathing. (10) Hypoxia Conclusion/Plan: Resolved. Nurse reported 09/25 that he was coughing despite having his Robitussin. With t his his oxygen saturations were checked after a coughing spell and dropped to 86% on room air. Respiratory therapy put him on 2 L of oxygen via nasal cannula, Sats increased to 94%. By the time hospitalist examined him he was back on room air and saturating over 92%. A chest x-ray was ordered, this does not show any infiltrates to suggest COVID- pneumonia IV fluid rate was decreased then stopped, now that his Hyponatremia is improving.
[2022-09-27] MEDS: CHOLESTYRAMINE 4 GM PACKET PO SCH ×2 (13:03→22:47)
[2022-09-27] MEDS: POTASSIUM CHLORIDE 20 MEQ TABLET PO SCH (17:13)
[2022-09-28] MEDS: guaiFENesin/DEXTROMETHORPHAN 10 ML UDC PO SCH ×4 (00:52→17:52)
[2022-09-28] MEDS: PIPERACILLIN/TAZOBACTAM 3.375 GM in SODIUM CHLORIDE 0.9% MINIBAG 100 ML IV SCH ×3 (00:52→17:11)
[2022-09-28] MEDS: SODIUM CHLORIDE FLUSH 0.9% 10 ML SYRINGE IVP SCH ×3 (00:52→17:11)
[2022-09-28] MEDS: PRENATAL VITAMIN TABLET PO SCH (08:18)
[2022-09-28] MEDS: POTASSIUM CHLORIDE 20 MEQ TABLET PO SCH ×2 (08:18→17:11)
[2022-09-28] MEDS: FUROSEMIDE 20 MG TABLET PO SCH (08:18)
[2022-09-28] MEDS: THIAMINE 100 MG TABLET PO SCH (08:18)
[2022-09-28] MEDS: ZINC SULFATE 220 MG CAPSULE PO SCH (08:18)
[2022-09-28] MEDS: CHOLESTYRAMINE 4 GM PACKET PO SCH (08:18)
[2022-09-28] MEDS: TERBINAFINE 250 MG TABLET PO SCH ×2 (08:18→21:37)
[2022-09-28] MEDS: LACTOBACILLUS RHAMNOSUS GG CAPSULE PO SCH (08:18)
[2022-09-28] MEDS: CHOLECALCIFEROL 400 UNIT TABLET PO SCH (08:18)
[2022-09-28] MEDS: ENOXAPARIN 40 MG/0.4 ML SYRINGE SUBQ SCH (08:19)
--- NOTE | 2022-09-28 15:38 | Discharge Plan ---
Discharge Plan Problem Reviewed?: Yes Disposition: Home, Self Care Condition: Stable Diet: Regular Activity Restrictions: Activity as Tolerated Shower Restrictions: No Driving Restrictions: Yes (no driving) Assistance Devices: Wheelchair Health Concerns: You presented to the emergency room on September 21 because you were feeling weak. You had normal laboratory studies and your leg seemed a little bit infected so you had 1 dose of antibiotics and you were sent out on pills to take more antibiotics. You were asked to come back to the hospital on September 22 because one of the blood test grew out the bacteria in your blood. Incidental to all of this is that you were COVID-positive. However you do not have symptoms of COVID disease. You have a chronic daily cough that you stated you have had for years now and it is unchanged. While here we treated you with IV antibiotics for leg infection. Your white cell count (which is a cell count that we used to indicate infection) was normal. You did not have a fever throughout your stay. And your final blood cultures came back today stating that you no longer needed treatment for inf ection in your blood. And you have completed 7 days of antibiotics for skin infection. As such you are now stable enough to go home. However, you state that you do not feel like you are ready to go home. We had been asking you repeatedly if you need support system at home and you have been declining our services. You have also explained that your brother lives there in your apartment but he does not help take care of you. You repeatedly stated that you do not rely on your brother as a caregiver. Now that you are stable enough to go home, you wonder if you need more help. We did ask physical therapy and Occupational Therapy to see you so we could quantify what you would need. You refused to be evaluated by them and stated that "it is there problem" to try and do an evaluation on you if you refused to cooperate with him. As such, after your refusal of trying to quantify how much help you would need, you are now going to go home. We are not changing any of your medications. Plan of Treatment: Sometimes antibiotics can give people diarrhea. We are recommending that you take an [id number] probiotic, [id number] Lomotil or Imodium, and ple nty of fluids on a regular basis to make sure the diarrhea from antibiotics does not get worse. Please see your primary care provider in follow-up. We like you to see Dr. Calderon in 2 to 3 weeks to make sure that your leg infection stays stable. At this time you see Dr. Calderon you could also asked to be reevaluated for home health physical therapy or occupational therapy if you choose to do so. Care Goals: At this time your goals are to remain at home to be as independent as possible with occasional help from friends or relatives. This is in spite of the fact you are wheelchair-bound. Assessment: Patient is alert, oriented, states that he still makes his own decisions and is without a power of energy attorney to make decisions for him No Smoking: If you smoke, Please STOP! Call for help.
--- NOTE | 2022-09-28 15:45 | DISCHARGE SUMMARY ---
Discharge Summary Admit Date: 09/22/22 Discharge Date: 09/29/22 Discharging Provider: Tiesha Vieyra MD Primary Care Provider: Benjamin Calderon MD Code Status: Do Not Attempt Resuscitation Condition at Discharge: Stable Discharge Disposition: Home Health Service - DIAGNOSES Discharge Diagnoses with Status of Each Condition: 1. False positive blood cultures 2. COVID-19 positive status without illness 3. Diarrhea secondary to antibiotics 4. Bilateral lower leg cellulitis due to venous stasis 5. Chronic acquired lymphedema 6. Acute kidney injury resolved 7. Hyponatremia resolved 8. Alcohol abuse 9. Wheelchair-bound 10. Episodic hypoxemia resolved - HPI History of Present Illness: This is a 72-year-old white male with a history of chronic leg edema, recurrent leg cellulitis, admission here 5 months ago for Strep bacteremia from leg cellulitis needing a 2-week course of iv antibiotics. He also has a history of alcohol abuse, used to drink 12 beers per day a year ago, and more ecently was down to 6 beers a day, as of the admission 5 months ago. He is wheelchair- bound, but is able to pivot from chair to wheelchair. His and he lives with his brother. [facility] and he described up and down worsening leg wounds and found that they had foul smell. He was seen in the ER by [place] [facility] [place] yesterday had a dressing change, his labs showed normal white count and he was given IV Rocephin and then sent home with a prescription for oral cefdinir. This morning his blood cx drawn yesterday turned pos and he was called back into the hospital. He appeared slt less weak, per ED provider, but the patient seems confused and thinks he was here 2-3 days ago, not yesterday. The bld cx PCR is showing a Strep species and another, a presumed contaminant, Staph species. His labs today show that he is COVID-positive. There are no pulmonary symptoms and he is not desaturating. He says he is "always congested". He has no GI sx. and he has no idea where he might have caught it. The ED provider has reached out to the Hospitalist team to have this patient admitted for treating Strep bacteremia and recurrent leg cellulitis. - Past Medical History Cardiovascular: reports: None Respiratory: reports: Asthma Neuro: reports: None Endocrine/Autoimmune: reports: None GI: reports: None : reports: None HEENT: reports: None Psych: reports: None Musculoskeletal: reports: Other Derm: reports: Other MRSA Hx?: No - Past Surgical History HEENT: reports: Tonsil/Adenoidectomy - CONSULTS | PROCEDURES Procedures: Chest x-ray without acute cardiopulmonary findings Repeat blood cultures on September 22 done to compare to September 21. September 22 blood cultures are negative after 5 days. September 21 blood cultures done prior to admission ended up showing multiple bacteria in both bottles compatible with contamination. - HOSPITAL COURSE Hospital Course: Over the course of a few days, any skin lesions that he had in his lower extremi ties gradually improved. They have begun healing and much less drainage and no fould smelling odor once the old bandages removed. Nursing did change those. He did not have a fever during his stay, and white cell count remained normal. Final blood cultures came back to help us identify what to do with the positive cultures that he was admitted for. Those blood cultures showed multiple bacteri a and were compatible with skin contamination in both bottles. As such antibiotics were stopped. He did develop a side effect of diarrhea with the antibiotics but he was not dehydrated nor was he tachycardic with this. Electrolytes remained stable except for slightly low potassium that required s upplementation. He was COVID-positive but had no change in symptomatology with regards to COVID. He has a chronic daily cough productive of clear to white phlegm. He said he has had that for years. That was unchanged. O2 sats remained anywhere between 93 to 98% during his stay. He did not require any oxygen supplementation. On admission, social work did do an evaluation of his home life. He lives with a brother. He has made it clear to social work and to myself that his brother is not his caregiver. He does not rely on them or family for that. He regards himself is independent even though he spends most of his time in a wheelchair. He does not give a clear reason of why he is in a wheelchair other than chronic back pain. He also declined any social service help. On the day of discharge the patient protested and said that he does not feel safe going home. I validated his concerns and said that we could have physical therapy and Occupational Therapy evaluate him for his needs. Depending on what they found he might be a candidate for home health with PT/OT/social services director/bath aid or even a candidate for [facility] facility rehabilitation depending on how much strength he needed again. He did decline that offer. I did go ahead and order PT and OT to see if they could can evaluate him. He refused their offer and stated it was "their problem" that they needed to evaluate him and he did not want to cooperate. As such I started the discharge process on 09/28. Case management and patient registrar spoke with the patient. He has decided to appeal his discharge on the basis of medical needs but he cannot tell me what the medical needs are that he needs treated. Today the patient has decided that he would like to go home after all. And he is cancelling the appeal process. At discharge temperature is 36.3. Heart rate 86. Blood pressure 155/87. Respi rations 18. 94% on room air. He is a 5 foot 10 inch male, 73.5 kg. In a wheelchair. Physical therapy was able to evaluate him and they do feel he is a candidate for SNF. He requires a mod assist to go from a sit to stand. And he also needs a mod assist to have his lower extremities lifted back in bed when he sits back down. He lives with his brother in a multilevel home and he stays on the first floor. He does have a ramp in the back and he is able to enter the home using this ramp. When he is having a good day he is able to stand from his wheelchair in his room, and walk a few steps to the bathroom. Sometimes using a walker. Sometimes without any durable medical equipment. He dresses himself, bathe himself and toilets himself. Friends bring him meals and take him to his appointments. With his stay, he is demonstrated a decrease in his ability to transfer, decrease in bed mobility and decrease in strength and balance. He is at increased risk for falling. We have offered him placement in a [facility] facility with rehab and he declines. Neck is supple. Lungs are clear without any increased respiratory effort. He has a regular rate and rhythm. On his lower extremities he has lymphedema venous stasis ulcers. Legs and feet need to be cleansed with soap and water. Gentamicin ointment to toes and open areas on feet. Dressed with silver Hydrofiber between toes and to cover wounds. Cover with ABDs and gauze. He needs to be seen in the wound clinic October 04. I will be renewing his home health physical therapy, Occupational Therapy, and RN for wound dressing. Greater than 30 minutes was spent coordinating discharge - ALLERGIES Allergies/Adverse Reactions: Allergies Allergy/AdvReac Type Severity Reaction Status Date / Time No Known Drug Allergies Allergy Verified 09/21/22 08:04 - MEDICATIONS Home Medications: Ambulatory Orders Medication Instructions Recorded Confirmed Terbinafine [Lamisil] 250 mg PO DAILY 14 Days #14 tablet 08/24/22 09/22/22 Gentamicin Sulfate 30 gm TP DAILY 30 Days #30 gm 09/16/22 09/22/22 Furosemide [Lasix] 20 mg PO BID 09/22/22 09/22/22 Guaifenesin/Dextromethorphan 1 each PO BID 09/22/22 09/22/22 [Guaifenesin-Dm ER 1,200-60 mg] Cholecalciferol [Vitamin D3] 400 unit PO DAILY tab 09/28/22 Lactobacillus Rhamnosus GG 1 cap PO DAILY cap 09/28/22 [Culturelle] Loperamide [Imodium] 2 mg PO QID PRN cap 09/28/22 - LABS Result Diagrams: 09/26/22 06:40 09/26/22 06:40
[2022-09-29] MEDS: guaiFENesin/DEXTROMETHORPHAN 10 ML UDC PO SCH ×3 (00:46→12:18)
[2022-09-29] MEDS: LOPERAMIDE 2 MG CAPSULE PO PRN (00:47)
[2022-09-29] MEDS: SODIUM CHLORIDE FLUSH 0.9% 10 ML SYRINGE IVP SCH ×2 (02:32→10:20)
[2022-09-29] MEDS: PIPERACILLIN/TAZOBACTAM 3.375 GM in SODIUM CHLORIDE 0.9% MINIBAG 100 ML IV SCH ×2 (02:33→10:18)
[2022-09-29] MEDS: POTASSIUM CHLORIDE 20 MEQ TABLET PO SCH (07:11)
[2022-09-29] MEDS: PRENATAL VITAMIN TABLET PO SCH (07:11)
[2022-09-29] MEDS: LACTOBACILLUS RHAMNOSUS GG CAPSULE PO SCH (10:19)
[2022-09-29] MEDS: ENOXAPARIN 40 MG/0.4 ML SYRINGE SUBQ SCH (10:19)
[2022-09-29] MEDS: FUROSEMIDE 20 MG TABLET PO SCH (10:19)
[2022-09-29] MEDS: CHOLECALCIFEROL 400 UNIT TABLET PO SCH (10:19)
[2022-09-29] MEDS: TERBINAFINE 250 MG TABLET PO SCH (10:19)
[2022-09-29] MEDS: ZINC SULFATE 220 MG CAPSULE PO SCH (10:20)
[2022-09-29] MEDS: THIAMINE 100 MG TABLET PO SCH (10:20)
[2022-09-29] MEDS: CHOLESTYRAMINE 4 GM PACKET PO SCH (10:35)
--- NOTE | 2022-09-29 12:52 | PROVIDER PROGRESS NOTE ---
Subjective - Prog Note Date Prog Note Date: 09/28/22 Prog Note Time: 16:00 - Subjective Subjective: I received a report from the lab that the blood culture that we were waiting sensitivities on is a contaminated specimen. Both bottles have more than 4 audrey teria. As such the patient was admitted for positive blood cultures but the blood cultures of ended up being contaminants. He does not need any further antibiotics. And clinically I am seeing no fever, no chills, no elevated white cell count and no hypoxia. Objective - Vital Signs/Intake & Output Vital Signs: Vital Signs x48h Temp Pulse Resp BP Intake & Output: Intake & Output 09/26/22 09/27/22 09/28/22 23:59 23:59 23:59 Intake Total 800 1110 760 Output Total 750 525 450 Balance 50 585 310 - Objective General Appearance: positive: Alert, Other (He is not happy at the idea that he is ready for discharge.) Eyes Bilateral: positive: PERRL, EOMI Neck: positive: No JVD. negative: Stiff neck Respiratory: positive: No respiratory distress. negative: Wheezes, Rales, Rhonchi Cardiovascular: positive: Regular rate & rhythm Abdomen: positive: Non-tender, No organomegaly, Nml bowel sounds, No distention Skin: positive: Warm, Dry Extremities: positive: Full ROM, No pedal edema Neurologic/Psychiatric: positive: Oriented x3, CN's nml (2-12). negative: Motor nml (He is essentially wheelchair-bound due to back pain and has been so for years now) - Lab Results Fish Bones: 09/26/22 06:40 09/26/22 06:40 ABX Reporting Has patient been on IV antibiotics over the past 48 hours?: Yes Assessment/Plan - Problem List (1) Contamination of blood culture Impression: Streptococcus is growing from the blood culture that was drawn in the ED the day before this admission (then he was called back in for admission which is now). New blood culture was drawn at this admission also, which are neg to date. At his 04/2022 hospitalization, blood cx grew Strep Dysgalac and he needed a 14 day course of Ceftriaxione. At his 08/11 wound cx, he grew Pseudomonas, resistant to Cephalosporins. From his 07/2022 wound cx, Neelima parapsilosis grew, and we think this is why he was on Lamisil. He has been admitted to inpatient status for IV antibiotics. Antibiotics were changed from ceftriaxone to Zosyn on September 26 after discussing wounds and choices of treatment with the pharmacist. We have now received word that those positive blood cultures were just contaminated specimens. In view of the fact that the patient has never had a white cell count elevation, fever, hypoxia, or any external manifestation of infection besides leg wounds, I am stopping antibiotics and he can go home. (2) COVID-19 Conclusion/Plan: He tested (+) for Covid at admission, He is not SOB but did have hypoxia temp orarily on 09/25. Today 95% on room air We ordered infectious isolation and confirmed with our Infection Prevention Nurse, as to how long to order isolation>> until 09/02, which is 10 days from the time his test was pos. He does not qualify/does not need to get Remdesivir or Decadron. I offered Mucin ex or Robitussin-DM and the patient declined. (3) Diarrhea Conclusion/Plan: This started 09/25 and could be from starting antibiotics or a symptom of his COVID. We checked C. difficile and it was negative. He is on Imodium, Probiotics and Questran for this. (4) Bilateral lower leg cellulitis Conclusion/Plan: A recurrent episode of leg cellulitis now is probably due to non-compliance and/or poor hygiene. He had home health nursing change his bandages 3 times a week and came to [facility] clinic once a month. It was staff that advised he come to the ER. At admission, we requested [facility] Wound clinic consult, to see while here for any other recommendations>> They sent a message to the inpatient team that he just had dressing changes done at his ER visit (a day before) and the next dressing change will not be due till 09/27/2022. Med/Surg Nurses do not need to do daily dressing changes, therefore, and no photo images of the open wounds were done at admission by our RNs, as per usual protocol. Review of the chart shows that he grew a fungus in 08/2022, from a wound culture sent 07/2022. Pharmacist presumes that this is why he is on Lamisil. We will increase the Lamisil dose to twice a day. Empiric antibiotics were changed from ceftriaxone to Zosyn on September 26 in view of the fact of previous Pseudomonas bacteria from a July 2020 to culture. He is foul-smelling bandages have improved tremendously once they were changed. Today's day #3 of Zosyn. At this time there is skin breakdown, but no redness, heat, purulent drainage. Ever since the bandages have been taken down and clean and new clean wounds have been placed the foul order has dissipated. He is received a total of 7 days of antibiotics as of today. (5) Chronic acquired lymphedema Conclusion/Plan: As per longstanding Hx. Lasix 20 mg po resumed since CLARISSE resolved. Will order legs elevated, even when in bed, and also when OOB in a chair. (6) CLARISSE (acute kidney injury) resolved Conclusion/Plan: Likely related to poor po intake. Creat was 1.3 on admit and normal the next day. Maintenance IVF stopped 09/25 and TKOstopped 09/26 Avoid nephrotoxins Follow BMP daily (7) Hyponatremia Conclusion/Plan: Suspect his alcohol abuse may be the cause of this, since he was considered to have beer potomania at his 2020 admission. He was on iv saline gentle hydration at 60 cc/hr until 09/25, not faster because of chronic leg edema and has been on a free water restriction. the free water restriction was dc'd, as patient requested and because the sodium is better On lasix po. . Follow BMP daily now (8) Alcohol abuse Conclusion/Plan: In 2020, his H&P stated he drank 12 beers a day. At his 04/2022 admision, he reported 6 beers a day intake. He does have AST elevation on labs. We checked liver function with an INR test and it was normal We ordered CIWA protocol w/ iv ativan dosing if needed. Thus far he is scoring 0. We stopped CIWA score cared and prn Ativan on 09/25. Will follow serum ammonia level and LFTs intermittently. (9) Wheelchair bound Conclusion/Plan: This is not new. When he was here in 2020 rehab was attempted but all he could do is transfer from bed to wheelchair. No PT or OT was ordered with this history. Although he is roommates with his brother, he says that his brother is not a caregiver. He is basically alone in his apartment with regards to activities of daily living and needing help with dressing, feeding, bathing. Social work has been in his room at the beginning of this day to identify any opportunities that he could avail himself of. More caregivers? Social work consult at home? And he stated that he needed no more help. I followed up those conversations during the stay as well. Wanted to make sure that there would be no barriers to discharge when the time came. He stated that he was independent enough and if he needed help he would ask his family here and there. Today he is stated that he cannot be discharged. He needs way more help at home that he is being given. I offered physical therapy occupational therapy and social work evaluation to quantify that knee. He refused to see them. When they pointed out that they were there at his request to quantify opportunities that could be given to him at home, he stated that this was "their problem not his" and he did not want to cooperate. About 3 hours later he was asked to sign a piece of paper letting him know that he was ready for discharge and that if he stayed he would be responsible for the bill. He then decided to do a Medicare appeal to stay. He is also agreed to be evaluated by physical and Occupational Therapy. (10) Hypoxia Conclusion/Plan: Resolved. Nurse reported 09/25 that he was coughing despite having his Robitussin. With this his oxygen saturations were checked after a coughing spell and dropped to 86% on room air. Respiratory therapy put him on 2 L of oxygen via nasal cannula, Sats increased to 94%. By the time hospitalist examined him he was back on room air and saturating over 92%. A chest x-ray was ordered, this does not show any infiltrates to suggest COVID- pneumonia IV fluid rate was decreased then stopped, now that his Hyponatremia is improving .
[2022-09-29 13:12] VITALS: BP 164/86
== END 2022-09-29 14:23 | disposition home health service (06) | DRG 602 ==
LOC: EDUNIT# → ED 10:08 → MS2 12:38
PROVIDERS: ADMIT Internal Medicine; ATTEND Specialist
DX: L03.116 Cellulitis of left lower limb (principal); U07.1 COVID-19; B95.5 Unspecified streptococcus as the cause of diseases classified elsewhere; B95.8 Unspecified staphylococcus as the cause of diseases classified elsewhere; L97.919 Non-pressure chronic ulcer of unspecified part of right lower leg with unspecified severity; L97.929 Non-pressure chronic ulcer of unspecified part of left lower leg with unspecified severity; K52.1 Toxic gastroenteritis and colitis; N17.9 Acute kidney failure, unspecified; E87.1 Hypo-osmolality and hyponatremia; L03.115 Cellulitis of right lower limb; I83.009 Varicose veins of unspecified lower extremity with ulcer of unspecified site; T36.95XA Adverse effect of unspecified systemic antibiotic, initial encounter; Y92.230 Patient room in hospital as the place of occurrence of the external cause; R05.3 Chronic cough; I89.0 Lymphedema, not elsewhere classified; F10.10 Alcohol abuse, uncomplicated; R63.0 Anorexia; R09.02 Hypoxemia; Z99.3 Dependence on wheelchair; Z68.20 Body mass index [BMI] 20.0-20.9, adult; Z87.891 Personal history of nicotine dependence
CPT/HCPCS: 36415; 71045; 80048; 80053; 80076; 82140; 83605; 83690; 83735; 85025; 85610; 87040; 87493; 87633; 97163; 97166; 97530; 99284; 99285; A9270; J1650

== ENCOUNTER 2022-11-16 08:00 | Outpatient (CLI) | payer MEDICARE, OTHER | END 2022-11-16 23:59 | disposition home or self-care (01) | LOC: LAB.R 08:00 | PROVIDERS: ATTEND Internal Medicine | DX: L03.119 Cellulitis of unspecified part of limb (principal) | CPT/HCPCS: 87070; 87077; 87181; 87205 ==

== ENCOUNTER 2022-12-22 13:14 | Outpatient (CLI) | payer MEDICARE, OTHER | END 2022-12-22 13:15 | disposition EMS.NT | LOC: EMS 13:14 | DX: R53.1 Weakness (principal) ==

== ENCOUNTER 2022-12-23 | Outpatient (CLI) | payer MEDICARE, OTHER | END 2022-12-23 00:01 | disposition EMS.NT | LOC: EMS | DX: Z03.89 Encounter for observation for other suspected diseases and conditions ruled out (principal) ==

== ENCOUNTER 2022-12-24 15:54 | Outpatient (CLI) | payer MEDICARE, OTHER | END 2022-12-24 15:55 | disposition critical access hospital (66) | LOC: EMS 15:54 | DX: R53.1 Weakness (principal); Z99.3 Dependence on wheelchair | CPT/HCPCS: A0425; A0429 ==

== ENCOUNTER 2022-12-24 16:26 | Inpatient (IN) | payer MEDICARE, OTHER ==
--- NOTE | 2022-12-24 16:37 | ED Physician Documentation ---
PD HPI URI - Stated complaint Stated Complaint: WEAKNESS - History obtained from History obtained from: Patient, EMS (Medics gave independent information that the patient was having some mild confusion on route but oriented to person and place. The convey information from the family that the patient has been increasingly weak and confused for a few days.) - History of Present Illness Timing - onset: How many days ago (The patient claims several days of general weakness and fatigue with cough and dyspnea. He describes wheezing and tightness in the chest today in particular. Has felt chills but not fever per se. No vomiting or diarrhea.) Timing duration: Days (2-3) Timing details: Gradual onset, Still present Associated symptoms: Chills, Nasal congestion, Productive cough, Dyspnea, Bilateral edema (Chronic). No: Fever, Chest pain, NVD Contributing factors: No: Sick contact, Immunocompromised, COPD / asthma Worsened by: Activity (The patient is mostly bed or wheelchair bound but does stand for transfers. Main issue limiting ambulation is the chronic sores and edema of both legs.) Recently seen: Not recently seen (He is seen by wound care and gets dressing changes on both legs with compressive wraps twice weekly according to the patient. He has seen the wound care clinic with Jemma Cage. He was last hospitalized in September for cellulitis of the legs with concern for bacteremia.) Review of Systems Constitutional: reports: Chills, Fatigue. denies: Fever Nose: reports: Congestion. denies: Rhinorrhea / runny nose Throat: denies: Sore throat Cardiac: reports: Pedal edema. denies: Chest pain / pressure, Calf pain Respiratory: reports: Dyspnea, Cough, Wheezing GI: denies: Abdominal Pain, Vomiting, Diarrhea Musculoskeletal: denies: Back pain Neurologic: reports: Generalized weakness. denies: Headache PD PAST MEDICAL HISTORY - Past Medical History Cardiovascular: None Respiratory: Asthma Neuro: None Endocrine/Autoimmune: None GI: None : None HEENT: None Psych: None Musculoskeletal: Other Derm: Other - Past Surgical History Past Surgical History: Yes HEENT: Tonsil/Adenoidectomy - Present Medications Home Medications: Ambulatory Orders Medication Instructions Recorded Confirmed Terbinafine [Lamisil] 250 mg PO DAILY 14 Days #14 tablet 08/24/22 09/22/22 Gentamicin Sulfate 30 gm TP DAILY 30 Days #30 gm 09/16/22 09/22/22 Furosemide [Lasix] 20 mg PO BID 09/22/22 09/22/22 Guaifenesin/Dextromethorphan 1 each PO BID 09/22/22 09/22/22 [Guaifenesin-Dm ER 1,200-60 mg] Cholecalciferol [Vitamin D3] 400 unit PO DAILY tab 09/28/22 Lactobacillus Rhamnosus GG 1 cap PO DAILY cap 09/28/22 [Culturelle] Loperamide [Imodium] 2 mg PO QID PRN cap 09/28/22 Ciprofloxacin HCl 1 tablet PO BID 10 Days #20 tablet 11/25/22 Sulfamethox/Trimeth 800/160 1 tablet PO BID 10 Days #20 tablet 11/25/22 [Bactrim Ds] - Allergies Allergies/Adverse Reactions: Allergies Allergy/AdvReac Type Severity Reaction Status Date / Time No Known Drug Allergies Allergy Verified 09/21/22 08:04 - Social History Does the pt smoke?: No Smoking Status: Never smoker Does the pt drink ETOH?: Yes Does the pt have substance abuse?: No - Immunizations Immunizations are current?: Yes - POLST Patient has POLST: No PD ED PE NORMAL - Vitals Vital signs reviewed: Yes (afebrile. good sats.) - General General: Alert and oriented X 3 (though slightly slow to answer), Well developed/nourished - HEENT HEENT: Pharynx benign, Other (He is able to converse in near complete sentences. Mild partial sentence dyspnea with prolonged expiratory phase and audible wheezing as well as auscultatory wheezing.). No: Moist mucous membranes - Neck Neck: Supple, no meningeal sign, No adenopathy, No JVD - Cardiac Cardiac: RRR, No murmur - Respiratory Respiratory: No: Clear bilaterally (diffuse wheezing and prolonged exp phase. ) - Abdomen Abdomen: Soft, Non tender, Non distended - Derm Derm: Normal color, Warm and dry - Extremities Extremities: Other (Padded wraps on both lower extremities from toes up to knees. These are left intact as just wrapped yesterday.) - Neuro Neuro: Alert and oriented X 3, Normal speech Results - Vitals Vitals: Vital Signs - 24 hr 12/24/22 12/24/22 16:34 17:03 Temperature 37.1 C Heart Rate 74 76 Respiratory 17 18 Rate Blood Pressure 158/87 H O2 Saturation 99 Oxygen O2 Source Room air - EKG (time done) 16;55 Rate: Rate (enter#) (76) Rhythm: NSR (Baseline tremoring artifact but appears likely sinus rhythm with PAC.) [place]: Normal Ischemia: Normal ST segments. No: ST elevation c/w ischemia, ST depression - Labs Labs: Laboratory Tests 12/24/22 12/24/22 12/24/22 16:52 16:52 16:52 WBC 8.7 RBC 3.74 L Hgb 11.0 L Hct 30.7 L MCV 82.1 MCH 29.4 MCHC 35.8 RDW 13.1 Plt Count 241 MPV 8.6 Neut # (Auto) 6.9 H Lymph # (Auto) 0.4 L [place] # (Auto) 1.1 H Eos # (Auto) 0.1 Baso # (Auto) 0.0 Absolute Nucleated RBC 0.00 Nucleated RBC % 0.0 Sodium 108 L* Potassium 3.7 Chloride 73 L* Carbon Dioxide 22 Anion Gap 13.0 BUN 10 Creatinine 1.3 H Estimated GFR (MDRD) 54 L Glucose 87 Lactic Acid Calcium 8.8 Magnesium 1.6 L Total Bilirubin 1.1 H AST 64 H ALT 49 Alkaline Phosphatase 158 H B-Natriuretic Peptide 56 Total Protein 6.7 Albumin 3.4 Globulin 3.3 Albumin/Globulin Ratio 1.0 Lipase 32 Ethyl Alcohol 11.1 12/24/22 16:52 WBC RBC Hgb Hct MCV MCH MCHC RDW Plt Count MPV Neut # (Auto) Lymph # (Auto) [place] # (Auto) Eos # (Auto) Baso # (Auto) Absolute Nucleated RBC Nucleated RBC % Sodium Potassium Chloride Carbon Dioxide Anion Gap BUN Creatinine Estimated GFR (MDRD) Glucose Lactic Acid 1.2 Calcium Magnesium Total Bilirubin AST ALT Alkaline Phosphatase B-Natriuretic Peptide Total Protein Albumin Globulin Albumin/Globulin Ratio Lipase Ethyl Alcohol - Rads (name of study) chest xray Radiology: Prelim report reviewed, EMP read indepedently (no noted infiltrates nor effusions. Similar to CXR 09/25/22), See rad report PD Medical Decision Making - ED course Complexity details: considered differential, d/w patient, d/w talent development consultant (I discussed with Dr. Boykin the hospitalist the criteria and need for admission and the patient's current status.) Drug Therapy Requiring Monitoring for Toxicity: The patient is started on a slow rate sodium normal saline infusion at 250/h. He has significant hyponatremia but we do not want to correct it too quickly. He has some mild confusion by report of family but seems reasonably oriented here though is a little bit slow responding. As such I do not see a need for hypertonic saline at this point but defer to the hospitalist. We will give some saline infusion. His blood pressure is adequate do not see a reason for large volume infusion. He does have her upper respiratory symptoms with coughing and wheeze and general weakness. He did respond to a nebulizer treatment with improvement in the wheezing. We will likely repeat this in another hour or so. The patient does have severe hyponatremia as well as a current upper respiratory infection. The infection is not initially grounds for admission but certainly the severe hyponatremia warrants admission presumably for several days. ED course: The patient arrives by EMS with the medics reporting he was oriented to person and place and time on route. General weakness. He is having audible wheezing. Oxygenation is good. The patient reports he has had cough and congestion and some dyspnea along with general malaise for the last few days. He lives at home with his brother. He is typically wheeled chair or bedbound due to leg edema and sores and is able to stand for pivoting and transfer. He does have diffuse wheezing without any coarse sounds. We will get chest x- ray as well as respiratory PCR panel. Could also get blood test for BNP. He does not have a history of CHF. He does have a history however of some asthma type symptoms and has an inhaler at home. He does not use home oxygen. His symptoms sound likely to be an acute flulike illness. His oxygenation is go od but we will give nebulizer treatment to help with the wheezing. Basic labs are pending at this time. Chest x-ray does not show any infiltrate and is comparable to a chest x-ray from 09/25/2022. EKG done by my reading shows likely sinus rhythm with some baseline artifact. No ischemic changes noted. Departure - Departure Disposition: [facility] DC/Xfer Clinical Impression: Weakness generalized, Acute hyponatremia, Hypomagnesemia, Upper respiratory infection, Wheezing Condition: Stable Record reviewed to determine appropriate education?: Yes
[2022-12-24] MEDS ORDERED: IPRATROPIUM/ALBUTEROL 3 ML NEB INH STA (16:40)
[2022-12-24 16:57] LABS: BASOPHILS % (AUTO) 0.5 %; EOSINOPHILS # (AUTO) 0.1 10^3/uL (0.0-0.7); EOSINOPHILS % (AUTO) 1.2 %; HCT - HEMATOCRIT 30.7 % (42.0-52.0); LYMPHOCYTES # (AUTO) 0.4 10^3/uL (1.5-3.5); LYMPHOCYTES % (AUTO) 5.1 %; MEAN CORPUSCULAR HEMOGLOBIN 29.4 pg (27.0-31.0); MEAN CORPUSCULAR HGB CONC 35.8 g/dL (32.0-36.0); MEAN CORPUSCULAR VOLUME 82.1 fL (80.0-94.0); MEAN PLATELET VOLUME 8.6 fL (7.4-11.4); MONOCYTES # (AUTO) 1.1 10^3/uL (0.0-1.0); MONOCYTES % (AUTO) 12.8 %; NEUTROPHILS # (AUTO) 6.9 10^3/uL (1.5-6.6); NEUTROPHILS % (AUTO) 79.6 %; PLT - PLATELET COUNT 241 10^3/uL (130-450); RED BLOOD COUNT 3.74 10^6/uL (4.70-6.10); RED CELL DISTRIBUTION WIDTH 13.1 % (12.0-15.0); WHITE BLOOD COUNT 8.7 x10^3/uL (4.8-10.8)
[2022-12-24 17:15] LABS: ALBUMIN 3.4 g/dL (3.2-5.5); BILIRUBIN,TOTAL 1.1 mg/dL (0.2-1.0); CALCIUM 8.8 mg/dL (8.5-10.3); CREATININE 1.3 mg/dL (0.6-1.2); ETOH - ETHANOL 11.1 mg/dL; MAGNESIUM 1.6 mg/dL (1.7-2.8); POTASSIUM 3.7 mmol/L (3.5-5.0); TOTAL PROTEIN 6.7 g/dL (6.7-8.2)
[2022-12-24] MEDS ORDERED: SODIUM CHLORIDE 0.9% 1,000 ML IV STA (17:19)
[2022-12-24] MEDS ORDERED: ONDANSETRON 4 MG/2 ML VIAL IVP PRN (17:26)
[2022-12-24] MEDS ORDERED: ONDANSETRON ODT 4 MG TABLET TL PRN (17:26)
[2022-12-24] MEDS ORDERED: oxyCODONE 5 MG TABLET PO PRN (17:26)
[2022-12-24] MEDS ORDERED: MAGNESIUM SULFATE 2 GRAM 2 GM/50 ML BAG IV ONE (17:30)
--- NOTE | 2022-12-24 17:46 | XRAY Report ---
PROCEDURE: Chest 1 View X-Ray INDICATIONS: cough/dyspnea TECHNIQUE: One view of the chest was acquired. COMPARISON: None. FINDINGS: Surgical changes and devices: None. Lungs and pleura: No pleural effusions or pneumothorax. Lungs are clear. Mediastinum: Mediastinal contours appear normal. Heart size is normal. Bones and chest wall: No suspicious bony lesions. Overlying soft tissues appear unremarkable. IMPRESSION: No acute cardiopulmonary abnormality Reviewed by: Myron Gallardo on 12/24/2022 5:44 PM PST Approved by: Myron Gallardo on 12/24/2022 5:44 PM PST Station ID: [id number]
[2022-12-24] MEDS ORDERED: SODIUM CHLORIDE 0.9% 1,000 ML IV SCH (18:00)
[2022-12-24 18:09] LABS: B. PARAPERTUSSIS- RESP PCR PAN NOT DETECTED; B. PERTUSSIS- RESP PCR PANEL NOT DETECTED; C. PNEUMONIAE- RESP PCR PANEL NOT DETECTED; CORONAVIRUS 229E-RESP PCR NOT DETECTED; CORONAVIRUS HKU1-RESP PCR NOT DETECTED; CORONAVIRUS NL63-RESP PCR NOT DETECTED; CORONAVIRUS OC43-RESP PCR NOT DETECTED; HUMAN METAPNEUMOVIRUS NOT DETECTED; INFLUENZA A- RESP PCR PANEL NOT DETECTED; INFLUENZA B - RESP PCR PANEL NOT DETECTED; M. PNEUMONIAE- RESP PCR PANEL NOT DETECTED; PARAINFLUENZA VIRUS 1 NOT DETECTED; PARAINFLUENZA VIRUS 2 NOT DETECTED; PARAINFLUENZA VIRUS 3 NOT DETECTED; PARAINFLUENZA VIRUS 4 NOT DETECTED; RHINOVIRUS/ENTEROVIRUS DETECTED; RSV- RESP PCR PANEL NOT DETECTED; SARS-CoV-2 -RESP PCR PANEL NOT DETECTED
--- NOTE | 2022-12-24 18:31 | HISTORY & PHYSICAL EXAMINATION ---
Chief Complaint - Chief Complaint Chief Complaint: Shortness of breath, wheezing, and chest tightness History of Present Illness - Admitted From Admitted From:: Home via EMS - History Obtained From Records Reviewed: [facility] History obtained from: Dr. Mayer and patient Exam Limitations: None - History of Present Illness HPI Comment/Other: He is an elderly gentleman that was brought in by EMS because his family thought that he was more confused, and he was short of breath and wheezing. He was increasingly weak and not eating well. In the past medical history, he does have a history of alcohol abuse. He hit the emergency room at 37.110. Blood pressure 158/87. Respirations 17 and is 98% on room air. When the ER provider saw him he had some mild confusion on route but is alert oriented to person and place. He told the ER doctor that he was coughing but it was nonproductive. His chest felt tight. He felt some chills but no fever was documented. He had no vomiting or diarrhea. All of this been going on for about 3 days. No one else was sick in the family. He is already bed or wheelchair bound and he does stand for transfers. He has chronic leg ulcers and edema and is followed by the [facility] clinic. He gets dressing changes in both legs, and Jemma Nick most recently prescribed Bactrim on November 25 as well as Cipro on November 25. On physical exam the ER doctor found him to be afebrile, having good O2 sats. He was alert and oriented and just a little bit slow to answer. He had diffuse wheezing and prolonged and expiratory phase. His legs were wrapped from toes up to knees and they were just wrapped yesterday. Pertinent findings on his labs was a sodium of 108. BUN 10, creatinine 1.3. White cell count was normal. Hemoglobin had stable anemia at 11. Ethyl alcohol was 11.1. Lactic acid 1.2. He is PCR panel was positive for enterovirus and rhinovirus. In the emergency room he received a liter of normal saline, mag sulfate, DuoNeb, but no steroids. His chest x-ray had no acute cardiopulmonary abnormality. His EKG is sinus rhythm with lots of artifact. No acute ST-T wave changes. T waves did appear slightly peaked but only in the lateral leads. The case was discussed with the ER provider. We talked about possible alcoholism and cirrhosis as the cause of his hyponatremia. He does not appear to have water intoxication. He could be dehydrated because of a recent viral illness. In reviewing the chart, Patient was admitted last September for strep bacteremia. He is followed at the [facility] wound care for chronic lymphedema and leg wounds,and had been seen in the clinic and then sent to the emergency room September 21, 2022 because he was feeling weak. He had normal labs with cellulitis on exam. He was given a dose of ceftriaxone and sent home on oral cefdinir. Blood cultures became positive on September 22 and the patient was asked to return.We found out once the final blood cultures came back that this was contaminant. He did not need to return to be treated for strep bacteremia. In reevaluation he was COVID-positive but had no symptoms of COVID. Repeat blood cultures on his admission were negative. He is already had a previous history of strep bacte remia in April 2022. His wound cultures, over time, have grown out Pseudomonas resistant to cephalosporins, Neelima. He did have diarrhea with his antibiotics during that admission and it was C. difficile negative. With that admission, he did have hyponatremia. He had beer Poto chely in 2020. Treatment for the hyponatremia in September was normal saline at 60 cc an hour with free water restriction. In 2020 he drank 12 beers a day, by April 2022 he said he was down to 6 beers a day. He had a sodium of 118 in March 2021. With September 2002 admission his low sodium was 126. By discharge it was 135. History - Past Medical History Cardiovascular: reports: None Respiratory: reports: Asthma Neuro: reports: None Endocrine/Autoimmune: reports: None GI: reports: None : reports: None HEENT: reports: None Psych: reports: None Musculoskeletal: reports: Other Derm: reports: Other MRSA Hx?: No - Past Surgical History HEENT: reports: Tonsil/Adenoidectomy - Family & Social History Family History: Mother: , Father: , COPD/Emphysema, Brother: Alive and Well Family History Comment/Other: Pts in 2000. He currently lives alone with his younger brother. He has a son, Torres, who lives locally. Living arrangement: At home Living Situation: With family Social History Notes: Stopped smoking 15 years ago. Chronic alcohol abuser. No history of pot, cocaine, heroin, LSD. Lives with his younger brother. He has made it clear to social work and to myself that his brother is not his caregiver. He does not rely on them or family for that. He regards himself as independent even though he spends most of his time in a wheelchair. He does not give a clear reason of why he is in a wheelchair other than chronic back pain. He also declined any social service help. On the day of discharge 09/2022 the patient protested and said that he does not feel safe going home. I validated his concerns and said that we could have physical therapy and Occupational Therapy evaluate him for his needs. Depending on what they found he might be a candidate for home health with PT/OT/psychosocial rehabilitation counselor/bath aid or even a candidate for correction facility rehabilitation depending on how much strength he needed again. He did decline that offer. I did go ahead and order PT and OT to see if they could can evaluate him. He refused their offer and stated it was "their problem" that they needed to evaluate him and he did not want to cooperate. - Substance History Use: Uses substance without health or social issues: Tobacco (2 pack per day sm oking history. Quit in 2000), Alcohol (Drinks a six pack of beer a day when at home.) - POLST Patient has POLST: No Meds/Allgy - Home Medications Home Medications: Ambulatory Orders Medication Instructions Recorded Confirmed Furosemide [Lasix] 20 mg PO BID 09/22/22 12/25/22 - Allergies Allergies/Adverse Reactions: Allergies Allergy/AdvReac Type Severity Reaction Status Date / Time No Known Drug Allergies Allergy Verified 09/21/22 08:04 Review of Systems - Constitutional Constitutional: reports: Fatigue, Malaise, Weakness - Eyes Eyes: denies: Pain, Amaurosis, Vision loss - Ears, Nose & Throat Ears, Nose & Throat: reports: Hearing loss. denies: Ear pain, Hearing aids, Tinnitus, Nasal congestion, Postnasal drainage, Sore throat - Cardiovascular Cariovascular: reports: Edema, Exertional dyspnea. denies: Irregular heart rate, Palpitations, Chest pain - Respiratory Respiratory: reports: Cough, Wheezing, SOB at rest, SOB with exertion. denies: Sputum production - Gastrointestinal Gastrointestinal: denies: Abdominal pain, Abdominal distention, Constipation, Diarrhea - Genitourinary Genitourinary: reports: Urgency, Nocturia - Musculoskeletal Musculoskeletal: reports: Back pain, Muscle aches, Stiffness - Integumentary Integumentary: reports: Rash (Of feet that is chronic), Other (Chronic lymphedema and chronic skin infections of his feet and legs that are managed by the wound clinic off and on). denies: Pruritis, Lesions - Neurological Neurological: reports: General weakness. denies: Focal weakness, Headache, Dizziness, Memory problems - Psychiatric Psychiatric: denies: Depression, Anxiety, Suicidal - Endocrine Endocrine: denies: Polyuria, Polydypsia, Polyphagia, Intolerance to cold - Hematologic/Lymphatic Hematologic/Lymphatic: denies: Anemia, Bruising, Petechiae Prior Level of Functionality: Patient says that he is able to do his own activities of daily living. He mainly sits in a wheelchair all day long. But when he needs to go to the bathroom or get cleaned he will go to the bathroom, transfer from the wheelchair on his own. He does not rely on anyone he says. Exam - Vital Signs Reviewed Vital Signs: Yes Vital Signs: Vital Signs x48h Temp Pulse Resp BP Pulse Ox 12/24/22 17:03 76 18 12/24/22 16:34 37.1 C 74 17 158/87 H 99 - Physical Exam General Appearance: positive: No acute distress, Alert (Although he is sleepy and tired, he remembers me from the last visit and calls me by name), Lethargic, Other (Psychomotor slowing. Disheveled. Very malodorous feet with pungent acrid smell that hurts the nose.) Eyes Bilateral: positive: PERRL, EOMI ENT: positive: No signs of dehydration Neck: positive: No JVD. negative: Stiff neck Respiratory: positive: No respiratory distress, Wheezes (Faint, diffuse, scattered but no respiratory distress. Able to complete full sentences. But he is just exhausted and cannot maintain truncal stability). negative: Rales, Rhonchi Cardiovascular: positive: Regular rate & rhythm, Systolic murmur Abdomen: positive: Non-tender, No organomegaly, Nml bowel sounds, No distention Skin: positive: Warm, Dry Extremities: positive: Other (Lymphedema of both legs from below the knees. Both feet are swollen and diffusely edematous and red. All of the skin appears macerated of both feet, and there is dressing between each toe of each foot. Very malodorous. I am not seeing discrete ulcers.) Neurologic/Psychiatric: positive: Oriented x3, CN's nml (2-12). negative: Motor nml (This is a gentleman who spends his time in a wheelchair or in bed. Right now he is so tired that he is leaning off of his bed to the left because he says he just does not have the strength to sit upright.) Sepsis Event Note (H) - Evaluation Current Stage of Sepsis: Ruled out Conclusion/Plan - Problem List (1) Acute hyponatremia Conclusion/Plan: I will start him on 25 cc an hour of hypertonic saline. Check sodium every 6 hours. If sodium goes up by 3 in 6 hours, will stop drip and then resume 6 hours later. If sodium goes up by 6 in 12 hours we will stop drip and resume 6 hours later. Goal is to at least get him to 120 and then just change him to normal saline. I will also do 1000 cc free water restriction. Most likely cause is beer Poto chely again in a gentleman who has chronic beer abuse. (2) COPD with exacerbation Conclusion/Plan: Ex-smoker. Has a history of "asthma". I will start DuoNeb every 6 hours, Solu- Medrol 40 mg IV push 3 times daily for 3 doses. I am not seeing pneumonia on chest x-ray or hearing it on exam. However I will treat him with empiric azithromycin p.o. In the past he said that he really likes guaifenesin and how it helps him clear secretions so I will add those as well. (3) Hypomagnesemia Conclusion/Plan: Supplemented in the ER with an IV piggyback. We will check tomorrow and supplement as needed (4) Alcohol abuse Conclusion/Plan: No evidence of withdrawal. There is no tachycardia, tremulousness, hypertension. He says he does not have withdrawal. I do not want to give him a banana bag at this time because of fluid restrictions. We will give him a vitamin, folic acid. Thiamine. All p.o. (5) Lymphedema Conclusion/Plan: He has chronic venous stasis dermatitis and frequent breakdown of skin with wound infections of his lower extremities for years now. When he was seen November 25 he was given Cipro and Bactrim for 10 days. He has been asked to see a lymphedema specialist and so far he has not followed through on that yet. We will reiterate those instructions while here. (6) Wheelchair bound Conclusion/Plan: With the last admission, he would not work with physical therapy. He is a sedentary gentleman who is wheelchair-bound. Our goal is to get him back to his same living environment. - Lab Results Lab results reviewed: Yes Fish Bones: 12/25/22 04:47 12/25/22 04:47 - Diagnostic Imaging Results Diagnostic Imaging Results: positive: Final report reviewed Core Measures - Anticipated LOS I expect patient to be DC'd or transferred within 96 hours.: Yes - DVT/VTE - Prophylaxis VTE/DVT Prophylaxis med ordered at admit?: Yes
[2022-12-24] MEDS ORDERED: AZITHROMYCIN 250 MG TABLET PO STA (18:45)
[2022-12-24] MEDS ORDERED: SODIUM CHLORIDE 3% HYPERTONIC 500 ML IV SCH (19:00)
[2022-12-24] MEDS: PRENATAL VITAMIN TABLET PO SCH (19:41)
[2022-12-24] MEDS: IPRATROPIUM/ALBUTEROL 3 ML NEB INH PRN (19:58)
[2022-12-24] MEDS: guaiFENesin 600 MG TABLET PO SCH (20:23)
[2022-12-24] MEDS: SODIUM CHLORIDE FLUSH 0.9% 10 ML SYRINGE IVP PRN ×2 (20:23→21:48)
[2022-12-24] MEDS: methylPREDNISolone SUCCINATE 40 MG/ML VIAL IVP SCH (21:48)
[2022-12-24 23:12] LABS: CREATININE 1.2 mg/dL (0.6-1.2); POTASSIUM 3.5 mmol/L (3.5-5.0)
[2022-12-25] MEDS: SODIUM CHLORIDE FLUSH 0.9% 10 ML SYRINGE IVP SCH ×3 (09:17→16:38)
[2022-12-25] MEDS: methylPREDNISolone SUCCINATE 40 MG/ML VIAL IVP SCH ×2 (09:18→14:00)
[2022-12-25 10:16] LABS: HCT - HEMATOCRIT 28.2 % (42.0-52.0); HGB - HEMOGLOBIN 10.1 g/dL (14.0-18.0); LYMPHOCYTES # (AUTO) 0.1 10^3/uL (1.5-3.5); LYMPHOCYTES % (AUTO) 1.1 %; MEAN CORPUSCULAR HEMOGLOBIN 29.5 pg (27.0-31.0); MEAN CORPUSCULAR HGB CONC 35.8 g/dL (32.0-36.0); MEAN CORPUSCULAR VOLUME 82.5 fL (80.0-94.0); MEAN PLATELET VOLUME 8.9 fL (7.4-11.4); MONOCYTES # (AUTO) 0.2 10^3/uL (0.0-1.0); MONOCYTES % (AUTO) 1.8 %; NEUTROPHILS # (AUTO) 8.5 10^3/uL (1.5-6.6); NEUTROPHILS % (AUTO) 96.4 %; PLT - PLATELET COUNT 250 10^3/uL (130-450); RED BLOOD COUNT 3.42 10^6/uL (4.70-6.10); RED CELL DISTRIBUTION WIDTH 13.2 % (12.0-15.0); WHITE BLOOD COUNT 8.8 x10^3/uL (4.8-10.8)
[2022-12-25] MEDS: guaiFENesin 600 MG TABLET PO SCH ×2 (10:16→20:31)
[2022-12-25] MEDS: AZITHROMYCIN 250 MG TABLET PO SCH (10:17)
[2022-12-25] MEDS: THIAMINE 100 MG TABLET PO SCH (10:17)
[2022-12-25] MEDS: FOLIC ACID 1 MG TABLET PO SCH (10:17)
[2022-12-25] MEDS: PRENATAL VITAMIN TABLET PO SCH (10:17)
[2022-12-25] MEDS: ENOXAPARIN 40 MG/0.4 ML SYRINGE SUBQ SCH (10:17)
--- NOTE | 2022-12-25 11:30 | PHARMACY PROGRESS NOTE ---
- Best Possible Medication History Admit Date and Time: 12/24/22 1726 Processed by: Pharmacy Medication History completed: Yes Patient Interview: Pt unable to participate Secondary Source(s): Pharmacy records, Insurance records As the person ultimately responsible for medication therapy, providers are able to order a medication from an existing home medication list in [facility] via the "Reconcile Routine" prior to Confirmation of that medication by manager decision support. Such practice is discouraged except when the physician, in their clinical judgment, deems that a medical need exists for a medication without regard to previous use.
[2022-12-25 11:31] LABS: CREATININE 1.1 mg/dL (0.6-1.2); POTASSIUM 4.2 mmol/L (3.5-5.0)
[2022-12-25] MEDS: SODIUM CHLORIDE FLUSH 0.9% 10 ML SYRINGE IVP PRN ×2 (14:00→18:37)
--- NOTE | 2022-12-25 16:39 | PROVIDER PROGRESS NOTE ---
Progress Note December 25, 2022 4:26 PM The main improvement between yesterday and today is wheezing. He does not have it anymore. Minimal dry cough. He has been on hypertonic saline since yesterday. We have been having issues because [employer] went down last night. Sodium started at 108 at 5 in the afternoon yesterday, and was 111 by 5 am this morning. Other than chronic pain, he says nothing new is going on. Active Medications Acetaminophen (Acetaminophen 325 Mg Tablet) 650 mg PO Q4HR PRN PRN Reason: Pain 1 to 4, or Fever Albuterol/Ipratropium (Ipratropium/Albuterol 3 Ml Neb) 3 ml INH RTQID PRN PRN Reason: Shortness of Air/Wheezing Last Admin: 12/24/22 19:58 Dose: 3 ml Azithromycin (Azithromycin 250 Mg Tablet) 250 mg PO DAILY [facility] Stop: 12/28/22 09:01 Last Admin: 12/25/22 10:17 Dose: 250 mg Enoxaparin Sodium (Enoxaparin 40 Mg/0.4 Ml Syringe) 40 mg SUBQ DAILY [facility] Last Admin: 12/25/22 10:17 Dose: 40 mg Folic Acid (Folic Acid 1 Mg Tablet) 1 mg PO DAILY [facility] Last Admin: 12/25/22 10:17 Dose: 1 mg Guaifenesin (Guaifenesin 600 Mg Tablet) 600 mg PO BID [facility] Last Admin: 12/25/22 10:16 Dose: 600 mg Ondansetron HCl (Ondansetron Odt 4 Mg Tablet) 4 mg TL Q6HR PRN PRN Reason: Nausea / Vomiting Ondansetron HCl (Ondansetron 4 Mg/2 Ml Vial) 4 mg IVP Q6HR PRN PRN Reason: Nausea / Vomiting Oxycodone HCl (Oxycodone 5 Mg Tablet) 5 mg PO Q4HR PRN PRN Reason: Pain 5 to 7 Multivit/Folic Acid/Iron ( Vitamin Tablet) 1 tab PO DAILYWM [facility] Last Admin: 12/25/22 10:17 Dose: 1 tab Sodium Chloride (Sodium Chloride Flush 0.9% 10 Ml Syringe) 10 ml IVP PRN PRN PRN Reason: NEEDED PER PROVIDER ORDERS Last Admin: 12/25/22 14:00 Dose: 10 ml Sodium Chloride (Sodium Chloride Flush 0.9% 10 Ml Syringe) 10 ml IVP 0100,0900,1700 [facility] Last Admin: 12/25/22 10:17 Dose: 10 ml Thiamine HCl (Thiamine 100 Mg Tablet) 100 mg PO DAILY [facility] Last Admin: 12/25/22 10:17 Dose: 100 mg Home Meds: Furosemide [Lasix] 20 mg PO BID 09/22/22 Exam: Temperature is 36.3, heart rate 85, blood pressure 135/56, respirations 16, 93% on room air Not as lethargic today as he was last night. Not as exhausted but he still tends to lean to the left because he is tired. 5 foot 10 inches tall, 79 kg Shotty neck adenopathy but supple Coarse upper airway sounds, and the faint scattered wheezing from last night has resolved. He is able to complete full sentences Regular rate and rhythm with distant cardiac tones Abdomen is soft, nontender and normal bowel sounds Extremities continue have the beefy red edema and erythema and smell. Nursing is taking down dressing changes and redoing them. They are following the instructions that were noted in the wound clinic. They do include using a tablespoon of bleach and water. Neurologically he is alert, oriented to person place and time. There is no focal deficits of his upper extremity other than the fact he is weak and hard to support himself sitting upright. He is always in a wheelchair and is always bedbound so this is unchanged. Labs: Sodium 111, potassium 4.2, BUN 8, creatinine 1.1. Is down from creatinine 1.3 on admission. White cell count 8.8. Hemoglobin 10.1. This anemia is chronic for him when I look at the EMR. Hematocrit 28.2. Platelets 250. Assessment/plan: 1. Acute hyponatremia. This is in a patient who has chronic alcohol abuse with 6-12 beers a day. No description of water intoxication, he may have cirrhosis, and no history of congestive heart failure. Sodium is coming up adequately and slowly. He was on hypertonic saline and has completed 500 cc. I will check sodium. Confusion seems to have improved. Fatigue is about the same. Depending on the level of sodium at 4:30 in the afternoon I may to switch him to normal saline since no symptoms of hyponatremia. Still to keep water restriction of 1000 cc a day 2. COPD with exacerbation. He is an ex-smoker. Has a history of "asthma". Currently on DuoNeb, Solu- Medrol for 3 doses. No pneumonia. On empiric azithromycin. On Mucinex. His exam today is improved. There are no wheezes on exam. Azithromycin to be completed as a Z-Joseph. I will not extend duration of Solu- Medrol. 3. Alcohol abuse. No evidence of withdrawal. No tachycardia, no hypertension, no tremulousness, no agitation. I will continue vitamins, folic acid and thiamine. 4. Lymphedema with chronic venous stasis dermatitis. Skin is foul-smelling, macerated. But I do not think he needs new antibiotics. Wound dressings to continue as per wound center. 5. Wheelchair-bound. No PT or OT. 6. Chronic normocytic anemia. I will check anemia panel for tomorrow morning
[2022-12-25 16:46] LABS: CALCIUM 8.3 mg/dL (8.5-10.3); CREATININE 0.9 mg/dL (0.6-1.2)
[2022-12-25] MEDS: ACETAMINOPHEN 325 MG TABLET PO PRN ×2 (18:00→22:12)
[2022-12-25] MEDS: SODIUM CHLORIDE 0.9% 1,000 ML IV SCH (18:37)
[2022-12-25] MEDS: NYSTATIN CREAM 15 GM TUBE TOP SCH (20:31)
[2022-12-26 01:08] LABS: CALCIUM 8.4 mg/dL (8.5-10.3); CREATININE 1.2 mg/dL (0.6-1.2); POTASSIUM 4.2 mmol/L (3.5-5.0)
[2022-12-26] MEDS: SODIUM CHLORIDE FLUSH 0.9% 10 ML SYRINGE IVP SCH ×3 (04:55→17:31)
[2022-12-26] MEDS: SODIUM CHLORIDE 0.9% 1,000 ML IV SCH ×2 (05:52→17:29)
[2022-12-26 06:15] LABS: CALCIUM 8.3 mg/dL (8.5-10.3); POTASSIUM 3.8 mmol/L (3.5-5.0)
[2022-12-26 06:40] LABS: FERRITIN 79.5 ng/mL (23.9-336.2)
[2022-12-26] MEDS: IPRATROPIUM/ALBUTEROL 3 ML NEB INH PRN ×2 (07:53→20:59)
[2022-12-26] MEDS: AZITHROMYCIN 250 MG TABLET PO SCH (08:36)
[2022-12-26] MEDS: FOLIC ACID 1 MG TABLET PO SCH (08:36)
[2022-12-26] MEDS: THIAMINE 100 MG TABLET PO SCH (08:36)
[2022-12-26] MEDS: PRENATAL VITAMIN TABLET PO SCH (08:36)
[2022-12-26] MEDS: guaiFENesin 600 MG TABLET PO SCH ×2 (08:37→20:28)
[2022-12-26] MEDS: ENOXAPARIN 40 MG/0.4 ML SYRINGE SUBQ SCH (08:37)
[2022-12-26 09:02] LABS: ABSOLUTE RETICS # AUTO 0.065 10^6/uL (0.020-0.110); BASOPHILS % (AUTO) 0.1 %; EOSINOPHILS % (AUTO) 0.2 %; HCT - HEMATOCRIT 28.5 % (42.0-52.0); HGB - HEMOGLOBIN 10.1 g/dL (14.0-18.0); LYMPHOCYTES # (AUTO) 0.3 10^3/uL (1.5-3.5); LYMPHOCYTES % (AUTO) 3.2 %; MEAN CORPUSCULAR HEMOGLOBIN 30.1 pg (27.0-31.0); MEAN CORPUSCULAR HGB CONC 35.4 g/dL (32.0-36.0); MEAN CORPUSCULAR VOLUME 85.1 fL (80.0-94.0); MEAN PLATELET VOLUME 8.3 fL (7.4-11.4); MONOCYTES # (AUTO) 0.5 10^3/uL (0.0-1.0); MONOCYTES % (AUTO) 6.4 %; NEUTROPHILS # (AUTO) 7.6 10^3/uL (1.5-6.6); NEUTROPHILS % (AUTO) 89.3 %; PLT - PLATELET COUNT 225 10^3/uL (130-450); RED BLOOD COUNT 3.35 10^6/uL (4.70-6.10); RED CELL DISTRIBUTION WIDTH 13.8 % (12.0-15.0); RETICULOCYTE COUNT % (AUTO) 1.93 % (0.5-2.3); WHITE BLOOD COUNT 8.5 x10^3/uL (4.8-10.8)
[2022-12-26 09:25] LABS: % IRON SATURATION 15 % (20-50); IRON 33 ug/dL (45-182); TOTAL IRON BINDING CAPACITY 218 ug/dL (250-450); TRANSFERRIN 156 mg/dL (180-329)
[2022-12-26] MEDS: NYSTATIN CREAM 15 GM TUBE TOP SCH ×2 (12:49→20:28)
--- NOTE | 2022-12-26 16:31 | PROVIDER PROGRESS NOTE ---
Progress Note December 26, 2022 4:22 PM Confusion has definitely improved. He is alert, oriented to place. Knows the year and the month but kind of vague on the date itself. Sodium is up to 123 this morning. Still lurching to the right. Truncal stability is poor because he gets so tired so easily. But he denies any new pain. Vital signs of been stable. No fevers. Active Medications Acetaminophen (Acetaminophen 325 Mg Tablet) 650 mg PO Q4HR PRN PRN Reason: Pain 1 to 4, or Fever Last Admin: 12/25/22 22:12 Dose: 650 mg Albuterol/Ipratropium (Ipratropium/Albuterol 3 Ml Neb) 3 ml INH RTQID PRN PRN Reason: Shortness of Air/Wheezing Last Admin: 12/26/22 07:53 Dose: 3 ml Azithromycin (Azithromycin 250 Mg Tablet) 250 mg PO DAILY [facility] Stop: 12/28/22 09:01 Last Admin: 12/26/22 08:36 Dose: 250 mg Enoxaparin Sodium (Enoxaparin 40 Mg/0.4 Ml Syringe) 40 mg SUBQ DAILY [facility] Last Admin: 12/26/22 08:37 Dose: 40 mg Folic Acid (Folic Acid 1 Mg Tablet) 1 mg PO DAILY [facility] Last Admin: 12/26/22 08:36 Dose: 1 mg Guaifenesin (Guaifenesin 600 Mg Tablet) 600 mg PO BID [facility] Last Admin: 12/26/22 08:37 Dose: 600 mg Sodium Chloride (Normal Saline 0.9%) 1,000 mls @ 83.333 mls/hr IV .Q12H [facility] Last Admin: 12/26/22 05:52 Dose: 83.333 mls/hr Nystatin (Nystatin Cream 15 Gm Tube) 1 applic TOP BID [facility] Last Admin: 12/26/22 12:49 Dose: Not Given Ondansetron HCl (Ondansetron Odt 4 Mg Tablet) 4 mg TL Q6HR PRN PRN Reason: Nausea / Vomiting Ondansetron HCl (Ondansetron 4 Mg/2 Ml Vial) 4 mg IVP Q6HR PRN PRN Reason: Nausea / Vomiting Oxycodone HCl (Oxycodone 5 Mg Tablet) 5 mg PO Q4HR PRN PRN Reason: Pain 5 to 7 Multivit/Folic Acid/Iron ( Vitamin Tablet) 1 tab PO DAILYWM [facility] Last Admin: 12/26/22 08:36 Dose: 1 tab Sodium Chloride (Sodium Chloride Flush 0.9% 10 Ml Syringe) 10 ml IVP PRN PRN PRN Reason: NEEDED PER PROVIDER ORDERS Last Admin: 12/25/22 18:37 Dose: 10 ml Sodium Chloride (Sodium Chloride Flush 0.9% 10 Ml Syringe) 10 ml IVP 0100,0900,1700 [facility] Last Admin: 12/26/22 08:37 Dose: 10 ml Thiamine HCl (Thiamine 100 Mg Tablet) 100 mg PO DAILY [facility] Last Admin: 12/26/22 08:36 Dose: 100 mg Home Meds: Furosemide [Lasix] 20 mg PO BID 09/22/22 Exam: Temperature 36.8, heart rate 75, blood pressure 115/54, respirations 16, 98% on room air. 5 feet 10 inches tall, 79 kg Minimally interactive white male who looks stated age. Affect slightly withdrawn. Neck is supple no JVD Diminished breath sounds at the bases without any increased respiratory effort, crackles, rhonchi or wheezing Regular rate and rhythm Abdomen is soft, nontender Feet are covered in bandages today. We are verifying that he goes to [facility] home [facility]. Lab: Sodium 123, potassium 3.8, BUN 10, creatinine 1.0. Glucose 121. Iron is low at 33, TIBC 218, percent saturation 15, transferrin 156. Ferritin 79.5. LDH 118. B12 590. Absolute retake count is 0.065. Reticulocyte count is 1.93% and normal. White cell count 8.5. Hemoglobin 10.1. Hematocrit 28.5. Platelets 225 Assessment/plan: 1. Acute hyponatremia. This is in a patient to drinks beer at 6-12 beers a day. He gives conflicting stories depending on who he speaks to. He told case management that he does not drink at all. He shared with me that he does drink up to 12 beers a day. He told social work that he never drinks more than a six pack a day. 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 Sodium has slowly been coming up. I have not given him hypertonic saline since yesterday. With a sodium of 123 and a lot of his confusion clearing, he is now on normal saline. Plan: If his sodium is above 125 or 127 tomorrow, and his confusion remains abated, he could probably go home. I have asked him to please not drink any more alcohol and limit his free water intake to about 1500 cc/day. To make sure he takes a vitamin. 2. COPD with exacerbation resolved. He was wheezing on the day of admission. He has not been wheezing since. He has completed Solu-Medrol for 3 doses. On DuoNeb. He is on empiric azithromycin and Mucinex. When he goes home I will discontinue the Mucinex and DuoNeb but no steroids. 3. Alcohol abuse. No evidence of withdrawal. On vitamin. 4. Lymphedema with chronic venous stasis changes. He sees home health for wound care, and also periodically goes to the [facility] clinic. That we will continue. Home Health renewed with order. 5. Wheelchair-bound. No PT or OT. 6. Chronic normocytic anemia. Laboratory studies indicate iron deficiency anemia. I will add ferrous gluconate 325 mg daily. He should stay on that at discharge.
[2022-12-26] MEDS: FERROUS GLUCONATE 324 MG TABLET PO SCH (18:15)
[2022-12-26] MEDS: ACETAMINOPHEN 325 MG TABLET PO PRN (20:28)
[2022-12-27] MEDS: SODIUM CHLORIDE 0.9% 1,000 ML IV SCH ×2 (04:56→16:20)
[2022-12-27] MEDS: SODIUM CHLORIDE FLUSH 0.9% 10 ML SYRINGE IVP SCH ×3 (04:56→16:41)
[2022-12-27 05:06] LABS: BASOPHILS % (AUTO) 0.2 %; EOSINOPHILS # (AUTO) 0.1 10^3/uL (0.0-0.7); HCT - HEMATOCRIT 27.6 % (42.0-52.0); HGB - HEMOGLOBIN 9.4 g/dL (14.0-18.0); LYMPHOCYTES # (AUTO) 0.7 10^3/uL (1.5-3.5); LYMPHOCYTES % (AUTO) 7.7 %; MEAN CORPUSCULAR HEMOGLOBIN 29.1 pg (27.0-31.0); MEAN CORPUSCULAR HGB CONC 34.1 g/dL (32.0-36.0); MEAN CORPUSCULAR VOLUME 85.4 fL (80.0-94.0); MEAN PLATELET VOLUME 8.5 fL (7.4-11.4); MONOCYTES # (AUTO) 1.1 10^3/uL (0.0-1.0); MONOCYTES % (AUTO) 13.5 %; NEUTROPHILS # (AUTO) 6.5 10^3/uL (1.5-6.6); NEUTROPHILS % (AUTO) 76.9 %; PLT - PLATELET COUNT 280 10^3/uL (130-450); RED BLOOD COUNT 3.23 10^6/uL (4.70-6.10); RED CELL DISTRIBUTION WIDTH 14.1 % (12.0-15.0); WHITE BLOOD COUNT 8.4 x10^3/uL (4.8-10.8)
[2022-12-27 05:31] LABS: CALCIUM 8.3 mg/dL (8.5-10.3); CREATININE 0.8 mg/dL (0.6-1.2); POTASSIUM 3.6 mmol/L (3.5-5.0)
[2022-12-27] MEDS: AZITHROMYCIN 250 MG TABLET PO SCH (08:04)
[2022-12-27] MEDS: THIAMINE 100 MG TABLET PO SCH (08:04)
[2022-12-27] MEDS: FERROUS GLUCONATE 324 MG TABLET PO SCH (08:04)
[2022-12-27] MEDS: PRENATAL VITAMIN TABLET PO SCH (08:04)
[2022-12-27] MEDS: guaiFENesin 600 MG TABLET PO SCH ×2 (08:04→20:27)
[2022-12-27] MEDS: FOLIC ACID 1 MG TABLET PO SCH (08:04)
[2022-12-27] MEDS: ENOXAPARIN 40 MG/0.4 ML SYRINGE SUBQ SCH (08:05)
[2022-12-27] MEDS: NYSTATIN CREAM 15 GM TUBE TOP SCH ×2 (08:06→20:28)
[2022-12-27] MEDS: ACETAMINOPHEN 325 MG TABLET PO PRN ×2 (12:51→20:27)
[2022-12-27] MEDS ORDERED: LORazepam 1 MG TABLET PO PRN (17:53)
--- NOTE | 2022-12-27 17:53 | PROVIDER PROGRESS NOTE ---
Assessment/Plan - Problem List (1) Hyponatremia Assessment/Plan: This is in a patient to drinks beer at 6-12 beers a day. He gives conflicting stories depending on who he speaks to. He told case management that he does not drink at all. He shared with me that he does drink up to 12 beers a day. He told social work that he never drinks more than a six pack a day. 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 Sodium has slowly been coming up. He first got hypertonic saline. With a sodium of 123 and a lot of his confusion clearing, he was changed to normal saline. Plan: Continue with NS. He is not ready for discharge yet today, he needs more volume replaced due to orthostasis (see #2) 2. Orthostatic hypotension He is orthostatric today: BP supine 138, with HR 89. BP sitting 142, with HR 97. BP standing 116, with HR 116 Plan: Continue NS today, given the orthostasis. He is not yet ready for DCh If his sodium remains above 127 tomorrow, and his confusion remains abated, he c ould probably go home. I have asked him to please not drink any more alcohol and limit his free water intake to about 1500 cc/day. 3. COPD with exacerbation. He was wheezing on the day of admission. He has completed Solu-Medrol for 3 doses. On DuoNeb. He is on empiric azithromycin and Mucinex. Today he is SOB at rest, and has a cough with sputum and exam shows tightness. Possibly he is developing CHF from getting iv NS Plan: Recheck CXR Recheck BNP When he goes home we will continue the Mucinex and DuoNeb, but probably no steroids. 4. Alcohol abuse. No evidence of withdrawal. Plan: [facility] protocol On vitamin and Thiamine 5. Lymphedema He has chronic venous stasis changes. His lower legs are wrapped bilaterally. He sees home health for wound care, and also periodically goes to the [facility] clinic. That we will continue. Plan: Home Health was renewed with order. 6. Wheelchair-bound. No PT or OT planned 7. Chronic anemia. All his laboratory studies were reviewed today and indicate iron deficiency anemia. Plan: Will order stool jasper Started ferrous gluconate 325 mg daily. He should stay on that at discharge. 8. Hypomagnesemia Resolved with replacement - Current Meds Current Meds: Current Medications Generic Name Dose Route Start Last Admin Trade Name Freq PRN Reason Stop Dose Admin Acetaminophen 650 mg 12/24/22 17:26 12/27/22 12:51 Acetaminophen 325 Mg Tablet PO 650 mg Q4HR PRN Administration Pain 1 to 4, or Fever Albuterol/Ipratropium 3 ml 12/24/22 18:45 12/26/22 20:59 Ipratropium/Albuterol 3 Ml Neb INH 3 ml RTQID PRN Administration Shortness of Air/Wheezing Azithromycin 250 mg 12/25/22 09:00 12/27/22 08:04 Azithromycin 250 Mg Tablet PO 12/28/22 09:01 250 mg DAILY VITO Administration Enoxaparin Sodium 40 mg 12/25/22 09:00 12/27/22 08:05 Enoxaparin 40 Mg/0.4 Ml Syringe SUBQ 40 mg DAILY VITO Administration Ferrous Gluconate 324 mg 12/26/22 17:00 12/27/22 08:04 Ferrous Gluconate 324 Mg Tablet PO 324 mg DAILYWM VITO Administration Folic Acid 1 mg 12/25/22 09:00 12/27/22 08:04 Folic Acid 1 Mg Tablet PO 1 mg DAILY VITO Administration Guaifenesin 600 mg 12/24/22 21:00 12/27/22 08:04 Guaifenesin 600 Mg Tablet PO 600 mg BID VITO Administration Sodium Chloride 1,000 mls @ 83.333 mls/hr 12/25/22 18:00 12/27/22 16:20 Normal Saline 0.9% IV 83.333 mls/hr .Q12H VITO Administration Nystatin 1 applic 12/25/22 21:00 12/27/22 08:06 Nystatin Cream 15 Gm Tube TOP 1 applic BID VITO Administration Multivit/Folic Acid/Iron 1 tab 12/24/22 19:00 12/27/22 08:04 Vitamin Tablet PO 1 tab DAILYWM VITO Administration Sodium Chloride 10 ml 12/24/22 17:26 12/25/22 18:37 Sodium Chloride Flush 0.9% 10 Ml Syringe IVP 10 ml PRN PRN Administration NEEDED PER PROVIDER ORDERS Sodium Chloride 10 ml 12/25/22 01:00 12/27/22 16:41 Sodium Chloride Flush 0.9% 10 Ml Syringe IVP Not Given 0100,0900,1700 VITO Thiamine HCl 100 mg 02/05/23 09:00 12/27/22 08:04 Thiamine 100 Mg Tablet PO 100 mg DAILY VITO Administration - Lab Result Fish Bone Diagrams: 12/28/22 05:18 12/28/22 05:18 - Additional Planning My Orders: My Active Orders 12/27/22 Home Health Referral [CONS] Routine 12/27/22 08:35 Vital Signs - Orthostatic [RC] QSHIFT 12/27/22 17:43 Chest 1 View X-Ray [XR] Stat 12/27/22 18:00 BMP - BASIC METABOLIC PANEL [CHEM] Timed BNP - B-NATRIURETIC PEPTIDE [IAI] Urgent Subjective - Subjective Patient Reports: Cough, Shortness of Breath (He is grunting and breathing with pursed lips, as he is having a bowel movement on his bedpan, in bed) Objective Vital Signs: Vital Signs - 24 hr 12/26/22 12/26/22 12/27/22 21:01 23:33 08:02 Temperature 36.9 C 37.1 C Heart Rate 77 Heart Rate [ 73 75 Brachial] Respiratory 20 18 18 Rate Blood Pressure 115/55 L 119/65 [Right Brachial artery] O2 Saturation 94 94 12/27/22 15:39 Temperature 36.6 C Heart Rate Heart Rate [ 87 Brachial] Respiratory 22 Rate Blood Pressure 117/66 [Right Brachial artery] O2 Saturation 97 Oxygen O2 Source Room air I&O (Last 24 Hrs): Intake and Output Totals x24h 12/25/22 12/26/22 12/27/22 23:59 23:59 23:59 Intake Total 5795.719 9531.438 2664.159 Output Total 700 825 225 Balance 0433.825 3608.438 2439.159 General: Alert, Oriented x3, Other (Thin male, appears older than age, coughing, wet cough) HEENT: Mucous membr. moist/pink Neck: Supple Neuro: Alert, Non Focal Cardiovascular: No murmurs Respiratory: Wheezes, Rhonchi, Other (increased AP diameter) Abdomen: Normal bowel sounds, Soft Extremities: No clubbing, Other (Shins are wrapped, probable 1+ edema under that) - Results Results: Laboratory Results WBC 8.4 x10^3/uL (4.8-10.8) 12/27/22 04:38 RBC 3.23 10^6/uL (4.70-6.10) L 12/27/22 04:38 Hgb 9.4 g/dL (14.0-18.0) L 12/27/22 04:38 Hct 27.6 % (42.0-52.0) L 12/27/22 04:38 MCV 85.4 fL (80.0-94.0) 12/27/22 04:38 MCH 29.1 pg (27.0-31.0) 12/27/22 04:38 MCHC 34.1 g/dL (32.0-36.0) 12/27/22 04:38 RDW 14.1 % (12.0-15.0) 12/27/22 04:38 Plt Count 280 10^3/uL (130-450) 12/27/22 04:38 MPV 8.5 fL (7.4-11.4) 12/27/22 04:38 Reticulocyte % (Auto) 1.93 % (0.5-2.3) 12/26/22 08:55 Neut # (Auto) 6.5 10^3/uL (1.5-6.6) 12/27/22 04:38 Lymph # (Auto) 0.7 10^3/uL (1.5-3.5) L 12/27/22 04:38 [place] # (Auto) 1.1 10^3/uL (0.0-1.0) H 12/27/22 04:38 Eos # (Auto) 0.1 10^3/uL (0.0-0.7) 12/27/22 04:38 Baso # (Auto) 0.0 10^3/uL (0.0-0.1) 12/27/22 04:38 Absolute Nucleated RBC 0.00 x10^3/uL 12/27/22 04:38 Nucleated RBC % 0.0 /100WBC 12/27/22 04:38 Absolute Retic 0.065 10^6/uL (0.020-0.110) 12/26/22 08:55 Sodium 127 mmol/L (135-145) L 12/27/22 04:38 Potassium 3.6 mmol/L (3.5-5.0) 12/27/22 04:38 Chloride 94 mmol/L (101-111) L 12/27/22 04:38 Carbon Dioxide 22 mmol/L (21-32) 12/27/22 04:38 Anion Gap 11.0 (6-13) 12/27/22 04:38 BUN 8 mg/dL (6-20) 12/27/22 04:38 Creatinine 0.8 mg/dL (0.6-1.2) 12/27/22 04:38 Estimated GFR (MDRD) 94 (>89) 12/27/22 04:38 Glucose 92 mg/dL (70-100) 12/27/22 04:38 Lactic Acid 1.2 mmol/L (0.5-2.2) 12/24/22 16:52 Calcium 8.3 mg/dL (8.5-10.3) L 12/27/22 04:38 Magnesium 1.6 mg/dL (1.7-2.8) L 12/24/22 16:52 Iron 33 ug/dL (45-182) L 12/26/22 08:55 TIBC 218 ug/dL (250-450) L 12/26/22 08:55 % Saturation 15 % (20-50) L 12/26/22 08:55 Transferrin 156 mg/dL (180-329) L 12/26/22 08:55 Ferritin 79.5 ng/mL (23.9-336.2) 12/26/22 05:44 Total Bilirubin 1.1 mg/dL (0.2-1.0) H 12/24/22 16:52 AST 64 IU/L (10-42) H 12/24/22 16:52 ALT 49 IU/L (10-60) 12/24/22 16:52 Alkaline Phosphatase 158 IU/L (42-121) H 12/24/22 16:52 Lactate Dehydrogenase 118 IU/L (91-225) 12/26/22 05:44 B-Natriuretic Peptide 56 pg/mL (5-100) 12/24/22 16:52 Total Protein 6.7 g/dL (6.7-8.2) 12/24/22 16:52 Albumin 3.4 g/dL (3.2-5.5) 12/24/22 16:52 Globulin 3.3 g/dL (2.1-4.2) 12/24/22 16:52 Albumin/Globulin Ratio 1.0 (1.0-2.2) 12/24/22 16:52 Lipase 32 U/L (22-51) 12/24/22 16:52 Vitamin B12 590 pg/mL (180-914) 12/26/22 05:44 TSH 3.29 uIU/mL (0.34-5.60) 12/24/22 16:52 Urine Sodium 13.0 mmol/L 12/24/22 17:58 Nasal Adenovirus (PCR) NOT DETECTED 12/24/22 17:04 Nasal B. parapertussis DNA (PCR) NOT DETECTED 12/24/22 17:04 Nasal Coronavir 229E PCR NOT DETECTED 12/24/22 17:04 Nasal Coronavir HKU1 PCR NOT DETECTED 12/24/22 17:04 Nasal Coronavir NL63 PCR NOT DETECTED 12/24/22 17:04 Nasal Coronavir OC43 PCR NOT DETECTED 12/24/22 17:04 Nasal Enterovir/Rhinovir PCR DETECTED A 12/24/22 17:04 Nasal Influenza B PCR NOT DETECTED 12/24/22 17:04 Nasal Influenza A PCR NOT DETECTED 12/24/22 17:04 Nasal Parainfluen 1 PCR NOT DETECTED 12/24/22 17:04 Nasal Parainfluen 2 PCR NOT DETECTED 12/24/22 17:04 Nasal Parainfluen 3 PCR NOT DETECTED 12/24/22 17:04 Nasal Parainfluen 4 PCR NOT DETECTED 12/24/22 17:04 Nasal RSV (PCR) NOT DETECTED 12/24/22 17:04 Nasal B.pertussis DNA PCR NOT DETECTED 12/24/22 17:04 Nasal C.pneumoniae (PCR) NOT DETECTED 12/24/22 17:04 Edouard Human Metapneumo PCR NOT DETECTED 12/24/22 17:04 Nasal M.pneumoniae (PCR) NOT DETECTED 12/24/22 17:04 Nasal SARS-CoV-2 (PCR) NOT DETECTED 12/24/22 17:04 Ethyl Alcohol 11.1 mg/dL 12/24/22 16:52 - Procedures Procedures: Procedures INSERTION OF INFUSION DEV INTO SUP VENA CAVA, PERC APPROACH (04/27/22) Sepsis Event Note (H) - Evaluation Current Stage of Sepsis: Ruled out
[2022-12-27 18:33] LABS: BASOPHILS # (AUTO) 0.1 10^3/uL (0.0-0.1); BASOPHILS % (AUTO) 0.4 %; EOSINOPHILS # (AUTO) 0.2 10^3/uL (0.0-0.7); EOSINOPHILS % (AUTO) 1.7 %; HCT - HEMATOCRIT 30.4 % (42.0-52.0); HGB - HEMOGLOBIN 10.3 g/dL (14.0-18.0); LYMPHOCYTES # (AUTO) 0.6 10^3/uL (1.5-3.5); MEAN CORPUSCULAR HEMOGLOBIN 29.5 pg (27.0-31.0); MEAN CORPUSCULAR HGB CONC 33.9 g/dL (32.0-36.0); MEAN CORPUSCULAR VOLUME 87.1 fL (80.0-94.0); MEAN PLATELET VOLUME 8.2 fL (7.4-11.4); MONOCYTES # (AUTO) 1.6 10^3/uL (0.0-1.0); MONOCYTES % (AUTO) 13.7 %; NEUTROPHILS # (AUTO) 9.4 10^3/uL (1.5-6.6); NEUTROPHILS % (AUTO) 78.5 %; PLT - PLATELET COUNT 260 10^3/uL (130-450); RED BLOOD COUNT 3.49 10^6/uL (4.70-6.10); RED CELL DISTRIBUTION WIDTH 14.3 % (12.0-15.0)
--- NOTE | 2022-12-27 18:36 | XRAY Report ---
PROCEDURE: Chest 1 View X-Ray INDICATIONS: Cough, sputum, short of breath at rest TECHNIQUE: One view of the chest was acquired. COMPARISON: 02/21/2023, 09/25/2022, 09/21/2022 FINDINGS: Surgical changes and devices: None. Lungs and pleura: There is mild blunting of the right costophrenic angle. Pneumothorax is seen. Stre aky opacities can be seen at the lung bases. Low lung volumes can be seen, causing a crowded appear ance to the lung markings. Mediastinum: The aorta is prominent and tortuous. The cardiac contours are within normal limits. Bones and chest wall: No suspicious bony lesions. Remote right posterior rib fractures are seen. Age -appropriate degenerative changes are seen. Overlying soft tissues appear unremarkable. IMPRESSION: Mild blunting of the right costophrenic angle can be seen. Differential diagnosis includes mild pleur al effusion versus atelectasis. Apparent atelectasis can be seen elsewhere the lung bases. Additional findings: Remote right posterior rib fractures Reviewed by: Usama Ingram MD on 12/27/2022 5:35 PM AKST Approved by: Usama Ingram MD on 12/27/2022 5:35 PM AKST Station ID: [id number]
[2022-12-27 18:41] LABS: SLIDE REVIEW? Indicated
[2022-12-27 18:43] LABS: CALCIUM 8.2 mg/dL (8.5-10.3); POTASSIUM 3.7 mmol/L (3.5-5.0)
[2022-12-27 19:03] LABS: PLATELET ESTIMATE, MANUAL NORMAL (130-450,000) (NORMAL); PLATELET MORPHOLOGY NORMAL APPEARANCE (NORMAL); RBC MORPHOLOGY (MULTIPLE) NORMAL APPEARANCE (NORMAL)
[2022-12-27 19:04] LABS: DIFFERENTIAL COMMENT MANUAL=AUTO DIFF
[2022-12-28] MEDS: SODIUM CHLORIDE 0.9% 1,000 ML IV SCH (03:40)
[2022-12-28] MEDS: SODIUM CHLORIDE FLUSH 0.9% 10 ML SYRINGE IVP SCH ×2 (03:40→12:57)
[2022-12-28 05:28] LABS: BASOPHILS % (AUTO) 0.4 %; EOSINOPHILS % (AUTO) 2.6 %; HCT - HEMATOCRIT 29.8 % (42.0-52.0); LYMPHOCYTES % (AUTO) 7.4 %; MEAN CORPUSCULAR HEMOGLOBIN 29.2 pg (27.0-31.0); MEAN CORPUSCULAR HGB CONC 33.6 g/dL (32.0-36.0); MEAN CORPUSCULAR VOLUME 87.1 fL (80.0-94.0); MEAN PLATELET VOLUME 8.4 fL (7.4-11.4); MONOCYTES % (AUTO) 16.2 %; NEUTROPHILS % (AUTO) 72.7 %; PLT - PLATELET COUNT 276 10^3/uL (130-450); RED BLOOD COUNT 3.42 10^6/uL (4.70-6.10); RED CELL DISTRIBUTION WIDTH 14.2 % (12.0-15.0); WHITE BLOOD COUNT 9.7 x10^3/uL (4.8-10.8)
[2022-12-28 05:32] LABS: ABNORMAL LYMPHS % (MANUAL) 0 %
[2022-12-28 05:40] LABS: CALCIUM 8.4 mg/dL (8.5-10.3); CREATININE 0.7 mg/dL (0.6-1.2); POTASSIUM 3.4 mmol/L (3.5-5.0)
[2022-12-28 06:00] LABS: BAND NEUTROPHILS % (MANUAL) 1 %; EOSINOPHILS # (MANUAL) 0.2 10^3/uL (0-0.7); LYMPHOCYTES # (MANUAL) 0.9 10^3/uL (1.5-3.5); LYMPHOCYTES % (MANUAL) 9 %; MYELOCYTES % (MANUAL) 1 %; NEUTROPHILS # (MANUAL) 7.6 10^3/uL (1.5-6.6)
[2022-12-28 06:01] LABS: DIFFERENTIAL COMMENT MANUAL DIFFERENTIAL; PLATELET ESTIMATE, MANUAL NORMAL (130-450,000) (NORMAL); PLATELET MORPHOLOGY NORMAL APPEARANCE (NORMAL); RBC MORPHOLOGY (MULTIPLE) NORMAL APPEARANCE (NORMAL); WBC MORPHOLOGY (MULTIPLE) NORMAL APPEARANCE (NORMAL)
[2022-12-28] MEDS: AZITHROMYCIN 250 MG TABLET PO SCH (07:42)
[2022-12-28] MEDS: FERROUS GLUCONATE 324 MG TABLET PO SCH (07:42)
[2022-12-28] MEDS: guaiFENesin 600 MG TABLET PO SCH (07:42)
[2022-12-28] MEDS: FOLIC ACID 1 MG TABLET PO SCH (07:42)
[2022-12-28] MEDS: PRENATAL VITAMIN TABLET PO SCH (07:43)
[2022-12-28] MEDS: THIAMINE 100 MG TABLET PO SCH (07:43)
[2022-12-28] MEDS: ENOXAPARIN 40 MG/0.4 ML SYRINGE SUBQ SCH (07:44)
[2022-12-28] MEDS: NYSTATIN CREAM 15 GM TUBE TOP SCH (07:45)
--- NOTE | 2022-12-28 11:30 | Discharge Plan ---
Discharge Plan Problem Reviewed?: Yes Disposition: Home Health Service Condition: Fair Prescriptions: Ferrous Gluconate [Fergon] 324 mg PO DAILY #30 tab Furosemide [Lasix] 20 mg PO DAILY #30 tab Albuterol Sulfate [Proair Digihaler] 90 mcg IH QID PRN #1 each PRN Reason: Shortness Of Air/Wheezing Multivitamin [Theragran] 1 each PO DAILY #30 tablet Thiamine [Vitamin B-1] 100 mg PO DAILY #30 tab Diet: Regular Activity Restrictions: Activity as Tolerated Shower Restrictions: No Weight Bearing: Toe Touch (Stand and pivot) Instruction Topics: Inhaler Metered Dose Dc Health Concerns: You were hospitalized because you were confused and over-sedated. We found the reason to be a dangerously low serum sodium level and you were dehydrated. What led up to this is your Lasix medication and your drinking of 6-12 beers per day. You must stop taking in that much alcohol daily. You are being discharged home and an order has been submitted for a Home Health agency to come and help you with bathing, and to do blood pressure checks by RN and to have your wounds checked. We also found you to have iron-deficiency anemia and COPD (emphysema). Several new medications have been prescribed for you (Iron supplement, thiamine and multivitamin) and have been electronically sent to your pharmacy in [place]. You may resume your Lasix (Furosemide) to manage your leg swelling, but just take it once a day, not twice a day. You also need to be on inhalers which can help you when you are wheezing and coughing and short of breath. A new prescription for ProAir inhaler has been sent to your pharmacy in [place]. Please see your primary care provider in the next 1 to 3 weeks for hospital follow-up visit. Plan of Treatment: As above. Care Goals: Improvement in symptoms and stabilization are the goals. Assessment: This printout is provided to the patient as a reminder. Additional Instructions or Follow Up instructions: If you have new or worsening symptoms, call your PCP for advice, or come to the ER. Follow-Up Care: Home Health - RN No Smoking: If you smoke, Please STOP! Call for help. Follow-up with: Haley Balnkenship ARNP [Primary Care Provider] -
--- NOTE | 2022-12-28 11:41 | DISCHARGE SUMMARY ---
Discharge Summary Admit Date: 12/24/22 Discharge Date: 12/28/22 Discharging Provider: Dr Adore Collins Primary Care Provider: LIZET Blankenship Code Status: Attempt Resuscitation Condition at Discharge: Fair Discharge Disposition: [facility] Service - [facility] History of Present Illness: He is an elderly gentleman that was brought in by EMS because his family thought that he was more confused, and he was short of breath and wheezing. He was increasingly weak and not eating well. In the past medical history, he does have a history of alcohol abuse. He hit the emergency room at 37.110. Blood pressure 158/87. Respirations 17 and is 98% on room air. When the ER provider saw him he had some mild confusion on route but is alert oriented to person and place. He told the ER doctor that he was coughing but it was nonproductive. His chest felt tight. He felt some chills but no fever was documented. He had no vomiting or diarrhea. All of this been going on for about 3 days. No one else was sick in the family. He is already bed or wheelchair bound and he does stand for transfers. He has chronic leg ulcers and edema and is followed by the [facility] clinic. He gets dressing changes in both legs, and Jemma Nick most recently prescribed Bactrim on November 25 as well as Cipro on November 25. On physical exam the ER doctor found him to be afebrile, having good O2 sats. He was alert and oriented and just a little bit slow to answer. He had diffuse wheezing and prolonged and expiratory phase. His legs were wrapped from toes up to knees and they were just wrapped yesterday. Pertinent findings on his labs was a sodium of 108. BUN 10, creatinine 1.3. White cell count was normal. Hemoglobin had stable anemia at 11. Ethyl alcohol was 11.1. Lactic acid 1.2. He is PCR panel was positive for enterovirus and rhinovirus. In the emergency room he received a liter of normal saline, mag sulfate, DuoNeb, but no steroids. His chest x-ray had no acute cardiopulmonary abnormality. His EKG is sinus rhythm with lots of artifact. No acute ST-T wave changes. T waves did appear slightly peaked but only in the lateral leads. The case was discussed with the ER provider. We talked about possible alcoholism and cirrhosis as the cause of his hyponatremia. He does not appear to have water intoxication. He could be dehydrated because of a recent viral illness. In reviewing the chart, Patient was admitted last September for Strep bacteremia. He is followed at the [facility] wound care for chronic lymphedema and leg wounds,and had been seen in the clinic and then sent to the emergency room September 21, 2022 because he was feeling weak. He had normal labs with cellulitis on exam. He was given a dose of ceftriaxone and sent home on oral cefdinir. Blood cultures became positive on September 22 and the patient was asked to return.We found out once the final blood cultures came back that this was contaminant. He did not need to return to be treated for strep bacteremia. In reevaluation he was COVID-positive but had no symptoms of COVID. Repeat blood cultures on his admission were negative. He is already had a previous history of strep bacteremia in April 2022. His wound cultures, over time, have grown out Pseudomonas resistant to cephalosporins, Neelima. He did have diarrhea with his antibiotics during that admission and it was C. difficile negative. With that admission, he did have hyponatremia. He had beer Poto chely in 2020. Treatment for the hyponatremia in September was normal saline at 60 cc an hour with free wa ter restriction. In 2020 he drank 12 beers a day, by April 2022 he said he was down to 6 beers a day. He had a sodium of 118 in March 2021. With September 2002 admission his low sodium was 126. By discharge it was 135. - HOSPITAL COURSE Hospital Course: 1. Hyponatremia This is in a patient to drinks beer at 6-12 beers a day. He also takes Lasix 20 mg twice daily for leg edema. He first got hypertonic saline iv, then with a sodium of 123 and a lot of his confusion clearing, he was changed to normal saline. Serum sodium level improved slowly as planned and on the day of discharge his sodium was 127. He was advised to stop drinking 6-12 beers a day and to decrease his Lasix from BID to once daily. 2. Orthostatic hypotension When his confusion cleared, we ordered orthostatric VS checks which were abn ormal: BP supine 138, with HR 89. BP sitting 142, with HR 97. BP standing 116, with HR 116. Thus he remained 1 additional day to get more iv saline. On the day of discharge there was no orthostasis 3. COPD with exacerbation. He was wheezing and tachypneic on the day of admission. CXR showed no infiltrate. He was on no COPD meds before this admission. Here he received Solu- Medrol (3 doses) and DuoNebs. He completed a course of empiric Azithromycin, and was put on Mucinex. At discharge, he was prescribed ProAir rescue inhaler and more Mucinex was ordered. 4. Alcohol abuse. He gives conflicting stories depending on who he speaks to. He told case management that he does not drink at all. He shared with Hospitalist that he does drink up to 12 beers a day. He told social work that he never drinks more than a six pack a day. We think he gets beer potomania. There was no evidence of withdrawal, monitored on a [facility] protocol. He was discharged with new multivitamin and Thiamine, to take daily. Abstinence was advised. 5. Lymphedema He has mild edema and chronic venous stasis changes. His lower legs are wrapped bilaterally. He gets home health for wound care, and also periodically goes to the [facility] clinic. Home Health was renewed for after discharge. He was also advised to decrease Lasix fron BID to daily, due to recurrent Hyponatremia severe enough to require hospitalization. 6. Wheelchair-bound. No PT or OT were ordered. 7. Chronic anemia. His laboratory studies indicate he has iron deficiency anemia. He was started on daily oral Iron tabs. A stool guaiac test was ordered but he had no BM to test. 8. Hypomagnesemia Resolved with replacement - ALLERGIES Allergies/Adverse Reactions: Allergies Allergy/AdvReac Type Severity Reaction Status Date / Time No Known Drug Allergies Allergy Verified 09/21/22 08:04 - MEDICATIONS Home Medications: Ambulatory Orders Medication Instructions Recorded Confirmed Albuterol Sulfate [Proair 90 mcg IH QID PRN #1 each 12/28/22 Digihaler] Ferrous Gluconate [Fergon] 324 mg PO DAILY #30 tab 12/28/22 Furosemide [Lasix] 20 mg PO DAILY #30 tab 12/28/22 Multivitamin [Theragran] 1 each PO DAILY #30 tablet 12/28/22 Nystatin Cream [Mycostatin Cream] 1 applic TOP BID each 12/28/22 Thiamine [Vitamin B-1] 100 mg PO DAILY #30 tab 12/28/22 guaiFENesin [Mucinex] 600 mg PO BID #28 tablet 12/28/22 - PHYSICAL EXAM AT DISCHARGE General Appearance: positive: No acute distress, Alert Eyes Bilateral: positive: Normal inspection, No lid inflammation ENT: positive: No signs of dehydration Neck: positive: Nml inspection, No JVD Respiratory: positive: No respiratory distress, Wheezes, Rhonchi, Other (Increased AP diameter) Cardiovascular: positive: Regular rate & rhythm, No murmur Abdomen: positive: Non-tender, No distention Skin: positive: Warm, Dry Extremities: positive: Other (1+ edema to the mid shins, venous stasis changes, both lower legs are wrapped to the mid shins) Neurologic/Psychiatric: positive: Oriented x3 - LABS Result Diagrams: 12/28/22 05:18 12/28/22 05:18 - DIAGNOSTIC IMAGING Diagnostic Imaging Results: Final report reviewed - SEPSIS Current Stage of Sepsis: Ruled out - FOLLOW UP Follow Up: See PCP in the next 1-3 weeks for hospital follow-up visit. - TIME SPENT Time Spent in Discharge (Minutes): 40
[2022-12-28 13:49] VITALS: BP 152/76
[2022-12-28] MEDS: ACETAMINOPHEN 325 MG TABLET PO PRN (16:56)
== END 2022-12-28 18:22 | disposition home health service (06) | DRG 641 ==
LOC: EDUNIT# → ED 16:26 → MS2 17:26
PROVIDERS: ADMIT Specialist; ATTEND Internal Medicine
DX: E87.1 Hypo-osmolality and hyponatremia (principal); L97.919 Non-pressure chronic ulcer of unspecified part of right lower leg with unspecified severity; J06.9 Acute upper respiratory infection, unspecified; L97.929 Non-pressure chronic ulcer of unspecified part of left lower leg with unspecified severity; R60.0 Localized edema; Z20.822 Contact with and (suspected) exposure to COVID-19; E86.0 Dehydration; J44.9 Chronic obstructive pulmonary disease, unspecified; F10.10 Alcohol abuse, uncomplicated; Y90.0 Blood alcohol level of less than 20 mg/100 ml; B34.1 Enterovirus infection, unspecified; B34.8 Other viral infections of unspecified site; I89.0 Lymphedema, not elsewhere classified; Z99.3 Dependence on wheelchair; E83.42 Hypomagnesemia; R41.0 Disorientation, unspecified; I83.009 Varicose veins of unspecified lower extremity with ulcer of unspecified site; Z87.891 Personal history of nicotine dependence; R21 Rash and other nonspecific skin eruption; R53.1 Weakness; I87.2 Venous insufficiency (chronic) (peripheral); G89.29 Other chronic pain; Z74.01 Bed confinement status; D50.9 Iron deficiency anemia, unspecified; I95.1 Orthostatic hypotension; T50.1X5A Adverse effect of loop [high-ceiling] diuretics, initial encounter; J43.9 Emphysema, unspecified
CPT/HCPCS: 36415; 71045; 80048; 80053; 82607; 82728; 83540; 83605; 83615; 83690; 83735; 83880; 84300; 84443; 84466; 85025; 85045; 87633; 93005; 94640; 99285; A9270; G0480; J1650; 80320

== ENCOUNTER 2024-04-13 12:12 | Outpatient (CLI) | payer OTHER | END 2024-04-13 12:13 | LOC: EMS 12:12 | PROVIDERS: ATTEND Family Medicine | DX: Z51.5 Encounter for palliative care (principal); R41.0 Disorientation, unspecified; J44.9 Chronic obstructive pulmonary disease, unspecified | CPT/HCPCS: A0425; A0428 ==

== ENCOUNTER 2024-04-18 10:09 | Outpatient (CLI) | payer OTHER | END 2024-04-18 23:59 | disposition hospice, home (50) | LOC: EMS 10:09 | PROVIDERS: ATTEND Family Medicine | DX: Z51.5 Encounter for palliative care (principal); J44.9 Chronic obstructive pulmonary disease, unspecified; E46 Unspecified protein-calorie malnutrition; Z74.01 Bed confinement status | CPT/HCPCS: A0425; A0428 ==